=== PATIENT | male | born 1985 | race Caucasian/White ===

== ENCOUNTER 2021-03-11 23:36 | Emergency (ER) | payer OTHER, SELFPAY ==
[2021-03-12 00:16] VITALS: BP 154/102; PULSE 81; RESP 20; TEMP 37.3; O2SAT 98; BMI 33.4
[2021-03-12 01:46] VITALS: BP 161/98; PULSE 78; TEMP 36.4; O2SAT 99
--- NOTE | 2021-03-12 03:45 | ED_ITS ---
HPI - General Adult General Chief complaint: Headache Stated complaint: migraines Time Seen by Provider: 03/12/21 03:27 Source: patient Mode of arrival: ambulatory Limitations: no limitations History of Present Illness HPI narrative: 35-year-old male who presents emergency department for evaluation of left-sided headache. The patient states that he gets headaches frequently. He states that he has a history of migraine headaches as well as sinus headaches secondary to sinus infections. He states that over the past 2 weeks he has had rhinorrhea and pain on the left side of his face. He states that over the past 3 days the left-sided facial pain is gotten significantly worse and is 8/10. He describes the pain is a pressure-like pain and a pain behind his left eye as if someone is not taking his eye out with a knife. He does have photophobia and blurred vision. He denies phonophobia. He has had nausea with no vomiting. Patient states that he has been treated in the past with antibiotics with some improvement of his sinus infections. He denied fever, chills, chest pain, shortness of breath, abdominal pain, numbness or weakness. Related Data Home Medications Medication Instructions Recorded Confirmed pantoprazole 40 mg tablet,delayed 1 tab PO DAILY 03/12/21 03/12/21 release Previous Rx's Medication Instructions Recorded cefpodoxime 200 mg tablet 200 mg PO BID 10 Days #20 tab 03/12/21 metoclopramide HCl 10 mg tablet 10 mg PO Q6H PRN #14 tab 03/12/21 (Reglan) Allergies Allergy/AdvReac Type Severity Reaction Status Date / Time amoxicillin [AMOXICILLIN] Allergy Unknown HIVES Unverified 02/22/20 16:26 Amoxicillin Allergy Unknown hives Uncoded 06/22/12 00:00 Review of Systems Review of Systems: Yes all other systems are reviewed and are negative [facility] Past Medical History [facility] Narrative: Past medical history: Hypertension, asthma, GI bleed, hiatal hernia, arthritis in the back, migraine syndrome, sinusitis. Past surgical history: Hiatal hernia repair x2. Social history: The patient is a former smoker, he has quit smoking in 2013, he believes he smoked for 4 years. He denies alcohol use. He denies drug use. Social History Social History Alcohol intake: unknown Patient Tobacco Use Status: Tobacco use Unknown Use of substances other than those prescribed or required for medical reasons: Unknown Advance Directives: No Advance Directives Information Provided: Yes Physical Exam Vital Signs: Vital Signs: Last Vital Signs Temp 97.6 F 03/12/21 01:46 Pulse 78 03/12/21 01:46 Resp 20 03/12/21 00:16 BP 161/98 H 03/12/21 01:46 Pulse Ox 99 03/12/21 01:46 Body Mass Index 33.4 Const: General: cooperative and no acute distress Orientation/c onsciousness: oriented to person and oriented to place Limitations: no limitations HENMT: Head: Yes normal to inspection, Yes normocephalic and Yes atraumatic Ears: external ears normal General nose exam: Normal external nose present Face and sinus: Yes sinus tenderness (Left frontal and left maxillary) Mouth: Normal oral and palatal mucosa present Throat: Yes posterior oropharynx normal Eyes: General: appearance normal, both eyes and all related structures Pupils: Equal, round and reactive pupils present Neck: Neck: Yes normal visual inspection, Yes no lymphadenopathy, Yes trachea midline and Yes supple Chest: Chest palpation & inspection: normal inspection of the chest and normal palpation of entire chest wall Resp: Effort & Inspection: normal respiratory effort and able to speak in complete sentences Auscultation: clear to auscultation bilaterally Cardio: Rate: regular rate Rhythm: regular rhythm Heart sounds: S1 normal heart sound present, S2 normal heart sound present and no murmurs GI: Inspection: Yes normal to inspection Palpation (GI): Soft to palpation, nontender and no guarding Auscultation: normal bowel sounds : General: Yes no CVA tenderness Back/Spine/Pelvis: Back: no CVA tenderness Skin: General skin exam: no rashes or lesions noted Neuro: General: oriented to person and oriented to place Cranial nerves: Yes CN's II-XII intact bilaterally and Yes Equal, round and reactive pupils present Cognition (Neuro): normal cognition Motor exam (neuro): 5/5 motor strength present throughout Extrem: General: Yes normal to inspection Psych: Appearance: grossly normal Speech and movement: Normal speech and movement present Affect: normal affect Attitude: cooperative Thought process: Normal thought process present Thought content: Normal thought content present Course Course Course Narrative: 35-year-old male who presents emergency department for evaluation of left-sided headache times 2 weeks with worsening symptoms x3 days. Patient does have a history of frequent sinus infections and migraine syndrome. Vital signs revealed an elevated blood pressure of 154/1 of 2 otherwise unremarkable. Patient's examination did reveal tenderness palpation of the maxillary and frontal sinuses on the left otherwise was unremarkable. This time I believe the patient has both acute left frontal and maxillary sinus nfection as well as exacerbation of his migraine syndrome. Patient's headache pain will be treated with Reglan 10 mg IV, Benadryl 50 mg IV and Toradol 30 mg IV. He is also ordered to get normal saline IV x1 L. 0414: The patient changes mind and does not want IV treatment and rather take pills at home. The patient will be started on the following migraine regimen: Reglan 10 mg orally, Benadryl 50 mg orally and Excedrin migraine 2 pills orally every 6 hours as needed for headache. His sinus infection will also be treated with cefpodoxime 200 mg twice a day for 10 days . The patient was discharged home. Discharge Plan Discharge Clinical Impression: Migraine Qualifiers: Migraine type: without aura Status migrainosus presence: without status mi grainosus Intractability: not intractable Qualified Code(s): G43.009 - Migraine without aura, not intractable, without status migrainosus Sinusitis Qualifiers: Sinusitis location: maxillary Chronicity: acute Recurrence: non-recurrent Qu alified Code(s): J01.00 - Acute maxillary sinusitis, unspecified Patient Disposition: Home, Self-Care Additional Instructions: Your examination is consistent with a left frontal and maxillary sinus infection (sinusitis). I also believe that your having a migraine headache possibly triggered by your sinus infection. I want you to take the following 3 medications together every 6 hours as needed for headache, nausea or vomiting. Reglan (metoclopramide) in 10 mg, 1 pill Benadryl 25 mg, 2 pills Excedrin migraine, 2 pills. After you take these medications, lie down in a dark quiet room and try to fall asleep. These medications will make you sleepy, do not drive or work after taking these medications. Four year sinus infection I want you to take cefpodoxime 200 mg pills, 1 pill every 12 hours (take with food) for 10 days. Follow-up with your doctor in 2 days. Please return to the emergency department if your symptoms get worse or if you develop any symptoms that are concerning to you. Prescriptions: New metoclopramide HCl [Reglan] 10 mg tablet 10 mg PO Q6H PRN (Reason: nausea and vomiting) Qty: 14 RF: 0 cefpodoxime 200 mg tablet 200 mg PO BID 10 Days Qty: 20 RF: 0 No Action pantoprazole 40 mg tablet,delayed release (DR/EC) 1 tab PO DAILY RF: 0
[2021-03-12 04:00] VITALS: BP 157/64; PULSE 78; RESP 20; TEMP 36.4; O2SAT 99
== END 2021-03-12 04:35 | disposition home or self-care (01) ==
PROVIDERS: Emergency Provider Emergency Medicine Emergency Medical Services
DX: G43.009 Migraine without aura, not intractable, without status migrainosus (principal); J01.00 Acute maxillary sinusitis, unspecified; I10 Essential (primary) hypertension; J45.909 Unspecified asthma, uncomplicated
CPT/HCPCS: 99284

== ENCOUNTER 2021-06-11 22:42 | Inpatient (IN) | payer OTHER, SELFPAY ==
--- NOTE | 2021-06-11 | ECG_ITS ---
Test Reason : DIZZINESS Blood Pressure : / mmHG Vent. Rate : 107 BPM Atrial Rate : 107 BPM P-R Int : 124 ms QRS Dur : 086 ms QT Int : 326 ms P-R-T Axes : 057 068 063 degrees QTc Int : 435 ms Sinus tachycardia Otherwise normal ECG No previous ECGs available Referred By: Generic ED Physician Electronically Signed By:THI MUÑOZ MD
--- NOTE | ~2021-06-11 | CT_ITS ---
EXAMINATION: CT ABDOMEN AND PELVIS WITHOUT AND WITH CONTRAST [CT GI bleeding study] CLINICAL INFORMATION: Hematemesis. Melanoma. Epigastric abdominal discomfort. COMPARISON: None. TECHNIQUE: Multidetector volumetric imaging was performed from the superior aspect of the liver through the pubic symphysis before and after the administration of 85mL Omnipaque 350 intravenous contrast. Postcontrast images were acquired utilizing split bolus technique during the nephrographic and urographic phases. Sagittal and coronal reformatted images were obtained on the technologist workstation. This CT examination was performed using dose optimization techniques as appropriate, variously including the following: *Automated exposure control *Adjustment of mA and/or kV according to patient size (this includes techniques or standardized protocols for targeted exams where dose is matched to indication/reason for exam; i.e. extremities or head) *Use of iterative reconstruction technique DLP: 1527 mGy-cm FINDINGS: LUNG BASES: The visualized lung bases are unremarkable. LIVER, GALLBLADDER, AND BILIARY TREE: The liver is normal in size, shape, and attenuation. No focal hepatic lesion or biliary ductal dilatation is present. Cholelithiasis. PANCREAS: Unremarkable. SPLEEN: Unremarkable. ADRENAL GLANDS: Unremarkable. GENITOURINARY: The kidneys are normal in size, axis, morphology and parenchymal attenuation with symmetric uptake of contrast bilaterally. No suspicious renal cyst or mass. No hydronephrosis or hydroureter. Ureters are normal in course and caliber. Bladder is normal. No urinary calculi. No perinephric abnormalities. Prostate and seminal vesicles are unremarkable. GASTROINTESTINAL TRACT: Moderate hiatal hernia. Small and large bowel are unremarkable. Normal appendix. No sites of active gastrointestinal bleeding are identified. ABDOMINAL WALL: No significant hernia is appreciated. LYMPH NODES: Normal. VASCULAR: Unremarkable. OSSEOUS STRUCTURES: Unremarkable. CT/CT gi bleed abd pel wo/w con IMPRESSION: * No source of active gastrointestinal bleeding is identified. * Moderate hiatal hernia. This could be the source of the patient's symptoms as the gastric cardia appears to be enveloping the distal esophagus. * Cholelithiasis.
[2021-06-11 22:59] VITALS: BP 137/100; PULSE 121; RESP 22; TEMP 37.8; O2SAT 100; BMI 34.8
[2021-06-12] VITALS (11 sets, daily range): BP systolic 99–137; BP diastolic 62–88; PULSE 85–119; RESP 14–22; TEMP 36.8–37.9; O2SAT 97–100
[2021-06-12 01:02] LABS: MANUAL DIFF FLAG NO
[2021-06-12 01:03] LABS: Basophils Absolute Auto 0.1 X10*3/uL (0.0-0.2); Basophils Percent Auto 0.6 % (0-2); Eosinophils Absolute Auto 0.3 X10*3/uL (0.0-0.4); Hematocrit 33.1 % (42.0-52.0); Hemoglobin 10.4 g/dl (14.0-18.0); Imm Gran Abs Auto 0.05 X10*3/uL (0.00-0.03); Imm Gran Pct Auto 0.5 % (0.0-0.4); Lymphocytes Absolute Auto 1.8 X10*3/uL (1.2-4.9); Lymphocytes Percent Auto 17.4 % (20-40); Mean Corpuscular HGB Conc 31.4 g/dl (31.0-36.0); Mean Corpuscular Hemoglobin 25.2 pg (27.0-33.0); Mean Corpuscular Volume 80.1 fL (80.0-98.0); Mean Platelet Volume 9.5 fL (9.4-12.4); Monocytes Absolute Auto 0.5 X10*3/uL (0.1-1.2); Monocytes Percent Auto 4.9 % (2-11); Neutrophils Absolute Auto 7.6 x10*3/uL (2.0-8.3); Neutrophils Percent Auto 73.6 % (45-73); Platelet Count 460 X10*3/uL (160-400); Red Blood Count 4.13 X10*6/uL (4.60-5.80); Red Cell Distribution Width 14.5 % (11.0-16.0); White Blood Count 10.4 X10*3/uL (4.8-10.8)
[2021-06-12 01:19] LABS: Alanine Aminotransferase 18 U/L (0-40); Albumin Level 4.3 g/dL (3.5-5.0); Alkaline Phosphatase 83 U/L (39-117); Anion Gap 11 (12-20); Aspartate Amino Transferase 15 U/L (5-37); Bilirubin Total 0.7 mg/dL (0.0-1.0); Blood Urea Nitrogen 36 mg/dL (9-16); Calcium 9.6 mg/dL (8.4-10.2); Carbon Dioxide 27 mmol/L (22-29); Chloride 108 mmol/L (96-108); Creatinine Clr Calc Pharmacy 125.7; Estimated Glomerular Filt Rate > 60; Glucose Random 110 mg/dL (60-115); Potassium 4.6 mmol/L (3.3-5.1); Sodium 141 mmol/L (135-145); Total Protein 7.5 g/dL (6.5-8.0)
[2021-06-12 01:20] LABS: COVID-19 Test Negative (Negative); IDNOW Serial# 9DD0AD1C
--- NOTE | 2021-06-12 02:12 | ED.GIBLEED ---
HPI - GI Bleed General Chief complaint: GI Bleed Stated complaint: vomiting blood Time Seen by Provider: 06/11/21 23:44 Source: patient Mode of arrival: ambulatory History of Present Illness HPI Narrative: 35-year-old male presents with history GI bleed and alcohol use with complaints of 3 days ?black diarrhea and then today began having episodes hematemesis with the last episode occurring with clots at approximately 7:00 p.m.. Patient endorses epigastric pain as well as feeling weak and dizzy. Patient has had both [employer] COVID-19 vaccines. Related Data Home Medications Medication Instructions Recorded Confirmed albuterol sulfate 90 mcg/actuation 1 puff PO QID PRN 06/12/21 06/12/21 aerosol inhaler (ProAir HFA) ibuprofen 800 mg tablet 1 tab PO TID 06/12/21 06/12/21 lisinopril 40 mg tablet 1 tab PO DAILY 06/12/21 06/12/21 tiotropium bromide 18 mcg capsule 1 cap INHALATION DAILY 06/12/21 06/12/21 with inhalation device (Spiriva with HandiHaler) Allergies Allergy/AdvReac Type Severity Reaction Status Date / Time amoxicillin [AMOXICILLIN] Allergy Unknown HIVES Verified 06/11/21 22:59 Amoxicillin Allergy Unknown hives Uncoded 06/11/21 22:59 Review of Systems Review of Systems: Pertinent positives and negatives as stated in HPI 10 point review of systems is otherwise negative. PMFSH Past Medical History Source: nursing notes reviewed Social History Social History Alcohol intake: unknown Patient Tobacco Use Status: Tobacco use Unknown Advance Directives: No Advance Directives Information Provided: Yes Physical Exam Vital Signs: Vital Signs: Last Vital Signs Temp 99.4 F 06/12/21 02:15 Pulse 106 H 06/12/21 02:15 Resp 22 H 06/12/21 02:15 BP 124/85 06/12/21 02:15 Pulse Ox 98 06/12/21 02:15 BMI result Body Mass Index 34.8 VITAL SIGNS: Reviewed. GENERAL: Well developed, well nourished, in no acute distress. HEAD: Normocephalic/atraumatic EYES: PERRLA, EOMI OROPHARYNX: no oral lesions noted, posterior pharynx clear NECK: Supple, no adenopathy LUNGS: Normal breath sounds. No adventitious sounds or accessory muscle use. SpO2<100> CARDIOVASCULAR: Regular rate and rhythm without noted murmurs, no JVD or lower extremity edema. ABDOMEN: Soft, epigastric pain, non-distended with bowel sounds. ADE: External exam is without acute findings, minimal stool in rectal vault that is not melanotic nor is it hematochezia, good rectal tone MUSCULOSKELETAL: No tenderness, deformities, or effusions noted on gross inspection. EXTREMITIES: No cyanosis, clubbing or edema. SKIN: Inspection of the skin reveals no rashes, but pale NEUROLOGIC: Alert and oriented x 4. Strength and sensation to light touch were grossly intact x 4. Course Course Course Narrative: 35-year-old male with history and clinical presentation consistent with symptomatic most likely upper GI bleed. 0400: Patient declines blood transfusion if needed and is aware that he can change his mind at any time. Review of all investigations significant for symptomatic anemia, patient has pictures demonstrating large clots that were vomited, and stool was guaiac positive. Patient is noted to be hemodynamically stable, COVID negative and the case was discussed briefly with the inpatient hospitalist. Patient is currently declining blood transfusion but will be admitted for upper GI bleed and has received 80mg Protonix as well as IV fluids. MDM - GI Bleed Lab Data Result diagrams: 06/12/21 00:57 06/12/21 00:57 Labs: Lab Results 06/12/21 06/12/21 06/12/21 Range/Units 00:57 00:57 00:57 WBC 10.4 (4.8-10.8) X10*3/uL RBC 4.13 L (4.60-5.80) X10*6/uL Hgb 10.4 L (14.0-18.0) g/dl Hct 33.1 L (42.0-52.0) % MCV 80.1 (80.0-98.0) fL MCH 25.2 L (27.0-33.0) pg MCHC 31.4 (31.0-36.0) g/dl RDW 14.5 (11.0-16.0) % Plt Count 460 H (160-400) X10*3/uL MPV 9.5 (9.4-12.4) fL Immature Gran % (Auto) 0.5 H (0.0-0.4) % Neut % (Auto) 73.6 H (45-73) % Lymph % (Auto) 17.4 L (20-40) % [place] % (Auto) 4.9 (2-11) % Eos % (Auto) 3.0 (0-4) % Baso % (Auto) 0.6 (0-2) % Lymph # (Auto) 1.8 (1.2-4.9) X10*3/uL [place] # (Auto) 0.5 (0.1-1.2) X10*3/uL Eos # (Auto) 0.3 (0.0-0.4) X10*3/uL Baso # (Auto) 0.1 (0.0-0.2) X10*3/uL Abs Immat Gran (auto) 0.05 H (0.00-0.03) X10*3/uL Absolute Neuts (auto) 7.6 (2.0-8.3) x10*3/uL Absolute Nucleated RBC 0.000 (0.0-0.012) X10*3/uL Nucleated RBC % (auto) 0.0 (0.0-0.2) /100WBC PT (9.9-13.0) SEC INR (0.9-1.1) Sodium 141 (135-145) mmol/L Potassium 4.6 (3.3-5.1) mmol/L Chloride 108 (96-108) mmol/L Carbon Dioxide 27 (22-29) mmol/L Anion Gap 11 L (12-20) BUN 36 H (9-16) mg/dL Creatinine 1.06 (0.5-1.4) mg/dL Estim Creat Clear Calc 125.7 Estimated GFR > 60 Random Glucose 110 (60-115) mg/dL Calcium 9.6 (8.4-10.2) mg/dL Total Bilirubin 0.7 (0.0-1.0) mg/dL AST 15 (5-37) U/L ALT 18 (0-40) U/L Alkaline Phosphatase 83 (39-117) U/L Total Protein 7.5 (6.5-8.0) g/dL Albumin 4.3 (3.5-5.0) g/dL Lipase 21 (8-78) U/L Urine Color Urine Appearance Urine pH (5.0-8.0) Ur Specific [place] (1.005-1.025) Urine Protein (NEG-TRACE) MG/DL Urine Glucose (UA) (NEG) MG/DL Urine Ketones (NEG) MG/DL Urine Blood (NEG) Urine Nitrite (NEG) Ur Leukocyte Esterase (NEG) Stool Occult Blood (NEGATIVE) Ethyl Alcohol mg/dL COVID-19 (MYA) Negative (Negative) COVID-19 Clin Com See Note Blood Type Antibody Screen 06/12/21 06/12/21 06/12/21 Range/Units 00:57 02:18 02:18 WBC (4.8-10.8) X10*3/uL RBC (4.60-5.80) X10*6/uL Hgb (14.0-18.0) g/dl Hct (42.0-52.0) % MCV (80.0-98.0) fL MCH (27.0-33.0) pg MCHC (31.0-36.0) g/dl RDW (11.0-16.0) % Plt Count (160-400) X10*3/uL MPV (9.4-12.4) fL Immature Gran % (Auto) (0.0-0.4) % Neut % (Auto) (45-73) % Lymph % (Auto) (20-40) % [place] % (Auto) (2-11) % Eos % (Auto) (0-4) % Baso % (Auto) (0-2) % Lymph # (Auto) (1.2-4.9) X10*3/uL [place] # (Auto) (0.1-1.2) X10*3/uL Eos # (Auto) (0.0-0.4) X10*3/uL Baso # (Auto) (0.0-0.2) X10*3/uL Abs Immat Gran (auto) (0.00-0.03) X10*3/uL Absolute Neuts (auto) (2.0-8.3) x10*3/uL Absolute Nucleated RBC (0.0-0.012) X10*3/uL Nucleated RBC % (auto) (0.0-0.2) /100WBC PT (9.9-13.0) SEC INR (0.9-1.1) Sodium (135-145) mmol/L Potassium (3.3-5.1) mmol/L Chloride (96-108) mmol/L Carbon Dioxide (22-29) mmol/L Anion Gap (12-20) BUN (9-16) mg/dL Creatinine (0.5-1.4) mg/dL Estim Creat Clear Calc Estimated GFR Random Glucose (60-115) mg/dL Calcium (8.4-10.2) mg/dL Total Bilirubin (0.0-1.0) mg/dL AST (5-37) U/L ALT (0-40) U/L Alkaline Phosphatase (39-117) U/L Total Protein (6.5-8.0) g/dL Albumin (3.5-5.0) g/dL Lipase (8-78) U/L Urine Color YELLOW Urine Appearance CLEAR Urine pH 6.0 (5.0-8.0) Ur Specific [place] 1.025 (1.005-1.025) Urine Protein NEG (NEG-TRACE) MG/DL Urine Glucose (UA) NEG (NEG) MG/DL Urine Ketones 15 (NEG) MG/DL Urine Blood NEG (NEG) Urine Nitrite NEG (NEG) Ur Leukocyte Esterase NEG (NEG) Stool Occult Blood POSITIVE (NEGATIVE) Ethyl Alcohol < 10 mg/dL COVID-19 (MYA) (Negative) COVID-19 Clin Com Blood Type Antibody Screen 06/12/21 06/12/21 Range/Units 02:24 02:24 WBC (4.8-10.8) X10*3/uL RBC (4.60-5.80) X10*6/uL Hgb (14.0-18.0) g/dl Hct (42.0-52.0) % MCV (80.0-98.0) fL MCH (27.0-33.0) pg MCHC (31.0-36.0) g/dl RDW (11.0-16.0) % Plt Count (160-400) X10*3/uL MPV (9.4-12.4) fL Immature Gran % (Auto) (0.0-0.4) % Neut % (Auto) (45-73) % Lymph % (Auto) (20-40) % [place] % (Auto) (2-11) % Eos % (Auto) (0-4) % Baso % (Auto) (0-2) % Lymph # (Auto) (1.2-4.9) X10*3/uL [place] # (Auto) (0.1-1.2) X10*3/uL Eos # (Auto) (0.0-0.4) X10*3/uL Baso # (Auto) (0.0-0.2) X10*3/uL Abs Immat Gran (auto) (0.00-0.03) X10*3/uL Absolute Neuts (auto) (2.0-8.3) x10*3/uL Absolute Nucleated RBC (0.0-0.012) X10*3/uL Nucleated RBC % (auto) (0.0-0.2) /100WBC PT 13.7 H (9.9-13.0) SEC INR 1.2 H (0.9-1.1) Sodium (135-145) mmol/L Potassium (3.3-5.1) mmol/L Chloride (96-108) mmol/L Carbon Dioxide (22-29) mmol/L Anion Gap (12-20) BUN (9-16) mg/dL Creatinine (0.5-1.4) mg/dL Estim Creat Clear Calc Estimated GFR Random Glucose (60-115) mg/dL Calcium (8.4-10.2) mg/dL Total Bilirubin (0.0-1.0) mg/dL AST (5-37) U/L ALT (0-40) U/L Alkaline Phosphatase (39-117) U/L Total Protein (6.5-8.0) g/dL Albumin (3.5-5.0) g/dL Lipase (8-78) U/L Urine Color Urine Appearance Urine pH (5.0-8.0) Ur Specific [place] (1.005-1.025) Urine Protein (NEG-TRACE) MG/DL Urine Glucose (UA) (NEG) MG/DL Urine Ketones (NEG) MG/DL Urine Blood (NEG) Urine Nitrite (NEG) Ur Leukocyte Esterase (NEG) Stool Occult Blood (NEGATIVE) Ethyl Alcohol mg/dL COVID-19 (MYA) (Negative) COVID-19 Clin Com Blood Type O Negative Antibody Screen NEGATIVE ECG Data Attestation: I personally reviewed and interpreted this ECG as follows: Prior ECG tracings: not available for review Interpretation: Sinus tachycardia, HR-107, no STEMI, [place]/QRS/QTC are within normal limits. Critical Care Time Critical Care Time Critical Care Time: Yes Total Critical Care Time: 30 Attestation: I personally attest to this time spent taking care of the patient. Discharge Plan Discharge Clinical Impression: UGIB (upper gastrointestinal bleed) Patient Disposition: Admitted As Inpatient Prescriptions: No Action ibuprofen 800 mg tablet 1 tab PO TID RF: 0 albuterol sulfate [ProAir HFA] 90 mcg/actuation HFA aerosol inhaler 1 puff PO QID PRN (Reason: wheezing) RF: 0 lisinopril 40 mg tablet 1 tab PO DAILY RF: 0 Spiriva with HandiHaler 18 mcg capsule, w/inhalation device 1 cap inhalation DAILY RF: 0
[2021-06-12 02:31] LABS: Lipase 21 U/L (8-78)
[2021-06-12 02:32] LABS: Ethanol < 10 mg/dL
[2021-06-12 02:35] LABS: Appearance Urine CLEAR; Color Urine YELLOW; Glucose Urine UA NEG (NEG); Leukocyte Esterase Urine NEG (NEG); Nitrite Urine NEG (NEG); Specific Gravity - Urine 1.025 (1.005-1.025); Urine Blood NEG (NEG); Urine Ketones 15 MG/DL (NEG); Urine Protein NEG (NEG-TRACE)
[2021-06-12] MEDS: Pantoprazole Sodium 40 MG/10 ML VIAL 80 MG IVPUSH (02:37)
[2021-06-12] MEDS: 0.9 % Sodium Chloride 1,000 ML 999 ML IV (02:38)
[2021-06-12 02:49] LABS: OBS Int Ctl Valid YES; OBS1 POSITIVE (NEGATIVE)
[2021-06-12 03:02] LABS: INTERNATIONAL NORM RATIO 1.2 (0.9-1.1); Prothrombin Time 13.7 SEC (9.9-13.0)
[2021-06-12] MEDS: LORazepam 2 MG/ML VIAL 1 MG IVPUSH (04:04)
[2021-06-12] MEDS: iohexoL 350 MG/ML 100 ML INFUS..BTL 85 ML IV (04:38)
--- NOTE | 2021-06-12 08:51 | PHA.MEDREC ---
Pharmacy Consult ? Medication Reconciliation Pharmacy has reviewed the medication reconciliation completed by Kyra. There are no remarkable issue for provider's attention. Catherine Umana, DanielD
--- NOTE | 2021-06-12 09:16 | PM.GICN ---
History of Present Illness Data of Consult Service Date: 06/12/21 Requesting physician: Ean Quiroz Primary Care Provider: Unknown Physician HPI Reason for consult: bloody emesis 35-year-old male presents with history GI bleed and alcohol use who I am seeing for assessment for hematemesis. he noted 3 days of black colored stools, then yesterday eh developed severe epigastric burning pain, 10/10 with coffee colored vomiting. The last episode was last night and no further episodes since then. He does endorse taking naprosyn and ibuprofen maybe once a month for chronic back pain. he says his last drink of alcohol was close to the new year with small nips of vodka. Denies fevers, chills, no chest pain, SOB, does take tums and pantoprazole as needed for heartburn. He was feeling weak and dizzy adn does not want blood transfusions. He says he has had several EGD in past for similar sx at [facility] but nothing found. HGB went from 10 g/dl to 8 g/dl, BUn elevated, vitals stable [facility] Past Medical History Medical History (Updated 06/12/21 @ 10:33 by Remigio Fields MD) Asthma Surgical History Surgical History (Updated 06/12/21 @ 10:28 by Remigio Fields MD) History of repair of hiatal hernia Social History Social History (Updated 06/12/21 @ 10:29 by Remigio Fields MD) Alcohol intake: former Year quit: 2011 Patient Tobacco Use Status: Former Tobacco user Quit Date: 2013 Use of substances other than those prescribed or required for medical reasons: No Are you DNR?: No Advance Directives: No Advance Directives Information Provided: Yes Meds Allergies Allergy/AdvReac Type Severity Reaction Status Date / Time amoxicillin [AMOXICILLIN] Allergy Unknown HIVES Verified 06/11/21 22:59 Amoxicillin Allergy Unknown hives Uncoded 06/11/21 22:59 Active Medications: Current Medications Albuterol Sulfate (Albuterol Sulfate 90 Mcg 8 Gm Inhaler) 1 puff INHALE QID PRN PRN Reason: wheezing Pantoprazole Sodium (Pantoprazole Sodium 40 Mg/10 Ml Vial) 40 mg IVPUSH BID@0630,1630 [facility] Pharmacy Consult (Consult Rx Perform Med Rec) 1 each MISCELLANE ONCE PRN PRN Reason: Consult order Tiotropium Bishop (Tiotropium [place] 18 Mcg Cap.W.Dev) 1 puff INHALE DAILY [facility] Last Admin: 06/12/21 08:24 Dose: Not Given Documented by: Home Medications Medication Instructions Recorded Confirmed Last Taken Type albuterol sulfate 90 mcg/actuation 1 puff PO QID PRN 06/12/21 06/12/21 Unknown History aerosol inhaler (ProAir HFA) ibuprofen 800 mg tablet 1 tab PO TID 06/12/21 06/12/21 Unknown History lisinopril 40 mg tablet 1 tab PO DAILY 06/12/21 06/12/21 Unknown History tiotropium bromide 18 mcg capsule 1 cap INHALATION DAILY 06/12/21 06/12/21 Unknown History with inhalation device (Spiriva with HandiHaler) Physical Exam Vital Signs: Vital Signs: Last Vital Signs Temp 99.4 F 06/12/21 02:15 Pulse 87 06/12/21 08:16 Resp 15 06/12/21 08:16 BP 99/69 06/12/21 08:16 Pulse Ox 97 06/12/21 08:16 BMI result Body Mass Index 34.8 EXAM: GENERAL: The patient is well developed and nontoxic. VITAL SIGNS:see workflow HEENT: Nonicteric sclerae, PERRLA, EOMI. Oropharynx clear. Moist mucous membranes. Conjunctivae appear well perfused. No thyroid mass. CHEST: Chest wall is nontender. HEART: Regular rate and rhythm without murmurs. LUNGS: Clear to auscultation bilaterally. ABDOMEN: Soft, positive bowel sounds, mildly tender epigastrium, no organomegaly.no flank tenderness SKIN: No rash, no excessive bruising, petechiae, or purpura. NEUROLOGIC: Cranial nerves II-XII intact without motor/sensory deficit. Skin: General skin exam: no rashes or lesions noted Extrem: General: Yes normal to inspection Psych: Appearance: grossly normal Results Labs CBC & Chem 7: 06/12/21 10:40 06/12/21 00:57 Labs: Short CBC 06/12/21 Range/Units 00:57 WBC 10.4 (4.8-10.8) X10*3/uL Hgb 10.4 L (14.0-18.0) g/dl Hct 33.1 L (42.0-52.0) % Plt Count 460 H (160-400) X10*3/uL BMP 06/12/21 00:57 Sodium 141 Potassium 4.6 Chloride 108 Carbon Dioxide 27 BUN 36 H Creatinine 1.06 Calcium 9.6 Liver Function 06/12/21 Range/Units 00:57 Total Bilirubin 0.7 (0.0-1.0) mg/dL AST 15 (5-37) U/L ALT 18 (0-40) U/L Alkaline Phosphatase 83 (39-117) U/L Albumin 4.3 (3.5-5.0) g/dL Urine 06/12/21 Range/Units 02:18 Urine Color YELLOW Urine Appearance CLEAR Urine pH 6.0 (5.0-8.0) Ur Specific [place] 1.025 (1.005-1.025) Urine Protein NEG (NEG-TRACE) MG/DL Urine Glucose (UA) NEG (NEG) MG/DL Imaging CT scan - abdomen: Attestation: I personally reviewed and interpreted this imaging study as follows: My impression: gallstones, hiatal hernia noted, nml pancreas Assessment and Plan (1) UGIB (upper gastrointestinal bleed): Status: Acute 1/ Melena, epigastric pain, and hematemesis, ddx: esophagitis, peptic ulcer disease, gastritis, duodenitis, dieulafoy lesion PLAN: 1/ EGD today, cont with PPI as doing 2/ avoid nsaids, heparin 3/ trend HGB q12h, he is refusing PRBC, can consider iron infusion Procedures Date of Service Date of Service: 06/12/21
--- NOTE | 2021-06-12 10:22 | P.HPHOSP_ITS ---
History of Present Illness Date of Service: 06/12/21 Chief Complaint: vomiting blood and epigastric abdominal pain This is a 35 yo M with a PMH of prior GI bleed, hiatal hernia -- s/p repair, prior heavy alcohol use (reports he stopped drinking heavily in 2011 and now drinks a few times a year), HTN - not on any meds, who presents to the hospital with complaints of bloody vomitus which began on the day prior to arrival. Patient reports that for several days prior to this, he noticed tarry stools and epigastric burning / sharp pain. He did endorse daily (several times a day) use of NSAIDS for back pain and reports that he has been using it more than usual the last several days. He denies active alcohol use. He reports symptoms of anemia which include dizziness/lightheadedness. He denies any chest pain but does endorse dysnea on exertion. In the ED, his work up revealed an occult blood test which was positive. His CBC showed mild anemia of 10.4 / 33.1. He was initially normotensive but his latest BP is reading 99/69. He has been given IV PPI, IVF, IV ativan and will be admitted for further work up. Review of Systems Review of Systems: negative except HPI [facility] Medical History (Updated 06/12/21 @ 10:33 by Remigio Fields MD) Asthma Pertinent family history: Colon cancer in grand mother Father in 50s, cause unclear Brother at age 38 from opiate overdose Surgical History (Updated 06/12/21 @ 10:28 by Remigio Fields MD) History of repair of hiatal hernia Social History (Updated 06/12/21 @ 10:29 by Remigio Fields MD) Alcohol intake: former Year quit: 2011 Patient Tobacco Use Status: Former Tobacco user Quit Date: 2013 Use of substances other than those prescribed or required for medical reasons: No Advance Directives: No Advance Directives Information Provided: Yes Meds Allergies Allergy/AdvReac Type Severity Reaction Status Date / Time amoxicillin [AMOXICILLIN] Allergy Unknown HIVES Verified 06/11/21 22:59 Amoxicillin Allergy Unknown hives Uncoded 06/11/21 22:59 Active Medications: Current Medications Albuterol Sulfate (Albuterol Sulfate 90 Mcg 8 Gm Inhaler) 1 puff INHALE QID PRN PRN Reason: wheezing Pantoprazole Sodium (Pantoprazole Sodium 40 Mg/10 Ml Vial) 40 mg IVPUSH BID@0630,1630 [facility]acy Consult (Consult Rx Perform Med Rec) 1 each MISCELLANE ONCE PRN PRN Reason: Consult order Tiotropium [place] (Tiotropium [place] 18 Mcg Cap.W.Dev) 1 puff INHALE DAILY [facility] Last Admin: 06/12/21 08:24 Dose: Not Given Documented by: Home Medications Medication Instructions Recorded Confirmed Last Taken Type albuterol sulfate 90 mcg/actuation 1 puff PO QID PRN 06/12/21 06/12/21 Unknown History aerosol inhaler (ProAir HFA) ibuprofen 800 mg tablet 1 tab PO TID 06/12/21 06/12/21 Unknown History lisinopril 40 mg tablet 1 tab PO DAILY 06/12/21 06/12/21 Unknown History tiotropium bromide 18 mcg capsule 1 cap INHALATION DAILY 06/12/21 06/12/21 Unknown History with inhalation device (Spiriva with HandiHaler) Physical Exam Vital Signs and Narrative: Vital Signs: Last Vital Signs Temp 99.4 F 06/12/21 02:15 Pulse 87 06/12/21 08:16 Resp 15 06/12/21 08:16 BP 99/69 06/12/21 08:16 Pulse Ox 97 06/12/21 08:16 BMI result Body Mass Index 34.8 Const: Other: Constitutional - Awake and Alert, No apparent distress, appears pale Eyes - PERRLA, EOMI Cardiovascular - S1S2, RRR, No edema Respiratory - Normal lung expansion, Normal respiratory effort, No respiratory distress, CTA bilaterally Gastrointestinal - NT / ND; +BS; No rebound or guarding - No CVA tenderness Extremities - no calf tenderness bilaterally, no swelling Musculoskeletal - Normal inspection, normal ROM Skin - Warm/Dry Neurological - Alert & oriented x3, No focal deficit Psychological - Appropriate affect Results Labs CBC and Chem 7: 06/12/21 00:57 06/12/21 00:57 Labs: Laboratory Results - last 24 hr 06/12/21 06/12/21 06/12/21 00:57 00:57 00:57 MCV 80.1 MCH 25.2 L MCHC 31.4 RDW 14.5 Plt Count 460 H MPV 9.5 Immature Gran % (Auto) 0.5 H Neut % (Auto) 73.6 H Lymph % (Auto) 17.4 L [place] % (Auto) 4.9 Eos % (Auto) 3.0 Baso % (Auto) 0.6 Lymph # (Auto) 1.8 [place] # (Auto) 0.5 Eos # (Auto) 0.3 Baso # (Auto) 0.1 Abs Immat Gran (auto) 0.05 H Absolute Neuts (auto) 7.6 Absolute Nucleated RBC 0.000 Nucleated RBC % (auto) 0.0 PT INR Anion Gap 11 L Estim Creat Clear Calc 125.7 Estimated GFR > 60 Random Glucose 110 Calcium 9.6 Total Bilirubin 0.7 AST 15 ALT 18 Alkaline Phosphatase 83 Total Protein 7.5 Albumin 4.3 Lipase 21 Urine Color Urine Appearance Urine pH Ur Specific [place] Urine Protein Urine Glucose (UA) Urine Ketones Urine Blood Urine Nitrite Ur Leukocyte Esterase Stool Occult Blood Ethyl Alcohol COVID-19 (MYA) Negative COVID-19 Clin Com See Note Blood Type Antibody Screen 06/12/21 06/12/21 06/12/21 00:57 02:18 02:18 MCV MCH MCHC RDW Plt Count MPV Immature Gran % (Auto) Neut % (Auto) Lymph % (Auto) [place] % (Auto) Eos % (Auto) Baso % (Auto) Lymph # (Auto) [place] # (Auto) Eos # (Auto) Baso # (Auto) Abs Immat Gran (auto) Absolute Neuts (auto) Absolute Nucleated RBC Nucleated RBC % (auto) PT INR Anion Gap Estim Creat Clear Calc Estimated GFR Random Glucose Calcium Total Bilirubin AST ALT Alkaline Phosphatase Total Protein Albumin Lipase Urine Color YELLOW Urine Appearance CLEAR Urine pH 6.0 Ur Specific [place] 1.025 Urine Protein NEG Urine Glucose (UA) NEG Urine Ketones 15 Urine Blood NEG Urine Nitrite NEG Ur Leukocyte Esterase NEG Stool Occult Blood POSITIVE Ethyl Alcohol < 10 COVID-19 (MYA) COVID-19 Clin Com Blood Type Antibody Screen 06/12/21 06/12/21 02:24 02:24 MCV MCH MCHC RDW Plt Count MPV Immature Gran % (Auto) Neut % (Auto) Lymph % (Auto) [place] % (Auto) Eos % (Auto) Baso % (Auto) Lymph # (Auto) [place] # (Auto) Eos # (Auto) Baso # (Auto) Abs Immat Gran (auto) Absolute Neuts (auto) Absolute Nucleated RBC Nucleated RBC % (auto) PT 13.7 H INR 1.2 H Anion Gap Estim Creat Clear Calc Estimated GFR Random Glucose Calcium Total Bilirubin AST ALT Alkaline Phosphatase Total Protein Albumin Lipase Urine Color Urine Appearance Urine pH Ur Specific [place] Urine Protein Urine Glucose (UA) Urine Ketones Urine Blood Urine Nitrite Ur Leukocyte Esterase Stool Occult Blood Ethyl Alcohol COVID-19 (MYA) COVID-19 Clin Com Blood Type O Negative Antibody Screen NEGATIVE Imaging Radiologist's Impressions: Impressions Abdomen/Pelvis CT 06/12/21 04:38 IMPRESSION: * No source of active gastrointestinal bleeding is identified. * Moderate hiatal hernia. This could be the source of the patient's symptoms as the gastric cardia appears to be enveloping the distal esophagus. * Cholelithiasis. Assessment and Plan (1) UGIB (upper gastrointestinal bleed): Status: Acute This is a 35 yo M with a known history of hiatal hernia - s/p repair, prior heavy alcohol use -- quit drinking daily in 2011, heavy daily NSAID use, who presents to the hospital with complaints of melena and epigastric pain for several days which has now progressed to vomiting bright red blood. He has symptoms of anemia with dizziness / lightheadedness,. He will be admitted for further treatment. 1. Acute Blood loss anemia secondary to Upper GI bleed possibly due to heavy NSAID use NPO IVF IV PPI GI consult -- plan for endoscopy monitor h/h -- although the patient refuses blood product transution 2. Asthma not in exacerbation continue baseline inhalers 3. HTN reports non-compliance with his antihypertensives BP on the lower side, hold NAM 4. Prior Heavy EtOH use reports no active drinking Full Code DVT pptx, mechanical due to acute bleeding Quality Stroke Does the patient have a stroke diagnosis?: No VTE Prior VTE?: No VTE Risk Level:: Medical - low VTE Device Contraindication: N/A - Device Ordered VTE Drug Contraindication: Treatment Not Indicated
[2021-06-12 10:50] LABS: Hematocrit 27.9 % (42.0-52.0); Hemoglobin 8.7 g/dl (14.0-18.0); Mean Corpuscular HGB Conc 31.2 g/dl (31.0-36.0); Mean Corpuscular Hemoglobin 24.9 pg (27.0-33.0); Mean Corpuscular Volume 79.9 fL (80.0-98.0); Mean Platelet Volume 9.2 fL (9.4-12.4); Platelet Count 383 X10*3/uL (160-400); Red Blood Count 3.49 X10*6/uL (4.60-5.80); Red Cell Distribution Width 14.7 % (11.0-16.0); White Blood Count 10.8 X10*3/uL (4.8-10.8)
[2021-06-12] MEDS: Dextrose 5 % and 0.9 % NaCl 1,000 ML 100 ML IVCONT (11:01)
--- NOTE | 2021-06-12 11:58 | HO.ANESPROP2 ---
[facility] Active Problems Active Problems: All Active Problems (Updated 06/12/21 @ 10:33 by Remigio Fields MD) HTN (hypertension) with goal to be determined (Acute) GERD (gastroesophageal reflux disease) (Acute) UGIB (upper gastrointestinal bleed) (Acute) Past Medical History Medical History Asthma Surgical History Surgical History History of repair of hiatal hernia Social History Social History Alcohol intake: former Year quit: 2011 Patient Tobacco Use Status: Former Tobacco user Quit Date: 2013 Use of substances other than those prescribed or required for medical reasons: No Are you DNR?: No Advance Directives: No Advance Directives Information Provided: Yes Meds Allergies Allergy/AdvReac Type Severity Reaction Status Date / Time amoxicillin [AMOXICILLIN] Allergy Unknown HIVES Verified 06/11/21 22:59 Amoxicillin Allergy Unknown hives Uncoded 06/11/21 22:59 Active Medications: Current Medications Acetaminophen (Acetaminophen 325 Mg Tablet) 650 mg PO Q6H PRN PRN Reason: Pain, Mild (Pain Scale 1-3) Albuterol Sulfate (Albuterol Sulfate 90 Mcg 8 Gm Inhaler) 1 puff INHALE QID PRN PRN Reason: wheezing Dextrose/Sodium Chloride (D5ns) 1,000 mls @ 100 mls/hr IVCONT .Q10H [facility] Last Admin: 06/12/21 11:01 Dose: 100 mls/hr Documented by: Ondansetron HCl (Ondansetron Hcl 4 Mg/2 Ml Vial) 4 mg IVPUSH Q8H PRN PRN Reason: Nausea and Vomiting Pantoprazole Sodium (Pantoprazole Sodium 40 Mg/10 Ml Vial) 40 mg IVPUSH BID@0630,1630 [facility] Pharmacy Consult (Consult Rx Perform Med Rec) 1 each MISCELLANE ONCE PRN PRN Reason: Consult order Sodium Chloride (0.9 % Sodium Chloride Flush 3 Ml Syringe) 3 ml IVFLUSH QSHIFT [facility] Tiotropium [place] (Tiotropium [place] 18 Mcg Cap.W.Dev) 1 puff INHALE DAILY [facility] Last Admin: 06/12/21 08:24 Dose: Not Given Documented by: Home Medications Medication Instructions Recorded Confirmed Last Taken Type albuterol sulfate 90 mcg/actuation 1 puff PO QID PRN 06/12/21 06/12/21 Unknown History aerosol inhaler (ProAir HFA) ibuprofen 800 mg tablet 1 tab PO TID 06/12/21 06/12/21 Unknown History lisinopril 40 mg tablet 1 tab PO DAILY 06/12/21 06/12/21 Unknown History tiotropium bromide 18 mcg capsule 1 cap INHALATION DAILY 06/12/21 06/12/21 Unknown History with inhalation device (Spiriva with HandiHaler) Exam Exam Date and Time: June 12, 2021 1158 Height,Weight and Vital Signs: Height 5 ft 11 in Weight 113.398 kg Last Vital Signs Temp 99.4 F 06/12/21 11:47 Pulse 96 06/12/21 11:47 Resp 16 06/12/21 11:47 BP 125/83 06/12/21 11:47 Pulse Ox 99 06/12/21 11:47 Pertinent Lab Results Pertinent Lab Results: Laboratory Tests 06/12/21 06/12/21 06/12/21 00:57 00:57 00:57 WBC 10.4 RBC 4.13 L Hgb 10.4 L Hct 33.1 L MCV 80.1 MCH 25.2 L MCHC 31.4 RDW 14.5 Plt Count 460 H MPV 9.5 Immature Gran % (Auto) 0.5 H Neut % (Auto) 73.6 H Lymph % (Auto) 17.4 L [place] % (Auto) 4.9 Eos % (Auto) 3.0 Baso % (Auto) 0.6 Lymph # (Auto) 1.8 [place] # (Auto) 0.5 Eos # (Auto) 0.3 Baso # (Auto) 0.1 Abs Immat Gran (auto) 0.05 H Absolute Neuts (auto) 7.6 Absolute Nucleated RBC 0.000 Nucleated RBC % (auto) 0.0 PT INR Sodium 141 Potassium 4.6 Chloride 108 Carbon Dioxide 27 Anion Gap 11 L BUN 36 H Creatinine 1.06 Estim Creat Clear Calc 125.7 Estimated GFR > 60 Random Glucose 110 Calcium 9.6 Total Bilirubin 0.7 AST 15 ALT 18 Alkaline Phosphatase 83 Total Protein 7.5 Albumin 4.3 Lipase 21 Urine Color Urine Appearance Urine pH Ur Specific [place] Urine Protein Urine Glucose (UA) Urine Ketones Urine Blood Urine Nitrite Ur Leukocyte Esterase Stool Occult Blood Ethyl Alcohol COVID-19 (MYA) Negative COVID-19 [employer] Com See Note Blood Type Antibody Screen 06/12/21 06/12/21 06/12/21 00:57 02:18 02:18 WBC RBC Hgb Hct MCV MCH MCHC RDW Plt Count MPV Immature Gran % (Auto) Neut % (Auto) Lymph % (Auto) [place] % (Auto) Eos % (Auto) Baso % (Auto) Lymph # (Auto) [place] # (Auto) Eos # (Auto) Baso # (Auto) Abs Immat Gran (auto) Absolute Neuts (auto) Absolute Nucleated RBC Nucleated RBC % (auto) PT INR Sodium Potassium Chloride Carbon Dioxide Anion Gap BUN Creatinine Estim Creat Clear Calc Estimated GFR Random Glucose Calcium Total Bilirubin AST ALT Alkaline Phosphatase Total Protein Albumin Lipase Urine Color YELLOW Urine Appearance CLEAR Urine pH 6.0 Ur Specific [place] 1.025 Urine Protein NEG Urine Glucose (UA) NEG Urine Ketones 15 Urine Blood NEG Urine Nitrite NEG Ur Leukocyte Esterase NEG Stool Occult Blood POSITIVE Ethyl Alcohol < 10 COVID-19 (MYA) COVID-[place] Com Blood Type Antibody Screen 06/12/21 06/12/21 06/12/21 02:24 02:24 10:40 WBC 10.8 RBC 3.49 L Hgb 8.7 L Hct 27.9 L MCV 79.9 L MCH 24.9 L MCHC 31.2 RDW 14.7 Plt Count 383 MPV 9.2 L Immature Gran % (Auto) Neut % (Auto) Lymph % (Auto) [place] % (Auto) Eos % (Auto) Baso % (Auto) Lymph # (Auto) [place] # (Auto) Eos # (Auto) Baso # (Auto) Abs Immat Gran (auto) Absolute Neuts (auto) Absolute Nucleated RBC 0.000 Nucleated RBC % (auto) 0.0 PT 13.7 H INR 1.2 H Sodium Potassium Chloride Carbon Dioxide Anion Gap BUN Creatinine Estim Creat Clear Calc Estimated GFR Random Glucose Calcium Total Bilirubin AST ALT Alkaline Phosphatase Total Protein Albumin Lipase Urine Color Urine Appearance Urine pH Ur Specific [place] Urine Protein Urine Glucose (UA) Urine Ketones Urine Blood Urine Nitrite Ur Leukocyte Esterase Stool Occult Blood Ethyl Alcohol COVID-19 (MYA) COVID-19 [employer] Com Blood Type O Negative Antibody Screen NEGATIVE Airway Mallampati Class: III TM Dist: >3cm Neck ROM: Full Loose/Missing/Broken Teeth: No Heart: RRR Lungs: CTA Assessment and Plan Assessment Anesthesia Assessment: Anesthesia Plan Discussed and Chart Reviewed Final Anesthetic Review NPO: Yes ASA Class: II Final Preanesthetic Review: Meds/Allgs Chart Reviewed, Consent Obtained/Reviewed and Anes Risks/Benef Reviewed Patient Risk: Low Procedure Risk: Intermediate Anesthetic Plan Anesthetic Plan: MAC: Disposition: Standard PACU
--- NOTE | 2021-06-12 12:04 | MHC.SHP ---
Pre-Procedural Eval Section A Date of Service: 06/12/21 The patient is an INPATIENT: Yes The History & Physical has been completed within 30 days and I have reviewed it.: Yes Section B Chief Complaint: Upper GI bleed Allergies: Allergies Allergy/AdvReac Type Severity Reaction Status Date / Time amoxicillin [AMOXICILLIN] Allergy Unknown HIVES Verified 06/11/21 22:59 Amoxicillin Allergy Unknown hives Uncoded 06/11/21 22:59 Plan Diagnosis/Plan: Unchanged I have reviewed the history and physical and performed a pertinent physical examination on my patient. No changes have occurred unless specified.
--- NOTE | 2021-06-12 12:36 | P.BOP_ITS ---
Brief Operative Note Date of Service: 06/12/21 Pre-op diagnosis: GI bleed Post-op diagnosis: same Procedure: see op note Surgeon: Rolando Auguste MD Anesthesia: MAC Was an Surveillance Supervisor used for this Procedure?: No Estimated blood loss (mL): 0 Condition: stable Disposition: PACU
--- NOTE | 2021-06-12 12:37 | W.PM.OPN ---
Operative Note Operative Note Date of Service: 06/12/21 Narrative: Procedure Description: EGD FLEXIBLE TRANSORAL UPPER GASTROINTESTINAL ENDOSCOPY UPPER ENDOSCOPY Consent: Indications for the procedure and potential complications of bleeding, perforation, reaction to medications and missed diagnosis were discussed with the patient and informed consent was obtained. Instrument: Olympus GIF H 190 J mid size upper endoscope Monitoring: Vital signs and clinical assessment, continuous EKG monitoring, Pulse oximetry, Carbon Dioxide monitoring and blood pressure monitoring were done throughout the procedure. Procedure: The patient was placed in the left lateral decubitis position and pre-procedure medications were administered and a bite block was placed. The endoscope was inserted into the mouth and advanced under direct vision to the third part of duodenum. A careful inspection was made as the upper endoscope was withdrawn including a retroflexed examination of the proximal stomach; Findings and interventions are described below. Findings: Larynx:normal Esophagus: GE junction at 38 cm, diaphragm hiatus at 40 cm, esophagitis noted. non obstructive schatzki sign. Small esophageal diverticulum noted. 2-3 cm hiatal hernia noted. Stomach: Patchy gastric erythema. Biopsies were obtained. Grade 2 flap valve on retroflexed examination of the cardia, as well as hiatal hernia. Prior fundoplication noted, with a clean based ulcer at proximal stomach body measuring about 12 mm (Richie grade III) Duodenum: Mild duodenitis noted Intervention: Biopsies as noted above Impression/Findings: Gastric ulcer esophagitis prior fundoplication hiatal hernia duodenitis esophageal diverticulum PLAN: Pantoprazole 40 mg BID emphasize compliance REFLUX precautions repeat EGD in 3 months to ensure ulcer has healed If h pylori pos then treat can go home today, Richie grade III ulcer < 5% chance of rebleeding
--- NOTE | 2021-06-12 16:15 | PC.NURSE ---
Pt arrives from ED requesting to go home, this rn reached out to Dr Fields who states pt will leave AMA and PPI wll be sent to pharmacy
--- NOTE | 2021-06-12 16:17 | P.DS_ITS ---
DS: Providers Provider Date of Service: 06/12/21 Date of admission: 06/12/21 10:20 Primary care physician: Unknown Physician Consults: 06/12/21 06:55 Consult to Gastroenterology Routine Consulting Provider: Rolando Auguste Reason for consultation: hematemesis DS: Diagnosis Discharge Diagnosis (1) UGIB (upper gastrointestinal bleed): Status: Acute (2) Acute blood loss anemia: Status: Acute (3) Gastric ulcer: Status: Acute DS: Summary Hospital Course Hospital Course: HPI From admission H&P: This is a 35 yo M with a PMH of prior GI bleed, hiatal hernia -- s/p repair, prior heavy alcohol use (reports he stopped drinking heavily in 2011 and now drinks a few times a year), HTN - not on any meds, who presents to the hospital with complaints of bloody vomitus which began on the day prior to arrival. Patient reports that for several days prior to this, he noticed tarry stools and epigastric burning / sharp pain. He did endorse daily (several times a day) use of NSAIDS for back pain and reports that he has been using it more than usual the last several days. He denies active alcohol use. He reports symptoms of anemia which include dizziness/lightheadedness. He denies any chest pain but does endorse dysnea on exertion. In the ED, his work up revealed an occult blood test which was positive. His CBC showed mild anemia of 10.4 / 33.1. He was initially normotensive but his latest BP is reading 99/69. He has been given IV PPI, IVF, IV ativan and will be admitted for further work up. Hospital Course: Patient was started on IV PPI. He had a repeat h/h which dropped nearly 2 units from 10 to 8. He was symptomatic with dizziness and tachycardia. He refused blood products and so was treated with IV fluids. He underwent urgent upper endoscopy whic showed: Gastric ulcer esophagitis prior fundoplication hiatal hernia duodenitis esophageal diverticulum The plan for to observe oral intake and repeat h/h the next morning, however the patient opted to leave against medical advice. He had been previously informed of the risks of leaving AMA which included worsening bleeding and possibly even . He was able to state the risks of leaving AMA in his own words. He decided to leavea AMA nontheless. To minimize harm, oral PPI (Prilosec 40mg) BID has been sent. He has been informed to follow up on the biopsy results in case he has H. Pylori. He has been informed on discontinuation of Ibuprofen and all NSAIDS. Time Spent with Patient Time attestation: Total time spent providing and/or coordinating discharge services: Discharge coordination time: Greater than 30 minutes Quality: Stroke Does the patient have a stroke diagnosis?: No Physical Exam Vital Signs: Vital Signs: Last Vital Signs Temp 98.6 F 06/12/21 14:37 Pulse 91 06/12/21 14:37 Resp 18 06/12/21 14:37 BP 130/73 06/12/21 14:37 Pulse Ox 97 06/12/21 14:37 BMI result Body Mass Index 34.8 DS: Data Data Completed and Pending Pending studies at discharge: Pending at discharge 06/12/21 12:32 Surgical [PTH] Routine Labs on day of discharge: Laboratory Results - last 24 hr 06/12/21 06/12/21 06/12/21 00:57 00:57 00:57 WBC 10.4 RBC 4.13 L Hgb 10.4 L Hct 33.1 L MCV 80.1 MCH 25.2 L MCHC 31.4 RDW 14.5 Plt Count 460 H MPV 9.5 Immature Gran % (Auto) 0.5 H Neut % (Auto) 73.6 H Lymph % (Auto) 17.4 L [place] % (Auto) 4.9 Eos % (Auto) 3.0 Baso % (Auto) 0.6 Lymph # (Auto) 1.8 [place] # (Auto) 0.5 Eos # (Auto) 0.3 Baso # (Auto) 0.1 Abs Immat Gran (auto) 0.05 H Absolute Neuts (auto) 7.6 Absolute Nucleated RBC 0.000 Nucleated RBC % (auto) 0.0 PT INR Sodium 141 Potassium 4.6 Chloride 108 Carbon Dioxide 27 Anion Gap 11 L BUN 36 H Creatinine 1.06 Estim Creat Clear Calc 125.7 Estimated GFR > 60 Random Glucose 110 Calcium 9.6 Total Bilirubin 0.7 AST 15 ALT 18 Alkaline Phosphatase 83 Total Protein 7.5 Albumin 4.3 Lipase 21 Urine Color Urine Appearance Urine pH Ur Specific [place] Urine Protein Urine Glucose (UA) Urine Ketones Urine Blood Urine Nitrite Ur Leukocyte Esterase Stool Occult Blood Ethyl Alcohol COVID-19 (MYA) Negative COVID-19 Clin Com See Note Blood Type Antibody Screen 06/12/21 06/12/21 06/12/21 00:57 02:18 02:18 WBC RBC Hgb Hct MCV MCH MCHC RDW Plt Count MPV Immature Gran % (Auto) Neut % (Auto) Lymph % (Auto) [place] % (Auto) Eos % (Auto) Baso % (Auto) Lymph # (Auto) [place] # (Auto) Eos # (Auto) Baso # (Auto) Abs Immat Gran (auto) Absolute Neuts (auto) Absolute Nucleated RBC Nucleated RBC % (auto) PT INR Sodium Potassium Chloride Carbon Dioxide Anion Gap BUN Creatinine Estim Creat Clear Calc Estimated GFR Random Glucose Calcium Total Bilirubin AST ALT Alkaline Phosphatase Total Protein Albumin Lipase Urine Color YELLOW Urine Appearance CLEAR Urine pH 6.0 Ur Specific [place] 1.025 Urine Protein NEG Urine Glucose (UA) NEG Urine Ketones 15 Urine Blood NEG Urine Nitrite NEG Ur Leukocyte Esterase NEG Stool Occult Blood POSITIVE Ethyl Alcohol < 10 COVID-19 (MYA) COVID-19 [employer] Com Blood Type Antibody Screen 06/12/21 06/12/21 06/12/21 02:24 02:24 10:40 WBC 10.8 RBC 3.49 L Hgb 8.7 L Hct 27.9 L MCV 79.9 L MCH 24.9 L MCHC 31.2 RDW 14.7 Plt Count 383 MPV 9.2 L Immature Gran % (Auto) Neut % (Auto) Lymph % (Auto) [place] % (Auto) Eos % (Auto) Baso % (Auto) Lymph # (Auto) [place] # (Auto) Eos # (Auto) Baso # (Auto) Abs Immat Gran (auto) Absolute Neuts (auto) Absolute Nucleated RBC 0.000 Nucleated RBC % (auto) 0.0 PT 13.7 H INR 1.2 H Sodium Potassium Chloride Carbon Dioxide Anion Gap BUN Creatinine Estim Creat Clear Calc Estimated GFR Random Glucose Calcium Total Bilirubin AST ALT Alkaline Phosphatase Total Protein Albumin Lipase Urine Color Urine Appearance Urine pH Ur Specific [place] Urine Protein Urine Glucose (UA) Urine Ketones Urine Blood Urine Nitrite Ur Leukocyte Esterase Stool Occult Blood Ethyl Alcohol COVID-19 (MYA) COVID-19 Clin Com Blood Type O Negative Antibody Screen NEGATIVE Discharge Plan Discharge Patient Disposition: Left Against Medical Advice Discharge Diagnosis: Gastric Ulcer Esophagitis, Duodenitis GI bleed Referrals: Physician,Unknown J [Primary Care Provider] - 1 Week Discharge Medications: New omeprazole 40 mg capsule,delayed release(DR/EC) 40 mg PO BID Qty: 60 RF: 1 Continued albuterol sulfate [ProAir HFA] 90 mcg/actuation HFA aerosol inhaler 1 puff PO QID PRN (Reason: wheezing) RF: 0 Spiriva with HandiHaler 18 mcg capsule, w/inhalation device 1 cap inhalation DAILY RF: 0 Held lisinopril 40 mg tablet 1 tab PO DAILY RF: 0 Hold Instructions: Resume on 06/16/21. Discontinued ibuprofen 800 mg tablet 1 tab PO TID RF: 0 Discharge Orders: Discharge Order (Routine); Ordered 06/12/21 Ordered By: Remigio Fields Care Plan Goals: You are leaving AMA Health Concerns: Acute Blood loss anemia. Gi bleed. Gastric Ulcers Plan of Treatment: You are leaving against medical advice. If you change your decision, please return to the emergency room Stop taking Ibuprofen (or any medications like this -- NSAIDS). Take Prilosec 40mg twice daily until you are told to stop. Follow up with GI for repeat endscopy in 3 months. A biopsy has been taken, follow up with your PCP for further treatment pending the results of this biopsy. Assessment: See hospital course. Discharge Date/Time: 06/12/21 16:57
== END 2021-06-12 16:57 | disposition left against medical advice (07) | DRG 377 ==
LOC: HO.ED 06-12 07:36 → HO.EDOVER 06-12 10:24
PROVIDERS: Internal Medicine Gastroenterology; Admitting Provider Family Medicine; Emergency Provider Student in an Organized Health Care Education/Training Program; Visit Provider Family Medicine
PROC: 0DJ08ZZ Inspection of Upper Intestinal Tract, Via Natural or Artificial Opening Endoscopic (ICD-10-PCS; CPT 43235; principal; 2021-06-12 12:20)
DX: K25.4 Chronic or unspecified gastric ulcer with hemorrhage (principal); K20.91 Esophagitis, unspecified with bleeding; D62 Acute posthemorrhagic anemia; K29.81 Duodenitis with bleeding; J45.909 Unspecified asthma, uncomplicated; I10 Essential (primary) hypertension; K44.9 Diaphragmatic hernia without obstruction or gangrene; K22.2 Esophageal obstruction; K22.5 Diverticulum of esophagus, acquired; Z20.822 Contact with and (suspected) exposure to COVID-19; Z87.891 Personal history of nicotine dependence; Z88.0 Allergy status to penicillin; Z79.1 Long term (current) use of non-steroidal anti-inflammatories (NSAID); Z79.899 Other long term (current) drug therapy
CPT/HCPCS: 36415; 74178; 80053; 81003; 82077; 82272; 83690; 85025; 85027; 85610; 86850; 86900; 86901; 87635; 88305; 88342; 93005; 96361; 96374; 96375; 99285; J2060; J2250; Q9967

== ENCOUNTER 2022-06-10 17:04 | Emergency (ER) | payer OTHER, SELFPAY ==
--- NOTE | ~2022-06-10 | XR_ITS ---
EXAMINATION: XR CHEST CLINICAL INFORMATION: Covid positive. COMPARISON: None TECHNIQUE: Frontal view of the chest was obtained. FINDINGS: Normal appearance of the cardiomediastinal silhouette Minimal interstitial prominence with no focal airspace opacities, pleural effusions or pneumothorax. No acute osseous abnormalities. The visualized upper abdomen is within normal limits. XR/XR chest 1V IMPRESSION: Mild interstitial prominence which is nonspecific and could be associated with atypical viral infections. No dense consolidation. Clear pleural spaces.
--- NOTE | 2022-06-10 17:00 | PC.NURSE ---
IV established, labs drawn and sent. Sinus tach on monitor.
[2022-06-10 17:17] VITALS: BP 149/82; PULSE 127; RESP 24; TEMP 37.1; O2SAT 98; BMI 32.3
--- NOTE | 2022-06-10 17:25 | ED_ITS ---
HPI - Nausea/Vomiting/Diarrhea General Chief complaint: Nausea/Vomiting/Diarrhea Stated complaint: DIZZINESS, VOMITING Time Seen by Provider: 06/10/22 17:21 Source: patient Mode of arrival: ambulatory Limitations: no limitations History of Present Illness HPI Narrative: Patient is 36 years old with history of upper GI bleed in 06/28 endoscopy showed esophagitis and clean based ulcer at proximal your stomach body comes here for nasal congestion cough since yesterday and vomiting started today with small amount of bright red blood patient noncompliant to his PPI denies any alcohol use taking Pepto-Bismol for stomach upset and has dark stool patient take ibuprofen 800 mg for headaches Related Data Home Medications Medication Instructions Recorded Confirmed albuterol sulfate 90 mcg/actuation 1 puff PO QID PRN wheezing 06/12/21 06/12/21 aerosol inhaler (ProAir HFA) ibuprofen 800 mg tablet 1 tab PO TID 06/12/21 06/12/21 lisinopril 40 mg tablet 1 tab PO DAILY 06/12/21 06/12/21 tiotropium bromide 18 mcg capsule 1 cap inhalation DAILY 06/12/21 06/12/21 with inhalation device (Spiriva with HandiHaler) Previous Rx's Medication Instructions Recorded omeprazole 40 mg capsule,delayed 40 mg PO BID #60 caps 06/12/21 release benzonatate 200 mg capsule 200 mg PO TID PRN cough #30 caps 06/10/22 pantoprazole 40 mg tablet,delayed 40 mg PO DAILY #30 tabs 06/10/22 release (Protonix) sucralfate 1 gram tablet 1 g PO TID #90 tabs 06/10/22 Allergies Allergy/AdvReac Type Severity Reaction Status Date / Time amoxicillin [AMOXICILLIN] Allergy Unknown HIVES Verified 06/11/21 22:59 Amoxicillin Allergy Unknown hives Uncoded 06/11/21 22:59 Review of Systems Review of Systems: Yes all other systems are reviewed and are negative PMFSH Past Medical History Medical History Asthma UGIB (upper gastrointestinal bleed) Surgical History History of repair of hiatal hernia Social History Social History Alcohol intake: former Year quit: 2011 Patient Tobacco Use Status: Former Tobacco user Quit Date: 2013 Use of substances other than those prescribed or required for medical reasons: No Advance Directives: No Advance Directives Information Provided: Yes Physical Exam Vital Signs: Vital Signs: Last Vital Signs Temp 98.8 F 06/10/22 17:17 Pulse 111 H 06/10/22 19:29 Resp 20 06/10/22 18:06 BP 149/82 H 06/10/22 17:17 Pulse Ox 99 06/10/22 18:06 O2 Del Method 06/10/22 18:06 BMI result Body Mass Index 32.3 Appearance: Alert. Oriented X3. No acute distress. Eyes: PERRLA, No Nystagmus ENT: Pharynx normal. Oral Mucosa moist congested Neck: Normal inspection. Neck supple. CVS: tachycardia. Pulses normal. Respiratory: No respiratory distress. Equal air entry bilateral, no wheezing/rales/rhonchi Abdomen: Soft , tender at epigastric area. Bowel sounds are present, no mass palpable, no CVA tenderness Skin: Skin warm and dry. Normal skin color. Normal skin turgor. Extremities: No lower extremity edema. No calf tenderness Neuro: Oriented X 3. No motor deficit. No sensory deficit.No cerebellar signs , cranial nerves II-XII intact Medications Administered Discontinued Medications Generic Name Dose Route Start Last Admin Trade Name Freq PRN Reason Stop Dose Admin Acetaminophen 975 mg 06/10/22 18:24 06/10/22 18:28 Acetaminophen 325 Mg Tablet PO 06/10/22 18:25 975 mg ONCE ONE Administration Sodium Chloride 1,000 mls @ 999 mls/hr 06/10/22 17:24 06/10/22 19:24 Ns IV 06/10/22 18:24 Infused .Q1H1M ONE Infusion Sodium Chloride 1,000 mls @ 999 mls/hr 06/10/22 19:16 06/10/22 19:26 Ns IV 06/10/22 20:16 999 mls/hr .Q1H1M ONE Administration Metoprolol Tartrate 5 mg 06/10/22 19:16 06/10/22 19:27 Metoprolol Tartrate 5 Mg/5 Ml Vial IVPUSH 06/10/22 19:17 5 mg ONCE ONE Administration Ondansetron HCl 4 mg 06/10/22 17:26 06/10/22 17:35 Ondansetron Hcl 4 Mg/2 Ml Vial IVPUSH 06/10/22 17:27 4 mg ONCE ONE Administration Pantoprazole Sodium 80 mg 06/10/22 17:24 06/10/22 17:35 Pantoprazole Sodium 40 Mg/10 Ml Vial IVPUSH 06/10/22 17:25 80 mg ONCE ONE Administration Medical Decision Making Lab Data MDM Lab Attestation statement: I reviewed the patient's lab results. Result Diagrams: 06/10/22 17:50 06/10/22 17:50 Labs: Lab Results 06/10/22 06/10/22 06/10/22 Range/Units 17:50 17:50 17:50 WBC 7.0 (4.8-10.8) X10*3/uL RBC 5.18 D (4.60-5.80) X10*6/uL Hgb 12.7 L D (14.0-18.0) g/dl Hct 40.2 L D (42.0-52.0) % MCV 77.6 L (80.0-98.0) fL MCH 24.5 L (27.0-33.0) pg MCHC 31.6 (31.0-36.0) g/dl RDW 16.1 H (11.0-16.0) % Plt Count 322 (160-400) X10*3/uL MPV 9.4 (9.4-12.4) fL Immature Gran % (Auto) 0.4 (0.0-0.4) % Neut % (Auto) 88.8 H (45-73) % Lymph % (Auto) 1.9 L (20-40) % [place] % (Auto) 6.1 (2-11) % Eos % (Auto) 2.1 (0-4) % Baso % (Auto) 0.7 (0-2) % Lymph # (Auto) 0.1 L (1.2-4.9) X10*3/uL [place] # (Auto) 0.4 (0.1-1.2) X10*3/uL Eos # (Auto) 0.2 (0.0-0.4) X10*3/uL Baso # (Auto) 0.1 (0.0-0.2) X10*3/uL Abs Immat Gran (auto) 0.03 (0.00-0.03) X10*3/uL Absolute Neuts (auto) 6.2 (2.0-8.3) x10*3/uL Absolute Nucleated RBC 0.000 (0.0-0.012) X10*3/uL Nucleated RBC % (auto) 0.0 (0.0-0.2) /100WBC PT (10.0-13.1) SEC INR (0.9-1.1) Sodium 138 (135-145) mmol/L Potassium 3.8 (3.3-5.1) mmol/L Chloride 107 (96-108) mmol/L Carbon Dioxide 25 (22-29) mmol/L Anion Gap 10 L (12-20) BUN 14 (9-16) mg/dL Creatinine 1.33 (0.5-1.4) mg/dL Estim Creat Clear Calc 92.7 Estimated GFR > 60 Random Glucose 117 H (60-115) mg/dL Calcium 9.4 (8.4-10.2) mg/dL Total Bilirubin 0.5 (0.0-1.0) mg/dL AST 14 (5-37) U/L ALT 14 (0-40) U/L Alkaline Phosphatase 89 (39-117) U/L Total Protein 7.4 (6.5-8.0) g/dL Albumin 4.3 (3.5-5.0) g/dL Ethyl Alcohol < 10 mg/dL COVID-19 (MYA) (Negative) COVID-19 Clin Com Influenza Type A (KIM) (Negative) Influenza Type B (KIM) (Negative) Influenza A & B Note Blood Type O Negative Antibody Screen NEGATIVE 06/10/22 06/10/22 06/10/22 Range/Units 17:51 17:51 17:51 WBC (4.8-10.8) X10*3/uL RBC (4.60-5.80) X10*6/uL Hgb (14.0-18.0) g/dl Hct (42.0-52.0) % MCV (80.0-98.0) fL MCH (27.0-33.0) pg MCHC (31.0-36.0) g/dl RDW (11.0-16.0) % Plt Count (160-400) X10*3/uL MPV (9.4-12.4) fL Immature Gran % (Auto) (0.0-0.4) % Neut % (Auto) (45-73) % Lymph % (Auto) (20-40) % [place] % (Auto) (2-11) % Eos % (Auto) (0-4) % Baso % (Auto) (0-2) % Lymph # (Auto) (1.2-4.9) X10*3/uL [place] # (Auto) (0.1-1.2) X10*3/uL Eos # (Auto) (0.0-0.4) X10*3/uL Baso # (Auto) (0.0-0.2) X10*3/uL Abs Immat Gran (auto) (0.00-0.03) X10*3/uL Absolute Neuts (auto) (2.0-8.3) x10*3/uL Absolute Nucleated RBC (0.0-0.012) X10*3/uL Nucleated RBC % (auto) (0.0-0.2) /100WBC PT 12.8 (10.0-13.1) SEC INR 1.1 (0.9-1.1) Sodium (135-145) mmol/L Potassium (3.3-5.1) mmol/L Chloride (96-108) mmol/L Carbon Dioxide (22-29) mmol/L Anion Gap (12-20) BUN (9-16) mg/dL Creatinine (0.5-1.4) mg/dL Estim Creat Clear Calc Estimated GFR Random Glucose (60-115) mg/dL Calcium (8.4-10.2) mg/dL Total Bilirubin (0.0-1.0) mg/dL AST (5-37) U/L ALT (0-40) U/L Alkaline Phosphatase (39-117) U/L Total Protein (6.5-8.0) g/dL Albumin (3.5-5.0) g/dL Ethyl Alcohol mg/dL COVID-19 (MYA) Positive A (Negative) COVID-19 Clin Com See Note Influenza Type A (KIM) Negative (Negative) Influenza Type B (KIM) Negative (Negative) Influenza A & B Note See Note Blood Type Antibody Screen Discharge Plan Discharge Clinical Impression: Acute gastritis with bleeding, COVID-19 Patient Disposition: Home, Self-Care Instructions: Gastritis (ED), Gastrointestinal Bleeding (ED), COVID-19 (Coronavirus Disease 2019) (ED) Additional Instructions: Drink plenty of fluids Social distancing as advised Do not take ibuprofen Take Protonix on a regular basis Start taking sucralfate 1 tablet before meals 3 times a day Report to the ER if worsening of bleed Decrease caffeine intake Cough drops as prescribed Prescriptions: New pantoprazole [Protonix] 40 mg tablet,delayed release (DR/EC) 40 mg PO DAILY Qty: 30 0RF sucralfate 1 gram tablet 1 g PO TID Qty: 90 0RF benzonatate 200 mg capsule 200 mg PO TID PRN (Reason: cough) Qty: 30 0RF No Action ibuprofen 800 mg tablet 1 tab PO TID albuterol sulfate [ProAir HFA] 90 mcg/actuation HFA aerosol inhaler 1 puff PO QID PRN (Reason: wheezing) lisinopril 40 mg tablet 1 tab PO DAILY Spiriva with HandiHaler 18 mcg capsule, w/inhalation device 1 cap inhalation DAILY omeprazole 40 mg capsule,delayed release(DR/EC) 40 mg PO BID Qty: 60 1RF Interventions: ED Discharge Assessment Last Done: 06/10/22 20:49 Discharge Date/Time: 06/10/22 20:52
[2022-06-10] MEDS: 0.9 % Sodium Chloride 1,000 ML 999 ML IV ×2 (17:29→19:26)
--- OUTSIDE RECORDS SUMMARY | 2022-06-10 17:33 | XMS_ITS | Continuity of Care Document ---
:1985 Author Organization [facility] Address [address] [address]- Care Team Providers Name Role Phone Ewa Sue NP Primary Care Physician Encounter [place] Date(s): 10/14/20 - 11/13/20 [facility] [address] [id number] Attending Physician: Konstantin Brooks Admitting Physician: AdmKonstantin arceo Referring Physician: AdmtrKonstantin Allergies, Adverse Reactions, Alerts Substance Reaction Severity Status amoxicillin rash Active Immunizations Given and Recorded Vaccine Date Status Refusal Reason influenza virus vaccine, inactivated1 06/21/18 Given influenza virus vaccine, inactivated2 03/31/16 Given influenza virus vaccine, inactivated 03/28/15 Given tetanus-diphtheria toxoids (Td)3 02/08/99 Given hepatitis B pediatric vaccine4 02/08/99 Given hepatitis B pediatric vaccine5 07/29/98 Given hepatitis B pediatric vaccine6 06/20/98 Given Measles/Mumps/Rubella Virus Vaccine7 07/29/93 Given Measles/Mumps/Rubella Virus Vaccine8 12/02/87 Given 1Result Comment: [07/05/2018] [id number] Note: [facility]3Admin Note: [facility] [id number] Note: [facility] [id number] Note: [facility] mhrpb3Lkjjw Note: [facility] znyyg2Brbtr Note: [facility] fcfdl8Yriyp Note: [facility] Medications Aerochamber See Instructions, # 1 each, Maintenance, use with albuterol, 03/19/20 8:51:00 EDT, Supply, 181, cm, 02/27/20 12:37:00 EDT, Height Start Date: 03/19/20 Status: OrderedDulera 200 mcg-5 mcg/inh inhalation aerosol 2 puffs, Inhalation, 2 times a day, rinse mouth and throat after use, j45.40, # 1 each, 3 Refills, Maintenance, 04/19/20 15:30:00 EST, Aerosol, [facility] #[id number], This is in place of Symbicort which insurance will not cover., 2 puffs Inhalat... Start Date: 04/19/20 Status: Orderedibuprofen 800 mg oral tablet TAKE 1 TABLET BY MOUTH THREE TIMES DAILY WITH FOOD OR MILK AND DO NOT TAKE MORE THAN 4 TABLETS DAILY Start Date: 10/14/20 Status: Orderedlevocetirizine 5 mg oral tablet 1 tablet = 5 mg, By Mouth, Daily in PM, # 90 tablet, 1 Refills, Maintenance, 04/25/20 13:07:00 EST, Tablet, [facility] #[id number], 1 tablet By Mouth Daily in PM, 181, cm, 04/25/20 11:45:00 EST, Height Start Date: 04/25/20 Status: Orderedlisinopril 40 mg oral tablet 1 tablet = 40 mg, By Mouth, Daily, # 90 tablet, 2 Refills, Maintenance, 04/25/20 13:14:00 EST, Tablet, [facility] #[id number], Partial fill upon patient request, 181, cm, 04/25/20 11:45:00 EST, Height Start Date: 04/25/20 Status: Orderedmeloxicam 7.5 mg oral tablet 1 tablet = 7.5 mg, By Mouth, Daily, # 30 tablet, 0 Refills, Maintenance, 10/14/20 11:45:00 EDT, Tablet, Partial fill upon patient request if the prescription is for a schedule II opioid drug. Start Date: 10/14/20 Status: OrderedPARoxetine 10 mg oral tablet 10 mg, 1, tablet, By Mouth, Daily, TK 1 T PO D, # 30 tablet, Refills 6, Tot. Refills 6, Maintenance,04/25/20 13:20:00 EST, Route to Pharmacy Electronically, [facility] #[id number], Partial fill upon patient request, 181, cm, 04/25/20 11:45:00 ES... Start Date: 11/19/20 Stop Date: 11/21/20 Status: OrderedProAir HFA 90 mcg/inh inhalation aerosol 1 puffs, Inhalation, 4 times a day, PRN as needed for wheezing, j45.40, # 1 each, 2 Refills, Maintenance, 06/20/20 11:41:00 EST, Aerosol, [facility] #[id number], Brand Name PROAIR only, no substitutions, 1 puffs Inhalation 4 times a day,PRN:as ne... Start Date: 06/20/20 Status: OrderedProtonix 40 mg oral delayed release tablet 1 tablet = 40 mg, By Mouth, Daily, # 90 tablet, 3 Refills, Maintenance, 07/31/20 16:49:00 EST, EC Tablet, 180, cm, 07/01/20 13:42:00 EST, Height Start Date: 07/31/20 Stop Date: 07/26/21 Status: OrderedSpiriva HandiHaler 18 mcg inhalation capsule 1 capsule = 18 mcg, Inhalation, Daily, j 45.909, # 1 each, 6 Refills, Maintenance, 06/20/20 13:26:00EST, [facility] #[id number], 181, cm, 06/19/20 14:27:00 EST, Height Start Date: 06/20/20 Status: Ordered Problem List Condition Effective Dates Status Health Status Informant Asthma(Confirmed) Active ADD (attention deficit Active disorder)(Confirmed) Benign essential HTN(Confirmed) Active Obesity (BMI 30-39.9)(Confirmed) Active Bipolar disorder with Active depression(Confirmed) Depression(Confirmed) Active Learning disability(Confirmed) Active GERD (gastroesophageal reflux Active disease)(Confirmed) CYNDIE (generalized anxiety Active disorder)(Confirmed) Tourette syndrome(Confirmed) Active Low back pain(Confirmed) Active Migraine(Confirmed) Active Seasonal allergies(Confirmed) Active Sinusitis with nasal polyps(Confirmed) Active Social anxiety disorder(Confirmed) Active Social History Social History Type Response Smoking Status Former smoker; Other: quit i n 2013; entered on: 01/30/15 Sex
--- OUTSIDE RECORDS SUMMARY | 2022-06-10 17:33 | XMS_ITS | Continuity of Care Document ---
:1985 Author Organization [facility] Adult Address [address] [place] [address]- Care Team Providers Name Role Phone Vikram CHACON, Ewa Lee Primary Care Physician Encounter [facility] Date(s): 05/26/21 - 06/25/21 [facility] Adult [address] [place] [address]- Allergies, Adverse Reactions, Alerts Substance Reaction Severity Status amoxicillin rash Active Immunizations Given and Recorded Vaccine Date Status Refusal Reason SARS-CoV-2 (COVID-19) mRNA BNT-162b2 vac 01/29/21 Recorde d SARS-CoV-2 (COVID-19) mRNA BNT-162b2 vac 01/08/21 Recorde d influenza virus vaccine, inactivated1 06/21/18 Given influenza virus vaccine, inactivated2 03/31/16 Given influenza virus vaccine, inactivated 03/28/15 Given influenza virus vaccine, inactivated 06/18/05 Recorded tetanus-diphtheria toxoids (Td)3 02/08/99 Given hepatitis B pediatric vaccine4 02/08/99 Given hepatitis B pediatric vaccine5 07/29/98 Given hepatitis B pediatric vaccine6 06/20/98 Given Measles/Mumps/Rubella Virus Vaccine7 07/29/93 Given Measles/Mumps/Rubella Virus Vaccine8 12/02/87 Given Haemophilus B conjugate (HbOC) vaccine 08/10/88 Recorded 1Result Comment: [07/05/2018] [id number] Note: [facility]3Admin Note: [facility] vvvjs5Ofzwa Note: [facility] ltvsv3Yocxm Note: [facility] jhzdi4Ydvif Note: [facility] gmmcp9Ahqol Note: [facility] dqxhn6Rshfi Note: [facility] Medications Aerochamber See Instructions, # 1 each, Maintenance, use with albuterol, 03/19/20 8:51:00 EDT, Supply, 181, cm, 02/27/20 12:37:00 EDT, Height Start Date: 03/19/20 Status: OrderedDulera 200 mcg-5 mcg/inh inhalation aerosol 2 puffs, Inhalation, 2 times a day, rinse mouth and throat after use, j45.40, # 1 each, 3 Refills, Maintenance, 04/19/20 15:30:00 EST, Aerosol, [facility] #[id number], This is in place of Symbicort which insurance will not cover., 2 puffs Inhalat... Start Date: 04/19/20 Status: Orderedibuprofen 800 mg oral tablet See Instructions, TAKE 1 TABLET BY MOUTH THREE TIMES DAILY WITH FOOD OR MILK AND DO NOT TAKE MORE THAN 4 TABLETS DAILY, # 42 tablet, Refills 0, Tot. Refills 0, Physician Stop 06/09/22 12:23:00 EST, 06/09/21 12:22:00 EST, Instructions Replace Required... Start Date: 06/09/21 Stop Date: 06/09/22 Status: Orderedlevocetirizine 5 mg oral tablet 1 tablet = 5 mg, By Mouth, Daily in PM, # 90 tablet, 1 Refills, Maintenance, 04/25/20 13:07:00 EST, Tablet, [facility] #[id number], 1 tablet By Mouth Daily in PM, 181, cm, 04/25/20 11:45:00 EST, Height Start Date: 04/25/20 Status: Orderedlisinopril 40 mg oral tablet 1 tablet = 40 mg, By Mouth, Daily, # 90 tablet, 2 Refills, Maintenance, 03/20/21 17:24:00 EDT, Tablet, [facility] #[id number], Partial fill upon patient request, 180, cm, 03/20/21 13:02:00 EDT, Height Start Date: 03/20/21 Status: OrderedProAir HFA 90 mcg/inh inhalation aerosol 1 puffs, Inhalation, 4 times a day, PRN as needed for wheezing, j45.40, # 1 each, 5 Refills, Maintenance, 12/31/20 15:18:00 EDT, Aerosol, [facility] #[id number], Brand Name PRO only, no substitutions, 1 puffs Inhalation 4 times a day,PRN:as ne... Start Date: 12/31/20 Status: OrderedProtonix 40 mg oral delayed release tablet 1 tablet = 40 mg, By Mouth, Daily, for 90 days, # 90 tablet, 3 Refills, Hard Stop 07/26/21 16:49:00 EST, 07/31/20 16:49:00 EST, EC Tablet, 180, cm, 07/01/20 13:42:00 EST, Height Start Date: 07/31/20 Stop Date: 07/26/21 Status: OrderedProtonix 40 mg oral delayed release tablet 1 tablet = 40 mg, By Mouth, Daily, # 90 tablet, 0 Refills, Maintenance, 07/26/21 16:49:00 EST, EC Tablet, 180, cm, 05/29/21 9:22:00 EST, Height Start Date: 07/26/21 Stop Date: 10/24/21 Status: OrderedSpiriva HandiHaler 18 mcg inhalation capsule 1 capsule = 18 mcg, Inhalation, Daily, j 45.909, # 1 each, 6 Refills, Maintenance, 06/20/20 13:26:00EST, [facility] #[id number], 181, cm, 06/19/20 14:27:00 EST, Height Start Date: 06/20/20 Status: OrderedXhance 93 mcg/inh nasal spray 1 sprays, Nares, Both, 2 times a day, # 16 mL, 0 Refills, Maintenance, 12/30/20 10:43:00 EDT, [place],Partial fill upon patient request if the prescription is for a schedule II opioid drug. Start Date: 12/30/20 Status: Ordered Problem List Condition Effective Dates Status Health Status Informant Asthma(Confirmed) Active ADD (attention deficit Active disorder)(Confirmed) Benign essential HTN(Confirmed) Active Obesity (BMI 30-39.9)(Confirmed) Active Chronic back pain(Confirmed) Active Bipolar disorder with Active depression(Confirmed) Depression(Confirmed) Active Learning disability(Confirmed) Active GERD (gastroesophageal reflux Active disease)(Confirmed) CYNDIE (generalized anxiety Active disorder)(Confirmed) Tourette syndrome(Confirmed) Active Low back pain(Confirmed) Active Migraine(Confirmed) Active Obese class I(Confirmed) Active Seasonal allergies(Confirmed) Active Sinusitis with nasal polyps(Confirmed) Active Social anxiety disorder(Confirmed) Active Social History Social History Type Response Smoking Status Former smoker; Other: quit i n 2013; entered on: 01/30/15 Sex
--- OUTSIDE RECORDS SUMMARY | 2022-06-10 17:33 | XMS_ITS | Continuity of Care Document ---
:1985 Author Organization [facility] Adult Address [address] [place] [address]- Care Team Providers Name Role Phone Ewa Sue NP Primary Care Physician Encounter [facility] [place] Date(s): 07/01/20 - 07/31/20 [facility] Adult [address] [place] [address]- Allergies, Adverse Reactions, Alerts Substance Reaction Severity [...] Virus Vaccine8 12/02/87 Given 1Result Comment: [07/05/2018] [id number] Note: [facility]3Admin Note: [facility] tkrfe5Nycxp Note: [facility] dgyed9Cpikl Note: [facility] htigx4Kvfpj Note: [facility] bdadf4Zfjoi Note: [facility] tqewx1Bhatc Note: [facility] Medications Aerochamber See Instructions, # 1 each, Maintenance, use with albuterol, 03/19/20 8:51:00 EDT, Supply, 181, cm, 02/27/20 12:37:00 EDT, Height Start Date: 03/19/20 Status: OrderedDulera 200 mcg-5 mcg/inh inhalation aerosol 2 puffs, Inhalation, 2 times a day, rinse mouth and throat after use, j45.40, # 1 each, 3 Refills, Maintenance, 04/19/20 15:30:00 EST, Aerosol, [facility] #[id number], This is in place of Symbicort which insurance will not cover., 2 puffs Inhalat... Start Date: 04/19/20 Status: Orderedlevocetirizine 5 mg oral tablet 1 tablet = 5 mg, By Mouth, Daily in PM, # 90 tablet, 1 Refills, Maintenance, 04/25/20 13:07:00 EST, Tablet, [facility] #[id number], 1 tablet By Mouth Daily in PM, 181, cm, 04/25/20 11:45:00 EST, Height Start Date: 04/25/20 Status: Orderedlisinopril 40 mg oral tablet 1 tablet = 40 mg, By Mouth, Daily, # 90 tablet, 2 Refills, Maintenance, 04/25/20 13:14:00 EST, Tablet, [facility] #[id number], Partial fill upon patient request, 181, cm, 04/25/20 11:45:00 EST, Height Start Date: 04/25/20 Status: OrderedPARoxetine 10 mg oral tablet 10 mg, 1, tablet, By Mouth, Daily, TK 1 T PO D, # 30 tablet, Refills 6, Tot. Refills 6, Maintenance,04/25/20 13:20:00 EST, Route to Pharmacy Electronically, [facility] #[id number], Partial fill upon patient request, 181, cm, 04/25/20 11:45:00 ES... Start Date: 04/25/20 Stop Date: 11/21/20 Status: OrderedProAir HFA 90 mcg/inh inhalation aerosol 1 puffs, Inhalation, 4 times a day, PRN as needed for wheezing, j45.40, # 1 each, 2 Refills, Maintenance, 06/20/20 11:41:00 EST, Aerosol, [facility] #[id number], Brand Name PROAIR only, no substitutions, 1 [...] 1 each, 6 Refills, Maintenance, 06/20/20 13:26:00EST, [facility] #[id number], 181, cm, 06/19/20 14:27:00 EST, Height Start Date: 06/20/20 Status: Ordered Problem List Condition Effective Dates Status Health Status Informant Asthma(Confirmed) Active Benign essential HTN(Confirmed) Active Obesity (BMI 30-39.9)(Confirmed) Active Bipolar disorder with Active depression(Confirmed) Depression(Confirmed) Active GERD (gastroesophageal reflux Active disease)(Confirmed) CYNDIE (generalized anxiety Active disorder)(Confirmed) Low back pain(Confirmed) Active Migraine(Confirmed) Active Seasonal allergies(Confirmed) Active Sinusitis with nasal polyps(Confirmed) Active Social anxiety disorder(Confirmed) Active Social History Social History Type Response Smoking Status Former smoker; Other: quit i n 2013; entered on: 01/30/15 Sex
--- OUTSIDE RECORDS SUMMARY | 2022-06-10 17:33 | XMS_ITS | Continuity of Care Document ---
:1985 Author Organization [facility] Adult Address [address] [place] [address]- Care Team Providers Name Role Phone Ewa Sue NP Primary Care Physician Encounter [facility] [place] Date(s): 04/25/20 - 05/25/20 [facility] Adult [address] [place] [address]- Allergies, Adverse Reactions, Alerts Substance Reaction Severity [...] Virus Vaccine8 12/02/87 Given 1Result Comment: [07/05/2018] [id number] Note: [facility]3Admin Note: [facility] lbyfv3Qyuxm Note: [facility] gdvpi7Tmgqe Note: [facility] votkm3Jfmns Note: [facility] qasie4Achjz Note: [facility] kpwoo5Mqchk Note: [facility] Medications Aerochamber See Instructions, # 1 each, Maintenance, use with albuterol, 03/19/20 8:51:00 EDT, Supply, 181, cm, 02/27/20 12:37:00 EDT, Height Start Date: 03/19/20 Status: OrderedDulera 200 mcg-5 mcg/inh inhalation aerosol 2 puffs, Inhalation, 2 times a day, rinse mouth and throat after use, j45.40, # 1 each, 3 Refills, Maintenance, 04/19/20 15:30:00 EST, Aerosol, [facility] #[id number], This is in place of Symbicort which insurance will not cover., 2 puffs Inhalat... Start Date: 04/19/20 Status: Orderedfamotidine 20 mg oral tablet 20 mg, 1, tablet, By Mouth, Daily at bedtime, # 90 tablet, Refills 3, Tot. Refills 3, Maintenance, 04/25/20 13:07:00 EST, Route to Pharmacy Electronically, [facility] #[id number], 181, cm, 04/25/20 11:45:00 EST, Height Start Date: 04/25/20 Status: Orderedlevocetirizine 5 mg oral tablet 1 tablet = 5 mg, By Mouth, Daily in PM, # 90 tablet, 1 Refills, Maintenance, 04/25/20 13:07:00 EST, Tablet, [facility] #[id number], 1 tablet By Mouth Daily in PM, 181, cm, 04/25/20 11:45:00 EST, Height Start Date: 04/25/20 Status: Orderedlisinopril 40 mg oral tablet 1 tablet = 40 mg, By Mouth, Daily, # 90 tablet, 2 Refills, Maintenance, 04/25/20 13:14:00 EST, Tablet, [facility] #[id number], Partial fill upon patient request, 181, cm, 04/25/20 11:45:00 EST, Height Start Date: 04/25/20 Status: Orderedmeloxicam 7.5 mg oral tablet 1 tablet = 7.5 mg, By Mouth, Daily, # 14 tablet, 0 Refills, Maintenance, 05/13/20 10:10:00 EST, Tablet, [facility] #[id number], Partial fill upon patient request if the prescription is for a schedule II opioid drug., 181, cm, 05/13/20 9:42:00 EST... Start Date: 05/13/20 Stop Date: 05/27/20 Status: OrderedPARoxetine 10 mg oral tablet 10 mg, 1, tablet, By Mouth, Daily, TK 1 T PO D, # 30 tablet, Refills 6, Tot. Refills 6, Maintenance,04/25/20 13:20:00 EST, Route to Pharmacy Electronically, [facility] #[id number], Partial fill upon patient request, 181, cm, 04/25/20 11:45:00 ES... Start Date: 04/25/20 Stop Date: 11/21/20 Status: OrderedProAir HFA 90 mcg/inh inhalation aerosol 1 puffs, Inhalation, 4 times a day, PRN as needed for wheezing, # 1 each, 2 Refills, Maintenance, 03/22/20 11:06:00 EDT, Aerosol, [facility] #[id number], Brand Name PROAIR only, no substitutions, 1 puffs Inhalation 4 times a day,PRN:as needed for... Start Date: 03/22/20 Status: OrderedProtonix 40 mg oral delayed release tablet 1 tablet = 40 mg, By Mouth, Daily, # 90 tablet, 0 Refills, Maintenance, 05/02/20 16:49:00 EST, EC Tablet, 181, cm, 06/19/19 16:12:00 EST, Height Start Date: 05/02/20 Stop Date: 07/31/20 Status: OrderedSpiriva HandiHaler 18 mcg inhalation capsule 1 capsule = 18 mcg, Inhalation, Daily, j 45.909, # 30 capsule, 3 Refills, Maintenance, 12/18/19 16:31:00 EDT, [facility] #[id number], 181, cm, 06/19/19 16:12:00 EST, Height Start Date: 12/18/19 Status: Ordered Problem List Condition Effective Dates [...]
--- OUTSIDE RECORDS SUMMARY | 2022-06-10 17:33 | XMS_ITS | Continuity of Care Document ---
:1985 Author Organization [facility] Adult Address [address] [place] [address]- Care Team Providers Name Role Phone Ewa Sue NP Primary Care Physician Encounter [facility] Date(s): 03/10/21 - 04/09/21 [facility] Adult [address] [place] [address]- Allergies, Adverse Reactions, Alerts Substance Reaction Severity [...] (HbOC) vaccine 08/10/88 Recorded 1Result Comment: [07/05/2018] [id number] Note: [facility]3Admin Note: [facility] nfgge7Bjbqk Note: [facility] atcmz0Dvsjz Note: [facility] jbwtc3Bfoik Note: [facility] urejy9Bleab Note: [facility] unsey7Nkjtd Note: [facility] Medications Aerochamber See Instructions, # 1 each, Maintenance, use with albuterol, 10/13/20 8:51:00 EDT, Supply, 181, cm, 02/27/20 12:37:00 EDT, Height Start Date: 03/19/20 Status: OrderedDulera 200 mcg-5 mcg/inh inhalation aerosol 2 puffs, Inhalation, 2 times a day, rinse mouth and throat after use, j45.40, # 1 each, 3 Refills, Maintenance, 04/19/20 15:30:00 EST, Aerosol, [facility] #[id number], This is in place of Symbicort which insurance will not cover., 2 puffs Inhalat... Start Date: 04/19/20 Status: Orderedibuprofen 800 mg oral tablet See Instructions, TAKE 1 TABLET BY MOUTH THREE TIMES DAILY WITH FOOD OR MILK AND DO NOT TAKE MORE THAN 4 TABLETS DAILY, # 42 tablet, Refills 0, Instructions Replace Required Details, Route to Pharmacy Electronically, [facility] #[id number], 180,... Start Date: 03/12/21 Status: Orderedlevocetirizine 5 mg oral tablet 1 tablet = 5 mg, By Mouth, Daily in PM, # 90 tablet, 1 Refills, Maintenance, 04/25/20 13:07:00 EST, Tablet, [facility] #[id number], 1 tablet By Mouth Daily in PM, 181, cm, 04/25/20 11:45:00 EST, Height Start Date: 04/25/20 Status: Orderedlisinopril 40 mg oral tablet 1 tablet = 40 mg, By Mouth, Daily, # 90 tablet, 2 Refills, Maintenance, 03/20/21 17:24:00 EDT, Tablet, [facility] #[id number], Partial fill upon patient request, 180, cm, 03/20/21 13:02:00 EDT, Height Start Date: 03/20/21 Status: Orderedmeloxicam 7.5 mg oral tablet 1 tablet = 7.5 mg, By Mouth, Daily, # 30 tablet, 0 Refills, Maintenance, 10/14/20 11:45:00 EDT, Tablet, Partial fill upon patient request if the prescription is for a schedule II opioid drug. Start Date: 10/14/20 Status: OrderedProAir HFA 90 mcg/inh inhalation aerosol 1 puffs, Inhalation, 4 times a day, PRN as needed for wheezing, j45.40, # 1 each, 5 Refills, Maintenance, 12/31/20 15:18:00 EDT, Aerosol, [facility] #[id number], Brand Name PROAIR only, no substitutions, 1 [...] 1 each, 6 Refills, Maintenance, 06/20/20 13:26:00EST, [facility] #[id number], 181, cm, 06/19/20 14:27:00 EST, Height Start Date: 06/20/20 Status: OrderedXhance 93 mcg/inh nasal spray 1 sprays, Nares, Both, 2 times a day, # 16 mL, 0 Refills, Maintenance, 12/30/20 10:43:00 EDT, [place],Partial fill upon patient request if the prescription [...]
--- OUTSIDE RECORDS SUMMARY | 2022-06-10 17:33 | XMS_ITS | Continuity of Care Document ---
:1985 Author Organization [facility] Adult Address [address] [place] [address]- Care Team Providers Name Role Phone Ewa Sue NP Primary Care Physician [place] [facility] [place] 10/[place]/20 [facility] [address] [place] [address]- Attending Physician: AdmKonstantin arceo Admitting Physician: Admtr, Konstantin Referring Physician: Admtr, Ar8 Allergies, Adverse Reactions, Alerts Substance Reaction Severity [...] Virus Vaccine8 12/02/87 Given 1Result Comment: [07/05/2018] [id number] Note: [facility]3Admin Note: [facility] xdrpr4Behvw Note: [facility] mjttr4Iiubj Note: [facility] vdykg6Jrnvn Note: [facility] hwovf6Irblo Note: [facility] bvlrk7Yvdcq Note: [facility] Medications Aerochamber See Instructions, # 1 each, Maintenance, use with albuterol, 03/19/20 8:51:00 EDT, Supply, 181, cm, 02/27/20 12:37:00 EDT, Height Start Date: 03/19/20 Status: OrderedDulera 200 mcg-5 mcg/inh inhalation aerosol 2 puffs, Inhalation, 2 times a day, rinse mouth and throat after use, j45.40, # 1 each, 3 Refills, Maintenance, 04/19/20 15:30:00 EST, Aerosol, [facility] #[id number], This is in place of Symbicort which [...] 1 Refills, Maintenance, 04/25/20 13:07:00 EST, Tablet, [facility] #[id number], 1 tablet By Mouth Daily in PM, 181, cm, 04/25/20 11:45:00 EST, Height Start Date: 04/25/20 Status: Orderedlisinopril 40 mg oral tablet 1 tablet = 40 mg, By Mouth, Daily, # 90 tablet, 2 Refills, Maintenance, 04/25/20 13:14:00 EST, Tablet, [facility] #[id number], Partial fill upon patient request, 181, cm, [...] Maintenance,04/25/20 13:20:00 EST, Route to Pharmacy Electronically, [facility] #[id number], Partial fill upon patient request, 181, cm, 04/25/20 11:45:00 ES... Start Date: 04/25/20 Stop Date: 11/21/20 Status: OrderedProAir HFA 90 mcg/inh inhalation aerosol 1 puffs, Inhalation, 4 times a day, PRN as needed for wheezing, j45.40, # 1 each, 2 Refills, Maintenance, 06/20/20 11:41:00 EST, Aerosol, [facility] #[id number], Brand Name PROAIR only, no substitutions, 1 [...] 1 each, 6 Refills, Maintenance, 06/20/20 13:26:00EST, [facility] #[id number], 181, cm, 06/19/20 14:27:00 EST, Height Start [...]
--- OUTSIDE RECORDS SUMMARY | 2022-06-10 17:33 | XMS_ITS | Continuity of Care Document ---
:1985 Author Organization [facility] Adult Address [address] [place] [address]- Care Team Providers Name Role Phone Ewa Sue NP Primary Care Physician [place] [facility] [place] - 08[place]20 [facility] [address], [place] [address] Attending Physician: AdmKonstantin arceo Admitting Physician: Admtr, [...] Virus Vaccine8 12/02/87 Given 1Result Comment: [07/05/2018] [id number] Note: [facility]3Admin Note: [facility] rqfct4Zrjsp Note: [facility] ailbq6Pwwks Note: [facility] ulzhb1Gjztr Note: [facility] nnwaa1Odtzi Note: [facility] tcubh3Fmhgt Note: [facility] Medications Aerochamber See Instructions, # 1 each, Maintenance, use with albuterol, 03/19/20 8:51:00 EDT, Supply, 181, cm, 02/27/20 12:37:00 EDT, Height Start Date: 03/19/20 Status: OrderedDulera 200 mcg-5 mcg/inh inhalation aerosol 2 puffs, Inhalation, 2 times a day, rinse mouth and throat after use, j45.40, # 1 each, 3 Refills, Maintenance, 04/19/20 15:30:00 EST, Aerosol, [facility] #[id number], This is in place of Symbicort which insurance will not cover., 2 puffs Inhalat... Start Date: 04/19/20 Status: Orderedlevocetirizine 5 mg oral tablet 1 tablet = 5 mg, By Mouth, Daily in PM, # 90 tablet, 1 Refills, Maintenance, 04/25/20 13:07:00 EST, Tablet, [facility] #[id number], 1 tablet By Mouth Daily in PM, 181, cm, 04/25/20 11:45:00 EST, Height Start Date: 04/25/20 Status: Orderedlisinopril 40 mg oral tablet 1 tablet = 40 mg, By Mouth, Daily, # 90 tablet, 2 Refills, Maintenance, 04/25/20 13:14:00 EST, Tablet, [facility] #[id number], Partial fill upon patient request, 181, cm, 04/25/20 11:45:00 EST, Height Start Date: 04/25/20 Status: OrderedPARoxetine 10 mg oral tablet 10 mg, 1, tablet, By Mouth, Daily, TK 1 T PO D, # 30 tablet, Refills 6, Tot. Refills 6, Maintenance,04/25/20 13:20:00 EST, Route to Pharmacy Electronically, [facility] #[id number], Partial fill upon patient request, 181, cm, 04/25/20 11:45:00 ES... Start Date: 04/25/20 Stop Date: 11/21/20 Status: OrderedProAir HFA 90 mcg/inh inhalation aerosol 1 puffs, Inhalation, 4 times a day, PRN as needed for wheezing, j45.40, # 1 each, 2 Refills, Maintenance, 06/20/20 11:41:00 EST, Aerosol, [facility] #[id number], Brand Name PROAIR only, no substitutions, 1 [...] 1 each, 6 Refills, Maintenance, 06/20/20 13:26:00EST, [facility] #[id number], 181, cm, 06/19/20 14:27:00 EST, Height Start [...]
--- OUTSIDE RECORDS SUMMARY | 2022-06-10 17:33 | XMS_ITS | Continuity of Care Document ---
:1985 Author Organization [facility] Adult Address [address] [place] [address]- Care Team Providers Name Role Phone Ewa Sue NP Primary Care Physician Encounter [facility] [place] Date(s): 05/13/20 - 06/12/20 [facility] [address] [place] [address]- Attending Physician: AdmKonstantin arceo Admitting Physician: Admtr, [...] Virus Vaccine8 12/02/87 Given 1Result Comment: [07/05/2018] [id number] Note: [facility]3Admin Note: [facility] czvab5Ixzmn Note: [facility] hdnyi5Fcuzb Note: [facility] qthwf7Qkvlv Note: [facility] onvzs5Jscrh Note: [facility] mkrkn1Efuiy Note: [facility] Medications Aerochamber See Instructions, # 1 each, Maintenance, use with albuterol, 03/19/20 8:51:00 EDT, Supply, 181, cm, 02/27/20 12:37:00 EDT, Height Start Date: 03/19/20 Status: OrderedDulera 200 mcg-5 mcg/inh inhalation aerosol 2 puffs, Inhalation, 2 times a day, rinse mouth and throat after use, j45.40, # 1 each, 3 Refills, Maintenance, 04/19/20 15:30:00 EST, Aerosol, [facility] #[id number], This is in place of Symbicort which insurance will not cover., 2 puffs Inhalat... Start Date: 04/19/20 Status: Orderedfamotidine 20 mg oral tablet 20 mg, 1, tablet, By Mouth, Daily at bedtime, # 90 tablet, Refills 3, Tot. Refills 3, Maintenance, 04/25/20 13:07:00 EST, Route to Pharmacy Electronically, [facility] #[id number], 181, cm, 04/25/20 11:45:00 EST, Height Start Date: 04/25/20 Status: Orderedlevocetirizine 5 mg oral tablet 1 tablet = 5 mg, By Mouth, Daily in PM, # 90 tablet, 1 Refills, Maintenance, 04/25/20 13:07:00 EST, Tablet, [facility] #[id number], 1 tablet By Mouth Daily in PM, 181, cm, 04/25/20 11:45:00 EST, Height Start Date: 04/25/20 Status: Orderedlisinopril 40 mg oral tablet 1 tablet = 40 mg, By Mouth, Daily, # 90 tablet, 2 Refills, Maintenance, 04/25/20 13:14:00 EST, Tablet, [facility] #[id number], Partial fill upon patient request, 181, cm, 04/25/20 11:45:00 EST, Height Start Date: 04/25/20 Status: Orderedmeloxicam 7.5 mg oral tablet 1 tablet = 7.5 mg, By Mouth, Daily, # 14 tablet, 0 Refills, Maintenance, 05/13/20 10:10:00 EST, Tablet, [facility] #[id number], Partial fill upon patient request if the prescription is for a schedule II opioid drug., 181, cm, 05/13/20 9:42:00 EST... Start Date: 05/13/20 Stop Date: 05/27/20 Status: OrderedPARoxetine 10 mg oral tablet 10 mg, 1, tablet, By Mouth, Daily, TK 1 T PO D, # 30 tablet, Refills 6, Tot. Refills 6, Maintenance,04/25/20 13:20:00 EST, Route to Pharmacy Electronically, [facility] #[id number], Partial fill upon patient request, 181, cm, 04/25/20 11:45:00 ES... Start Date: 04/25/20 Stop Date: 11/21/20 Status: OrderedProAir HFA 90 mcg/inh inhalation aerosol 1 puffs, Inhalation, 4 times a day, PRN as needed for wheezing, # 1 each, 2 Refills, Maintenance, 03/22/20 11:06:00 EDT, Aerosol, [facility] #[id number], Brand Name PROAIR only, no substitutions, 1 [...] capsule, 3 Refills, Maintenance, 12/18/19 16:31:00 EDT, [facility] #[id number], 181, cm, 06/19/19 16:12:00 EST, Height Start [...]
--- OUTSIDE RECORDS SUMMARY | 2022-06-10 17:33 | XMS_ITS | Continuity of Care Document ---
:1985 Author Organization [facility] Adult Address [address] [place] [address]- Care Team Providers Name Role Phone Ewa Sue NP Primary Care Physician Encounter [place] Date(s): 07/01/20 - 07/31/20 [facility] [address] [place] [address]- Allergies, Adverse Reactions, Alerts Substance Reaction Severity [...] Virus Vaccine8 12/02/87 Given 1Result Comment: [07/05/2018] [id number] Note: [facility]3Admin Note: [facility] jnjdb0Dxedu Note: [facility] qdxfo0Qvgjz Note: [facility] binqp4Otoqv Note: [facility] tmuzx7Jgtwa Note: [facility] qbnxq4Axotj Note: [facility] Medications Aerochamber See Instructions, # 1 each, Maintenance, use with albuterol, 03/19/20 8:51:00 EDT, Supply, 181, cm, 02/27/20 12:37:00 EDT, Height Start Date: 03/19/20 Status: OrderedDulera 200 mcg-5 mcg/inh inhalation aerosol 2 puffs, Inhalation, 2 times a day, rinse mouth and throat after use, j45.40, # 1 each, 3 Refills, Maintenance, 04/19/20 15:30:00 EST, Aerosol, [facility] #[id number], This is in place of Symbicort which insurance will not cover., 2 puffs Inhalat... Start Date: 04/19/20 Status: Orderedlevocetirizine 5 mg oral tablet 1 tablet = 5 mg, By Mouth, Daily in PM, # 90 tablet, 1 Refills, Maintenance, 04/25/20 13:07:00 EST, Tablet, [facility] #[id number], 1 tablet By Mouth Daily in PM, 181, cm, 04/25/20 11:45:00 EST, Height Start Date: 04/25/20 Status: Orderedlisinopril 40 mg oral tablet 1 tablet = 40 mg, By Mouth, Daily, # 90 tablet, 2 Refills, Maintenance, 04/25/20 13:14:00 EST, Tablet, [facility] #[id number], Partial fill upon patient request, 181, cm, 04/25/20 11:45:00 EST, Height Start Date: 04/25/20 Status: OrderedPARoxetine 10 mg oral tablet 10 mg, 1, tablet, By Mouth, Daily, TK 1 T PO D, # 30 tablet, Refills 6, Tot. Refills 6, Maintenance,04/25/20 13:20:00 EST, Route to Pharmacy Electronically, [facility] #[id number], Partial fill upon patient request, 181, cm, 04/25/20 11:45:00 ES... Start Date: 04/25/20 Stop Date: 11/21/20 Status: OrderedProAir HFA 90 mcg/inh inhalation aerosol 1 puffs, Inhalation, 4 times a day, PRN as needed for wheezing, j45.40, # 1 each, 2 Refills, Maintenance, 06/20/20 11:41:00 EST, Aerosol, [facility] #[id number], Brand Name PROAIR only, no substitutions, 1 [...] 1 each, 6 Refills, Maintenance, 06/20/20 13:26:00EST, [facility] #[id number], 181, cm, 06/19/20 14:27:00 EST, Height Start [...]
--- OUTSIDE RECORDS SUMMARY | 2022-06-10 17:33 | XMS_ITS | Continuity of Care Document ---
:1985 Author Organization [facility] Address [address] [place] [address]- Care Team Providers Name Role Phone Vikram CHACON, Ewa Lee Primary Care Physician Encounter [facility] Date(s): 03/01/19 - 06/16/19 [facility] [address] [place] [address]- [facility] Attending Physician: Reza Carter MD Admitting Physician: Reza Carter MD Referring Physician: Ewa Sue NP Allergies, Adverse Reactions, Alerts Substance Reaction Severity [...] Virus Vaccine8 12/02/87 Given 1Result Comment: [07/05/2018] [id number] Note: [facility]3Admin Note: [facility] qjity1Tjqfk Note: [facility] snbbv6Kjfov Note: [facility] mbyyv3Tzpmx Note: [facility] yakhs8Rrafy Note: [facility] ldkwu3Nnguq Note: [facility] Medications Aerochamber See Instructions, # 1 each, Maintenance, use as directed, 04/23/16 13:42:29, Compound Start Date: 04/23/16 Status: OrderedamLODIPine 2.5 mg oral tablet 2.5 mg, 1, tablet, By Mouth, Daily, # 30 tablet, Refills 6, Tot. Refills 6, Maintenance, 04/26/19 12:19:50 EST, Route to Pharmacy Electronically, [id number], [facility] #[id number] Start Date: 04/26/19 Status: OrderedDulera 200 mcg-5 mcg/inh inhalation aerosol 2 puffs, Inhalation, 2 times a day, rinse mouth and throat after use, # 1 each, 5 Refills, Maintenance, 01/04/19 16:31:34 EDT, Aerosol, This is in place of Symbicort which insurance will not cover., 2 puffs Inhalation 2 times a day,Instr:rinse mouth a... Start Date: 01/04/19 Status: OrderedIncruse Ellipta 62.5 mcg/inh inhalation powder = 62.5 mcg, Inhalation, Every 24 hours, # 1 each, 6 Refills, Maintenance, 10/26/18 11:06:49 EDT Start Date: 10/26/18 Status: OrderedProAir HFA 90 mcg/inh inhalation aerosol with adapter 2, puffs, Inhalation, 4 times a day, PRN, J 44.9 NO SUBSTITUTIONS for 30 days, # 1 each, Refills 11,Tot. Refills 11, Hard Stop 12/30/19 11:25:00 EDT, 01/04/19 11:25:00 EDT, Aerosol, Route to Pharmacy Electronically, [id number]... Start Date: 01/04/19 Stop Date: 12/30/19 Status: OrderedProtonix 40 mg oral delayed release tablet 1 tablet = 40 mg, By Mouth, Daily, # 30 tablet, 2 Refills, Maintenance, 06/02/19 12:13:00 EST, EC Tablet, 181, cm, 04/13/19 10:28:00 EST, Height Start Date: 06/02/19 Stop Date: 08/31/19 Status: OrderedSpiriva HandiHaler 18 mcg inhalation capsule 1 capsule = 18 mcg, Inhalation, Daily, j 45.909, # 30 capsule, 6 Refills, Maintenance, 01/27/19 11:15:00 EDT Start Date: 01/27/19 Status: OrderedSpiriva Respimat 1.25 mcg/inh inhalation aerosol 2 puffs, Inhalation, Daily, # 1 each, 11 Refills, Maintenance, 01/26/19 15:58:00 EDT, Aerosol, Please review inhaler teaching; ICD Code J45.40; Start Date: 01/26/19 Status: Ordered Problem List Condition Effective Dates [...]
--- OUTSIDE RECORDS SUMMARY | 2022-06-10 17:33 | XMS_ITS | Continuity of Care Document ---
:1985 Author Organization [facility] Adult Address [address] [place] [address]- Care Team Providers Name Role Phone Vikram CHACON, Ewa Lee Primary Care Physician [facility] [facility] Date[place]s): 06/17/20 - 07/19/20 [facility] [address] [place] [address]- Attending Physician: Not on Staff, Attending MD Referring Physician: Elton WITT, Laila Allergies, Adverse Reactions, Alerts Substance Reaction Severity [...] Virus Vaccine8 12/02/87 Given 1Result Comment: [07/05/2018] [id number] Note: [facility]3Admin Note: [facility] eztoo0Xcczv Note: [facility] eupkj6Rjlaw Note: [facility] muvpq3Fudyv Note: [facility] xrqsf1Idwjl Note: [facility] zrgyn4Xbguo Note: [facility] Medications Aerochamber See Instructions, # 1 each, Maintenance, use with albuterol, 03/19/20 8:51:00 EDT, Supply, 181, cm, 02/27/20 12:37:00 EDT, Height Start Date: 03/19/20 Status: OrderedDulera 200 mcg-5 mcg/inh inhalation aerosol 2 puffs, Inhalation, 2 times a day, rinse mouth and throat after use, j45.40, # 1 each, 3 Refills, Maintenance, 04/19/20 15:30:00 EST, Aerosol, [facility] #[id number], This is in place of Symbicort which insurance will not cover., 2 puffs Inhalat... Start Date: 04/19/20 Status: Orderedlevocetirizine 5 mg oral tablet 1 tablet = 5 mg, By Mouth, Daily in PM, # 90 tablet, 1 Refills, Maintenance, 04/25/20 13:07:00 EST, Tablet, [facility] #[id number], 1 tablet By Mouth Daily in PM, 181, cm, 04/25/20 11:45:00 EST, Height Start Date: 04/25/20 Status: Orderedlisinopril 40 mg oral tablet 1 tablet = 40 mg, By Mouth, Daily, # 90 tablet, 2 Refills, Maintenance, 04/25/20 13:14:00 EST, Tablet, [facility] #[id number], Partial fill upon patient request, 181, cm, 04/25/20 11:45:00 EST, Height Start Date: 04/25/20 Status: OrderedPARoxetine 10 mg oral tablet 10 mg, 1, tablet, By Mouth, Daily, TK 1 T PO D, # 30 tablet, Refills 6, Tot. Refills 6, Maintenance,04/25/20 13:20:00 EST, Route to Pharmacy Electronically, [facility] #[id number], Partial fill upon patient request, 181, cm, 04/25/20 11:45:00 ES... Start Date: 04/25/20 Stop Date: 11/21/20 Status: OrderedProAir HFA 90 mcg/inh inhalation aerosol 1 puffs, Inhalation, 4 times a day, PRN as needed for wheezing, j45.40, # 1 each, 2 Refills, Maintenance, 06/20/20 11:41:00 EST, Aerosol, [facility] #[id number], Brand Name PROAIR only, no substitutions, 1 [...] 1 each, 6 Refills, Maintenance, 06/20/20 13:26:00EST, [facility] #[id number], 181, cm, 06/19/20 14:27:00 EST, Height Start [...]
--- OUTSIDE RECORDS SUMMARY | 2022-06-10 17:33 | XMS_ITS | Continuity of Care Document ---
:1985 Author Organization [facility] Adult Address [address] [place] [address]- Care Team Providers Name Role Phone Vikram CHACON, Ewa Lee Primary Care Physician Encounter [facility] [place] Date(s): 05/29/21 - 06/05/21 [facility] [address] [place] [address]- Encounter Diagnosis Chronic back pain (Discharge Diagnosis) - 05/29/21 Attending Physician: Not on Staff, Attending MD Allergies, Adverse Reactions, Alerts Substance Reaction Severity [...] (HbOC) vaccine 08/10/88 Recorded 1Result Comment: [07/05/2018] [id number] Note: [facility]3Admin Note: [facility] qgetm8Hmrzw Note: [facility] xsqwd8Lendz Note: [facility] xqqnb9Psgca Note: [facility] kowop7Pkqex Note: [facility]8Admin Note: [facility] Medications Aerochamber See Instructions, # 1 each, Maintenance, use with albuterol, 03/19/20 8:51:00 EDT, Supply, 181, cm, 02/27/20 12:37:00 EDT, Height Start Date: 03/19/20 Status: OrderedDulera 200 mcg-5 mcg/inh inhalation aerosol 2 puffs, Inhalation, 2 times a day, rinse mouth and throat after use, j45.40, # 1 each, 3 Refills, Maintenance, 04/19/20 15:30:00 EST, Aerosol, [facility] #56048, This is in place of Symbicort which insurance will not cover., 2 puffs Inhalat... Start Date: 04/19/20 Status: Orderedibuprofen 800 mg oral tablet See Instructions, TAKE 1 TABLET BY MOUTH THREE TIMES DAILY WITH FOOD OR MILK AND DO NOT TAKE MORE THAN 4 TABLETS DAILY, # 42 tablet, Refills 0, Instructions Replace Required Details, Route to Pharmacy Electronically, [facility] #[id number], 180,... Start Date: 03/12/21 Status: Orderedlevocetirizine 5 mg oral tablet 1 tablet = 5 mg, By Mouth, Daily in PM, # 90 tablet, 1 Refills, Maintenance, 04/25/20 13:07:00 EST, Tablet, [facility] #57364, 1 tablet By Mouth Daily in PM, 181, cm, 04/25/20 11:45:00 EST, Height Start Date: 04/25/20 Status: Orderedlisinopril 40 mg oral tablet 1 tablet = 40 mg, By Mouth, Daily, # 90 tablet, 2 Refills, Maintenance, 03/20/21 17:24:00 EDT, Tablet, [facility] #32898, Partial fill upon patient request, 180, cm, 03/20/21 13:02:00 EDT, Height Start Date: 03/20/21 Status: OrderedProAir HFA 90 mcg/inh inhalation aerosol 1 puffs, Inhalation, 4 times a day, PRN as needed for wheezing, j45.40, # 1 each, 5 Refills, Maintenance, 12/31/20 15:18:00 EDT, Aerosol, [facility] #82199, Brand Name PROAIR only, no substitutions, 1 [...] 1 each, 6 Refills, Maintenance, 06/20/20 13:26:00EST, [facility] #15166, 181, cm, 06/19/20 14:27:00 EST, Height Start Date: 06/20/20 Status: OrderedXhance 93 mcg/inh nasal spray 1 sprays, Nares, Both, 2 times a day, # 16 mL, 0 Refills, Maintenance, 12/30/20 10:43:00 EDT, [place],Partial fill upon patient request if the prescription [...] nasal polyps(Confirmed) Active Social anxiety disorder(Confirmed) Active Diagnosis Diagnosis Type Effective Dates Health Status Clinical In formant Service Chronic back Discharge 05/29/21 pain Diagnosis Vital Signs Most recent to oldest [Reference Range]: 1 Height 180 cm (05/29/21 9:22 AM) Weight 113.18 kg (05/29/21 9:22 AM) Body Mass Index [18.5-24.99] 34.93 *>HHI* (05/29/21 9:22 AM) Weight Obtained Via Patient/family stated (05/29/21 9:22 AM) Social History Social History Type Response Smoking Status Former smoker; Other: quit i n 2013; entered on: 01/30/15 Sex
--- OUTSIDE RECORDS SUMMARY | 2022-06-10 17:33 | XMS_ITS | Continuity of Care Document ---
:1985 Author Organization [facility] Address [address] [place] [address]- Care Team Providers Name Role Phone Vikram CHACON, Ewa Lee Primary Care Physician Encounter [facility] [place] Date(s): 12/18/19 - 01/17/20 [facility] [address] [place] [address]- [facility] Allergies, Adverse Reactions, Alerts Substance Reaction Severity [...] Virus Vaccine8 12/02/87 Given 1Result Comment: [07/05/2018] [id number] Note: [facility]3Admin Note: [facility] jzqbc5Udose Note: [facility] nssil3Rsvie Note: [facility] kyjpz7Fixwc Note: [facility] zlgvl9Rlncc Note: [facility] kkeli0Rbmni Note: [facility] Medications Aerochamber See Instructions, # 1 each, Maintenance, use as directed, 04/23/16 13:42:29, Compound Start Date: 04/23/16 Status: OrderedDulera 200 mcg-5 mcg/inh inhalation aerosol 2 puffs, Inhalation, 2 times a day, rinse mouth and throat after use, # 1 each, 5 Refills, Maintenance, 01/04/19 16:31:34 EDT, Aerosol, This is in place of Symbicort which insurance will not cover., 2 puffs Inhalation 2 times a day,Instr:rinse mouth a... Start Date: 01/04/19 Status: Orderedlisinopril 20 mg oral tablet 20 mg, 1, tablet, By Mouth, Daily at bedtime, # 90 tablet, Refills 0, Tot. Refills 0, Maintenance, 12/14/19 13:25:00 EDT, Route to Pharmacy Electronically, [facility] #[id number], 181, cm, 06/19/19 16:12:00 EST, Height Start Date: 12/14/19 Status: Orderednaproxen 500 mg oral tablet 1 tablet, By Mouth, 2 times a day, PRN NEEDED FOR PAIN, TAKE WITH FOOD, # 28 tablet, 0 Refills, Acute, 11/14/19 15:10:00 EDT, [facility] #[id number], 181, cm, 06/19/19 16:12:00 EST, Height Start Date: 11/14/19 Status: OrderedProtonix 40 mg oral delayed release tablet 1 tablet = 40 mg, By Mouth, Daily, # 90 tablet, 0 Refills, Maintenance, 11/10/19 9:25:00 EDT, EC Tablet, 181, cm, 06/19/19 16:12:00 EST, Height Start Date: 11/10/19 Stop Date: 02/08/20 Status: OrderedSpiriva HandiHaler 18 mcg inhalation capsule 1 capsule = 18 mcg, Inhalation, Daily, j 45.909, # 30 capsule, 3 Refills, Maintenance, 12/18/19 16:31:00 EDT, [facility] #[id number], 181, cm, 06/19/19 16:12:00 EST, Height Start Date: 12/18/19 Status: OrderedSpiriva Respimat 1.25 mcg/inh inhalation aerosol [...]
--- OUTSIDE RECORDS SUMMARY | 2022-06-10 17:33 | XMS_ITS | Continuity of Care Document ---
:1985 Author Organization [facility] Address [address] [place] [address]- Care Team Providers Name Role Phone Ewa Sue NP Primary Care Physician Encounter [facility] [place] Date(s): 03/20/21 - 03/27/21 [facility] [address] [place] [address]- Encounter Diagnosis Chronic sinus infection (Discharge Diagnosis) - 03/20/21 Benign essential HTN (Discharge Diagnosis) - 03/20/21 Attending Physician: Not on Staff, Attending MD [...] (HbOC) vaccine 08/10/88 Recorded 1Result Comment: [07/05/2018] [id number] Note: [facility]3Admin Note: [facility] zjxhy2Pupbx Note: [facility] wdiel8Fhfec Note: [facility] tqdvu7Rumru Note: [facility] xeuig5Yyxrh Note: [facility] uvfjm9Gmxff Note: [facility] Medications Aerochamber See Instructions, # 1 each, Maintenance, use with albuterol, 03/19/20 8:51:00 EDT, Supply, 181, cm, 02/27/20 12:37:00 EDT, Height Start Date: 03/19/20 Status: OrderedDulera 200 mcg-5 mcg/inh inhalation aerosol 2 puffs, Inhalation, 2 times a day, rinse mouth and throat after use, j45.40, # 1 each, 3 Refills, Maintenance, 04/19/20 15:30:00 EST, Aerosol, [facility] #[id number], This is in place of Symbicort which insurance will not cover., 2 puffs Inhalat... Start Date: 04/19/20 Status: Orderedibuprofen 800 mg oral tablet See Instructions, TAKE 1 TABLET BY MOUTH THREE TIMES DAILY WITH FOOD OR MILK AND DO NOT TAKE MORE THAN 4 TABLETS DAILY, # 42 tablet, Refills 0, Instructions Replace Required Details, Route to Pharmacy Electronically, [facility] #[id number], 180,... Start Date: 03/12/21 Status: Orderedlevocetirizine 5 mg oral tablet 1 tablet = 5 mg, By Mouth, Daily in PM, # 90 tablet, 1 Refills, Maintenance, 04/25/20 13:07:00 EST, Tablet, [facility] #55852, 1 tablet By Mouth Daily in PM, 181, cm, 04/25/20 11:45:00 EST, Height Start Date: 04/25/20 Status: Orderedlisinopril 40 mg oral tablet 1 tablet = 40 mg, By Mouth, Daily, # 90 tablet, 2 Refills, Maintenance, 03/20/21 17:24:00 EDT, Tablet, [facility] #[id number], Partial fill upon patient request, 180, cm, [...] 5 Refills, Maintenance, 12/31/20 15:18:00 EDT, Aerosol, [facility] #[id number], Brand Name PROAIR only, no substitutions, 1 [...] 1 each, 6 Refills, Maintenance, 06/20/20 13:26:00EST, [facility] #[id number], 181, cm, 06/19/20 14:27:00 EST, Height Start Date: 06/20/20 Status: OrderedXhance 93 mcg/inh nasal spray 1 sprays, Nares, Both, 2 times a day, # 16 mL, 0 Refills, Maintenance, 12/30/20 10:43:00 EDT, [place],Partial fill upon patient request if the prescription [...] Health Status Clinical In formant Service Chronic sinus Discharge 03/20/21 infection Diagnosis Benign essential Discharge 03/20/21 HTN Diagnosis Vital Signs Most recent to oldest [Reference Range]: 1 Height 180 cm (03/20/21 1:02 PM) Social History Social History Type Response Smoking Status Former smoker; Other: quit i n 2013; entered on: 01/30/15 Sex
--- OUTSIDE RECORDS SUMMARY | 2022-06-10 17:33 | XMS_ITS | Continuity of Care Document ---
:1985 Author Organization [facility] Address [address] [place] [address]- Care Team Providers Name Role Phone Ewa Sue NP Primary Care Physician Encounter [facility] [place] Date(s): 04/13/19 - 07/14/19 [facility] [address] [place] [address]- [facility] Attending Physician: Not on Staff, Attending MD [...] Virus Vaccine8 12/02/87 Given 1Result Comment: [07/05/2018] [id number] Note: [facility]3Admin Note: [facility] zzxzk3Ikbfn Note: [facility] wjsss8Quiov Note: [facility] mppni7Xalww Note: [facility] seyus6Clibs Note: [facility] ekbzv9Rdhgq Note: [facility] Medications Aerochamber See Instructions, # [...] Daily at bedtime, # 90 tablet, Refills 1, Tot. Refills 1, Maintenance, 06/30/19 16:53:00 EST, Route to Pharmacy Electronically, [facility] #[id number], 181, cm, 06/19/19 16:12:00 EST, Height Start Date: 06/30/19 Status: OrderedProAir HFA 90 mcg/inh inhalation aerosol with adapter 2, puffs, Inhalation, 4 times a day, PRN, J 44.9 NO SUBSTITUTIONS for 30 days, # 1 each, Refills 11,Tot. Refills 11, Hard Stop 12/30/19 11:25:00 EDT, 01/04/19 11:25:00 EDT, Aerosol, Route to Pharmacy Electronically, [id number]... Start Date: 01/04/19 Stop Date: 12/30/19 Status: [...]
--- OUTSIDE RECORDS SUMMARY | 2022-06-10 17:33 | XMS_ITS | Continuity of Care Document ---
:1985 Author Organization [facility] Address [address] [place] [address]- Care Team Providers Name Role Phone Vikram CHACON, Ewa Lee Primary Care Physician [place] [facility] [place] - 01/26/21 [facility] [address] [place] [address]- [place] Allergies, Adverse Reactions, Alerts Substance Reaction Severity [...] Virus Vaccine8 12/02/87 Given 1Result Comment: [07/05/2018] [id number] Note: [facility]3Admin Note: [facility] nwwtl5Yehwa Note: [facility] hjoem7Oyzpx Note: [facility] zdpat3Rmvns Note: [facility] ejrzv1Izwpv Note: [facility] pfpwk0Aayfq Note: [facility] Medications Aerochamber See Instructions, # 1 each, Maintenance, use with albuterol, 03/19/20 8:51:00 EDT, Supply, 181, cm, 02/27/20 12:37:00 EDT, Height Start Date: 03/19/20 Status: OrderedDulera 200 mcg-5 mcg/inh inhalation aerosol 2 puffs, Inhalation, 2 times a day, rinse mouth and throat after use, j45.40, # 1 each, 3 Refills, Maintenance, 04/19/20 15:30:00 EST, Aerosol, [facility] #[id number], This is in place of Symbicort which [...] 1 Refills, Maintenance, 04/25/20 13:07:00 EST, Tablet, [facility] #[id number], 1 tablet By Mouth Daily in PM, 181, cm, 04/25/20 11:45:00 EST, Height Start Date: 04/25/20 Status: Orderedlisinopril 40 mg oral tablet 1 tablet = 40 mg, By Mouth, Daily, # 90 tablet, 2 Refills, Maintenance, 04/25/20 13:14:00 EST, Tablet, [facility] #[id number], Partial fill upon patient request, 181, cm, [...] Maintenance,04/25/20 13:20:00 EST, Route to Pharmacy Electronically, [facility] #[id number], Partial fill upon patient request, 181, cm, 04/25/20 11:45:00 ES... Start Date: 04/25/20 Stop Date: 11/21/20 Status: OrderedProAir HFA 90 mcg/inh inhalation aerosol 1 puffs, Inhalation, 4 times a day, PRN as needed for wheezing, j45.40, # 1 each, 5 Refills, Maintenance, 12/31/20 15:18:00 EDT, Aerosol, [facility] #[id number], Brand Name PROAIR only, no substitutions, 1 [...] 1 each, 6 Refills, Maintenance, 06/20/20 13:26:00EST, [facility] #[id number], 181, cm, 06/19/20 14:27:00 EST, Height Start Date: 06/20/20 Status: OrderedXhance 93 mcg/inh nasal spray 1 sprays, Nares, Both, 2 times a day, # 16 mL, 0 Refills, Maintenance, 12/30/20 10:43:00 EDT, [place],Partial fill upon patient request if the prescription [...]
--- OUTSIDE RECORDS SUMMARY | 2022-06-10 17:33 | XMS_ITS | Continuity of Care Document ---
:1985 Author Organization [facility] Address [address] [place] [address]- Care Team Providers Name Role Phone Ewa Sue NP Primary Care Physician En[place] [facility] [place](s): 03/20/21 - 04/19/21 [facility] [address] [place] [address]- Attending Physician: AdmKonstantin arceo Admitting Physician: Admtr, [...] (HbOC) vaccine 08/10/88 Recorded 1Result Comment: [07/05/2018] [id number] Note: [facility]3Admin Note: [facility] jeirx2Vobaa Note: [facility] dqujv5Eaehe Note: [facility] xcfnt9Aafds Note: [facility] imgje0Uadjt Note: [facility]8Admin Note: [facility] Medications Aerochamber See Instructions, # 1 each, Maintenance, use with albuterol, 03/19/20 8:51:00 EDT, Supply, 181, cm, 02/27/20 12:37:00 EDT, Height Start Date: 03/19/20 Status: OrderedDulera 200 mcg-5 mcg/inh inhalation aerosol 2 puffs, Inhalation, 2 times a day, rinse mouth and throat after use, j45.40, # 1 each, 3 Refills, Maintenance, 04/19/20 15:30:00 EST, Aerosol, [facility] #[id number], This is in place of Symbicort which insurance will not cover., 2 puffs Inhalat... Start Date: 04/19/20 Status: Orderedibuprofen 800 mg oral tablet See Instructions, TAKE 1 TABLET BY MOUTH THREE TIMES DAILY WITH FOOD OR MILK AND DO NOT TAKE MORE THAN 4 TABLETS DAILY, # 42 tablet, Refills 0, Instructions Replace Required Details, Route to Pharmacy Electronically, [facility] #[id number], 180,... Start Date: 03/12/21 Status: Orderedlevocetirizine 5 mg oral tablet 1 tablet = 5 mg, By Mouth, Daily in PM, # 90 tablet, 1 Refills, Maintenance, 04/25/20 13:07:00 EST, Tablet, [facility] #[id number], 1 tablet By Mouth Daily in PM, 181, cm, 04/25/20 11:45:00 EST, Height Start Date: 04/25/20 Status: Orderedlisinopril 40 mg oral tablet 1 tablet = 40 mg, By Mouth, Daily, # 90 tablet, 2 Refills, Maintenance, 03/20/21 17:24:00 EDT, Tablet, [facility] #[id number], Partial fill upon patient request, 180, cm, [...] 5 Refills, Maintenance, 12/31/20 15:18:00 EDT, Aerosol, [facility] #[id number], Brand Name PROAIR only, no substitutions, 1 [...] 1 each, 6 Refills, Maintenance, 06/20/20 13:26:00EST, [facility] #[id number], 181, cm, 06/19/20 14:27:00 EST, Height Start Date: 06/20/20 Status: OrderedXhance 93 mcg/inh nasal spray 1 sprays, Nares, Both, 2 times a day, # 16 mL, 0 Refills, Maintenance, 12/30/20 10:43:00 EDT, [place],Partial fill upon patient request if the prescription [...]
--- OUTSIDE RECORDS SUMMARY | 2022-06-10 17:33 | XMS_ITS | Continuity of Care Document ---
:1985 Author Organization [facility] Address [address] [place] [address]- Care Team Providers Name Role Phone Vikram CHACON, Ewa Lee Primary Care Physician [place] [facility] [place] 07/15/[address] [address] Discharge Disposition: A-D/C Home Attending Physician: Ewa Sue NP Admitting Physician: Ewa Sue NP Referring Physician: Ewa Sue NP Allergies, Adverse [...] Virus Vaccine8 12/02/87 Given 1Result Comment: [07/05/2018] [id number] Note: [facility]3Admin Note: [facility] ojhfs0Ifgkx Note: [facility] hueet6Jslwv Note: [facility] jwefl4Guvyd Note: [facility] ecybf9Mqgjs Note: [facility] vysth1Rrqxc Note: [facility] Medications Aerochamber See Instructions, # 1 each, Maintenance, use with albuterol, 03/19/20 8:51:00 EDT, Supply, 181, cm, 02/27/20 12:37:00 EDT, Height Start Date: 03/19/20 Status: OrderedDulera 200 mcg-5 mcg/inh inhalation aerosol 2 puffs, Inhalation, 2 times a day, rinse mouth and throat after use, j45.40, # 1 each, 3 Refills, Maintenance, 04/19/20 15:30:00 EST, Aerosol, [facility] #[id number], This is in place of Symbicort which insurance will not cover., 2 puffs Inhalat... Start Date: 04/19/20 Status: Orderedlevocetirizine 5 mg oral tablet 1 tablet = 5 mg, By Mouth, Daily in PM, # 90 tablet, 1 Refills, Maintenance, 04/25/20 13:07:00 EST, Tablet, [facility] #[id number], 1 tablet By Mouth Daily in PM, 181, cm, 04/25/20 11:45:00 EST, Height Start Date: 04/25/20 Status: Orderedlisinopril 40 mg oral tablet 1 tablet = 40 mg, By Mouth, Daily, # 90 tablet, 2 Refills, Maintenance, 04/25/20 13:14:00 EST, Tablet, [facility] #[id number], Partial fill upon patient request, 181, cm, 04/25/20 11:45:00 EST, Height Start Date: 04/25/20 Status: OrderedPARoxetine 10 mg oral tablet 10 mg, 1, tablet, By Mouth, Daily, TK 1 T PO D, # 30 tablet, Refills 6, Tot. Refills 6, Maintenance,04/25/20 13:20:00 EST, Route to Pharmacy Electronically, [facility] #[id number], Partial fill upon patient request, 181, cm, 04/25/20 11:45:00 ES... Start Date: 04/25/20 Stop Date: 11/21/20 Status: OrderedProAir HFA 90 mcg/inh inhalation aerosol 1 puffs, Inhalation, 4 times a day, PRN as needed for wheezing, j45.40, # 1 each, 2 Refills, Maintenance, 06/20/20 11:41:00 EST, Aerosol, [facility] #[id number], Brand Name PROAIR only, no substitutions, 1 [...] 1 each, 6 Refills, Maintenance, 06/20/20 13:26:00EST, [facility] #[id number], 181, cm, 06/19/20 14:27:00 EST, Height Start [...]
--- OUTSIDE RECORDS SUMMARY | 2022-06-10 17:34 | XMS_ITS | Continuity of Care Document ---
:1985 Author Organization [facility] Address [address] [place] [address]- Care Team Providers Name Role Phone Ewa Sue NP Primary Care Physician Encounter [facility] [place] Date(s): 06/19/19 - 08/19/19 [facility] [address] [place] [address]- [facility] Attending Physician: Not on Staff, Attending MD [...] Virus Vaccine8 12/02/87 Given 1Result Comment: [07/05/2018] [id number] Note: [facility]3Admin Note: [place] [facility] kltlp4Afufv Note: [facility] hmngg7Ihcao Note: [facility] cysjy0Gzdzw Note: [facility] miluz9Wgeik Note: [facility] igobk8Oejyg Note: [facility] Medications Aerochamber See Instructions, # [...] 06/30/19 16:53:00 EST, Route to Pharmacy Electronically, [facility] #[id number], 181, cm, 06/19/19 16:12:00 EST, Height Start Date: 06/30/19 Status: OrderedProAir HFA 90 mcg/inh inhalation aerosol with adapter 2, puffs, Inhalation, 4 times a day, PRN, J 44.9 NO SUBSTITUTIONS for 30 days, # 1 each, Refills 11,Tot. Refills 11, Hard Stop 12/30/19 11:25:00 EDT, 01/04/19 11:25:00 EDT, Aerosol, Route to Pharmacy Electronically, [id number]... Start Date: 01/04/19 Stop Date: 12/30/19 Status: [...]
--- OUTSIDE RECORDS SUMMARY | 2022-06-10 17:34 | XMS_ITS | Continuity of Care Document ---
:1985 Author Organization [facility] Address [address] [place] [address]- Care Team Providers Name Role Phone Ewa Sue NP Primary Care Physician Encounter [facility] Date(s): 03/12/21 - 04/11/21 [facility] [address] [place] [address]- Allergies, Adverse Reactions, Alerts Substance Reaction Severity [...] (HbOC) vaccine 08/10/88 Recorded 1Result Comment: [07/05/2018] [id number] Note: [facility]3Admin Note: [place] [place] [facility] dzjwz5Honpa Note: [facility] qcnqs5Hmtkv Note: [facility] agofi9Rxhfb Note: [facility] dcsla3Debtu Note: [facility] niyge0Tswfx Note: [facility] Medications Aerochamber See Instructions, # 1 each, Maintenance, use with albuterol, 10/13/20 8:51:00 EDT, Supply, 181, cm, 02/27/20 12:37:00 EDT, Height Start Date: 03/19/20 Status: OrderedDulera 200 mcg-5 mcg/inh inhalation aerosol 2 puffs, Inhalation, 2 times a day, rinse mouth and throat after use, j45.40, # 1 each, 3 Refills, Maintenance, 04/19/20 15:30:00 EST, Aerosol, [facility] #[id number], This is in place of Symbicort which insurance will not cover., 2 puffs Inhalat... Start Date: 04/19/20 Status: Orderedibuprofen 800 mg oral tablet See Instructions, TAKE 1 TABLET BY MOUTH THREE TIMES DAILY WITH FOOD OR MILK AND DO NOT TAKE MORE THAN 4 TABLETS DAILY, # 42 tablet, Refills 0, Instructions Replace Required Details, Route to Pharmacy Electronically, [facility] #[id number], 180,... Start Date: 03/12/21 Status: Orderedlevocetirizine 5 mg oral tablet 1 tablet = 5 mg, By Mouth, Daily in PM, # 90 tablet, 1 Refills, Maintenance, 04/25/20 13:07:00 EST, Tablet, [facility] #[id number], 1 tablet By Mouth Daily in PM, 181, cm, 04/25/20 11:45:00 EST, Height Start Date: 04/25/20 Status: Orderedlisinopril 40 mg oral tablet 1 tablet = 40 mg, By Mouth, Daily, # 90 tablet, 2 Refills, Maintenance, 03/20/21 17:24:00 EDT, Tablet, [facility] #[id number], Partial fill upon patient request, 180, cm, [...] 5 Refills, Maintenance, 12/31/20 15:18:00 EDT, Aerosol, [facility] #[id number], Brand Name PROAIR only, no substitutions, 1 [...] 1 each, 6 Refills, Maintenance, 06/20/20 13:26:00EST, [facility] #[id number], 181, cm, 06/19/20 14:27:00 EST, Height Start Date: 06/20/20 Status: OrderedXhance 93 mcg/inh nasal spray 1 sprays, Nares, Both, 2 times a day, # 16 mL, 0 Refills, Maintenance, 12/30/20 10:43:00 EDT, [place],Partial fill upon patient request if the prescription [...]
--- OUTSIDE RECORDS SUMMARY | 2022-06-10 17:34 | XMS_ITS | Continuity of Care Document ---
:1985 Author Organization [facility] Address [address] [address]- Care Team Providers Name Role Phone Ewa Sue NP Primary Care Physician Encounter [facility] Date(s): 10/07/20 - 11/06/[address] [facility] [address] [address] Allergies, Adverse Reactions, Alerts Substance Reaction Severity [...] Virus Vaccine8 12/02/87 Given 1Result Comment: [07/05/2018] [id number] Note: [facility]3Admin Note: [facility] pfogz6Ckcde Note: [facility] buunl1Luixu Note: [facility] pskfs6Ygjzj Note: [facility] duieu2Iwofm Note: [facility] xstlv8Nbvaq Note: [facility] Medications Aerochamber See Instructions, # 1 each, Maintenance, use with albuterol, 03/19/20 8:51:00 EDT, Supply, 181, cm, 02/27/20 12:37:00 EDT, Height Start Date: 03/19/20 Status: OrderedDulera 200 mcg-5 mcg/inh inhalation aerosol 2 puffs, Inhalation, 2 times a day, rinse mouth and throat after use, j45.40, # 1 each, 3 Refills, Maintenance, 04/19/20 15:30:00 EST, Aerosol, [facility] #[id number], This is in place of Symbicort which [...] 1 Refills, Maintenance, 04/25/20 13:07:00 EST, Tablet, [facility] #[id number], 1 tablet By Mouth Daily in PM, 181, cm, 04/25/20 11:45:00 EST, Height Start Date: 04/25/20 Status: Orderedlisinopril 40 mg oral tablet 1 tablet = 40 mg, By Mouth, Daily, # 90 tablet, 2 Refills, Maintenance, 04/25/20 13:14:00 EST, Tablet, [facility] #[id number], Partial fill upon patient request, 181, cm, [...] Maintenance,04/25/20 13:20:00 EST, Route to Pharmacy Electronically, [facility] #[id number], Partial fill upon patient request, 181, cm, 04/25/20 11:45:00 ES... Start Date: 04/25/20 Stop Date: 11/21/20 Status: OrderedProAir HFA 90 mcg/inh inhalation aerosol 1 puffs, Inhalation, 4 times a day, PRN as needed for wheezing, j45.40, # 1 each, 2 Refills, Maintenance, 06/20/20 11:41:00 EST, Aerosol, [facility] #[id number], Brand Name PROAIR only, no substitutions, 1 [...] 1 each, 6 Refills, Maintenance, 06/20/20 13:26:00EST, [facility] #[id number], 181, cm, 06/19/20 14:27:00 EST, Height Start [...]
--- OUTSIDE RECORDS SUMMARY | 2022-06-10 17:34 | XMS_ITS | Continuity of Care Document ---
:1985 Author Organization [facility] Address [address] [place] [address]- Care Team Providers Name Role Phone Ewa Sue NP Primary Care Physician Encounter [facility] Date(s): 06/17/20 - 07/17/20 [facility] [address] [place] [address]- Allergies, Adverse Reactions, Alerts Substance Reaction Severity [...] Virus Vaccine8 12/02/87 Given 1Result Comment: [07/05/2018] [id number] Note: [facility]3Admin Note: [facility] xxhrs6Rghan Note: [facility] yberp3Lekvl Note: [facility] cxmwu1Sgrpr Note: [facility] vhenk5Ihiyp Note: [facility] vjezt8Bsslf Note: [facility] Medications Aerochamber See Instructions, # 1 each, Maintenance, use with albuterol, 03/19/20 8:51:00 EDT, Supply, 181, cm, 02/27/20 12:37:00 EDT, Height Start Date: 03/19/20 Status: OrderedDulera 200 mcg-5 mcg/inh inhalation aerosol 2 puffs, Inhalation, 2 times a day, rinse mouth and throat after use, j45.40, # 1 each, 3 Refills, Maintenance, 04/19/20 15:30:00 EST, Aerosol, [facility] #[id number], This is in place of Symbicort which insurance will not cover., 2 puffs Inhalat... Start Date: 04/19/20 Status: Orderedlevocetirizine 5 mg oral tablet 1 tablet = 5 mg, By Mouth, Daily in PM, # 90 tablet, 1 Refills, Maintenance, 04/25/20 13:07:00 EST, Tablet, [facility] #[id number], 1 tablet By Mouth Daily in PM, 181, cm, 04/25/20 11:45:00 EST, Height Start Date: 04/25/20 Status: Orderedlisinopril 40 mg oral tablet 1 tablet = 40 mg, By Mouth, Daily, # 90 tablet, 2 Refills, Maintenance, 04/25/20 13:14:00 EST, Tablet, [facility] #[id number], Partial fill upon patient request, 181, cm, 04/25/20 11:45:00 EST, Height Start Date: 04/25/20 Status: OrderedPARoxetine 10 mg oral tablet 10 mg, 1, tablet, By Mouth, Daily, TK 1 T PO D, # 30 tablet, Refills 6, Tot. Refills 6, Maintenance,04/25/20 13:20:00 EST, Route to Pharmacy Electronically, [facility] #[id number], Partial fill upon patient request, 181, cm, 04/25/20 11:45:00 ES... Start Date: 04/25/20 Stop Date: 11/21/20 Status: OrderedProAir HFA 90 mcg/inh inhalation aerosol 1 puffs, Inhalation, 4 times a day, PRN as needed for wheezing, j45.40, # 1 each, 2 Refills, Maintenance, 06/20/20 11:41:00 EST, Aerosol, [facility] #[id number], Brand Name PROAIR only, no substitutions, 1 [...] 1 each, 6 Refills, Maintenance, 06/20/20 13:26:00EST, [facility] #[id number], 181, cm, 06/19/20 14:27:00 EST, Height Start [...]
--- OUTSIDE RECORDS SUMMARY | 2022-06-10 17:34 | XMS_ITS | Continuity of Care Document ---
:1985 Author Organization [facility] Address [address] [place] [address]- Care Team Providers Name Role Phone Ewa Sue NP Primary Care Physician Encounter [facility] Date(s): 03/12/21 - 04/11/21 [facility] [address] [place] [address]- Allergies, Adverse Reactions, Alerts Substance Reaction Severity [...] (HbOC) vaccine 08/10/88 Recorded 1Result Comment: [07/05/2018] [id number] Note: [facility]3Admin Note: [facility] efhrc5Zigcv Note: [facility] vwixe3Mtkkx Note: [facility] voqpl9Tyfaq Note: [facility] tlcmx0Ubxez Note: [facility] zgfns4Vtimh Note: [facility] Medications Aerochamber See Instructions, # 1 each, Maintenance, use with albuterol, 10/13/20 8:51:00 EDT, Supply, 181, cm, 02/27/20 12:37:00 EDT, Height Start Date: 03/19/20 Status: OrderedDulera 200 mcg-5 mcg/inh inhalation aerosol 2 puffs, Inhalation, 2 times a day, rinse mouth and throat after use, j45.40, # 1 each, 3 Refills, Maintenance, 04/19/20 15:30:00 EST, Aerosol, [facility] #[id number], This is in place of Symbicort which insurance will not cover., 2 puffs Inhalat... Start Date: 04/19/20 Status: Orderedibuprofen 800 mg oral tablet See Instructions, TAKE 1 TABLET BY MOUTH THREE TIMES DAILY WITH FOOD OR MILK AND DO NOT TAKE MORE THAN 4 TABLETS DAILY, # 42 tablet, Refills 0, Instructions Replace Required Details, Route to Pharmacy Electronically, [facility] #[id number], 180,... Start Date: 03/12/21 Status: Orderedlevocetirizine 5 mg oral tablet 1 tablet = 5 mg, By Mouth, Daily in PM, # 90 tablet, 1 Refills, Maintenance, 04/25/20 13:07:00 EST, Tablet, [facility] #[id number], 1 tablet By Mouth Daily in PM, 181, cm, 04/25/20 11:45:00 EST, Height Start Date: 04/25/20 Status: Orderedlisinopril 40 mg oral tablet 1 tablet = 40 mg, By Mouth, Daily, # 90 tablet, 2 Refills, Maintenance, 03/20/21 17:24:00 EDT, Tablet, [facility] #[id number], Partial fill upon patient request, 180, cm, [...] 5 Refills, Maintenance, 12/31/20 15:18:00 EDT, Aerosol, [facility] #[id number], Brand Name PROAIR only, no substitutions, 1 [...] 1 each, 6 Refills, Maintenance, 06/20/20 13:26:00EST, [facility] #[id number], 181, cm, 06/19/20 14:27:00 EST, Height Start Date: 06/20/20 Status: OrderedXhance 93 mcg/inh nasal spray 1 sprays, Nares, Both, 2 times a day, # 16 mL, 0 Refills, Maintenance, 12/30/20 10:43:00 EDT, [place],Partial fill upon patient request if the prescription [...]
--- OUTSIDE RECORDS SUMMARY | 2022-06-10 17:34 | XMS_ITS | Continuity of Care Document ---
:1985 Author Organization [facility] Address [address] [place] [address]- Care Team Providers Name Role Phone Vikram CHACON, Ewa Lee Primary Care Physician [place] [facility] [place] - 09/11/[address] [address] Discharge Disposition: A-D/C Home Attending Physician: Ewa [...] Virus Vaccine8 12/02/87 Given 1Result Comment: [07/05/2018] [id number] Note: [facility]3Admin Note: [place] [facility] jdngn0Sebtg Note: [place] fwrjx1Ujfab Note: [place] [place] mdeyb8Coupq Note: [facility] yjwhh3Vulat Note: [place] jvvhv5Upkhz Note: [facility] Medications Aerochamber See Instructions, # 1 each, Maintenance, use with albuterol, 03/19/20 8:51:00 EDT, Supply, 181, cm, 02/27/20 12:37:00 EDT, Height Start Date: 03/19/20 Status: OrderedDulera 200 mcg-5 mcg/inh inhalation aerosol 2 puffs, Inhalation, 2 times a day, rinse mouth and throat after use, j45.40, # 1 each, 3 Refills, Maintenance, 04/19/20 15:30:00 EST, Aerosol, [facility] #[id number], This is in place of Symbicort which insurance will not cover., 2 puffs Inhalat... Start Date: 04/19/20 Status: Orderedlevocetirizine 5 mg oral tablet 1 tablet = 5 mg, By Mouth, Daily in PM, # 90 tablet, 1 Refills, Maintenance, 04/25/20 13:07:00 EST, Tablet, [facility] #[id number], 1 tablet By Mouth Daily in PM, 181, cm, 04/25/20 11:45:00 EST, Height Start Date: 04/25/20 Status: Orderedlisinopril 40 mg oral tablet 1 tablet = 40 mg, By Mouth, Daily, # 90 tablet, 2 Refills, Maintenance, 04/25/20 13:14:00 EST, Tablet, [facility] #[id number], Partial fill upon patient request, 181, cm, 04/25/20 11:45:00 EST, Height Start Date: 04/25/20 Status: OrderedPARoxetine 10 mg oral tablet 10 mg, 1, tablet, By Mouth, Daily, TK 1 T PO D, # 30 tablet, Refills 6, Tot. Refills 6, Maintenance,04/25/20 13:20:00 EST, Route to Pharmacy Electronically, [facility] #[id number], Partial fill upon patient request, 181, cm, 04/25/20 11:45:00 ES... Start Date: 04/25/20 Stop Date: 11/21/20 Status: OrderedProAir HFA 90 mcg/inh inhalation aerosol 1 puffs, Inhalation, 4 times a day, PRN as needed for wheezing, j45.40, # 1 each, 2 Refills, Maintenance, 06/20/20 11:41:00 EST, Aerosol, [facility] #[id number], Brand Name PROAIR only, no substitutions, 1 [...] 1 each, 6 Refills, Maintenance, 06/20/20 13:26:00EST, [facility] #[id number], 181, cm, 06/19/20 14:27:00 EST, Height Start [...]
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
--- OUTSIDE RECORDS SUMMARY | 2022-06-10 17:34 | XMS_ITS | Continuity of Care Document ---
:1985 Author Organization [facility] Address [address] [place] [address]- Care Team Providers Name Role Phone Ewa Sue NP Primary Care Physician En[place] [facility] [place] Date(s): 06/13/19 - 06/13/[address] [address]- [facility] Attending Physician: Ewa Sue NP Allergies, Adverse Reactions, [...] Virus Vaccine8 12/02/87 Given 1Result Comment: [07/05/2018] [id number] Note: [facility]3Admin Note: [facility] [facility] gkbts8Niayf Note: [facility] yjrjj1Timvj Note: [facility] gwyyr6Jcvrx Note: [facility] dmeqh6Jevmt Note: [facility] itqpo3Npqyp Note: [facility] Medications Aerochamber See Instructions, # 1 each, Maintenance, use as directed, 04/23/16 13:42:29, Compound Start Date: 04/23/16 Status: OrderedamLODIPine 2.5 mg oral tablet 2.5 mg, 1, tablet, By Mouth, Daily, # 30 tablet, Refills 6, Tot. Refills 6, Maintenance, 04/26/19 12:19:50 EST, Route to Pharmacy Electronically, [id number], [facility] #[id number] Start Date: 04/26/19 Status: OrderedDulera 200 mcg-5 [...] 11:25:00 EDT, Aerosol, Route to Pharmacy Electronically, [id number]... Start Date: 01/04/19 Stop Date: 12/30/19 Status: [...]
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
--- OUTSIDE RECORDS SUMMARY | 2022-06-10 17:34 | XMS_ITS | Continuity of Care Document ---
:1985 Author Organization [facility] Address [address] [address]- Care Team Providers Name Role Phone Vikram CHACON, Ewa Lee Primary Care Physician Encounter [facility] [place] Date(s): 05/27/20 - 06/26/20 [facility] [address] [place] [id number] Attending Physician: Konstantin Brooks Admitting Physician: AdmKonstantin [...] Virus Vaccine8 12/02/87 Given 1Result Comment: [07/05/2018] [id number] Note: [facility]3Admin Note: [facility] mupjz8Eszpj Note: [facility] wfpns6Kaouv Note: [facility] idnwx3Rpetz Note: [facility] hbgnv4Svpgl Note: [facility] bflqn1Hirvp Note: [facility] Medications Aerochamber See Instructions, # 1 each, Maintenance, use with albuterol, 03/19/20 8:51:00 EDT, Supply, 181, cm, 02/27/20 12:37:00 EDT, Height Start Date: 03/19/20 Status: Orderedbetamethasone-clotrimazole 0.05%-1% topical cream 1 application, Topically, 2 times a day, for 14 days, Not to be used longer than 2 weeks, # 90 Gm, 0Refills, Acute 07/01/20 14:19:00 EST, 06/17/20 14:19:00 EST, Cream, [facility] #[id number], Partial fill upon patient request if the prescription... Start Date: 06/17/20 Stop Date: 07/01/20 Status: OrderedDulera 200 mcg-5 mcg/inh inhalation aerosol 2 puffs, Inhalation, 2 times a day, rinse mouth and throat after use, j45.40, # 1 each, 3 Refills, Maintenance, 04/19/20 15:30:00 EST, Aerosol, [facility] #[id number], This is in place of Symbicort which insurance will not cover., 2 puffs Inhalat... Start Date: 04/19/20 Status: Orderedfamotidine 20 mg oral tablet 20 mg, 1, tablet, By Mouth, Daily at bedtime, # 90 tablet, Refills 3, Tot. Refills 3, Maintenance, 04/25/20 13:07:00 EST, Route to Pharmacy Electronically, [facility] #[id number], 181, cm, 04/25/20 11:45:00 EST, Height Start Date: 04/25/20 Status: Orderedlevocetirizine 5 mg oral tablet 1 tablet = 5 mg, By Mouth, Daily in PM, # 90 tablet, 1 Refills, Maintenance, 04/25/20 13:07:00 EST, Tablet, [facility] #[id number], 1 tablet By Mouth Daily in PM, 181, cm, 04/25/20 11:45:00 EST, Height Start Date: 04/25/20 Status: Orderedlisinopril 40 mg oral tablet 1 tablet = 40 mg, By Mouth, Daily, # 90 tablet, 2 Refills, Maintenance, 04/25/20 13:14:00 EST, Tablet, [facility] #[id number], Partial fill upon patient request, 181, cm, 04/25/20 11:45:00 EST, Height Start Date: 04/25/20 Status: OrderedPARoxetine 10 mg oral tablet 10 mg, 1, tablet, By Mouth, Daily, TK 1 T PO D, # 30 tablet, Refills 6, Tot. Refills 6, Maintenance,04/25/20 13:20:00 EST, Route to Pharmacy Electronically, [facility] #[id number], Partial fill upon patient request, 181, cm, 04/25/20 11:45:00 ES... Start Date: 04/25/20 Stop Date: 11/21/20 Status: OrderedProAir HFA 90 mcg/inh inhalation aerosol 1 puffs, Inhalation, 4 times a day, PRN as needed for wheezing, j45.40, # 1 each, 2 Refills, Maintenance, 06/20/20 11:41:00 EST, Aerosol, [facility] #[id number], Brand Name PROAIR only, no substitutions, 1 [...] 1 each, 6 Refills, Maintenance, 06/20/20 13:26:00EST, [facility] #[id number], 181, cm, 06/19/20 14:27:00 EST, Height Start [...]
--- OUTSIDE RECORDS SUMMARY | 2022-06-10 17:34 | XMS_ITS | Continuity of Care Document ---
:1985 Author Organization [facility] Adult Address [address] [place] [address]- Care Team Providers Name Role Phone Ewa Sue NP Primary Care Physician [place] [facility] [place]20 [facility] [address] [place] [address]- Attending Physician: Not on Staff, Attending MD [...] Virus Vaccine8 12/02/87 Given 1Result Comment: [07/05/2018] [id number] Note: [facility]3Admin Note: [facility] wgxvr1Fapxv Note: [facility] xwqrw1Limkz Note: [facility] wgfdr0Xoknd Note: [facility] skhrc2Zerbo Note: [facility] wjyaw9Kzglz Note: [facility] Medications Aerochamber See Instructions, # 1 each, Maintenance, use with albuterol, 03/19/20 8:51:00 EDT, Supply, 181, cm, 02/27/20 12:37:00 EDT, Height Start Date: 03/19/20 Status: Orderedcyclobenzaprine 10 mg oral tablet 10 mg, 1, tablet, By Mouth, 3 times a day, PRN, for 7 days, may cause drowsiness, # 21 tablet, Refills 0, Tot. Refills 0, Acute 05/20/20 10:08:00 EST, Spasm for spasm, 05/13/20 10:08:00 EST, Route toPharmacy Electronically, [facility] #[id number]... Start Date: 05/13/20 Stop Date: 05/20/20 Status: OrderedDulera 200 mcg-5 mcg/inh inhalation aerosol 2 puffs, Inhalation, 2 times a day, rinse mouth and throat after use, j45.40, # 1 each, 3 Refills, Maintenance, 04/19/20 15:30:00 EST, Aerosol, [facility] #[id number], This is in place of Symbicort which insurance will not cover., 2 puffs Inhalat... Start Date: 04/19/20 Status: Orderedfamotidine 20 mg oral tablet 20 mg, 1, tablet, By Mouth, Daily at bedtime, # 90 tablet, Refills 3, Tot. Refills 3, Maintenance, 04/25/20 13:07:00 EST, Route to Pharmacy Electronically, [facility] #[id number], 181, cm, 04/25/20 11:45:00 EST, Height Start Date: 04/25/20 Status: Orderedlevocetirizine 5 mg oral tablet 1 tablet = 5 mg, By Mouth, Daily in PM, # 90 tablet, 1 Refills, Maintenance, 04/25/20 13:07:00 EST, Tablet, [facility] #[id number], 1 tablet By Mouth Daily in PM, 181, cm, 04/25/20 11:45:00 EST, Height Start Date: 04/25/20 Status: Orderedlisinopril 40 mg oral tablet 1 tablet = 40 mg, By Mouth, Daily, # 90 tablet, 2 Refills, Maintenance, 04/25/20 13:14:00 EST, Tablet, [facility] #[id number], Partial fill upon patient request, 181, cm, 04/25/20 11:45:00 EST, Height Start Date: 04/25/20 Status: Orderedmeloxicam 7.5 mg oral tablet 1 tablet = 7.5 mg, By Mouth, Daily, # 14 tablet, 0 Refills, Maintenance, 05/13/20 10:10:00 EST, Tablet, [facility] #[id number], Partial fill upon patient request if the prescription is for a schedule II opioid drug., 181, cm, 05/13/20 9:42:00 EST... Start Date: 05/13/20 Stop Date: 05/27/20 Status: OrderedPARoxetine 10 mg oral tablet 10 mg, 1, tablet, By Mouth, Daily, TK 1 T PO D, # 30 tablet, Refills 6, Tot. Refills 6, Maintenance,04/25/20 13:20:00 EST, Route to Pharmacy Electronically, [facility] #[id number], Partial fill upon patient request, 181, cm, 04/25/20 11:45:00 ES... Start Date: 04/25/20 Stop Date: 11/21/20 Status: OrderedProAir HFA 90 mcg/inh inhalation aerosol 1 puffs, Inhalation, 4 times a day, PRN as needed for wheezing, # 1 each, 2 Refills, Maintenance, 03/22/20 11:06:00 EDT, Aerosol, [facility] #[id number], Brand Name PROAIR only, no substitutions, 1 [...] capsule, 3 Refills, Maintenance, 12/18/19 16:31:00 EDT, [facility] #[id number], 181, cm, 06/19/19 16:12:00 EST, Height Start [...]
--- OUTSIDE RECORDS SUMMARY | 2022-06-10 17:34 | XMS_ITS | Continuity of Care Document ---
:1985 Author Organization [facility] Adult Address [address] [place] [address]- Care Team Providers Name Role Phone Vikram CHACON, Ewa Lee Primary Care Physician Encounter [facility] Date(s): 05/29/21 - 06/28/21 [facility] [address] [place] [address]- Attending Physician: Konstantin Brooks Admitting Physician: AdmKonstantin [...] (HbOC) vaccine 08/10/88 Recorded 1Result Comment: [07/05/2018] [id number] Note: [facility]3Admin Note: [facility] xkcdj7Hncpc Note: [facility] njlnx0Uxwkt Note: [facility] iofbh7Jvyvi Note: [facility] vdgnr0Jkzwq Note: [facility]8Admin Note: [facility] Medications Aerochamber See Instructions, # 1 each, Maintenance, use with albuterol, 03/19/20 8:51:00 EDT, Supply, 181, cm, 02/27/20 12:37:00 EDT, Height Start Date: 03/19/20 Status: OrderedDulera 200 mcg-5 mcg/inh inhalation aerosol 2 puffs, Inhalation, 2 times a day, rinse mouth and throat after use, j45.40, # 1 each, 3 Refills, Maintenance, 04/19/20 15:30:00 EST, Aerosol, [facility] #[id number], This is in place of Symbicort which [...] 1 Refills, Maintenance, 04/25/20 13:07:00 EST, Tablet, [facility] #[id number], 1 tablet By Mouth Daily in PM, 181, cm, 04/25/20 11:45:00 EST, Height Start Date: 04/25/20 Status: Orderedlisinopril 40 mg oral tablet 1 tablet = 40 mg, By Mouth, Daily, # 90 tablet, 2 Refills, Maintenance, 03/20/21 17:24:00 EDT, Tablet, [facility] #[id number], Partial fill upon patient request, 180, cm, 03/20/21 13:02:00 EDT, Height Start Date: 03/20/21 Status: OrderedProAir HFA 90 mcg/inh inhalation aerosol 1 puffs, Inhalation, 4 times a day, PRN as needed for wheezing, j45.40, # 1 each, 5 Refills, Maintenance, 12/31/20 15:18:00 EDT, Aerosol, [facility] #[id number], Brand Name PRO only, no substitutions, 1 [...] 1 each, 6 Refills, Maintenance, 06/20/20 13:26:00EST, [facility] #[id number], 181, cm, 06/19/20 14:27:00 EST, Height Start Date: 06/20/20 Status: OrderedXhance 93 mcg/inh nasal spray 1 sprays, Nares, Both, 2 times a day, # 16 mL, 0 Refills, Maintenance, 12/30/20 10:43:00 EDT, [place],Partial fill upon patient request if the [...]
--- OUTSIDE RECORDS SUMMARY | 2022-06-10 17:34 | XMS_ITS | Continuity of Care Document ---
:1985 Author Organization [facility] Address [address] [place] [address]- Care Team Providers Name Role Phone Vikram CHACON, Ewa Lee Primary Care Physician Encounter [facility] [place] Date(s): 02/23/20 - 03/24/20 [facility] [address] [place] [address] Allergies, Adverse Reactions, Alerts Substance Reaction Severity [...] Virus Vaccine8 12/02/87 Given 1Result Comment: [07/05/2018] [id number] Note: [facility]3Admin Note: [facility] pirss0Ofbsn Note: [facility] bnysu9Lngvc Note: [facility] jombr7Ftimy Note: [facility] ebcfv7Gzioy Note: [facility] cgukq2Irswe Note: [facility] Medications Aerochamber See Instructions, # 1 each, Maintenance, use as directed, 04/23/16 13:42:29, Compound Start Date: 04/23/16 Status: OrderedAerochamber See Instructions, # 1 each, Maintenance, use with albuterol, 03/19/20 8:51:00 EDT, Supply, 181, cm, 02/27/20 12:37:00 EDT, Height Start Date: 03/19/20 Status: OrderedAlbuterol (Eqv-ProAir HFA) 90 mcg/inh inhalation aerosol 2 puffs, Inhalation, Every 6 hours, # 1 each, 11 Refills, Maintenance, 03/19/20 8:51:00 EDT, [facility] #[id number], 2 puffs Inhalation Every 6 hours, 181, cm, 02/27/20 12:37:00 EDT, Height Start Date: 03/19/20 Status: Orderedalbuterol CFC free 90 mcg/inh inhalation aerosol 2, puffs, Inhalation, 4 times a day, PRN, # 1 each, Refills 2, Tot. Refills 2, Maintenance, 208:46:00 EDT, Aerosol, Route to Pharmacy Electronically, [id number], [facility] #[id number], please make appt to be seen... Start Date: 03/19/20 Status: OrderedDulera 200 mcg-5 mcg/inh inhalation aerosol 2 puffs, Inhalation, 2 times a day, rinse mouth and throat after use, # 1 each, 5 Refills, Maintenance, 01/04/19 16:31:34 EDT, [facility], This is in place of Symbicort which insurance will not cover., 2 puffs Inhalation 2 times a day,Instr:rinse mouth a... Start Date: 01/04/19 Status: Orderedfamotidine 20 mg oral tablet 20 mg, 1, tablet, By Mouth, Daily at bedtime, # 90 tablet, Refills 0, Tot. Refills 0, Maintenance, 02/09/20 15:51:00 EDT, Route to Pharmacy Electronically, [facility] #[id number], 181, cm, 06/19/19 16:12:00 EST, Height Start Date: 02/09/20 Status: Orderedlevocetirizine 5 mg oral tablet 1 tablet = 5 mg, By Mouth, Daily in PM, # 90 tablet, 1 Refills, Maintenance, 02/27/20 13:30:00 EDT, Tablet, [facility] #[id number], 1 tablet By Mouth Daily in PM, 181, cm, 02/27/20 12:37:00 EDT, Height Start Date: 02/27/20 Status: Orderedlisinopril 20 mg oral tablet 20 mg, 1, tablet, By Mouth, Daily at bedtime, # 90 tablet, Refills 0, Tot. Refills 0, Maintenance, 03/21/20 11:20:00 EDT, Route to Pharmacy Electronically, [facility] #[id number], 181, cm, 02/27/20 12:37:00 EDT, Height Start Date: 03/21/20 Status: Orderednaproxen 500 mg oral tablet 1 tablet, By Mouth, 2 times a day, PRN NEEDED FOR PAIN, TAKE WITH FOOD, # 28 tablet, 0 Refills, Acute, 11/14/19 15:10:00 EDT, [facility] #[id number], 181, cm, 06/19/19 16:12:00 EST, Height Start Date: 11/14/19 Status: OrderedProAir HFA 90 mcg/inh inhalation aerosol 1 puffs, Inhalation, 4 times a day, PRN as needed for wheezing, # 1 each, 2 Refills, Maintenance, 03/22/20 11:06:00 EDT, Aerosol, [facility] #[id number], Brand Name PROAIR only, no substitutions, 1 [...] capsule, 3 Refills, Maintenance, 12/18/19 16:31:00 EDT, [facility] #[id number], 181, cm, 06/19/19 16:12:00 EST, Height Start [...]
--- OUTSIDE RECORDS SUMMARY | 2022-06-10 17:34 | XMS_ITS | Continuity of Care Document ---
:1985 Author Organization [facility] Address [address] [place] [address]- Care Team Providers Name Role Phone Vikram CHACON, Ewa Lee Primary Care Physician [place] [facility] [place] 06/27/[address] [address] Attending Physician: Ewa Sue NP Admitting Physician: [...] Virus Vaccine8 12/02/87 Given 1Result Comment: [07/05/2018] [id number] Note: [facility]3Admin Note: [facility] mswin1Hvrft Note: [facility] ndrap8Blyhi Note: [facility] fkzax7Yurjc Note: [facility] hmwjr7Hglki Note: [facility] uvmha0Ddpzu Note: [facility] Medications acetaminophen 325 mg oral capsule 2 capsule = 650 mg, By Mouth, Every 4 hours, PRN as needed for pain, # 90 capsule, 0 Refills, Acute 06/28/20 6:02:00 EST, 06/27/20 6:02:00 EST, Capsule, [facility] #[id number], Partial fill upon patient request if the prescription is for a schedu... Start Date: 06/27/20 Stop Date: 06/28/20 Status: OrderedAerochamber See Instructions, # 1 each, Maintenance, use with albuterol, 03/19/20 8:51:00 EDT, Supply, 181, cm, 02/27/20 12:37:00 EDT, Height Start Date: 03/19/20 Status: Orderedbetamethasone-clotrimazole 0.05%-1% topical cream 1 application, Topically, 2 times a day, for 14 days, Not to be used longer than 2 weeks, # 90 Gm, 0Refills, Acute 07/01/20 14:19:00 EST, 06/17/20 14:19:00 EST, Cream, [facility] #[id number], Partial fill upon patient request if the prescription... Start Date: 06/17/20 Stop Date: 07/01/20 Status: OrderedDulera 200 mcg-5 mcg/inh inhalation aerosol 2 puffs, Inhalation, 2 times a day, rinse mouth and throat after use, j45.40, # 1 each, 3 Refills, Maintenance, 04/19/20 15:30:00 EST, Aerosol, [facility] #[id number], This is in place of Symbicort which insurance will not cover., 2 puffs Inhalat... Start Date: 04/19/20 Status: Orderedfamotidine 20 mg oral tablet 20 mg, 1, tablet, By Mouth, Daily at bedtime, # 90 tablet, Refills 3, Tot. Refills 3, Maintenance, 04/25/20 13:07:00 EST, Route to Pharmacy Electronically, [facility] #[id number], 181, cm, 04/25/20 11:45:00 EST, Height Start Date: 04/25/20 Status: Orderedibuprofen 600 mg oral tablet 600 mg, 1, tablet, By Mouth, 4 times a day, PRN, # 40 tablet, Refills 0, Tot. Refills 0, Acute 06/28/20 6:02:00 EST, for pain, 06/27/20 6:02:00 EST, Route to Pharmacy Electronically, [facility] #[id number], Partial fill upon patient request if th... Start Date: 06/27/20 Stop Date: 06/28/20 Status: Orderedlevocetirizine 5 mg oral tablet 1 tablet = 5 mg, By Mouth, Daily in PM, # 90 tablet, 1 Refills, Maintenance, 04/25/20 13:07:00 EST, Tablet, [facility] #[id number], 1 tablet By Mouth Daily in PM, 181, cm, 04/25/20 11:45:00 EST, Height Start Date: 04/25/20 Status: Orderedlisinopril 40 mg oral tablet 1 tablet = 40 mg, By Mouth, Daily, # 90 tablet, 2 Refills, Maintenance, 04/25/20 13:14:00 EST, Tablet, [facility] #[id number], Partial fill upon patient request, 181, cm, 04/25/20 11:45:00 EST, Height Start Date: 04/25/20 Status: OrderedPARoxetine 10 mg oral tablet 10 mg, 1, tablet, By Mouth, Daily, TK 1 T PO D, # 30 tablet, Refills 6, Tot. Refills 6, Maintenance,04/25/20 13:20:00 EST, Route to Pharmacy Electronically, [facility] #[id number], Partial fill upon patient request, 181, cm, 04/25/20 11:45:00 ES... Start Date: 04/25/20 Stop Date: 11/21/20 Status: OrderedProAir HFA 90 mcg/inh inhalation aerosol 1 puffs, Inhalation, 4 times a day, PRN as needed for wheezing, j45.40, # 1 each, 2 Refills, Maintenance, 06/20/20 11:41:00 EST, Aerosol, [facility] #[id number], Brand Name PROAIR only, no substitutions, 1 [...] 1 each, 6 Refills, Maintenance, 06/20/20 13:26:00EST, [facility] #[id number], 181, cm, 06/19/20 14:27:00 EST, Height Start [...]
--- OUTSIDE RECORDS SUMMARY | 2022-06-10 17:34 | XMS_ITS | Continuity of Care Document ---
:1985 Author Organization [facility] Address [address] [place] [address]- Care Team Providers Name Role Phone Ewa Sue NP Primary Care Physician Encounter [facility] Date(s): 07/02/20 - 08/01/20 [facility] [address] [place] [address]- Allergies, Adverse Reactions, Alerts Substance Reaction Severity [...] Virus Vaccine8 12/02/87 Given 1Result Comment: [07/05/2018] [id number] Note: [facility]3Admin Note: [facility] pmdrv0Hwxtj Note: [facility] smclr7Jdlvu Note: [facility] zchfh2Bxlkc Note: [facility] gqndc5Ltmkt Note: [facility] ahdix3Tciks Note: [facility] Medications Aerochamber See Instructions, # 1 each, Maintenance, use with albuterol, 03/19/20 8:51:00 EDT, Supply, 181, cm, 02/27/20 12:37:00 EDT, Height Start Date: 03/19/20 Status: OrderedDulera 200 mcg-5 mcg/inh inhalation aerosol 2 puffs, Inhalation, 2 times a day, rinse mouth and throat after use, j45.40, # 1 each, 3 Refills, Maintenance, 04/19/20 15:30:00 EST, Aerosol, [facility] #[id number], This is in place of S[facility]ort which insurance will not cover., 2 puffs Inhalat... Start Date: 04/19/20 Status: Orderedlevocetirizine 5 mg oral tablet 1 tablet = 5 mg, By Mouth, Daily in PM, # 90 tablet, 1 Refills, Maintenance, 04/25/20 13:07:00 EST, Tablet, [facility] #[id number], 1 tablet By Mouth Daily in PM, 181, cm, 04/25/20 11:45:00 EST, Height Start Date: 04/25/20 Status: Orderedlisinopril 40 mg oral tablet 1 tablet = 40 mg, By Mouth, Daily, # 90 tablet, 2 Refills, Maintenance, 04/25/20 13:14:00 EST, Tablet, [facility] #[id number], Partial fill upon patient request, 181, cm, 04/25/20 11:45:00 EST, Height Start Date: 04/25/20 Status: OrderedPARoxetine 10 mg oral tablet 10 mg, 1, tablet, By Mouth, Daily, TK 1 T PO D, # 30 tablet, Refills 6, Tot. Refills 6, Maintenance,04/25/20 13:20:00 EST, Route to Pharmacy Electronically, [facility] #[id number], Partial fill upon patient request, 181, cm, 04/25/20 11:45:00 ES... Start Date: 04/25/20 Stop Date: 11/21/20 Status: OrderedProAir HFA 90 mcg/inh inhalation aerosol 1 puffs, Inhalation, 4 times a day, PRN as needed for wheezing, j45.40, # 1 each, 2 Refills, Maintenance, 06/20/20 11:41:00 EST, Aerosol, [facility] #[id number], Brand Name PROAIR only, no substitutions, 1 [...] 1 each, 6 Refills, Maintenance, 06/20/20 13:26:00EST, [facility] #[id number], 181, cm, 06/19/20 14:27:00 EST, Height Start [...]
--- OUTSIDE RECORDS SUMMARY | 2022-06-10 17:34 | XMS_ITS | Continuity of Care Document ---
:1985 Author Organization [facility] Address [address] [place] [address]- Care Team Providers Name Role Phone Ewa Sue NP Primary Care Physician Encounter [facility] [place] Date(s): 05/13/20 - 06/12/20 [facility] [address] [place] [id number]- Allergies, Adverse Reactions, Alerts Substance Reaction Severity [...] Virus Vaccine8 12/02/87 Given 1Result Comment: [07/05/2018] [id number] Note: [facility]3Admin Note: [facility] zsrhl9Dgwum Note: [facility] jdats2Xavlq Note: [facility] uetli6Tbwow Note: [facility] zeurc1Tfpxh Note: [facility] eornw0Jkzut Note: [facility] Medications Aerochamber See Instructions, # 1 each, Maintenance, use with albuterol, 03/19/20 8:51:00 EDT, Supply, 181, cm, 02/27/20 12:37:00 EDT, Height Start Date: 03/19/20 Status: OrderedDulera 200 mcg-5 mcg/inh inhalation aerosol 2 puffs, Inhalation, 2 times a day, rinse mouth and throat after use, j45.40, # 1 each, 3 Refills, Maintenance, 04/19/20 15:30:00 EST, Aerosol, [facility] #[id number], This is in place of Symbicort which insurance will not cover., 2 puffs Inhalat... Start Date: 04/19/20 Status: Orderedfamotidine 20 mg oral tablet 20 mg, 1, tablet, By Mouth, Daily at bedtime, # 90 tablet, Refills 3, Tot. Refills 3, Maintenance, 04/25/20 13:07:00 EST, Route to Pharmacy Electronically, [facility] #[id number], 181, cm, 04/25/20 11:45:00 EST, Height Start Date: 04/25/20 Status: Orderedlevocetirizine 5 mg oral tablet 1 tablet = 5 mg, By Mouth, Daily in PM, # 90 tablet, 1 Refills, Maintenance, 04/25/20 13:07:00 EST, Tablet, [facility] #[id number], 1 tablet By Mouth Daily in PM, 181, cm, 04/25/20 11:45:00 EST, Height Start Date: 04/25/20 Status: Orderedlisinopril 40 mg oral tablet 1 tablet = 40 mg, By Mouth, Daily, # 90 tablet, 2 Refills, Maintenance, 04/25/20 13:14:00 EST, Tablet, [facility] #[id number], Partial fill upon patient request, 181, cm, 04/25/20 11:45:00 EST, Height Start Date: 04/25/20 Status: Orderedmeloxicam 7.5 mg oral tablet 1 tablet = 7.5 mg, By Mouth, Daily, # 14 tablet, 0 Refills, Maintenance, 05/13/20 10:10:00 EST, Tablet, [facility] #[id number], Partial fill upon patient request if the prescription is for a schedule II opioid drug., 181, cm, 05/13/20 9:42:00 EST... Start Date: 05/13/20 Stop Date: 05/27/20 Status: OrderedPARoxetine 10 mg oral tablet 10 mg, 1, tablet, By Mouth, Daily, TK 1 T PO D, # 30 tablet, Refills 6, Tot. Refills 6, Maintenance,04/25/20 13:20:00 EST, Route to Pharmacy Electronically, [facility] #[id number], Partial fill upon patient request, 181, cm, 04/25/20 11:45:00 ES... Start Date: 04/25/20 Stop Date: 11/21/20 Status: OrderedProAir HFA 90 mcg/inh inhalation aerosol 1 puffs, Inhalation, 4 times a day, PRN as needed for wheezing, # 1 each, 2 Refills, Maintenance, 03/22/20 11:06:00 EDT, Aerosol, [facility] #[id number], Brand Name PROAIR only, no substitutions, 1 [...] capsule, 3 Refills, Maintenance, 12/18/19 16:31:00 EDT, [facility] #[id number], 181, cm, 06/19/19 16:12:00 EST, Height Start [...]
--- OUTSIDE RECORDS SUMMARY | 2022-06-10 17:34 | XMS_ITS | Continuity of Care Document ---
:1985 Author Organization [facility] Address [address] [place] [address]- Care Team Providers Name Role Phone Ewa Sue NP Primary Care Physician Encounter [facility] [place] [place] Date(s): 02/27/20 - 03/28/20 [facility] [address] [place] [address]- [facility] Attending Physician: Konstantin Brooks Admitting Physician: AdmKonstantin [...] Virus Vaccine8 12/02/87 Given 1Result Comment: [07/05/2018] [id number] Note: [facility]3Admin Note: [facility] yjjun1Gdhof Note: [facility] xtdrm1Akssc Note: [facility] unibp0Wunvq Note: [facility] nzdvc8Zipwx Note: [facility] bvbbd9Gdenk Note: [facility] Medications Aerochamber See Instructions, # [...] 02/09/20 15:51:00 EDT, Route to Pharmacy Electronically, [facility] #[id number], 181, cm, 06/19/19 16:12:00 EST, Height Start Date: 02/09/20 Status: Orderedlevocetirizine 5 mg oral tablet 1 tablet = 5 mg, By Mouth, Daily in PM, # 90 tablet, 1 Refills, Maintenance, 02/27/20 13:30:00 EDT, Tablet, [facility] #[id number], 1 tablet By Mouth Daily in PM, 181, cm, 02/27/20 12:37:00 EDT, Height Start Date: 02/27/20 Status: Orderedlisinopril 20 mg oral tablet 20 mg, 1, tablet, By Mouth, Daily at bedtime, # 90 tablet, Refills 0, Tot. Refills 0, Maintenance, 03/21/20 11:20:00 EDT, Route to Pharmacy Electronically, [facility] #[id number], 181, cm, 02/27/20 12:37:00 EDT, Height Start Date: 03/21/20 Status: Orderednaproxen 500 mg oral tablet 1 tablet, By Mouth, 2 times a day, PRN NEEDED FOR PAIN, TAKE WITH FOOD, # 28 tablet, 0 Refills, Acute, 11/14/19 15:10:00 EDT, [facility] #[id number], 181, cm, 06/19/19 16:12:00 EST, Height Start Date: 11/14/19 Status: OrderedProAir HFA 90 mcg/inh inhalation aerosol 1 puffs, Inhalation, 4 times a day, PRN as needed for wheezing, # 1 each, 2 Refills, Maintenance, 03/22/20 11:06:00 EDT, Aerosol, [facility] #[id number], Brand Name PROAIR only, no substitutions, 1 [...] capsule, 3 Refills, Maintenance, 12/18/19 16:31:00 EDT, [facility] #[id number], 181, cm, 06/19/19 16:12:00 EST, Height Start [...]
--- OUTSIDE RECORDS SUMMARY | 2022-06-10 17:34 | XMS_ITS | Continuity of Care Document ---
:1985 Author Organization [facility] Address [address] [place] [address]- Care Team Providers Name Role Phone Ewa Sue NP Primary Care Physician [place] [facility] [place] 06[place] 07/09/19 [facility] [address] [place] [address]- [facility] Attending Physician: Konstantin Brooks Admitting Physician: AdmKonstantin [...] Virus Vaccine8 12/02/87 Given 1Result Comment: [07/05/2018] [id number] Note: [facility]3Admin Note: [facility] lqdvg9Lponf Note: [facility] tauat6Hlzsj Note: [facility] rhtgj5Mdqkf Note: [facility] udfwz3Trshn Note: [facility] batne7Vklbw Note: [facility] Medications Aerochamber See Instructions, # [...] 06/30/19 16:53:00 EST, Route to Pharmacy Electronically, [facility] #[id number], 181, cm, 06/19/19 16:12:00 EST, Height Start Date: 06/30/19 Status: OrderedProAir HFA 90 mcg/inh inhalation aerosol with adapter 2, puffs, Inhalation, 4 times a day, PRN, J 44.9 NO SUBSTITUTIONS for 30 days, # 1 each, Refills 11,Tot. Refills 11, Hard Stop 12/30/19 11:25:00 EDT, 01/04/19 11:25:00 EDT, Aerosol, Route to Pharmacy Electronically, [id number]... Start Date: 01/04/19 Stop Date: 12/30/19 Status: [...]
--- OUTSIDE RECORDS SUMMARY | 2022-06-10 17:34 | XMS_ITS | Continuity of Care Document ---
:1985 Author Organization [facility] Address [address] [place] [address]- Care Team Providers Name Role Phone Ewa Sue NP Primary Care Physician Encounter [facility] Date(s): 07/03/20 - 08/02/20 [facility] [address] [place] [address]- Allergies, Adverse Reactions, Alerts Substance Reaction Severity [...] Virus Vaccine8 12/02/87 Given 1Result Comment: [07/05/2018] [id number] Note: [facility]3Admin Note: [facility] nfyhz1Rwgph Note: [facility] pesxb9Trpzt Note: [facility] xrpyn6Ilzzh Note: [facility] zthmh6Gzhdz Note: [facility] ifipv9Jfehw Note: [facility] Medications Aerochamber See Instructions, # 1 each, Maintenance, use with albuterol, 03/19/20 8:51:00 EDT, Supply, 181, cm, 02/27/20 12:37:00 EDT, Height Start Date: 03/19/20 Status: OrderedDulera 200 mcg-5 mcg/inh inhalation aerosol 2 puffs, Inhalation, 2 times a day, rinse mouth and throat after use, j45.40, # 1 each, 3 Refills, Maintenance, 04/19/20 15:30:00 EST, Aerosol, [facility] #[id number], This is in place of Symbicort which insurance will not cover., 2 puffs Inhalat... Start Date: 04/19/20 Status: Orderedlevocetirizine 5 mg oral tablet 1 tablet = 5 mg, By Mouth, Daily in PM, # 90 tablet, 1 Refills, Maintenance, 04/25/20 13:07:00 EST, Tablet, [facility] #[id number], 1 tablet By Mouth Daily in PM, 181, cm, 04/25/20 11:45:00 EST, Height Start Date: 04/25/20 Status: Orderedlisinopril 40 mg oral tablet 1 tablet = 40 mg, By Mouth, Daily, # 90 tablet, 2 Refills, Maintenance, 04/25/20 13:14:00 EST, Tablet, [facility] #[id number], Partial fill upon patient request, 181, cm, 04/25/20 11:45:00 EST, Height Start Date: 04/25/20 Status: OrderedPARoxetine 10 mg oral tablet 10 mg, 1, tablet, By Mouth, Daily, TK 1 T PO D, # 30 tablet, Refills 6, Tot. Refills 6, Maintenance,04/25/20 13:20:00 EST, Route to Pharmacy Electronically, [facility] #[id number], Partial fill upon patient request, 181, cm, 04/25/20 11:45:00 ES... Start Date: 04/25/20 Stop Date: 11/21/20 Status: OrderedProAir HFA 90 mcg/inh inhalation aerosol 1 puffs, Inhalation, 4 times a day, PRN as needed for wheezing, j45.40, # 1 each, 2 Refills, Maintenance, 06/20/20 11:41:00 EST, Aerosol, [facility] #[id number], Brand Name PROAIR only, no substitutions, 1 [...] 1 each, 6 Refills, Maintenance, 06/20/20 13:26:00EST, [facility] #[id number], 181, cm, 06/19/20 14:27:00 EST, Height Start [...]
--- OUTSIDE RECORDS SUMMARY | 2022-06-10 17:34 | XMS_ITS | Continuity of Care Document ---
:1985 Author Organization [facility] Address [address] [place] [address]- Care Team Providers Name Role Phone Ewa Sue NP Primary Care Physician Encounter [facility] Date(s): 07/18/20 - 08/17/[address] [address] Attending Physician: Konstantin Brooks Admitting Physician: Konstantin Brooks Referring Physician: AdmtrKonstantin Allergies, Adverse Reactions, Alerts [...] Virus Vaccine8 12/02/87 Given 1Result Comment: [07/05/2018] [id number] Note: [facility]3Admin Note: [facility] pagqy6Guwrk Note: [facility] uinps5Crnps Note: [facility] ytivp9Ditqv Note: [facility] ehxbd2Vilss Note: [facility] qefaz0Tkoyw Note: [facility] Medications Aerochamber See Instructions, # 1 each, Maintenance, use with albuterol, 03/19/20 8:51:00 EDT, Supply, 181, cm, 02/27/20 12:37:00 EDT, Height Start Date: 03/19/20 Status: OrderedDulera 200 mcg-5 mcg/inh inhalation aerosol 2 puffs, Inhalation, 2 times a day, rinse mouth and throat after use, j45.40, # 1 each, 3 Refills, Maintenance, 04/19/20 15:30:00 EST, Aerosol, [facility] #[id number], This is in place of Symbicort which insurance will not cover., 2 puffs Inhalat... Start Date: 04/19/20 Status: Orderedlevocetirizine 5 mg oral tablet 1 tablet = 5 mg, By Mouth, Daily in PM, # 90 tablet, 1 Refills, Maintenance, 04/25/20 13:07:00 EST, Tablet, [facility] #[id number], 1 tablet By Mouth Daily in PM, 181, cm, 04/25/20 11:45:00 EST, Height Start Date: 04/25/20 Status: Orderedlisinopril 40 mg oral tablet 1 tablet = 40 mg, By Mouth, Daily, # 90 tablet, 2 Refills, Maintenance, 04/25/20 13:14:00 EST, Tablet, [facility] #[id number], Partial fill upon patient request, 181, cm, 04/25/20 11:45:00 EST, Height Start Date: 04/25/20 Status: OrderedPARoxetine 10 mg oral tablet 10 mg, 1, tablet, By Mouth, Daily, TK 1 T PO D, # 30 tablet, Refills 6, Tot. Refills 6, Maintenance,04/25/20 13:20:00 EST, Route to Pharmacy Electronically, [facility] #[id number], Partial fill upon patient request, 181, cm, 04/25/20 11:45:00 ES... Start Date: 04/25/20 Stop Date: 11/21/20 Status: OrderedProAir HFA 90 mcg/inh inhalation aerosol 1 puffs, Inhalation, 4 times a day, PRN as needed for wheezing, j45.40, # 1 each, 2 Refills, Maintenance, 06/20/20 11:41:00 EST, Aerosol, [email or web address] #[id number], Brand Name PROAIR only, no substitutions, 1 [...] 1 each, 6 Refills, Maintenance, 06/20/20 13:26:00EST, [facility] #[id number], 181, cm, 06/19/20 14:27:00 EST, Height Start [...]
--- OUTSIDE RECORDS SUMMARY | 2022-06-10 17:34 | XMS_ITS | Continuity of Care Document ---
:1985 Author Organization [facility] Address [address] [place] [address]- Care Team Providers Name Role Phone Ewa Sue NP Primary Care Physician Encounter [facility] [place] [place] Date(s): 05/10/20 - 06/09/20 [facility] [address] [place] [address]- Allergies, Adverse Reactions, Alerts Substance Reaction Severity [...] Virus Vaccine8 12/02/87 Given 1Result Comment: [07/05/2018] [id number] Note: [facility]3Admin Note: [facility] giivy9Buofh Note: [facility] rgghx8Krien Note: [facility] vnvtx1Hacpj Note: [facility] akdvu7Rmvqg Note: [facility] ekstq9Siwvv Note: [facility] Medications Aerochamber See Instructions, # 1 each, Maintenance, use with albuterol, 03/19/20 8:51:00 EDT, Supply, 181, cm, 02/27/20 12:37:00 EDT, Height Start Date: 03/19/20 Status: OrderedDulera 200 mcg-5 mcg/inh inhalation aerosol 2 puffs, Inhalation, 2 times a day, rinse mouth and throat after use, j45.40, # 1 each, 3 Refills, Maintenance, 04/19/20 15:30:00 EST, Aerosol, [facility] #[id number], This is in place of Symbicort which insurance will not cover., 2 puffs Inhalat... Start Date: 04/19/20 Status: Orderedfamotidine 20 mg oral tablet 20 mg, 1, tablet, By Mouth, Daily at bedtime, # 90 tablet, Refills 3, Tot. Refills 3, Maintenance, 04/25/20 13:07:00 EST, Route to Pharmacy Electronically, [facility] #[id number], 181, cm, 04/25/20 11:45:00 EST, Height Start Date: 04/25/20 Status: Orderedlevocetirizine 5 mg oral tablet 1 tablet = 5 mg, By Mouth, Daily in PM, # 90 tablet, 1 Refills, Maintenance, 04/25/20 13:07:00 EST, Tablet, [facility] #84115, 1 tablet By Mouth Daily in PM, 181, cm, 04/25/20 11:45:00 EST, Height Start Date: 04/25/20 Status: Orderedlisinopril 40 mg oral tablet 1 tablet = 40 mg, By Mouth, Daily, # 90 tablet, 2 Refills, Maintenance, 04/25/20 13:14:00 EST, Tablet, [facility] #[id number], Partial fill upon patient request, 181, cm, 04/25/20 11:45:00 EST, Height Start Date: 04/25/20 Status: Orderedmeloxicam 7.5 mg oral tablet 1 tablet = 7.5 mg, By Mouth, Daily, # 14 tablet, 0 Refills, Maintenance, 05/13/20 10:10:00 EST, Tablet, [facility] #[id number], Partial fill upon patient request if the prescription is for a schedule II opioid drug., 181, cm, 05/13/20 9:42:00 EST... Start Date: 05/13/20 Stop Date: 05/27/20 Status: OrderedPARoxetine 10 mg oral tablet 10 mg, 1, tablet, By Mouth, Daily, TK 1 T PO D, # 30 tablet, Refills 6, Tot. Refills 6, Maintenance,04/25/20 13:20:00 EST, Route to Pharmacy Electronically, [facility] #[id number], Partial fill upon patient request, 181, cm, 04/25/20 11:45:00 ES... Start Date: 04/25/20 Stop Date: 11/21/20 Status: OrderedProAir HFA 90 mcg/inh inhalation aerosol 1 puffs, Inhalation, 4 times a day, PRN as needed for wheezing, # 1 each, 2 Refills, Maintenance, 03/22/20 11:06:00 EDT, Aerosol, [facility] #[id number], Brand Name PROAIR only, no substitutions, 1 [...] capsule, 3 Refills, Maintenance, 12/18/19 16:31:00 EDT, [facility] #[id number], 181, cm, 06/19/19 16:12:00 EST, Height Start [...]
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
--- OUTSIDE RECORDS SUMMARY | 2022-06-10 17:34 | XMS_ITS | Continuity of Care Document ---
:1985 Author Organization [facility] Address [address] [place] [address]- Care Team Providers Name Role Phone Ewa Sue NP Primary Care Physician [place] [facility] [place] - 03[place]20 [facility] [address] [place] [address] [facility] Attending Physician: Laila Coned MD Referring Physician: Ewa Sue NP Allergies, [...] Virus Vaccine8 12/02/87 Given 1Result Comment: [07/05/2018] [id number] Note: [facility]3Admin Note: [facility] gpavw1Execa Note: [facility] cznqq7Lbchx Note: [facility] jfore8Jauey Note: [facility] fejvj0Telzt Note: [facility] mqxsm0Jgfnf Note: [facility] Medications Aerochamber See Instructions, # [...] each, 11 Refills, Maintenance, 03/19/20 8:51:00 EDT, [facility] #[id number], 2 puffs Inhalation Every 6 hours, 181, cm, 02/27/20 12:37:00 EDT, Height Start Date: 03/19/20 Status: Orderedalbuterol CFC free 90 mcg/inh inhalation aerosol 2, puffs, Inhalation, 4 times a day, PRN, # 1 each, Refills 2, Tot. Refills 2, Maintenance, 208:46:00 EDT, Aerosol, Route to Pharmacy Electronically, [id number], [facility] #[id number], please make appt to be seen... Start [...] 02/09/20 15:51:00 EDT, Route to Pharmacy Electronically, [facility] #[id number], 181, cm, 06/19/19 16:12:00 EST, Height Start Date: 02/09/20 Status: Orderedlevocetirizine 5 mg oral tablet 1 tablet = 5 mg, By Mouth, Daily in PM, # 90 tablet, 1 Refills, Maintenance, 02/27/20 13:30:00 EDT, Tablet, [facility] #[id number], 1 tablet By Mouth Daily in PM, 181, cm, 02/27/20 12:37:00 EDT, Height Start Date: 02/27/20 Status: Orderedlisinopril 20 mg oral tablet 20 mg, 1, tablet, By Mouth, Daily at bedtime, # 90 tablet, Refills 0, Tot. Refills 0, Maintenance, 03/21/20 11:20:00 EDT, Route to Pharmacy Electronically, [facility] #[id number], 181, cm, 02/27/20 12:37:00 EDT, Height Start Date: 03/21/20 Status: Orderednaproxen 500 mg oral tablet 1 tablet, By Mouth, 2 times a day, PRN NEEDED FOR PAIN, TAKE WITH FOOD, # 28 tablet, 0 Refills, Acute, 11/14/19 15:10:00 EDT, [facility] #[id number], 181, cm, 06/19/19 16:12:00 EST, Height Start Date: 11/14/19 Status: OrderedProAir HFA 90 mcg/inh inhalation aerosol 1 puffs, Inhalation, 4 times a day, PRN as needed for wheezing, # 1 each, 2 Refills, Maintenance, 03/22/20 11:06:00 EDT, Aerosol, [facility] #[id number], Brand Name PROAIR only, no substitutions, 1 [...] capsule, 3 Refills, Maintenance, 12/18/19 16:31:00 EDT, [facility] #[id number], 181, cm, 06/19/19 16:12:00 EST, Height Start [...]
--- OUTSIDE RECORDS SUMMARY | 2022-06-10 17:34 | XMS_ITS | Continuity of Care Document ---
:1985 Author Organization [facility] Address [address] [place] [address]- Care Team Providers Name Role Phone Vikram CHACON, Ewa Lee Primary Care Physician Encounter [facility] [place] Date(s): 12/31/20 - 01/30/21 [facility] [address] [place] [address]- [place] Allergies, Adverse Reactions, Alerts Substance Reaction [...] Virus Vaccine8 12/02/87 Given 1Result Comment: [07/05/2018] [id number] Note: [facility]3Admin Note: [facility] jyxim0Utrxy Note: [facility] pvtng7Toips Note: [facility] hfarp5Cfkfp Note: [facility] zpouq6Vpasj Note: [facility] ovkem6Smiwi Note: [facility] Medications Aerochamber See Instructions, # 1 each, Maintenance, use with albuterol, 03/19/20 8:51:00 EDT, Supply, 181, cm, 02/27/20 12:37:00 EDT, Height Start Date: 03/19/20 Status: OrderedDulera 200 mcg-5 mcg/inh inhalation aerosol 2 puffs, Inhalation, 2 times a day, rinse mouth and throat after use, j45.40, # 1 each, 3 Refills, Maintenance, 04/19/20 15:30:00 EST, Aerosol, [facility] #[id number], This is in place of Symbicort which [...] 1 Refills, Maintenance, 04/25/20 13:07:00 EST, Tablet, [facility] #[id number], 1 tablet By Mouth Daily in PM, 181, cm, 04/25/20 11:45:00 EST, Height Start Date: 04/25/20 Status: Orderedlisinopril 40 mg oral tablet 1 tablet = 40 mg, By Mouth, Daily, # 90 tablet, 2 Refills, Maintenance, 04/25/20 13:14:00 EST, Tablet, [facility] #[id number], Partial fill upon patient request, 181, cm, [...] Maintenance,04/25/20 13:20:00 EST, Route to Pharmacy Electronically, [facility] #[id number], Partial fill upon patient request, 181, cm, 04/25/20 11:45:00 ES... Start Date: 04/25/20 Stop Date: 11/21/20 Status: OrderedProAir HFA 90 mcg/inh inhalation aerosol 1 puffs, Inhalation, 4 times a day, PRN as needed for wheezing, j45.40, # 1 each, 5 Refills, Maintenance, 12/31/20 15:18:00 EDT, Aerosol, [facility] #[id number], Brand Name PROAIR only, no substitutions, 1 [...] 1 each, 6 Refills, Maintenance, 06/20/20 13:26:00EST, [facility] #[id number], 181, cm, 06/19/20 14:27:00 EST, Height Start Date: 06/20/20 Status: OrderedXhance 93 mcg/inh nasal spray 1 sprays, Nares, Both, 2 times a day, # 16 mL, 0 Refills, Maintenance, 12/30/20 10:43:00 EDT, [place],Partial fill upon patient request if the prescription [...]
--- OUTSIDE RECORDS SUMMARY | 2022-06-10 17:34 | XMS_ITS | Continuity of Care Document ---
:[address] [facility] Address [address] [place] [address]- Care Team Providers Name Role Phone Ewa Sue NP Primary Care Physician Encounter [facility] Date(s): 03/25/21 - 04/24/[address] [facility] [address] [place] [address]- Allergies, Adverse Reactions, Alerts Substance Reaction Severity [...] (HbOC) vaccine 08/10/88 Recorded 1Result Comment: [07/05/2018] [id number] Note: 3Admin Note: [facility] hzjnf1Ulajb Note: [facility] ffauc1Qtdrd Note: [facility] bksrd6Wsfaa Note: [facility] ojzuu3Kzwkj Note: [facility] urluj5Ffybx Note: [facility] Medications Aerochamber See Instructions, # 1 each, Maintenance, use with albuterol, 10/13/20 8:51:00 EDT, Supply, 181, cm, 02/27/20 12:37:00 EDT, Height Start Date: 03/19/20 Status: OrderedDulera 200 mcg-5 mcg/inh inhalation aerosol 2 puffs, Inhalation, 2 times a day, rinse mouth and throat after use, j45.40, # 1 each, 3 Refills, Maintenance, 04/19/20 15:30:00 EST, Aerosol, [facility] #[id number], This is in place of Symbicort which insurance will not cover., 2 puffs Inhalat... Start Date: 04/19/20 Status: Orderedibuprofen 800 mg oral tablet See Instructions, TAKE 1 TABLET BY MOUTH THREE TIMES DAILY WITH FOOD OR MILK AND DO NOT TAKE MORE THAN 4 TABLETS DAILY, # 42 tablet, Refills 0, Instructions Replace Required Details, Route to Pharmacy Electronically, [facility] #[id number], 180,... Start Date: 03/12/21 Status: Orderedlevocetirizine 5 mg oral tablet 1 tablet = 5 mg, By Mouth, Daily in PM, # 90 tablet, 1 Refills, Maintenance, 04/25/20 13:07:00 EST, Tablet, [facility] #[id number], 1 tablet By Mouth Daily in PM, 181, cm, 04/25/20 11:45:00 EST, Height Start Date: 04/25/20 Status: Orderedlisinopril 40 mg oral tablet 1 tablet = 40 mg, By Mouth, Daily, # 90 tablet, 2 Refills, Maintenance, 03/20/21 17:24:00 EDT, Tablet, [facility] #[id number], Partial fill upon patient request, 180, cm, [...] 5 Refills, Maintenance, 12/31/20 15:18:00 EDT, Aerosol, [facility] #[id number], Brand Name PROAIR only, no substitutions, 1 [...] 1 each, 6 Refills, Maintenance, 06/20/20 13:26:00EST, [facility] #[id number], 181, cm, 06/19/20 14:27:00 EST, Height Start Date: 06/20/20 Status: OrderedXhance 93 mcg/inh nasal spray 1 sprays, Nares, Both, 2 times a day, # 16 mL, 0 Refills, Maintenance, 12/30/20 10:43:00 EDT, [place],Partial fill upon patient request if the prescription [...]
--- OUTSIDE RECORDS SUMMARY | 2022-06-10 17:34 | XMS_ITS | Continuity of Care Document ---
:1985 Author Organization [facility] Address [address] [place] [address]- Care Team Providers Name Role Phone Vikram CHACON, Ewa Lee Primary Care Physician Encounter [facility] [place] Date(s): 12/14/19 - 01/13/20 [facility] [address] [place] [address] [facility] Allergies, Adverse Reactions, Alerts Substance Reaction Severity [...] Virus Vaccine8 12/02/87 Given 1Result Comment: [07/05/2018] [id number] Note: [facility]3Admin Note: [facility] dubmp5Rgyeq Note: [facility] fnfxw5Bcvzi Note: [facility] yczpo3Jdmku Note: [facility] pmndl3Eoceh Note: [facility] uharo2Mlhdv Note: [facility] Medications Aerochamber See Instructions, # [...] 12/14/19 13:25:00 EDT, Route to Pharmacy Electronically, [facility] #[id number], 181, cm, 06/19/19 16:12:00 EST, Height Start Date: 12/14/19 Status: Orderednaproxen 500 mg oral tablet 1 tablet, By Mouth, 2 times a day, PRN NEEDED FOR PAIN, TAKE WITH FOOD, # 28 tablet, 0 Refills, Acute, 11/14/19 15:10:00 EDT, [facility] #[id number], 181, cm, 06/19/19 16:12:00 EST, Height Start [...] capsule, 3 Refills, Maintenance, 12/18/19 16:31:00 EDT, [facility] #[id number], 181, cm, 06/19/19 16:12:00 EST, Height Start [...]
[2022-06-10] MEDS: ondansetron HCL 4 MG/2 ML VIAL IVPUSH (17:35)
[2022-06-10] MEDS: Pantoprazole Sodium 40 MG/10 ML VIAL 80 MG IVPUSH (17:35)
--- OUTSIDE RECORDS SUMMARY | 2022-06-10 17:35 | XMS_ITS | Continuity of Care Document ---
:1985 Author Organization [facility] Address [address] [place] [address]- Care Team Providers Name Role Phone Vikram CHACON, Ewa Lee Primary Care Physician Encounter [facility] [place] Date(s): 12/18/19 - 01/17/20 [facility] [address] [place] [address]- [facility] Allergies, Adverse Reactions, Alerts Substance Reaction [...] Virus Vaccine8 12/02/87 Given 1Result Comment: [07/05/2018] [id number] Note: [facility]3Admin Note: [facility] mcnhd3Bfkuf Note: [facility] nfrnp9Ebcod Note: [facility] xizit0Tjogj Note: [facility] uuqdm2Yjirj Note: [facility] qtgfp5Hitlj Note: [facility] Medications Aerochamber See Instructions, # [...] 12/14/19 13:25:00 EDT, Route to Pharmacy Electronically, [facility] #[id number], 181, cm, 06/19/19 16:12:00 EST, Height Start Date: 12/14/19 Status: Orderednaproxen 500 mg oral tablet 1 tablet, By Mouth, 2 times a day, PRN NEEDED FOR PAIN, TAKE WITH FOOD, # 28 tablet, 0 Refills, Acute, 11/14/19 15:10:00 EDT, [facility] #[id number], 181, cm, 06/19/19 16:12:00 EST, Height Start [...] capsule, 3 Refills, Maintenance, 12/18/19 16:31:00 EDT, [facility] #[id number], 181, cm, 06/19/19 16:12:00 EST, Height Start [...]
--- OUTSIDE RECORDS SUMMARY | 2022-06-10 17:35 | XMS_ITS | Continuity of Care Document ---
:1985 Author Organization [facility] Address [address] [address]- Care Team Providers Name Role Phone Vikram CHACON, Ewa Lee Primary Care Physician Encounter [facility] Date(s): 07/28/21 - 08/27/21 [facility] [address] [address] Allergies, Adverse Reactions, Alerts Substance Reaction [...] (HbOC) vaccine 08/10/88 Recorded 1Result Comment: [07/05/2018] [id number] Note: [facility]3Admin Note: [facility] mqurg7Mvcxz Note: [facility] ufwth8Bduqo Note: [facility] imsyp0Nxppm Note: [facility] hkkbm4Zfxmy Note: [facility] qccmm8Pceik Note: [facility] Medications Aerochamber See Instructions, # 1 each, Maintenance, use with albuterol, 03/19/20 8:51:00 EDT, Supply, 181, cm, 02/27/20 12:37:00 EDT, Height Start Date: 03/19/20 Status: OrderedDulera 200 mcg-5 mcg/inh inhalation aerosol 2 puffs, Inhalation, 2 times a day, rinse mouth and throat after use, j45.40, # 1 each, 3 Refills, Maintenance, 04/19/20 15:30:00 EST, Aerosol, [facility] #[id number], This is in place of Symbicort which [...] 1 Refills, Maintenance, 04/25/20 13:07:00 EST, Tablet, [facility] #59435, 1 tablet By Mouth Daily in PM, 181, cm, 04/25/20 11:45:00 EST, Height Start Date: 04/25/20 Status: Orderedlisinopril 40 mg oral tablet 1 tablet = 40 mg, By Mouth, Daily, # 90 tablet, 2 Refills, Maintenance, 03/20/21 17:24:00 EDT, Tablet, [facility] #[id number], Partial fill upon patient request, 180, cm, 03/20/21 13:02:00 EDT, Height Start Date: 03/20/21 Status: OrderedProAir HFA 90 mcg/inh inhalation aerosol 1 puffs, Inhalation, 4 times a day, PRN as needed for wheezing, j45.40, # 1 each, 5 Refills, Maintenance, 12/31/20 15:18:00 EDT, Aerosol, [facility] #[id number], Brand Name PROAIR only, no substitutions, 1 [...] 45.909, # 1 each, 6 Refills, Maintenance, 07/29/21 14:14:00EST, [facility] #[id number], 180, cm, 05/29/21 9:22:00 EST, Height Start Date: 07/29/21 Status: OrderedXhance 93 mcg/inh nasal spray 1 sprays, Nares, Both, 2 times a day, # 16 mL, 0 Refills, Maintenance, 12/30/20 10:43:00 EDT, [place],Partial fill upon patient request if the prescription [...]
--- OUTSIDE RECORDS SUMMARY | 2022-06-10 17:35 | XMS_ITS | Continuity of Care Document ---
:1985 Author Organization [facility] Address [address] [place] [address]- Care Team Providers Name Role Phone Ewa Sue NP Primary Care Physician Encounter [facility] [place] Date(s): 06/20/20 - 07/20/20 [facility] [address], [place] [address] Allergies, Adverse Reactions, Alerts Substance Reaction Severity [...] Virus Vaccine8 12/02/87 Given 1Result Comment: [07/05/2018] [id number] Note: [facility]3Admin Note: [facility] fkdlq1Abber Note: [facility] yanjr0Bnjcc Note: [facility] cydfr7Hwkkd Note: [facility] aemyt7Yueju Note: [facility] oywmy1Tvfag Note: [facility] Medications Aerochamber See Instructions, # 1 each, Maintenance, use with albuterol, 03/19/20 8:51:00 EDT, Supply, 181, cm, 02/27/20 12:37:00 EDT, Height Start Date: 03/19/20 Status: OrderedDulera 200 mcg-5 mcg/inh inhalation aerosol 2 puffs, Inhalation, 2 times a day, rinse mouth and throat after use, j45.40, # 1 each, 3 Refills, Maintenance, 04/19/20 15:30:00 EST, Aerosol, [facility] #[id number], This is in place of Symbicort which insurance will not cover., 2 puffs Inhalat... Start Date: 04/19/20 Status: Orderedlevocetirizine 5 mg oral tablet 1 tablet = 5 mg, By Mouth, Daily in PM, # 90 tablet, 1 Refills, Maintenance, 04/25/20 13:07:00 EST, Tablet, [facility] #[id number], 1 tablet By Mouth Daily in PM, 181, cm, 04/25/20 11:45:00 EST, Height Start Date: 04/25/20 Status: Orderedlisinopril 40 mg oral tablet 1 tablet = 40 mg, By Mouth, Daily, # 90 tablet, 2 Refills, Maintenance, 04/25/20 13:14:00 EST, Tablet, [facility] #[id number], Partial fill upon patient request, 181, cm, 04/25/20 11:45:00 EST, Height Start Date: 04/25/20 Status: OrderedPARoxetine 10 mg oral tablet 10 mg, 1, tablet, By Mouth, Daily, TK 1 T PO D, # 30 tablet, Refills 6, Tot. Refills 6, Maintenance,04/25/20 13:20:00 EST, Route to Pharmacy Electronically, [facility] #[id number], Partial fill upon patient request, 181, cm, 04/25/20 11:45:00 ES... Start Date: 04/25/20 Stop Date: 11/21/20 Status: OrderedProAir HFA 90 mcg/inh inhalation aerosol 1 puffs, Inhalation, 4 times a day, PRN as needed for wheezing, j45.40, # 1 each, 2 Refills, Maintenance, 06/20/20 11:41:00 EST, Aerosol, [facility] #[id number], Brand Name PROAIR only, no substitutions, 1 [...] 1 each, 6 Refills, Maintenance, 06/20/20 13:26:00EST, [facility] #[id number], 181, cm, 06/19/20 14:27:00 EST, Height Start [...]
--- OUTSIDE RECORDS SUMMARY | 2022-06-10 17:35 | XMS_ITS | Continuity of Care Document ---
:1985 Author Organization [facility] Address [address] [place] [address]- Care Team Providers Name Role Phone Vikram CHACON, Ewa Lee Primary Care Physician Encounter [facility] [place] Date(s): 07/09/20 - 09/15/[address] [address] Discharge Disposition: A-D/C Home Attending Physician: Ewa [...] Virus Vaccine8 12/02/87 Given 1Result Comment: [07/05/2018] [id number] Note: [facility]3Admin Note: [employer] [facility] roggq1Txcny Note: [facility] [facility] odpee9Dulky Note: [facility] [facility] xuleu6Hftlz Note: [employer] [facility] kfuin1Dfdqd Note: [facility] [facility] ohcps3Gbnyc Note: [facility] Medications Aerochamber See Instructions, # 1 each, Maintenance, use with albuterol, 03/19/20 8:51:00 EDT, Supply, 181, cm, 02/27/20 12:37:00 EDT, Height Start Date: 03/19/20 Status: OrderedDulera 200 mcg-5 mcg/inh inhalation aerosol 2 puffs, Inhalation, 2 times a day, rinse mouth and throat after use, j45.40, # 1 each, 3 Refills, Maintenance, 04/19/20 15:30:00 EST, Aerosol, [facility] #[id number], This is in place of Symbicort which insurance will not cover., 2 puffs Inhalat... Start Date: 04/19/20 Status: Orderedlevocetirizine 5 mg oral tablet 1 tablet = 5 mg, By Mouth, Daily in PM, # 90 tablet, 1 Refills, Maintenance, 04/25/20 13:07:00 EST, Tablet, [facility] #[id number], 1 tablet By Mouth Daily in PM, 181, cm, 04/25/20 11:45:00 EST, Height Start Date: 04/25/20 Status: Orderedlisinopril 40 mg oral tablet 1 tablet = 40 mg, By Mouth, Daily, # 90 tablet, 2 Refills, Maintenance, 04/25/20 13:14:00 EST, Tablet, [facility] #[id number], Partial fill upon patient request, 181, cm, 04/25/20 11:45:00 EST, Height Start Date: 04/25/20 Status: OrderedPARoxetine 10 mg oral tablet 10 mg, 1, tablet, By Mouth, Daily, TK 1 T PO D, # 30 tablet, Refills 6, Tot. Refills 6, Maintenance,04/25/20 13:20:00 EST, Route to Pharmacy Electronically, [facility] #[id number], Partial fill upon patient request, 181, cm, 04/25/20 11:45:00 ES... Start Date: 04/25/20 Stop Date: 11/21/20 Status: OrderedProAir HFA 90 mcg/inh inhalation aerosol 1 puffs, Inhalation, 4 times a day, PRN as needed for wheezing, j45.40, # 1 each, 2 Refills, Maintenance, 06/20/20 11:41:00 EST, Aerosol, [facility] #[id number], Brand Name PROAIR only, no substitutions, 1 [...] 1 each, 6 Refills, Maintenance, 06/20/20 13:26:00EST, [facility] #[id number], 181, cm, 06/19/20 14:27:00 EST, Height Start [...]
--- OUTSIDE RECORDS SUMMARY | 2022-06-10 17:35 | XMS_ITS | Continuity of Care Document ---
:1985 Author Organization [facility] Address [address] [place] [address]- Care Team Providers Name Role Phone Vikram CHACON, Ewa Lee Primary Care Physician Encounter [facility] Date(s): 06/11/21 - 07/11/21 [facility] [address] [place] [address]- Allergies, Adverse Reactions, Alerts Substance Reaction Severity [...] (HbOC) vaccine 08/10/88 Recorded 1Result Comment: [07/05/2018] [id number] Note: [facility]3Admin Note: [place] [facility] zkizl6Tesln Note: [facility] gmlvd2Awqbo Note: [facility] bosyw8Xjiby Note: [place] cnidr7Ghtfn Note: [place] gvyyp5Gbuqm Note: [place] [facility] Medications Aerochamber See Instructions, # 1 each, Maintenance, use with albuterol, 03/19/20 8:51:00 EDT, Supply, 181, cm, 02/27/20 12:37:00 EDT, Height Start Date: 03/19/20 Status: OrderedDulera 200 mcg-5 mcg/inh inhalation aerosol 2 puffs, Inhalation, 2 times a day, rinse mouth and throat after use, j45.40, # 1 each, 3 Refills, Maintenance, 04/19/20 15:30:00 EST, Aerosol, [facility] #[id number], This is in place of Symbicort which [...] 1 Refills, Maintenance, 04/25/20 13:07:00 EST, Tablet, [facility] #[id number], 1 tablet By Mouth Daily in PM, 181, cm, 04/25/20 11:45:00 EST, Height Start Date: 04/25/20 Status: Orderedlisinopril 40 mg oral tablet 1 tablet = 40 mg, By Mouth, Daily, # 90 tablet, 2 Refills, Maintenance, 03/20/21 17:24:00 EDT, Tablet, [facility] #[id number], Partial fill upon patient request, 180, cm, 03/20/21 13:02:00 EDT, Height Start Date: 03/20/21 Status: OrderedProAir HFA 90 mcg/inh inhalation aerosol 1 puffs, Inhalation, 4 times a day, PRN as needed for wheezing, j45.40, # 1 each, 5 Refills, Maintenance, 12/31/20 15:18:00 EDT, Aerosol, [facility] #[id number], Brand Name PROAIR only, no substitutions, 1 [...] 1 each, 6 Refills, Maintenance, 06/20/20 13:26:00EST, [facility] #[id number], 181, cm, 06/19/20 14:27:00 EST, Height Start Date: 06/20/20 Status: OrderedXhance 93 mcg/inh nasal spray 1 sprays, Nares, Both, 2 times a day, # 16 mL, 0 Refills, Maintenance, 12/30/20 10:43:00 EDT, [place],Partial fill upon patient request if the prescription [...]
--- OUTSIDE RECORDS SUMMARY | 2022-06-10 17:35 | XMS_ITS | Continuity of Care Document ---
:1985 Author Organization [facility] Address [address] [place] [address]- Care Team Providers Name Role Phone Ewa Sue NP Primary Care Physician Encounter [facility] [place] Date(s): 04/24/20 - 05/24/20 [facility] [address] [place] [address]- Allergies, Adverse Reactions, Alerts Substance Reaction Severity [...] Virus Vaccine8 12/02/87 Given 1Result Comment: [07/05/2018] [id number] Note: [facility]3Admin Note: [facility] qovqe3Xlhzo Note: [facility] ttazq8Fwmhp Note: [facility] cjate3Qkgqn Note: [facility] dxkfd3Fzwmj Note: [facility] ebycv5Zikot Note: [facility] Medications Aerochamber See Instructions, # 1 each, Maintenance, use with albuterol, 03/19/20 8:51:00 EDT, Supply, 181, cm, 02/27/20 12:37:00 EDT, Height Start Date: 03/19/20 Status: OrderedDulera 200 mcg-5 mcg/inh inhalation aerosol 2 puffs, Inhalation, 2 times a day, rinse mouth and throat after use, j45.40, # 1 each, 3 Refills, Maintenance, 04/19/20 15:30:00 EST, Aerosol, [facility] #[id number], This is in place of Symbicort which insurance will not cover., 2 puffs Inhalat... Start Date: 04/19/20 Status: Orderedfamotidine 20 mg oral tablet 20 mg, 1, tablet, By Mouth, Daily at bedtime, # 90 tablet, Refills 3, Tot. Refills 3, Maintenance, 04/25/20 13:07:00 EST, Route to Pharmacy Electronically, [facility] #[id number], 181, cm, 04/25/20 11:45:00 EST, Height Start Date: 04/25/20 Status: Orderedlevocetirizine 5 mg oral tablet 1 tablet = 5 mg, By Mouth, Daily in PM, # 90 tablet, 1 Refills, Maintenance, 04/25/20 13:07:00 EST, Tablet, [facility] #33663, 1 tablet By Mouth Daily in PM, 181, cm, 04/25/20 11:45:00 EST, Height Start Date: 04/25/20 Status: Orderedlisinopril 40 mg oral tablet 1 tablet = 40 mg, By Mouth, Daily, # 90 tablet, 2 Refills, Maintenance, 04/25/20 13:14:00 EST, Tablet, [facility] #79054, Partial fill upon patient request, 181, cm, 04/25/20 11:45:00 EST, Height Start Date: 04/25/20 Status: Orderedmeloxicam 7.5 mg oral tablet 1 tablet = 7.5 mg, By Mouth, Daily, # 14 tablet, 0 Refills, Maintenance, 05/13/20 10:10:00 EST, Tablet, [facility] #[id number], Partial fill upon patient request if the prescription is for a schedule II opioid drug., 181, cm, 05/13/20 9:42:00 EST... Start Date: 05/13/20 Stop Date: 05/27/20 Status: OrderedPARoxetine 10 mg oral tablet 10 mg, 1, tablet, By Mouth, Daily, TK 1 T PO D, # 30 tablet, Refills 6, Tot. Refills 6, Maintenance,04/25/20 13:20:00 EST, Route to Pharmacy Electronically, [facility] #[id number], Partial fill upon patient request, 181, cm, 04/25/20 11:45:00 ES... Start Date: 04/25/20 Stop Date: 11/21/20 Status: OrderedProAir HFA 90 mcg/inh inhalation aerosol 1 puffs, Inhalation, 4 times a day, PRN as needed for wheezing, # 1 each, 2 Refills, Maintenance, 03/22/20 11:06:00 EDT, Aerosol, [facility] #[id number], Brand Name PROAIR only, no substitutions, 1 [...] capsule, 3 Refills, Maintenance, 12/18/19 16:31:00 EDT, [facility] #[id number], 181, cm, 06/19/19 16:12:00 EST, Height Start [...]
--- OUTSIDE RECORDS SUMMARY | 2022-06-10 17:35 | XMS_ITS | Continuity of Care Document ---
:1985 Author Organization [facility] Adult Address [address] [place] [address]- Care Team Providers Name Role Phone Ewa Sue NP Primary Care Physician [place] [facility] [place]): 02/27/20 - 03/05/20 [facility] Adult [address] [place] [id number] [facility] Encounter Diagnosis Chronic sinus infection (Discharge Diagnosis) - 02/27/20 Attending Physician: Ewa Sue NP Referring Physician: Laila Conde MD Allergies, Adverse Reactions, Alerts Substance Reaction [...] Virus Vaccine8 12/02/87 Given 1Result Comment: [07/05/2018] [id number] Note: [facility]3Admin Note: [facility] odybv6Bsbzj Note: [facility] lodvy1Zjxiw Note: [facility] lrajj2Qsjeg Note: [facility] takon9Pufqk Note: [facility] upgdz9Sslzs Note: [facility] Medications Aerochamber See Instructions, # 1 each, Maintenance, use as directed, 04/23/16 13:42:29, Compound Start Date: 04/23/16 Status: Orderedclindamycin 300 mg oral capsule 1 capsule = 300 mg, By Mouth, Every 8 hours, for 10 days, # 30 capsule, 0 Refills, Acute 03/08/20 13:30:00 EDT, 02/27/20 13:30:00 EDT, Capsule, [facility] #[id number], 181, cm, 02/27/20 12:37:00 EDT, Height Start Date: 02/27/20 Stop Date: 03/08/20 Status: OrderedDulera 200 mcg-5 mcg/inh inhalation aerosol [...] 02/09/20 15:51:00 EDT, Route to Pharmacy Electronically, [facility] #[id number], 181, cm, 06/19/19 16:12:00 EST, Height Start Date: 02/09/20 Status: Orderedlevocetirizine 5 mg oral tablet 1 tablet = 5 mg, By Mouth, Daily in PM, # 90 tablet, 1 Refills, Maintenance, 02/27/20 13:30:00 EDT, Tablet, [facility] #[id number], 1 tablet By Mouth Daily in PM, 181, cm, 02/27/20 12:37:00 EDT, Height Start Date: 02/27/20 Status: Orderedlisinopril 20 mg oral tablet 20 mg, 1, tablet, By Mouth, Daily at bedtime, # 90 tablet, Refills 0, Tot. Refills 0, Maintenance, 12/14/19 13:25:00 EDT, Route to Pharmacy Electronically, [facility] #[id number], 181, cm, 06/19/19 16:12:00 EST, Height Start Date: 12/14/19 Status: Orderednaproxen 500 mg oral tablet 1 tablet, By Mouth, 2 times a day, PRN NEEDED FOR PAIN, TAKE WITH FOOD, # 28 tablet, 0 Refills, Acute, 11/14/19 15:10:00 EDT, [facility] #[id number], 181, cm, 06/19/19 16:12:00 EST, Height Start [...] capsule, 3 Refills, Maintenance, 12/18/19 16:31:00 EDT, [facility] #[id number], 181, cm, 06/19/19 16:12:00 EST, Height Start [...] Clinical In formant Service Chronic sinus Discharge 02/27/20 infection Diagnosis Vital Signs Most recent to oldest [Reference Range]: 1 Height 181.0 cm (02/27/20 12:37 PM) Weight 113.6 kg (02/27/20 12:37 PM) Body Mass Index [18.5-24.99] 34.68 *>HHI* (02/27/20 12:37 PM) Social History Social History Type Response Smoking Status Former smoker; Other: quit i n 2013; entered on: 01/30/15 Sex
--- OUTSIDE RECORDS SUMMARY | 2022-06-10 17:35 | XMS_ITS | Continuity of Care Document ---
:1985 Author Organization [facility] Address [address] [place] [address]- Care Team Providers Name Role Phone Ewa Sue NP Primary Care Physician Encounter [facility] [place] Date(s): 05/24/20 - 06/23/[address] [address] Attending Physician: Konstantin Brooks Admitting Physician: Konstantin [...] Virus Vaccine8 12/02/87 Given 1Result Comment: [07/05/2018] [id number] Note: [facility]3Admin Note: [facility] mywhm8Jjfwc Note: [facility] eyuih0Nqskk Note: [facility] hwhtr3Xscfj Note: [facility] bphuv0Zzqnl Note: [facility] phxkm4Qdcqf Note: [facility] Medications Aerochamber See Instructions, # 1 each, Maintenance, use with albuterol, 03/19/20 8:51:00 EDT, Supply, 181, cm, 02/27/20 12:37:00 EDT, Height Start Date: 03/19/20 Status: Orderedbetamethasone-clotrimazole 0.05%-1% topical cream 1 application, Topically, 2 times a day, for 14 days, Not to be used longer than 2 weeks, # 90 Gm, 0Refills, Acute 07/01/20 14:19:00 EST, 06/17/20 14:19:00 EST, Cream, [facility] #[id number], Partial fill upon patient request if the prescription... Start Date: 06/17/20 Stop Date: 07/01/20 Status: OrderedDulera 200 mcg-5 mcg/inh inhalation aerosol 2 puffs, Inhalation, 2 times a day, rinse mouth and throat after use, j45.40, # 1 each, 3 Refills, Maintenance, 04/19/20 15:30:00 EST, Aerosol, [facility] #[id number], This is in place of Symbicort which insurance will not cover., 2 puffs Inhalat... Start Date: 04/19/20 Status: Orderedfamotidine 20 mg oral tablet 20 mg, 1, tablet, By Mouth, Daily at bedtime, # 90 tablet, Refills 3, Tot. Refills 3, Maintenance, 04/25/20 13:07:00 EST, Route to Pharmacy Electronically, [facility] #[id number], 181, cm, 04/25/20 11:45:00 EST, Height Start Date: 04/25/20 Status: Orderedlevocetirizine 5 mg oral tablet 1 tablet = 5 mg, By Mouth, Daily in PM, # 90 tablet, 1 Refills, Maintenance, 04/25/20 13:07:00 EST, Tablet, [facility] #[id number], 1 tablet By Mouth Daily in PM, 181, cm, 04/25/20 11:45:00 EST, Height Start Date: 04/25/20 Status: Orderedlisinopril 40 mg oral tablet 1 tablet = 40 mg, By Mouth, Daily, # 90 tablet, 2 Refills, Maintenance, 04/25/20 13:14:00 EST, Tablet, [facility] #[id number], Partial fill upon patient request, 181, cm, 04/25/20 11:45:00 EST, Height Start Date: 04/25/20 Status: OrderedPARoxetine 10 mg oral tablet 10 mg, 1, tablet, By Mouth, Daily, TK 1 T PO D, # 30 tablet, Refills 6, Tot. Refills 6, Maintenance,04/25/20 13:20:00 EST, Route to Pharmacy Electronically, [facility] #[id number], Partial fill upon patient request, 181, cm, 04/25/20 11:45:00 ES... Start Date: 04/25/20 Stop Date: 11/21/20 Status: OrderedProAir HFA 90 mcg/inh inhalation aerosol 1 puffs, Inhalation, 4 times a day, PRN as needed for wheezing, j45.40, # 1 each, 2 Refills, Maintenance, 06/20/20 11:41:00 EST, Aerosol, [facility] #[id number], Brand Name PROAIR only, no substitutions, 1 [...] 1 each, 6 Refills, Maintenance, 06/20/20 13:26:00EST, [facility] #[id number], 181, cm, 06/19/20 14:27:00 EST, Height Start [...]
--- OUTSIDE RECORDS SUMMARY | 2022-06-10 17:35 | XMS_ITS | Continuity of Care Document ---
:1985 Author Organization [facility] Adult Address [address] [place] [address]- Care Team Providers Name Role Phone Ewa Sue NP Primary Care Physician Encounter [facility] Date(s): 03/12/21 - 04/16/21 [facility] [address] [place] [address]- Attending Physician: Not on Staff, Attending MD [...] (HbOC) vaccine 08/10/88 Recorded 1Result Comment: [07/05/2018] [id number] Note: [facility]3Admin Note: [facility] zvnqf3Dyjwh Note: [facility] czchl2Cgmqc Note: [facility] yrvjo3Fxrai Note: [facility] gxhyq3Wrugn Note: [facility] bihnq1Wjzne Note: [facility] Medications Aerochamber See Instructions, # 1 each, Maintenance, use with albuterol, 03/19/20 8:51:00 EDT, Supply, 181, cm, 02/27/20 12:37:00 EDT, Height Start Date: 03/19/20 Status: OrderedDulera 200 mcg-5 mcg/inh inhalation aerosol 2 puffs, Inhalation, 2 times a day, rinse mouth and throat after use, j45.40, # 1 each, 3 Refills, Maintenance, 04/19/20 15:30:00 EST, Aerosol, [facility] #[id number], This is in place of Symbicort which insurance will not cover., 2 puffs Inhalat... Start Date: 04/19/20 Status: Orderedibuprofen 800 mg oral tablet See Instructions, TAKE 1 TABLET BY MOUTH THREE TIMES DAILY WITH FOOD OR MILK AND DO NOT TAKE MORE THAN 4 TABLETS DAILY, # 42 tablet, Refills 0, Instructions Replace Required Details, Route to Pharmacy Electronically, [facility] #[id number], 180,... Start Date: 03/12/21 Status: Orderedlevocetirizine 5 mg oral tablet 1 tablet = 5 mg, By Mouth, Daily in PM, # 90 tablet, 1 Refills, Maintenance, 04/25/20 13:07:00 EST, Tablet, [facility] #[id number], 1 tablet By Mouth Daily in PM, 181, cm, 04/25/20 11:45:00 EST, Height Start Date: 04/25/20 Status: Orderedlisinopril 40 mg oral tablet 1 tablet = 40 mg, By Mouth, Daily, # 90 tablet, 2 Refills, Maintenance, 03/20/21 17:24:00 EDT, Tablet, [facility] #[id number], Partial fill upon patient request, 180, cm, [...] 5 Refills, Maintenance, 12/31/20 15:18:00 EDT, Aerosol, [facility] #[id number], Brand Name ANG only, no substitutions, 1 puffs Inhalation 4 [...] 1 each, 6 Refills, Maintenance, 06/20/20 13:26:00EST, [facility] #[id number], 181, cm, 06/19/20 14:27:00 EST, Height Start Date: 06/20/20 Status: OrderedXhance 93 mcg/inh nasal spray 1 sprays, Nares, Both, 2 times a day, # 16 mL, 0 Refills, Maintenance, 12/30/20 10:43:00 EDT, [facility],Partial fill upon patient request if the prescription [...]
--- OUTSIDE RECORDS SUMMARY | 2022-06-10 17:35 | XMS_ITS | Continuity of Care Document ---
:1985 Author Organization [facility] Adult Address [address] [place] [address]- Care Team Providers Name Role Phone Ewa Sue NP Primary Care Physician [place] [facility] [place](s): 06/21/20 - 07/21/20 [facility] [address] [place] [address]- Allergies, Adverse Reactions, Alerts Substance Reaction Severity [...] Virus Vaccine8 12/02/87 Given 1Result Comment: [07/05/2018] [id number] Note: [facility]3Admin Note: [facility] nfexl6Jawle Note: [facility] wumyf1Pxokm Note: [facility] gptjz7Erhnv Note: [facility] rcnxi6Gntix Note: [facility] ymqos3Stkow Note: [facility] Medications Aerochamber See Instructions, # 1 each, Maintenance, use with albuterol, 03/19/20 8:51:00 EDT, Supply, 181, cm, 02/27/20 12:37:00 EDT, Height Start Date: 03/19/20 Status: OrderedDulera 200 mcg-5 mcg/inh inhalation aerosol 2 puffs, Inhalation, 2 times a day, rinse mouth and throat after use, j45.40, # 1 each, 3 Refills, Maintenance, 04/19/20 15:30:00 EST, Aerosol, [facility] #[id number], This is in place of Symbicort which insurance will not cover., 2 puffs Inhalat... Start Date: 04/19/20 Status: Orderedlevocetirizine 5 mg oral tablet 1 tablet = 5 mg, By Mouth, Daily in PM, # 90 tablet, 1 Refills, Maintenance, 04/25/20 13:07:00 EST, Tablet, [facility] #[id number], 1 tablet By Mouth Daily in PM, 181, cm, 04/25/20 11:45:00 EST, Height Start Date: 04/25/20 Status: Orderedlisinopril 40 mg oral tablet 1 tablet = 40 mg, By Mouth, Daily, # 90 tablet, 2 Refills, Maintenance, 04/25/20 13:14:00 EST, Tablet, [facility] #[id number], Partial fill upon patient request, 181, cm, 04/25/20 11:45:00 EST, Height Start Date: 04/25/20 Status: OrderedPARoxetine 10 mg oral tablet 10 mg, 1, tablet, By Mouth, Daily, TK 1 T PO D, # 30 tablet, Refills 6, Tot. Refills 6, Maintenance,04/25/20 13:20:00 EST, Route to Pharmacy Electronically, [facility] #[id number], Partial fill upon patient request, 181, cm, 04/25/20 11:45:00 ES... Start Date: 04/25/20 Stop Date: 11/21/20 Status: OrderedProAir HFA 90 mcg/inh inhalation aerosol 1 puffs, Inhalation, 4 times a day, PRN as needed for wheezing, j45.40, # 1 each, 2 Refills, Maintenance, 06/20/20 11:41:00 EST, Aerosol, [facility] #[id number], Brand Name PROAIR only, no substitutions, 1 [...] 1 each, 6 Refills, Maintenance, 06/20/20 13:26:00EST, [facility] #[id number], 181, cm, 06/19/20 14:27:00 EST, Height Start [...]
--- OUTSIDE RECORDS SUMMARY | 2022-06-10 17:35 | XMS_ITS | Continuity of Care Document ---
:1985 Author Organization [facility] Adult Address [address] [place] [address]- Care Team Providers Name Role Phone Vikram CHACON, Ewa Lee Primary Care Physician [place] [facility] [place]17[place]20 [place] 06/24/20 [facility] [address] [place] [address]- Encounter Diagnosis Rash of groin (Discharge Diagnosis) - 06/17/20 Rash (Discharge Diagnosis) - 06/17/20 Attending Physician: Ewa Sue NP Referring Physician: [...] Virus Vaccine8 12/02/87 Given 1Result Comment: [07/05/2018] [id number] Note: [facility]3Admin Note: [facility] tylsv7Iogbl Note: [facility] nandh0Zjubv Note: [facility] qeypq4Kuaxj Note: [facility] aibll9Ckoog Note: [facility] ortrz1Tcbjg Note: [facility] Medications Aerochamber See Instructions, # 1 each, Maintenance, use with albuterol, 03/19/20 8:51:00 EDT, Supply, 181, cm, 02/27/20 12:37:00 EDT, Height Start Date: 03/19/20 Status: Orderedbetamethasone-clotrimazole 0.05%-1% topical cream 1 application, Topically, 2 times a day, for 14 days, Not to be used longer than 2 weeks, # 90 Gm, 0Refills, Acute 07/01/20 14:19:00 EST, 06/17/20 14:19:00 EST, Cream, [facility] #[id number], Partial fill upon patient request if the prescription... Start Date: 06/17/20 Stop Date: 07/01/20 Status: OrderedDulera 200 mcg-5 mcg/inh inhalation aerosol 2 puffs, Inhalation, 2 times a day, rinse mouth and throat after use, j45.40, # 1 each, 3 Refills, Maintenance, 04/19/20 15:30:00 EST, Aerosol, [facility] #[id number], This is in place of Symbicort which insurance will not cover., 2 puffs Inhalat... Start Date: 04/19/20 Status: Orderedfamotidine 20 mg oral tablet 20 mg, 1, tablet, By Mouth, Daily at bedtime, # 90 tablet, Refills 3, Tot. Refills 3, Maintenance, 04/25/20 13:07:00 EST, Route to Pharmacy Electronically, [facility] #[id number], 181, cm, 04/25/20 11:45:00 EST, Height Start Date: 04/25/20 Status: Orderedlevocetirizine 5 mg oral tablet 1 tablet = 5 mg, By Mouth, Daily in PM, # 90 tablet, 1 Refills, Maintenance, 04/25/20 13:07:00 EST, Tablet, [facility] #[id number], 1 tablet By Mouth Daily in PM, 181, cm, 04/25/20 11:45:00 EST, Height Start Date: 04/25/20 Status: Orderedlisinopril 40 mg oral tablet 1 tablet = 40 mg, By Mouth, Daily, # 90 tablet, 2 Refills, Maintenance, 04/25/20 13:14:00 EST, Tablet, [facility] #[id number], Partial fill upon patient request, 181, cm, 04/25/20 11:45:00 EST, Height Start Date: 04/25/20 Status: OrderedPARoxetine 10 mg oral tablet 10 mg, 1, tablet, By Mouth, Daily, TK 1 T PO D, # 30 tablet, Refills 6, Tot. Refills 6, Maintenance,04/25/20 13:20:00 EST, Route to Pharmacy Electronically, [facility] #[id number], Partial fill upon patient request, 181, cm, 04/25/20 11:45:00 ES... Start Date: 04/25/20 Stop Date: 11/21/20 Status: OrderedProAir HFA 90 mcg/inh inhalation aerosol 1 puffs, Inhalation, 4 times a day, PRN as needed for wheezing, j45.40, # 1 each, 2 Refills, Maintenance, 06/20/20 11:41:00 EST, Aerosol, [facility] #[id number], Brand Name PROAIR only, no substitutions, 1 [...] 1 each, 6 Refills, Maintenance, 06/20/20 13:26:00EST, [facility] #[id number], 181, cm, 06/19/20 14:27:00 EST, Height Start [...] Dates Health Status Clinical In formant Service Rash of groin Discharge 06/17/20 Diagnosis Rash Discharge 06/17/20 Diagnosis Vital Signs Most recent to oldest [Reference Range]: 1 Height 181.0 cm (06/17/20 1:50 PM) Weight 111.6 kg (06/17/20 1:50 PM) Oxygen Saturation [94-100 %] 98 % (06/17/20 1:50 PM) Pulse Rate [55-90 bpm] 87 bpm (06/17/20 1:50 PM) Body Mass Index [18.5-24.99] 34.06 *>HHI* (06/17/20 1:50 PM) Blood Pressure [90-138/55-84 mm Hg] 130/80 mm Hg (06/17/20 1:50 PM) Respiratory Rate [16-30 br/min] 16 br/min (06/17/20 1:50 PM) Mode of Delivery (Oxygen) Room air (06/17/20 1:50 PM) Blood pressure sites Arm, left (06/17/20 1:50 PM) Weight Obtained Via Standing scale (06/17/20 1:50 PM) Social History Social History Type Response Smoking Status Former smoker; Other: quit i n 2013; entered on: 01/30/15 Sex
--- OUTSIDE RECORDS SUMMARY | 2022-06-10 17:35 | XMS_ITS | Continuity of Care Document ---
:1985 Author Organization [facility] Adult Address [address] [place] [address]- Care Team Providers Name Role Phone Ewa Sue NP Primary Care Physician Encounter [facility] [place] Date(s): 06/19/20 - 10/13/20 [facility] [address] [place] [address]- Attending Physician: Not on Staff, Attending MD [...] Virus Vaccine8 12/02/87 Given 1Result Comment: [07/05/2018] [id number] Note: [facility]3Admin Note: [facility] aloem1Bcndj Note: [facility] xgecg6Ckyfz Note: [facility] jafhx6Nslrw Note: [facility] lpxxl2Rksqy Note: [facility] jlxng8Ajznj Note: [facility] Medications Aerochamber See Instructions, # 1 each, Maintenance, use with albuterol, 03/19/20 8:51:00 EDT, Supply, 181, cm, 02/27/20 12:37:00 EDT, Height Start Date: 03/19/20 Status: OrderedDulera 200 mcg-5 mcg/inh inhalation aerosol 2 puffs, Inhalation, 2 times a day, rinse mouth and throat after use, j45.40, # 1 each, 3 Refills, Maintenance, 04/19/20 15:30:00 EST, Aerosol, [facility] #[id number], This is in place of Symbicort which insurance will not cover., 2 puffs Inhalat... Start Date: 04/19/20 Status: Orderedlevocetirizine 5 mg oral tablet 1 tablet = 5 mg, By Mouth, Daily in PM, # 90 tablet, 1 Refills, Maintenance, 04/25/20 13:07:00 EST, Tablet, [facility] #[id number], 1 tablet By Mouth Daily in PM, 181, cm, 04/25/20 11:45:00 EST, Height Start Date: 04/25/20 Status: Orderedlisinopril 40 mg oral tablet 1 tablet = 40 mg, By Mouth, Daily, # 90 tablet, 2 Refills, Maintenance, 04/25/20 13:14:00 EST, Tablet, [facility] #[id number], Partial fill upon patient request, 181, cm, 04/25/20 11:45:00 EST, Height Start Date: 04/25/20 Status: OrderedPARoxetine 10 mg oral tablet 10 mg, 1, tablet, By Mouth, Daily, TK 1 T PO D, # 30 tablet, Refills 6, Tot. Refills 6, Maintenance,04/25/20 13:20:00 EST, Route to Pharmacy Electronically, [facility] #[id number], Partial fill upon patient request, 181, cm, 04/25/20 11:45:00 ES... Start Date: 04/25/20 Stop Date: 11/21/20 Status: OrderedProAir HFA 90 mcg/inh inhalation aerosol 1 puffs, Inhalation, 4 times a day, PRN as needed for wheezing, j45.40, # 1 each, 2 Refills, Maintenance, 06/20/20 11:41:00 EST, Aerosol, [facility] #[id number], Brand Name PROAIR only, no substitutions, 1 [...] 1 each, 6 Refills, Maintenance, 06/20/20 13:26:00EST, [facility] #[id number], 181, cm, 06/19/20 14:27:00 EST, Height Start [...]
--- OUTSIDE RECORDS SUMMARY | 2022-06-10 17:35 | XMS_ITS | Continuity of Care Document ---
:1985 Author Organization [facility] Adult Address [address] [place] [address]- Care Team Providers Name Role Phone Ewa Sue NP Primary Care Physician Encounter [facility] [place] Date(s): 05/01/20 - 07/31/20 [facility] [address] [place] [address]- Attending Physician: Ewa Sue NP Allergies, Adverse [...] Virus Vaccine8 12/02/87 Given 1Result Comment: [07/05/2018] [id number] Note: [facility]3Admin Note: [facility] gglct3Pgfyi Note: [facility] ofzsw8Qowox Note: [facility] csksz7Ebeah Note: [facility] dfmkb4Xqwuf Note: [facility] ddpzv0Iuste Note: [facility] Medications Aerochamber See Instructions, # 1 each, Maintenance, use with albuterol, 03/19/20 8:51:00 EDT, Supply, 181, cm, 02/27/20 12:37:00 EDT, Height Start Date: 03/19/20 Status: OrderedDulera 200 mcg-5 mcg/inh inhalation aerosol 2 puffs, Inhalation, 2 times a day, rinse mouth and throat after use, j45.40, # 1 each, 3 Refills, Maintenance, 04/19/20 15:30:00 EST, Aerosol, [facility] #[id number], This is in place of Symbicort which insurance will not cover., 2 puffs Inhalat... Start Date: 04/19/20 Status: Orderedlevocetirizine 5 mg oral tablet 1 tablet = 5 mg, By Mouth, Daily in PM, # 90 tablet, 1 Refills, Maintenance, 04/25/20 13:07:00 EST, Tablet, [facility] #[id number], 1 tablet By Mouth Daily in PM, 181, cm, 04/25/20 11:45:00 EST, Height Start Date: 04/25/20 Status: Orderedlisinopril 40 mg oral tablet 1 tablet = 40 mg, By Mouth, Daily, # 90 tablet, 2 Refills, Maintenance, 04/25/20 13:14:00 EST, Tablet, [facility] #[id number], Partial fill upon patient request, 181, cm, 04/25/20 11:45:00 EST, Height Start Date: 04/25/20 Status: OrderedPARoxetine 10 mg oral tablet 10 mg, 1, tablet, By Mouth, Daily, TK 1 T PO D, # 30 tablet, Refills 6, Tot. Refills 6, Maintenance,04/25/20 13:20:00 EST, Route to Pharmacy Electronically, [facility] #[id number], Partial fill upon patient request, 181, cm, 04/25/20 11:45:00 ES... Start Date: 04/25/20 Stop Date: 11/21/20 Status: OrderedProAir HFA 90 mcg/inh inhalation aerosol 1 puffs, Inhalation, 4 times a day, PRN as needed for wheezing, j45.40, # 1 each, 2 Refills, Maintenance, 06/20/20 11:41:00 EST, Aerosol, [facility] #[id number], Brand Name PROAIR only, no substitutions, 1 [...] 1 each, 6 Refills, Maintenance, 06/20/20 13:26:00EST, [facility] #[id number], 181, cm, 06/19/20 14:27:00 EST, Height Start [...]
--- OUTSIDE RECORDS SUMMARY | 2022-06-10 17:35 | XMS_ITS | Continuity of Care Document ---
:1985 Author Organization [facility] Adult Address [address] [place] [address]- Care Team Providers Name Role Phone Ewa Sue NP Primary Care Physician Encounter [facility] Date(s): 06/19/20 - 07/19/20 [facility] [address] [place] [address]- Allergies, Adverse Reactions, Alerts Substance Reaction Severity [...] Virus Vaccine8 12/02/87 Given 1Result Comment: [07/05/2018] [id number] Note: [facility]3Admin Note: [facility] zjmfq2Catsp Note: [facility] hjodz7Atcvz Note: [facility] hmqtu4Smzun Note: [facility] ioolo6Cogwq Note: [facility] ognfz3Araez Note: [facility] Medications Aerochamber See Instructions, # 1 each, Maintenance, use with albuterol, 03/19/20 8:51:00 EDT, Supply, 181, cm, 02/27/20 12:37:00 EDT, Height Start Date: 03/19/20 Status: OrderedDulera 200 mcg-5 mcg/inh inhalation aerosol 2 puffs, Inhalation, 2 times a day, rinse mouth and throat after use, j45.40, # 1 each, 3 Refills, Maintenance, 04/19/20 15:30:00 EST, Aerosol, [facility] #[id number], This is in place of Symbicort which insurance will not cover., 2 puffs Inhalat... Start Date: 04/19/20 Status: Orderedlevocetirizine 5 mg oral tablet 1 tablet = 5 mg, By Mouth, Daily in PM, # 90 tablet, 1 Refills, Maintenance, 04/25/20 13:07:00 EST, Tablet, [facility] #[id number], 1 tablet By Mouth Daily in PM, 181, cm, 04/25/20 11:45:00 EST, Height Start Date: 04/25/20 Status: Orderedlisinopril 40 mg oral tablet 1 tablet = 40 mg, By Mouth, Daily, # 90 tablet, 2 Refills, Maintenance, 04/25/20 13:14:00 EST, Tablet, [facility] #[id number], Partial fill upon patient request, 181, cm, 04/25/20 11:45:00 EST, Height Start Date: 04/25/20 Status: OrderedPARoxetine 10 mg oral tablet 10 mg, 1, tablet, By Mouth, Daily, TK 1 T PO D, # 30 tablet, Refills 6, Tot. Refills 6, Maintenance,04/25/20 13:20:00 EST, Route to Pharmacy Electronically, [facility] #[id number], Partial fill upon patient request, 181, cm, 04/25/20 11:45:00 ES... Start Date: 04/25/20 Stop Date: 11/21/20 Status: OrderedProAir HFA 90 mcg/inh inhalation aerosol 1 puffs, Inhalation, 4 times a day, PRN as needed for wheezing, j45.40, # 1 each, 2 Refills, Maintenance, 06/20/20 11:41:00 EST, Aerosol, [facility] #[id number], Brand Name PROAIR only, no substitutions, 1 [...] 1 each, 6 Refills, Maintenance, 06/20/20 13:26:00EST, [facility] #[id number], 181, cm, 06/19/20 14:27:00 EST, Height Start [...]
--- OUTSIDE RECORDS SUMMARY | 2022-06-10 17:35 | XMS_ITS | Continuity of Care Document ---
:1985 Author Organization [facility] Adult Address [address] [place] [address]- Care Team Providers Name Role Phone Eaw Sue NP Primary Care Physician Encounter [facility] [place] Date(s): 07/02/20 - 08/01/20 [facility] Adult [address] [place] [address]- Allergies, Adverse Reactions, Alerts Substance Reaction Severity [...] Virus Vaccine8 12/02/87 Given 1Result Comment: [07/05/2018] [id number] Note: [facility]3Admin Note: [facility] tnkcj9Uusfw Note: [facility] trfeb5Wqccv Note: [facility] mscsx8Jlrvs Note: [facility] wcbat4Favrs Note: [facility] ctmhq3Cwxkt Note: [facility] Medications Aerochamber See Instructions, # 1 each, Maintenance, use with albuterol, 03/19/20 8:51:00 EDT, Supply, 181, cm, 02/27/20 12:37:00 EDT, Height Start Date: 03/19/20 Status: OrderedDulera 200 mcg-5 mcg/inh inhalation aerosol 2 puffs, Inhalation, 2 times a day, rinse mouth and throat after use, j45.40, # 1 each, 3 Refills, Maintenance, 04/19/20 15:30:00 EST, Aerosol, [facility] #[id number], This is in place of Symbicort which insurance will not cover., 2 puffs Inhalat... Start Date: 04/19/20 Status: Orderedlevocetirizine 5 mg oral tablet 1 tablet = 5 mg, By Mouth, Daily in PM, # 90 tablet, 1 Refills, Maintenance, 04/25/20 13:07:00 EST, Tablet, [facility] #[id number], 1 tablet By Mouth Daily in PM, 181, cm, 04/25/20 11:45:00 EST, Height Start Date: 04/25/20 Status: Orderedlisinopril 40 mg oral tablet 1 tablet = 40 mg, By Mouth, Daily, # 90 tablet, 2 Refills, Maintenance, 04/25/20 13:14:00 EST, Tablet, [facility] #[id number], Partial fill upon patient request, 181, cm, 04/25/20 11:45:00 EST, Height Start Date: 04/25/20 Status: OrderedPARoxetine 10 mg oral tablet 10 mg, 1, tablet, By Mouth, Daily, TK 1 T PO D, # 30 tablet, Refills 6, Tot. Refills 6, Maintenance,04/25/20 13:20:00 EST, Route to Pharmacy Electronically, [facility] #[id number], Partial fill upon patient request, 181, cm, 04/25/20 11:45:00 ES... Start Date: 04/25/20 Stop Date: 11/21/20 Status: OrderedProAir HFA 90 mcg/inh inhalation aerosol 1 puffs, Inhalation, 4 times a day, PRN as needed for wheezing, j45.40, # 1 each, 2 Refills, Maintenance, 06/20/20 11:41:00 EST, Aerosol, [facility] #[id number], Brand Name PROAIR only, no substitutions, 1 [...] 1 each, 6 Refills, Maintenance, 06/20/20 13:26:00EST, [facility] #[id number], 181, cm, 06/19/20 14:27:00 EST, Height Start [...]
--- OUTSIDE RECORDS SUMMARY | 2022-06-10 17:35 | XMS_ITS | Continuity of Care Document ---
:1985 Author Organization [facility] Adult Address [address] [place] [address]- Care Team Providers Name Role Phone Ewa Sue NP Primary Care Physician Encounter [facility] Date(s): 07/30/20 - 08/29/20 [facility] Adult [address] [place] [address]- Allergies, Adverse Reactions, Alerts Substance Reaction Severity [...] Virus Vaccine8 12/02/87 Given 1Result Comment: [07/05/2018] [id number] Note: [facility]3Admin Note: [facility] kdbth5Yagdn Note: [facility] cyult4Tkfhw Note: [facility] zqqux3Hkses Note: [facility] zdiyv2Vwjfc Note: [facility] yhgwy0Gbgei Note: [facility] Medications Aerochamber See Instructions, # 1 each, Maintenance, use with albuterol, 03/19/20 8:51:00 EDT, Supply, 181, cm, 02/27/20 12:37:00 EDT, Height Start Date: 03/19/20 Status: OrderedDulera 200 mcg-5 mcg/inh inhalation aerosol 2 puffs, Inhalation, 2 times a day, rinse mouth and throat after use, j45.40, # 1 each, 3 Refills, Maintenance, 04/19/20 15:30:00 EST, Aerosol, [facility] #[id number], This is in place of Symbicort which insurance will not cover., 2 puffs Inhalat... Start Date: 04/19/20 Status: Orderedlevocetirizine 5 mg oral tablet 1 tablet = 5 mg, By Mouth, Daily in PM, # 90 tablet, 1 Refills, Maintenance, 04/25/20 13:07:00 EST, Tablet, [facility] #[id number], 1 tablet By Mouth Daily in PM, 181, cm, 04/25/20 11:45:00 EST, Height Start Date: 04/25/20 Status: Orderedlisinopril 40 mg oral tablet 1 tablet = 40 mg, By Mouth, Daily, # 90 tablet, 2 Refills, Maintenance, 04/25/20 13:14:00 EST, Tablet, [facility] #[id number], Partial fill upon patient request, 181, cm, 04/25/20 11:45:00 EST, Height Start Date: 04/25/20 Status: OrderedPARoxetine 10 mg oral tablet 10 mg, 1, tablet, By Mouth, Daily, TK 1 T PO D, # 30 tablet, Refills 6, Tot. Refills 6, Maintenance,04/25/20 13:20:00 EST, Route to Pharmacy Electronically, [facility] #[id number], Partial fill upon patient request, 181, cm, 04/25/20 11:45:00 ES... Start Date: 04/25/20 Stop Date: 11/21/20 Status: OrderedProAir HFA 90 mcg/inh inhalation aerosol 1 puffs, Inhalation, 4 times a day, PRN as needed for wheezing, j45.40, # 1 each, 2 Refills, Maintenance, 06/20/20 11:41:00 EST, Aerosol, [facility] #[id number], Brand Name PROAIR only, no substitutions, 1 [...] 1 each, 6 Refills, Maintenance, 06/20/20 13:26:00EST, [facility] #[id number], 181, cm, 06/19/20 14:27:00 EST, Height Start [...]
--- OUTSIDE RECORDS SUMMARY | 2022-06-10 17:35 | XMS_ITS | Continuity of Care Document ---
:1985 Author Organization [facility] Address [address] [place] [address]- Care Team Providers Name Role Phone Vikram CHACON, Ewa Lee Primary Care Physician Encounter [facility] [place] Date(s): 12/19/19 - 04/03/20 [facility] [address] [place] [address]- [facility] Attending Physician: Sam Barclay MD Admitting Physician: Sam Barclay MD Referring Physician: Ewa Sue NP Allergies, [...] Virus Vaccine8 12/02/87 Given 1Result Comment: [07/05/2018] [id number] Note: [facility]3Admin Note: [facility] nbfmi5Gfube Note: [facility] wojze3Awtrx Note: [facility] mhwzx1Sfusx Note: [facility] xvinp9Ducjp Note: [facility] hammg9Wbvsm Note: [facility] Medications Aerochamber See Instructions, # [...] 02/09/20 15:51:00 EDT, Route to Pharmacy Electronically, [facility] #[id number], 181, cm, 06/19/19 16:12:00 EST, Height Start Date: 02/09/20 Status: Orderedlevocetirizine 5 mg oral tablet 1 tablet = 5 mg, By Mouth, Daily in PM, # 90 tablet, 1 Refills, Maintenance, 02/27/20 13:30:00 EDT, Tablet, [facility] #[id number], 1 tablet By Mouth Daily in PM, 181, cm, 02/27/20 12:37:00 EDT, Height Start Date: 02/27/20 Status: Orderedlisinopril 20 mg oral tablet 20 mg, 1, tablet, By Mouth, Daily at bedtime, # 90 tablet, Refills 0, Tot. Refills 0, Maintenance, 03/21/20 11:20:00 EDT, Route to Pharmacy Electronically, [facility] #[id number], 181, cm, 02/27/20 12:37:00 EDT, Height Start Date: 03/21/20 Status: Orderednaproxen 500 mg oral tablet 1 tablet, By Mouth, 2 times a day, PRN NEEDED FOR PAIN, TAKE WITH FOOD, # 28 tablet, 0 Refills, Acute, 11/14/19 15:10:00 EDT, [facility] #[id number], 181, cm, 06/19/19 16:12:00 EST, Height Start Date: 11/14/19 Status: OrderedProAir HFA 90 mcg/inh inhalation aerosol 1 puffs, Inhalation, 4 times a day, PRN as needed for wheezing, # 1 each, 2 Refills, Maintenance, 03/22/20 11:06:00 EDT, Aerosol, [facility] #[id number], Brand Name PROAIR only, no substitutions, 1 [...] capsule, 3 Refills, Maintenance, 12/18/19 16:31:00 EDT, [facility] #[id number], 181, cm, 06/19/19 16:12:00 EST, Height Start [...]
--- OUTSIDE RECORDS SUMMARY | 2022-06-10 17:35 | XMS_ITS | Continuity of Care Document ---
:1985 Author Organization [facility] Adult Address [address] [place] [address]- Care Team Providers Name Role Phone Ewa Sue NP Primary Care Physician Encounter [facility] [place] Date(s): 06/19/20 - 07/19/20 [facility] Adult [address] [place] [address]- Allergies, Adverse Reactions, Alerts Substance Reaction Severity [...] Virus Vaccine8 12/02/87 Given 1Result Comment: [07/05/2018] [id number] Note: [facility]3Admin Note: [facility] rfxzu1Zcnzy Note: [facility] xfwtr9[place] Note: [facility] rkbnf1Bcdnu Note: [facility] uqcsv0Gyvbd Note: [facility] nuipu8Fgnlq Note: [facility] Medications Aerochamber See Instructions, # 1 each, Maintenance, use with albuterol, 03/19/20 8:51:00 EDT, Supply, 181, cm, 02/27/20 12:37:00 EDT, Height Start Date: 03/19/20 Status: OrderedDulera 200 mcg-5 mcg/inh inhalation aerosol 2 puffs, Inhalation, 2 times a day, rinse mouth and throat after use, j45.40, # 1 each, 3 Refills, Maintenance, 04/19/20 15:30:00 EST, Aerosol, [facility] #[id number], This is in place of Symbicort which insurance will not cover., 2 puffs Inhalat... Start Date: 04/19/20 Status: Orderedlevocetirizine 5 mg oral tablet 1 tablet = 5 mg, By Mouth, Daily in PM, # 90 tablet, 1 Refills, Maintenance, 04/25/20 13:07:00 EST, Tablet, [facility] #[id number], 1 tablet By Mouth Daily in PM, 181, cm, 04/25/20 11:45:00 EST, Height Start Date: 04/25/20 Status: Orderedlisinopril 40 mg oral tablet 1 tablet = 40 mg, By Mouth, Daily, # 90 tablet, 2 Refills, Maintenance, 04/25/20 13:14:00 EST, Tablet, [facility] #[id number], Partial fill upon patient request, 181, cm, 04/25/20 11:45:00 EST, Height Start Date: 04/25/20 Status: OrderedPARoxetine 10 mg oral tablet 10 mg, 1, tablet, By Mouth, Daily, TK 1 T PO D, # 30 tablet, Refills 6, Tot. Refills 6, Maintenance,04/25/20 13:20:00 EST, Route to Pharmacy Electronically, [facility] #[id number], Partial fill upon patient request, 181, cm, 04/25/20 11:45:00 ES... Start Date: 04/25/20 Stop Date: 11/21/20 Status: OrderedProAir HFA 90 mcg/inh inhalation aerosol 1 puffs, Inhalation, 4 times a day, PRN as needed for wheezing, j45.40, # 1 each, 2 Refills, Maintenance, 06/20/20 11:41:00 EST, Aerosol, [facility] #[id number], Brand Name PROAIR only, no substitutions, 1 [...] 1 each, 6 Refills, Maintenance, 06/20/20 13:26:00EST, [facility] #[id number], 181, cm, 06/19/20 14:27:00 EST, Height Start [...]
--- OUTSIDE RECORDS SUMMARY | 2022-06-10 17:35 | XMS_ITS | Continuity of Care Document ---
:1985 Author Organization [facility] Address [address] [address]- Care Team Providers Name Role Phone Doris Collins MD Primary Care Physician Encounter [facility] Date(s): 04/08/22 - 05/08/22 [facility] [address] [address] Allergies, Adverse Reactions, Alerts Substance Reaction [...] (HbOC) vaccine 08/10/88 Recorded 1Result Comment: [07/05/2018] [id number] Note: [facility]3Admin Note: [facility] jyfnq5Eoclf Note: [facility] wejxl6Hayzl Note: [facility] evalu0Wplgt Note: [facility] acmme4Vudkd Note: [facility] neknq2Mzumx Note: [facility] Medications Aerochamber See Instructions, # 1 each, Maintenance, use with albuterol, 10/13/20 8:51:00 EDT, Supply, 181, cm, 02/27/20 12:37:00 EDT, Height Start Date: 03/19/20 Status: OrderedDulera 200 mcg-5 mcg/inh inhalation aerosol 2 puffs, Inhalation, 2 times a day, rinse mouth and throat after use, j45.40, # 1 each, 3 Refills, Maintenance, 04/09/22 12:29:00 EDT, Aerosol, [facility] #[id number], This is in place of Symbicort which insurance will not cover., 2 puffs Inhalat... Start Date: 04/09/22 Status: Orderedibuprofen 800 mg oral tablet See [...] 1 Refills, Maintenance, 04/25/20 13:07:00 EST, Tablet, [facility] #[id number], 1 tablet By Mouth Daily in PM, 181, cm, 04/25/20 11:45:00 EST, Height Start Date: 04/25/20 Status: Orderedlisinopril 40 mg oral tablet 1 tablet = 40 mg, By Mouth, Daily, # 90 tablet, 2 Refills, Maintenance, 03/20/21 17:24:00 EDT, Tablet, [facility] #[id number], Partial fill upon patient request, 180, cm, 03/20/21 13:02:00 EDT, Height Start Date: 03/20/21 Status: OrderedProAir HFA 90 mcg/inh inhalation aerosol 1 puffs, Inhalation, 4 times a day, PRN as needed for wheezing, j45.40, # 1 each, 3 Refills, Maintenance, 04/09/22 12:29:00 EDT, Aerosol, [facility] #[id number], Brand Name PROAIR only, no substitutions, 1 puffs Inhalation 4 times a day,PRN:as ne... Start Date: 04/09/22 Status: OrderedProtonix 40 mg oral delayed release tablet 1 tablet = 40 mg, By Mouth, Daily, # 90 tablet, 0 Refills, Maintenance, 07/26/21 16:49:00 EST, [facility] Tablet, 180, cm, 05/29/21 9:22:00 EST, Height Start Date: 07/26/21 Stop Date: 10/24/21 Status: OrderedSpiriva HandiHaler 18 mcg inhalation capsule 1 capsule = 18 mcg, Inhalation, Daily, j 45.909, # 1 each, 6 Refills, Maintenance, 07/29/21 14:14:00EST, [facility] #[id number], 180, cm, 05/29/21 9:22:00 EST, Height Start Date: 07/29/21 Status: OrderedXhance 93 mcg/inh nasal spray 1 sprays, Nares, Both, 2 times a day, # 16 mL, 0 Refills, Maintenance, 12/30/20 10:43:00 EDT, [facility],Partial fill upon patient request if the prescription is for a schedule II opioid drug. Start Date: 12/30/20 Status: Ordered Problem List Condition Confirmation Course Effective Dates Status Health Stat us Informant Asthma Confirmed Active ADD (attention Confirmed Active deficit disorder) Benign essential Confirmed Active HTN Obesity (BMI Confirmed Active 30-39.9) Chronic back pain Confirmed Active Bipolar disorder Confirmed Active with depression Depression Confirmed Active Learning Confirmed Active disability GERD Confirmed Active (gastroesophageal reflux disease) CYNDIE (generalized Confirmed Active anxiety disorder) Tourette syndrome Confirmed Active Low back pain Confirmed Active Migraine Confirmed Active Obese class I Confirmed Active Seasonal allergies Confirmed Active Sinusitis with Confirmed Active nasal polyps Social anxiety Confirmed Active disorder Social History Social History Type Response Smoking Status Former smoker; Other: quit i n 2013; entered on: 01/30/15 Sex Patient Care team information Care Team PersonnelName: Doris Collins MD Position: Reference Physician Member Role: PCP Address: Address: [address] [place] [id number]- [place] Care Team Related PersonsName: DECLINED, DECLINED Name: TRACY BUCK Address: home [address] [place] [address] Name: ANDREA ROSARIO Address: home [address] [place] [id number]
--- OUTSIDE RECORDS SUMMARY | 2022-06-10 17:35 | XMS_ITS | Continuity of Care Document ---
:1985 Author Organization [facility] Adult Address [address] [place] [address]- Care Team Providers Name Role Phone Ewa Sue NP Primary Care Physician Encounter [facility] Date(s): 11/05/20 - 12/05/20 [facility] Adult [address] [place] [address]- Allergies, Adverse Reactions, Alerts Substance Reaction Severity [...] Virus Vaccine8 12/02/87 Given 1Result Comment: [07/05/2018] [id number] Note: [facility]3Admin Note: [facility] fddyb7Isatv Note: [facility] zwusx2Slraj Note: [facility] jxrze4Vdycc Note: [facility] kbqqx9Ccxsx Note: [facility] rkwhj2Msmqd Note: [facility] Medications Aerochamber See Instructions, # 1 each, Maintenance, use with albuterol, 03/19/20 8:51:00 EDT, Supply, 181, cm, 02/27/20 12:37:00 EDT, Height Start Date: 03/19/20 Status: OrderedDulera 200 mcg-5 mcg/inh inhalation aerosol 2 puffs, Inhalation, 2 times a day, rinse mouth and throat after use, j45.40, # 1 each, 3 Refills, Maintenance, 04/19/20 15:30:00 EST, Aerosol, [facility] #[id number], This is in place of Symbicort which [...] 1 Refills, Maintenance, 04/25/20 13:07:00 EST, Tablet, [facility] #[id number], 1 tablet By Mouth Daily in PM, 181, cm, 04/25/20 11:45:00 EST, Height Start Date: 04/25/20 Status: Orderedlisinopril 40 mg oral tablet 1 tablet = 40 mg, By Mouth, Daily, # 90 tablet, 2 Refills, Maintenance, 04/25/20 13:14:00 EST, Tablet, [facility] #[id number], Partial fill upon patient request, 181, cm, [...] Maintenance,04/25/20 13:20:00 EST, Route to Pharmacy Electronically, [facility] #[id number], Partial fill upon patient request, 181, cm, 04/25/20 11:45:00 ES... Start Date: 04/25/20 Stop Date: 11/21/20 Status: OrderedProAir HFA 90 mcg/inh inhalation aerosol 1 puffs, Inhalation, 4 times a day, PRN as needed for wheezing, j45.40, # 1 each, 2 Refills, Maintenance, 06/20/20 11:41:00 EST, Aerosol, [facility] #[id number], Brand Name PROAIR only, no substitutions, 1 [...] 1 each, 6 Refills, Maintenance, 06/20/20 13:26:00EST, [facility] #[id number], 181, cm, 06/19/20 14:27:00 EST, Height Start [...]
--- OUTSIDE RECORDS SUMMARY | 2022-06-10 17:35 | XMS_ITS | Continuity of Care Document ---
:1985 Author Organization [facility] Adult Address [address] [place] [address]- Care Team Providers Name Role Phone Ewa Sue NP Primary Care Physician Encounter [facility] Date(s): 05/13/20 - 06/12/20 [facility] [address] [place] [address]- Allergies, Adverse Reactions, Alerts Substance Reaction Severity [...] Virus Vaccine8 12/02/87 Given 1Result Comment: [07/05/2018] [id number] Note: [facility]3Admin Note: [facility] kyzeu8Dsfzp Note: [facility] yonrj3Lwfcu Note: [facility] masyp3Kcyer Note: [facility] srrdw6Imfne Note: [facility] cbvat0Wlxwd Note: [facility] Medications Aerochamber See Instructions, # 1 each, Maintenance, use with albuterol, 03/19/20 8:51:00 EDT, Supply, 181, cm, 02/27/20 12:37:00 EDT, Height Start Date: 03/19/20 Status: OrderedDulera 200 mcg-5 mcg/inh inhalation aerosol 2 puffs, Inhalation, 2 times a day, rinse mouth and throat after use, j45.40, # 1 each, 3 Refills, Maintenance, 04/19/20 15:30:00 EST, Aerosol, [facility] #[id number], This is in place of Symbicort which insurance will not cover., 2 puffs Inhalat... Start Date: 04/19/20 Status: Orderedfamotidine 20 mg oral tablet 20 mg, 1, tablet, By Mouth, Daily at bedtime, # 90 tablet, Refills 3, Tot. Refills 3, Maintenance, 04/25/20 13:07:00 EST, Route to Pharmacy Electronically, [facility] #[id number], 181, cm, 04/25/20 11:45:00 EST, Height Start Date: 04/25/20 Status: Orderedlevocetirizine 5 mg oral tablet 1 tablet = 5 mg, By Mouth, Daily in PM, # 90 tablet, 1 Refills, Maintenance, 04/25/20 13:07:00 EST, Tablet, [facility] #[id number], 1 tablet By Mouth Daily in PM, 181, cm, 04/25/20 11:45:00 EST, Height Start Date: 04/25/20 Status: Orderedlisinopril 40 mg oral tablet 1 tablet = 40 mg, By Mouth, Daily, # 90 tablet, 2 Refills, Maintenance, 04/25/20 13:14:00 EST, Tablet, [facility] #[id number], Partial fill upon patient request, 181, cm, 04/25/20 11:45:00 EST, Height Start Date: 04/25/20 Status: Orderedmeloxicam 7.5 mg oral tablet 1 tablet = 7.5 mg, By Mouth, Daily, # 14 tablet, 0 Refills, Maintenance, 05/13/20 10:10:00 EST, Tablet, [facility] #[id number], Partial fill upon patient request if the prescription is for a schedule II opioid drug., 181, cm, 05/13/20 9:42:00 EST... Start Date: 05/13/20 Stop Date: 05/27/20 Status: OrderedPARoxetine 10 mg oral tablet 10 mg, 1, tablet, By Mouth, Daily, TK 1 T PO D, # 30 tablet, Refills 6, Tot. Refills 6, Maintenance,04/25/20 13:20:00 EST, Route to Pharmacy Electronically, [facility] #[id number], Partial fill upon patient request, 181, cm, 04/25/20 11:45:00 ES... Start Date: 04/25/20 Stop Date: 11/21/20 Status: OrderedProAir HFA 90 mcg/inh inhalation aerosol 1 puffs, Inhalation, 4 times a day, PRN as needed for wheezing, # 1 each, 2 Refills, Maintenance, 03/22/20 11:06:00 EDT, Aerosol, [facility] #[id number], Brand Name PROAIR only, no substitutions, 1 [...] capsule, 3 Refills, Maintenance, 12/18/19 16:31:00 EDT, [facility] #[id number], 181, cm, 06/19/19 16:12:00 EST, Height Start [...]
--- OUTSIDE RECORDS SUMMARY | 2022-06-10 17:35 | XMS_ITS | Continuity of Care Document ---
:1985 Author Organization [facility] Adult Address [address] [place] [address]- Care Team Providers Name Role Phone Ewa Sue NP Primary Care Physician Encounter [facility] [place] Date(s): 06/19/19 - 06/26/19 [facility] [address] [place] [address] [facility] Encounter Diagnosis GERD (gastroesophageal reflux disease) (Discharge Diagnosis) - 06/19/19 CYNDIE (generalized anxiety disorder) (Discharge Diagnosis) - 06/19/19 Asthma (Discharge Diagnosis) - 06/19/19 Migraine (Discharge Diagnosis) - 06/19/19 Bipolar disorder with depression (Discharge Diagnosis) - 06/19/19 Attending Physician: Ewa Sue NP Referring Physician: [...] Virus Vaccine8 12/02/87 Given 1Result Comment: [07/05/2018] [id number] Note: [facility]3Admin Note: [facility] vsfgz6Fimwf Note: [facility] ypdwy4Ecwib Note: [facility] aovzv9Ifzqs Note: [facility] mmsrx3Gdaqa Note: [facility] radth0Cjncy Note: [facility] Medications Aerochamber See Instructions, # 1 each, Maintenance, use as directed, 04/23/16 13:42:29, Compound Start Date: 04/23/16 Status: OrderedamLODIPine 5 mg oral tablet 1 tablet = 5 mg, By Mouth, Daily, # 30 tablet, 3 Refills, Maintenance, 06/19/19 16:13:00 EST, Tablet, [facility] #[id number], 181, cm, 06/19/19 16:12:00 EST, Height Start Date: 06/19/19 Status: OrderedDulera 200 mcg-5 mcg/inh inhalation aerosol 2 puffs, Inhalation, 2 times a day, rinse mouth and throat after use, # 1 each, 5 Refills, Maintenance, 01/04/19 16:31:34 EDT, [facility], This is in place of S[facility] which insurance will not cover., 2 puffs Inhalation 2 times a day,Instr:rinse mouth a... Start Date: 01/04/19 Status: OrderedProAir HFA 90 mcg/inh inhalation aerosol with adapter 2, puffs, Inhalation, 4 times a day, PRN, J 44.9 NO SUBSTITUTIONS for 30 days, # 1 each, Refills 11,Tot. Refills 11, Hard Stop 12/30/19 11:25:00 EDT, 01/04/19 11:25:00 EDT, Aerosol, Route to Pharmacy Electronically, [id number]... Start Date: 01/04/19 Stop Date: 12/30/19 Status: [...] Dates Health Clinical Infor mant Status Service Bipolar disorder Discharge 06/19/19 with depression Diagnosis Asthma Discharge 06/19/19 Diagnosis CYNDIE (generalized Discharge 06/19/19 anxiety disorder) Diagnosis GERD Discharge 06/19/19 (gastroesophageal Diagnosis reflux disease) Migraine Discharge 06/19/19 Diagnosis Vital Signs Most recent to oldest [Reference Range]: 1 2 Height 181.0 cm 181.0 cm (06/19/19 4:12 PM) (06/19/19 3:55 PM) Weight 114.5 kg (06/19/19 3:55 PM) Oxygen Saturation [94-100 %] 98 % (06/19/19 3:55 PM) Pulse Rate [55-90 bpm] 102 bpm *H* (06/19/19 3:55 PM) Body Mass Index [18.5-24.99] 34.95 *>HHI* (06/19/19 3:55 PM) Blood Pressure [90-138/55-84 mm Hg] 150/98 mm Hg 164/ 102 mm Hg *H* *H* (06/19/19 4:12 PM) (06/19/19 3:55 PM) Temperature [96.8-100.4 DegF] 98.7 DegF (06/19/19 3:55 PM) Blood pressure sites Arm, left Arm, left (06/19/19 4:12 PM) (06/19/19 3:55 PM) Temperature Route Oral (1/13/20 3:55 PM) Social History Social History Type Response Smoking Status Former smoker; Other: quit i n 2013; entered on: 01/30/15 Sex
--- OUTSIDE RECORDS SUMMARY | 2022-06-10 17:35 | XMS_ITS | Continuity of Care Document ---
:1985 Author Organization [facility] Adult Address [address] [place] [address]- Care Team Providers Name Role Phone Vikram CHACON, Ewa Lee Primary Care Physician [place] [facility] [place]20 [facility] Adult [address] [place] [address]- [facility] Allergies, Adverse Reactions, Alerts Substance Reaction Severity [...] Virus Vaccine8 12/02/87 Given 1Result Comment: [07/05/2018] [id number] Note: [facility]3Admin Note: [facility] hbcfq3Raecr Note: [facility] grekw4Gsijd Note: [facility] smchi7Yeguo Note: [facility] wpwgd1Nvtor Note: [facility] yksdg6Sbzbs Note: [facility] Medications Aerochamber See Instructions, # [...] 02/09/20 15:51:00 EDT, Route to Pharmacy Electronically, [facility] #[id number], 181, cm, 06/19/19 16:12:00 EST, Height Start Date: 02/09/20 Status: Orderedlevocetirizine 5 mg oral tablet 1 tablet = 5 mg, By Mouth, Daily in PM, # 90 tablet, 1 Refills, Maintenance, 02/27/20 13:30:00 EDT, Tablet, [facility] #[id number], 1 tablet By Mouth Daily in PM, 181, cm, 02/27/20 12:37:00 EDT, Height Start Date: 02/27/20 Status: Orderedlisinopril 20 mg oral tablet 20 mg, 1, tablet, By Mouth, Daily at bedtime, # 90 tablet, Refills 0, Tot. Refills 0, Maintenance, 12/14/19 13:25:00 EDT, Route to Pharmacy Electronically, [facility] #[id number], 181, cm, 06/19/19 16:12:00 EST, Height Start Date: 12/14/19 Status: Orderednaproxen 500 mg oral tablet 1 tablet, By Mouth, 2 times a day, PRN NEEDED FOR PAIN, TAKE WITH FOOD, # 28 tablet, 0 Refills, Acute, 11/14/19 15:10:00 EDT, [facility] #[id number], 181, cm, 06/19/19 16:12:00 EST, Height Start [...] capsule, 3 Refills, Maintenance, 12/18/19 16:31:00 EDT, [facility] #[id number], 181, cm, 06/19/19 16:12:00 EST, Height Start [...]
--- OUTSIDE RECORDS SUMMARY | 2022-06-10 17:35 | XMS_ITS | Continuity of Care Document ---
:1985 Author Organization [facility] Adult Address [address] [place] [address]- Care Team Providers Name Role Phone Ewa Sue NP Primary Care Physician [place] [facility] [place]20 [facility] [address] [place] [address]- Encounter Diagnosis Sinus infection (Discharge Diagnosis) - 10/14/20 Bipolar disorder with depression (Discharge Diagnosis) - 10/14/20 Learning disability (Discharge Diagnosis) - 10/14/20 Sinus congestion (Discharge Diagnosis) - 10/14/20 Attending Physician: Laila Conde MD Allergies, Adverse Reactions, [...] Virus Vaccine8 12/02/87 Given 1Result Comment: [07/05/2018] [id number] Note: [facility]3Admin Note: [facility] emqso6Wtyad Note: [facility] npako0Tqrbx Note: [facility] vtyyw4Tqwad Note: [facility] niwsj7Pwmns Note: [facility] gejis8Vywuz Note: [facility] Medications Aerochamber See Instructions, # 1 each, Maintenance, use with albuterol, 03/19/20 8:51:00 EDT, Supply, 181, cm, 02/27/20 12:37:00 EDT, Height Start Date: 03/19/20 Status: OrderedDulera 200 mcg-5 mcg/inh inhalation aerosol 2 puffs, Inhalation, 2 times a day, rinse mouth and throat after use, j45.40, # 1 each, 3 Refills, Maintenance, 04/19/20 15:30:00 EST, Aerosol, [facility] #[id number], This is in place of S[facility] which [...] 1 Refills, Maintenance, 04/25/20 13:07:00 EST, Tablet, [facility] #[id number], 1 tablet By Mouth Daily in PM, 181, cm, 04/25/20 11:45:00 EST, Height Start Date: 04/25/20 Status: Orderedlisinopril 40 mg oral tablet 1 tablet = 40 mg, By Mouth, Daily, # 90 tablet, 2 Refills, Maintenance, 04/25/20 13:14:00 EST, Tablet, [facility] #[id number], Partial fill upon patient request, 181, cm, [...] Maintenance,04/25/20 13:20:00 EST, Route to Pharmacy Electronically, [facility] #[id number], Partial fill upon patient request, 181, cm, 04/25/20 11:45:00 ES... Start Date: 04/25/20 Stop Date: 11/21/20 Status: OrderedProAir HFA 90 mcg/inh inhalation aerosol 1 puffs, Inhalation, 4 times a day, PRN as needed for wheezing, j45.40, # 1 each, 2 Refills, Maintenance, 06/20/20 11:41:00 EST, Aerosol, [facility] #[id number], Brand Name PROAIR only, no substitutions, 1 [...] 1 each, 6 Refills, Maintenance, 06/20/20 13:26:00EST, [facility] #[id number], 181, cm, 06/19/20 14:27:00 EST, Height Start [...] Dates Health Clinical Infor mant Status Service Sinus infection Discharge 10/14/20 Diagnosis Bipolar disorder Discharge 10/14/20 with depression Diagnosis Learning Discharge 10/14/20 disability Diagnosis Sinus congestion Discharge 10/14/20 Diagnosis Vital Signs Most recent to oldest [Reference Range]: 1 Height 180 cm (5/10/21 2:32 PM) Weight 113.63 kg (10/14/20 2:32 PM) Body Mass Index [18.5-24.99] 35.07 *>HHI* (10/14/20 2:32 PM) Weight Obtained Via Patient/family stated (10/14/20 2:32 PM) Social History Social History Type Response Smoking Status Former smoker; Other: quit i n 2013; entered on: 01/30/15 Sex
--- OUTSIDE RECORDS SUMMARY | 2022-06-10 17:35 | XMS_ITS | Continuity of Care Document ---
:1985 Author Organization [facility] Adult Address [address] [place] [address]- Care Team Providers Name Role Phone Ewa Sue NP Primary Care Physician En[place] [facility] [place] Date(s): 01/07/21 - 02/06/21 [facility] Adult [address] [place] [address]- Allergies, Adverse Reactions, Alerts Substance Reaction Severity [...] Virus Vaccine8 12/02/87 Given 1Result Comment: [07/05/2018] [id number] Note: [facility]3Admin Note: [facility] axcse6Xdgqa Note: [facility] nnyzi8Svkhl Note: [facility] syasd7Ytwet Note: [facility] udhsf4Qabsl Note: [facility] mdwvi4Cigka Note: [facility] Medications Aerochamber See Instructions, # 1 each, Maintenance, use with albuterol, 03/19/20 8:51:00 EDT, Supply, 181, cm, 02/27/20 12:37:00 EDT, Height Start Date: 03/19/20 Status: OrderedDulera 200 mcg-5 mcg/inh inhalation aerosol 2 puffs, Inhalation, 2 times a day, rinse mouth and throat after use, j45.40, # 1 each, 3 Refills, Maintenance, 04/19/20 15:30:00 EST, Aerosol, [facility] #[id number], This is in place of Symbicort which [...] 1 Refills, Maintenance, 04/25/20 13:07:00 EST, Tablet, [facility] #[id number], 1 tablet By Mouth Daily in PM, 181, cm, 04/25/20 11:45:00 EST, Height Start Date: 04/25/20 Status: Orderedlisinopril 40 mg oral tablet 1 tablet = 40 mg, By Mouth, Daily, # 90 tablet, 2 Refills, Maintenance, 04/25/20 13:14:00 EST, Tablet, [facility] #[id number], Partial fill upon patient request, 181, cm, [...] Maintenance,04/25/20 13:20:00 EST, Route to Pharmacy Electronically, [facility] #[id number], Partial fill upon patient request, 181, cm, 04/25/20 11:45:00 ES... Start Date: 04/25/20 Stop Date: 11/21/20 Status: OrderedProAir HFA 90 mcg/inh inhalation aerosol 1 puffs, Inhalation, 4 times a day, PRN as needed for wheezing, j45.40, # 1 each, 5 Refills, Maintenance, 12/31/20 15:18:00 EDT, Aerosol, [facility] #[id number], Brand Name PROAIR only, no substitutions, 1 [...] 1 each, 6 Refills, Maintenance, 06/20/20 13:26:00EST, [facility] #[id number], 181, cm, 06/19/20 14:27:00 EST, Height Start Date: 06/20/20 Status: OrderedXhance 93 mcg/inh nasal spray 1 sprays, Nares, Both, 2 times a day, # 16 mL, 0 Refills, Maintenance, 12/30/20 10:43:00 EDT, [facility],Partial fill upon patient request if the prescription [...]
--- OUTSIDE RECORDS SUMMARY | 2022-06-10 17:35 | XMS_ITS | Continuity of Care Document ---
:1985 Author Organization [facility] Adult Address [address] [place] [address]- Care Team Providers Name Role Phone Ewa Sue NP Primary Care Physician En[place] [facility] [place] Date(s): 07/04/20 - 07/11/20 [facility] Adult [address] [place] [address]- Encounter Diagnosis Low back pain (Discharge Diagnosis) - 07/04/20 Neck pain (Discharge Diagnosis) - 07/04/20 Shoulder pain (Discharge Diagnosis) - 07/04/20 Attending Physician: Not on Staff, Attending MD [...] Virus Vaccine8 12/02/87 Given 1Result Comment: [07/05/2018] [id number] Note: [facility]3Admin Note: [facility] bilfp5Ibbnc Note: [facility] svzfa9Yweog Note: [facility] qhyzo6Plsbr Note: [facility] pyoco2Xpvgg Note: [facility] coxrd3Shams Note: [facility] Medications Aerochamber See Instructions, # 1 each, Maintenance, use with albuterol, 03/19/20 8:51:00 EDT, Supply, 181, cm, 02/27/20 12:37:00 EDT, Height Start Date: 03/19/20 Status: OrderedDulera 200 mcg-5 mcg/inh inhalation aerosol 2 puffs, Inhalation, 2 times a day, rinse mouth and throat after use, j45.40, # 1 each, 3 Refills, Maintenance, 04/19/20 15:30:00 EST, Aerosol, [facility] #[id number], This is in place of Symbicort which [...] 07/01/20 17:09:00 EST, Route to Pharmacy Electronically, [facility] #... Start Date: 07/01/20 Stop Date: 07/15/20 Status: Orderedlevocetirizine 5 mg oral tablet 1 tablet = 5 mg, By Mouth, Daily in PM, # 90 tablet, 1 Refills, Maintenance, 04/25/20 13:07:00 EST, Tablet, [facility] #[id number], 1 tablet By Mouth Daily in PM, 181, cm, 04/25/20 11:45:00 EST, Height Start Date: 04/25/20 Status: Orderedlisinopril 40 mg oral tablet 1 tablet = 40 mg, By Mouth, Daily, # 90 tablet, 2 Refills, Maintenance, 04/25/20 13:14:00 EST, Tablet, [facility] #[id number], Partial fill upon patient request, 181, cm, 04/25/20 11:45:00 EST, Height Start Date: 04/25/20 Status: OrderedPARoxetine 10 mg oral tablet 10 mg, 1, tablet, By Mouth, Daily, TK 1 T PO D, # 30 tablet, Refills 6, Tot. Refills 6, Maintenance,04/25/20 13:20:00 EST, Route to Pharmacy Electronically, [facility] #[id number], Partial fill upon patient request, 181, cm, 04/25/20 11:45:00 ES... Start Date: 04/25/20 Stop Date: 11/21/20 Status: OrderedProAir HFA 90 mcg/inh inhalation aerosol 1 puffs, Inhalation, 4 times a day, PRN as needed for wheezing, j45.40, # 1 each, 2 Refills, Maintenance, 06/20/20 11:41:00 EST, Aerosol, [facility] #[id number], Brand Name PROAIR only, no substitutions, 1 [...] 1 each, 6 Refills, Maintenance, 06/20/20 13:26:00EST, [facility] #[id number], 181, cm, 06/19/20 14:27:00 EST, Height Start [...] Dates Health Status Clinical In formant Service Low back pain Discharge 07/04/20 Diagnosis Neck pain Discharge 07/04/20 Diagnosis Shoulder pain Discharge 07/04/20 Diagnosis Vital Signs Most recent to oldest [Reference Range]: 1 Height 180 cm (07/04/20 11:08 AM) Weight 112 kg (07/04/20 11:08 AM) Body Mass Index [18.5-24.99] 34.57 *>HHI* (07/04/20 11:08 AM) Weight Obtained Via Patient/family stated (07/04/20 11:08 AM) Social History Social History Type Response Smoking Status Former smoker; Other: quit i n 2013; entered on: 01/30/15 Sex
--- OUTSIDE RECORDS SUMMARY | 2022-06-10 17:36 | XMS_ITS | Continuity of Care Document ---
:1985 Author Organization [facility] Address [address] [place] [address]- Care Team Providers Name Role Phone Vikram CHCAON, Ewa Lee Primary Care Physician [place] [facility] [place] 03[place] - 04/03/20 [facility] [address] [place] [address]- [facility] Attending Physician: Konstantin Brooks Admitting Physician: AdmKonstantin [...] Virus Vaccine8 12/02/87 Given 1Result Comment: [07/05/2018] [id number] Note: [facility]3Admin Note: [place] [facility] edect2Jircm Note: [facility] ualiv1Iwnyc Note: [facility] behhv5Iujcg Note: [facility] nkxqg0Retjl Note: [facility] dftlv4Lhcse Note: [facility] Medications Aerochamber See Instructions, # [...] 02/09/20 15:51:00 EDT, Route to Pharmacy Electronically, [facility] #[id number], 181, cm, 06/19/19 16:12:00 EST, Height Start Date: 02/09/20 Status: Orderedlevocetirizine 5 mg oral tablet 1 tablet = 5 mg, By Mouth, Daily in PM, # 90 tablet, 1 Refills, Maintenance, 02/27/20 13:30:00 EDT, Tablet, [facility] #[id number], 1 tablet By Mouth Daily in PM, 181, cm, 02/27/20 12:37:00 EDT, Height Start Date: 02/27/20 Status: Orderedlisinopril 20 mg oral tablet 20 mg, 1, tablet, By Mouth, Daily at bedtime, # 90 tablet, Refills 0, Tot. Refills 0, Maintenance, 03/21/20 11:20:00 EDT, Route to Pharmacy Electronically, [facility] #[id number], 181, cm, 02/27/20 12:37:00 EDT, Height Start Date: 03/21/20 Status: Orderednaproxen 500 mg oral tablet 1 tablet, By Mouth, 2 times a day, PRN NEEDED FOR PAIN, TAKE WITH FOOD, # 28 tablet, 0 Refills, Acute, 11/14/19 15:10:00 EDT, [facility] #[id number], 181, cm, 06/19/19 16:12:00 EST, Height Start Date: 11/14/19 Status: OrderedProAir HFA 90 mcg/inh inhalation aerosol 1 puffs, Inhalation, 4 times a day, PRN as needed for wheezing, # 1 each, 2 Refills, Maintenance, 03/22/20 11:06:00 EDT, Aerosol, [facility] #[id number], Brand Name PROAIR only, no substitutions, 1 [...] capsule, 3 Refills, Maintenance, 12/18/19 16:31:00 EDT, [facility] #[id number], 181, cm, 06/19/19 16:12:00 EST, Height Start [...]
--- OUTSIDE RECORDS SUMMARY | 2022-06-10 17:36 | XMS_ITS | Continuity of Care Document ---
:1985 Author Organization [facility] Address [address] [place] [address]- Care Team Providers Name Role Phone Vikram CHACON, Ewa Lee Primary Care Physician [place] [facility] [place] - 05/27/19 [facility] [address] [place] [address] [facility] Attending Physician: Konstantin Brooks Admitting Physician: Konstantin [...] Virus Vaccine8 12/02/87 Given 1Result Comment: [07/05/2018] [id number] Note: [facility]3Admin Note: [facility] uncrl5Axrrf Note: [facility] iupcv0Ymtyw Note: [facility] iiksh0Ldbyi Note: [facility] mhzvp2Qbqil Note: [facility] ceydt8Utcgj Note: [facility] Medications Aerochamber See Instructions, # 1 each, Maintenance, use as directed, 04/23/16 13:42:29, Compound Start Date: 04/23/16 Status: OrderedamLODIPine 2.5 mg oral tablet 2.5 mg, 1, tablet, By Mouth, Daily, # 30 tablet, Refills 6, Tot. Refills 6, Maintenance, 04/26/19 12:19:50 EST, Route to Pharmacy Electronically, [id number], [facility] #[id number] Start Date: 04/26/19 Status: OrderedDulera 200 mcg-5 [...] 11:25:00 EDT, Aerosol, Route to Pharmacy Electronically, [id number]... Start Date: 01/04/19 Stop Date: 12/30/19 Status: OrderedProtonix 40 mg oral delayed release tablet 1 tablet = 40 mg, By Mouth, Daily, # 30 tablet, 2 Refills, Maintenance, 02/23/19 9:33:21 EDT, [facility] Tablet Start Date: 02/23/19 Stop Date: 05/24/19 Status: OrderedSpiriva HandiHaler 18 mcg inhalation capsule [...]
--- OUTSIDE RECORDS SUMMARY | 2022-06-10 17:36 | XMS_ITS | Continuity of Care Document ---
:1985 Author Organization [facility] Adult Address [address] [place] [address]- Care Team Providers Name Role Phone Ewa Sue NP Primary Care Physician Encounter [facility] Date(s): 10/07/20 - 11/06/20 [facility] [address] [place] [address]- Allergies, Adverse Reactions, Alerts Substance Reaction Severity [...] Virus Vaccine8 12/02/87 Given 1Result Comment: [07/05/2018] [id number] Note: [facility]3Admin Note: [facility] nngce8Vmsgx Note: [facility] dpalv8Akpjh Note: [facility] wmbou9Hbewm Note: [facility] aqfqs9Smrua Note: [facility] cdnuf1Vddcq Note: [facility] Medications Aerochamber See Instructions, # 1 each, Maintenance, use with albuterol, 03/19/20 8:51:00 EDT, Supply, 181, cm, 02/27/20 12:37:00 EDT, Height Start Date: 03/19/20 Status: OrderedDulera 200 mcg-5 mcg/inh inhalation aerosol 2 puffs, Inhalation, 2 times a day, rinse mouth and throat after use, j45.40, # 1 each, 3 Refills, Maintenance, 04/19/20 15:30:00 EST, Aerosol, [facility] #[id number], This is in place of Symbicort which [...] 1 Refills, Maintenance, 04/25/20 13:07:00 EST, Tablet, [facility] #[id number], 1 tablet By Mouth Daily in PM, 181, cm, 04/25/20 11:45:00 EST, Height Start Date: 04/25/20 Status: Orderedlisinopril 40 mg oral tablet 1 tablet = 40 mg, By Mouth, Daily, # 90 tablet, 2 Refills, Maintenance, 04/25/20 13:14:00 EST, Tablet, [facility] #[id number], Partial fill upon patient request, 181, cm, [...] Maintenance,04/25/20 13:20:00 EST, Route to Pharmacy Electronically, [facility] #[id number], Partial fill upon patient request, 181, cm, 04/25/20 11:45:00 ES... Start Date: 04/25/20 Stop Date: 11/21/20 Status: OrderedProAir HFA 90 mcg/inh inhalation aerosol 1 puffs, Inhalation, 4 times a day, PRN as needed for wheezing, j45.40, # 1 each, 2 Refills, Maintenance, 06/20/20 11:41:00 EST, Aerosol, [facility] #[id number], Brand Name PROAIR only, no substitutions, 1 [...] 1 each, 6 Refills, Maintenance, 06/20/20 13:26:00EST, [facility] #[id number], 181, cm, 06/19/20 14:27:00 EST, Height Start [...]
--- OUTSIDE RECORDS SUMMARY | 2022-06-10 17:36 | XMS_ITS | Continuity of Care Document ---
:1985 Author Organization [facility] Adult Address [address] [place] [address]- Care Team Providers Name Role Phone Ewa Sue NP Primary Care Physician [place] [facility] [place] Date(s): 06/19/20 - 06/26/20 [facility] [address] [place] [address]- Encounter Diagnosis Lower back pain (Discharge Diagnosis) - 06/19/20 Left shoulder pain (Discharge Diagnosis) - 06/19/20 Attending Physician: Ewa Sue NP Allergies, Adverse [...] Virus Vaccine8 12/02/87 Given 1Result Comment: [07/05/2018] [id number] Note: [facility]3Admin Note: [facility] ebetj7Tccqo Note: [facility] nefag6Hynbj Note: [facility] qxzxc3Gukln Note: [facility] khkhb5Gqchk Note: [facility] eygyc8Pcuum Note: [facility] Medications Aerochamber See Instructions, # 1 each, Maintenance, use with albuterol, 03/19/20 8:51:00 EDT, Supply, 181, cm, 02/27/20 12:37:00 EDT, Height Start Date: 03/19/20 Status: Orderedbetamethasone-clotrimazole 0.05%-1% topical cream 1 application, Topically, 2 times a day, for 14 days, Not to be used longer than 2 weeks, # 90 Gm, 0Refills, Acute 07/01/20 14:19:00 EST, 06/17/20 14:19:00 EST, Cream, [facility] #[id number], Partial fill upon patient request if the prescription... Start Date: 06/17/20 Stop Date: 07/01/20 Status: OrderedDulera 200 mcg-5 mcg/inh inhalation aerosol 2 puffs, Inhalation, 2 times a day, rinse mouth and throat after use, j45.40, # 1 each, 3 Refills, Maintenance, 04/19/20 15:30:00 EST, Aerosol, [facility] #[id number], This is in place of Symbicort which insurance will not cover., 2 puffs Inhalat... Start Date: 04/19/20 Status: Orderedfamotidine 20 mg oral tablet 20 mg, 1, tablet, By Mouth, Daily at bedtime, # 90 tablet, Refills 3, Tot. Refills 3, Maintenance, 04/25/20 13:07:00 EST, Route to Pharmacy Electronically, [facility] #[id number], 181, cm, 04/25/20 11:45:00 EST, Height Start Date: 04/25/20 Status: Orderedlevocetirizine 5 mg oral tablet 1 tablet = 5 mg, By Mouth, Daily in PM, # 90 tablet, 1 Refills, Maintenance, 04/25/20 13:07:00 EST, Tablet, [facility] #[id number], 1 tablet By Mouth Daily in PM, 181, cm, 04/25/20 11:45:00 EST, Height Start Date: 04/25/20 Status: Orderedlisinopril 40 mg oral tablet 1 tablet = 40 mg, By Mouth, Daily, # 90 tablet, 2 Refills, Maintenance, 04/25/20 13:14:00 EST, Tablet, [facility] #[id number], Partial fill upon patient request, 181, cm, 04/25/20 11:45:00 EST, Height Start Date: 04/25/20 Status: OrderedPARoxetine 10 mg oral tablet 10 mg, 1, tablet, By Mouth, Daily, TK 1 T PO D, # 30 tablet, Refills 6, Tot. Refills 6, Maintenance,04/25/20 13:20:00 EST, Route to Pharmacy Electronically, [facility] #[id number], Partial fill upon patient request, 181, cm, 04/25/20 11:45:00 ES... Start Date: 04/25/20 Stop Date: 11/21/20 Status: OrderedProAir HFA 90 mcg/inh inhalation aerosol 1 puffs, Inhalation, 4 times a day, PRN as needed for wheezing, j45.40, # 1 each, 2 Refills, Maintenance, 06/20/20 11:41:00 EST, Aerosol, [facility] #[id number], Brand Name PROAIR only, no substitutions, 1 [...] 1 each, 6 Refills, Maintenance, 06/20/20 13:26:00EST, [facility] #[id number], 181, cm, 06/19/20 14:27:00 EST, Height Start [...] Dates Health Status Clinical In formant Service Lower back pain Discharge 06/19/20 Diagnosis Left shoulder Discharge 06/19/20 pain Diagnosis Vital Signs Most recent to oldest [Reference Range]: 1 Height 181.0 cm (06/19/20 2:27 PM) Weight 111.6 kg (06/19/20 2:27 PM) Oxygen Saturation [94-100 %] 99 % (06/19/20 2:27 PM) Pulse Rate [55-90 bpm] 82 bpm (06/19/20 2:27 PM) Body Mass Index [18.5-24.99] 34.06 *>HHI* (06/19/20 2:27 PM) Blood Pressure [90-138/55-84 mm Hg] 120/82 mm Hg (06/19/20 2:27 PM) Respiratory Rate [16-30 br/min] 16 br/min (06/19/20 2:27 PM) Mode of Delivery (Oxygen) Room air (06/19/20 2:27 PM) Blood pressure sites Arm, left (06/19/20 2:27 PM) Weight Obtained Via Standing scale (06/19/20 2:27 PM) Social History Social History Type Response Smoking Status Former smoker; Other: quit i n 2013; entered on: 01/30/15 Sex
[2022-06-10 17:45] VITALS: BP 220/110; PULSE 140; O2SAT 98
[2022-06-10 17:57] LABS: MANUAL DIFF FLAG NO
[2022-06-10 18:02] LABS: Basophils Absolute Auto 0.1 X10*3/uL (0.0-0.2); Basophils Percent Auto 0.7 % (0-2); Eosinophils Absolute Auto 0.2 X10*3/uL (0.0-0.4); Eosinophils Percent Auto 2.1 % (0-4); Hematocrit 40.2 % (42.0-52.0); Hemoglobin 12.7 g/dl (14.0-18.0); Imm Gran Abs Auto 0.03 X10*3/uL (0.00-0.03); Imm Gran Pct Auto 0.4 % (0.0-0.4); Lymphocytes Absolute Auto 0.1 X10*3/uL (1.2-4.9); Lymphocytes Percent Auto 1.9 % (20-40); Mean Corpuscular HGB Conc 31.6 g/dl (31.0-36.0); Mean Corpuscular Hemoglobin 24.5 pg (27.0-33.0); Mean Corpuscular Volume 77.6 fL (80.0-98.0); Mean Platelet Volume 9.4 fL (9.4-12.4); Monocytes Absolute Auto 0.4 X10*3/uL (0.1-1.2); Monocytes Percent Auto 6.1 % (2-11); Neutrophils Absolute Auto 6.2 x10*3/uL (2.0-8.3); Neutrophils Percent Auto 88.8 % (45-73); Platelet Count 322 X10*3/uL (160-400); Red Blood Count 5.18 X10*6/uL (4.60-5.80); Red Cell Distribution Width 16.1 % (11.0-16.0)
[2022-06-10 18:06] VITALS: RESP 20; O2SAT 99
[2022-06-10 18:09] LABS: INTERNATIONAL NORM RATIO 1.1 (0.9-1.1); Prothrombin Time 12.8 SEC (10.0-13.1)
[2022-06-10 18:17] LABS: COVID-19 Test Positive (Negative); IDNOW Serial# 55D5AD1C; IDNOW Serial# 6674DD1D; Influenza A Negative (Negative); Influenza B2 Negative (Negative)
[2022-06-10] MEDS: Acetaminophen 325 MG TABLET 975 MG PO (18:28)
[2022-06-10 18:38] LABS: Alanine Aminotransferase 14 U/L (0-40); Albumin Level 4.3 g/dL (3.5-5.0); Alkaline Phosphatase 89 U/L (39-117); Anion Gap 10 (12-20); Aspartate Amino Transferase 14 U/L (5-37); Bilirubin Total 0.5 mg/dL (0.0-1.0); Blood Urea Nitrogen 14 mg/dL (9-16); Calcium 9.4 mg/dL (8.4-10.2); Carbon Dioxide 25 mmol/L (22-29); Chloride 107 mmol/L (96-108); Creatinine Clr Calc Pharmacy 92.7; Estimated Glomerular Filt Rate > 60; Glucose Random 117 mg/dL (60-115); Potassium 3.8 mmol/L (3.3-5.1); Sodium 138 mmol/L (135-145); Total Protein 7.4 g/dL (6.5-8.0)
--- NOTE | 2022-06-10 19:21 | ECG_ITS ---
Test Reason : TACHYCARDIA Blood Pressure : / mmHG Vent. Rate : 116 BPM Atrial Rate : 116 BPM P-R Int : 128 ms QRS Dur : 088 ms QT Int : 316 ms P-R-T Axes : 050 058 045 degrees QTc Int : 439 ms Sinus tachycardia Otherwise normal ECG When compared with ECG of 12-JUN-2021 02:07, No significant change was found Referred By: Harris Rodgers Electronically Signed By:YOANA BASHIR
[2022-06-10] MEDS: Metoprolol Tartrate 5 MG/5 ML VIAL IVPUSH (19:27)
[2022-06-10 19:29] VITALS: PULSE 111
--- NOTE | 2022-06-10 19:31 | PC.NURSE ---
IV fluids running, pt medicated per the AUG. Ambulated to bathroom with steady gait.
[2022-06-10 20:15] LABS: Ethanol < 10 mg/dL
== END 2022-06-10 20:52 | disposition home or self-care (01) ==
PROVIDERS: Emergency Provider Internal Medicine
DX: U07.1 COVID-19 (principal); K29.01 Acute gastritis with bleeding; Z87.891 Personal history of nicotine dependence
CPT/HCPCS: 71045; 80053; 82077; 85025; 85610; 86850; 86900; 86901; 87502; 87635; 93005; 96361; 96374; 96375; 99284; 99285; J2405

== ENCOUNTER 2023-06-29 23:20 | Inpatient (IN) | payer OTHER, SELFPAY ==
--- NOTE | 2023-06-29 | ECG_ITS ---
Test Reason : SOB Blood Pressure : / mmHG Vent. Rate : 100 BPM Atrial Rate : 100 BPM P-R Int : 130 ms QRS Dur : 084 ms QT Int : 366 ms P-R-T Axes : 056 060 058 degrees QTc Int : 472 ms Normal sinus rhythm Increased R/S ratio in V1, consider early transition or posterior infarct Abnormal ECG When compared with ECG of 10-JUN-2022 19:32, No significant change was found Referred By: Harris Rodgers Electronically Signed By:Xiang Sorto
--- NOTE | ~2023-06-29 | XR_ITS ---
EXAMINATION: XR CHEST CLINICAL INFORMATION: Shortness of breath COMPARISON: 06/10/2022 TECHNIQUE: Frontal view of the chest was obtained. FINDINGS: The lungs are clear with no focal consolidation. No evidence of pneumothorax, pulmonary edema, or pleural effusions. The cardiomediastinal silhouette is unremarkable. No acute osseous findings. XR/XR chest 1V IMPRESSION: No acute cardiopulmonary findings.
[2023-06-29 23:28] VITALS: BP 139/85; PULSE 124; O2SAT 100; BMI 34.9
[2023-06-29 23:34] VITALS: BP 104/64; PULSE 123; RESP 22; TEMP 36.6; O2SAT 98
--- NOTE | 2023-06-29 23:43 | ED_ITS ---
HPI - GI Bleed General Chief complaint: Dyspnea Stated complaint: DIFF BREATHING, ASTHMA Time Seen by Provider: 06/29/23 23:25 Source: patient Mode of arrival: ambulatory Limitations: no limitations History of Present Illness HPI Narrative: Patient history of asthma with upper GI bleed in 06/28 endoscopy done which showed ulcer in the proximal stomach with esophagitis and hiatal hernia not bleeding at that time is on Protonix 40 mg twice daily today just prior to arrival patient vomited small amount of blood and then another big vomiting which was dark in color also noticed dark-colored stool patient denied use of NSAIDs at this time Related Data Home Medications Medication Instructions Recorded Confirmed albuterol sulfate 90 mcg/actuation 1 puff PO QID PRN wheezing 06/12/21 06/12/21 aerosol inhaler (ProAir HFA) ibuprofen 800 mg tablet 1 tab PO TID 06/12/21 06/12/21 lisinopril 40 mg tablet 1 tab PO DAILY 06/12/21 06/12/21 tiotropium bromide 18 mcg capsule 1 cap inhalation DAILY 06/12/21 06/12/21 with inhalation device (Spiriva with HandiHaler) Previous Rx's Medication Instructions Recorded omeprazole 40 mg capsule,delayed 40 mg PO BID #60 caps 06/12/21 release benzonatate 200 mg capsule 200 mg PO TID PRN cough #30 caps 06/10/22 pantoprazole 40 mg tablet,delayed 40 mg PO DAILY #30 tabs 06/10/22 release (Protonix) sucralfate 1 gram tablet 1 g PO TID #90 tabs 06/10/22 Allergies Allergy/AdvReac Type Severity Reaction Status Date / Time amoxicillin [AMOXICILLIN] Allergy Unknown HIVES Verified 06/29/23 23:33 Amoxicillin Allergy Unknown hives Uncoded 06/11/21 22:59 Review of Systems 2 Review of Systems: Yes all other systems are reviewed and are negative PMFSH Past Medical History Medical History Asthma UGIB (upper gastrointestinal bleed) Surgical History History of repair of hiatal hernia Social History Social History Alcohol intake: former Year quit: 2011 Patient Tobacco Use Status: Former Tobacco user Quit Date: 2013 Advance Directives: No Advance Directives Information Provided: No Physical Exam 2 Vital Signs: Vital Signs: Last Vital Signs Temp 97.9 F 06/29/23 23:34 Pulse 92 06/30/23 01:46 Resp 22 H 06/29/23 23:34 BP 98/67 06/30/23 01:46 Pulse Ox 96 06/30/23 01:46 O2 Del Method Room Air 06/30/23 01:46 BMI result Body Mass Index 34.9 Appearance: Alert. Oriented X3. No acute distress. Eyes: PERRLA, No Nystagmus ENT: Pharynx normal. Oral Mucosa moist Neck: Normal inspection. Neck supple. CVS: Normal heart rate and rhythm. Pulses normal. Respiratory: No respiratory distress. Equal air entry bilateral, no wheezing/rales/rhonchi Abdomen: Soft , epigastric tenderness ++. Bowel sounds are present, no mass palpable, no CVA tenderness rectal: Patient refused Skin: Skin warm and dry. Normal skin color. Normal skin turgor. Extremities: No lower extremity edema. No calf tenderness Neuro: Oriented X 3. No motor deficit. Medications Administered Generic Name Dose Route Start Last Admin Trade Name Freq PRN Reason Stop Dose Admin Pantoprazole Sodium 80 mg/ 100 mls @ 10 mls/hr 06/29/23 23:45 06/30/23 00:26 Sodium Chloride IV 8 mg/hr .Q10H KALI 10 mls/hr Administration 8 MG/HR Discontinued Medications Generic Name Dose Route Start Last Admin Trade Name Freq PRN Reason Stop Dose Admin Sodium Chloride 1,000 mls @ 999 mls/hr 06/29/23 23:45 06/30/23 01:21 Ns IV 06/30/23 00:45 Infused .Q1H1M ONE Infusion Ondansetron HCl 4 mg 06/29/23 23:45 06/29/23 23:53 Ondansetron Hcl 4 Mg/2 Ml Vial IVPUSH 06/29/23 23:46 4 mg ONCE ONE Administration Pantoprazole Sodium 80 mg 06/29/23 23:44 06/29/23 23:52 Pantoprazole Sodium 40 Mg/10 Ml Vial IVPUSH 06/29/23 23:45 80 mg ONCE ONE Administration Medical Decision Making Medical Decision Making MDM Narrative: Patient with upper GI bleed from previous gastric ulcers H&H stable patient vomited 1 more time in the ER with dark color vomitus. Patient refused rectal exam refusing any blood transfusion even if left threatening, understood the risks case discussed with Dr. Alf FLORES agreed to continue IV Protonix will see him in a.m. will repeat H and H q.4 hours patient had elevated magnesium secondary to IV magnesium given by the EMS Differential Diagnosis Differential Diagnoses: The differential diagnosis associated with the presentation includes Gastric ulcer/esophagitis/duodenal ulcer Admission/Observation Consideration of admission/observation: Escalation of care including admission/observation considered Consult Healthcare Provider Management of the patient was discussed with: Hospitalist and Ships Equipment Engineer Lab Data MDM Lab Attestation statement: I reviewed the patient's lab results. 06/29/23 23:41 06/29/23 23:41 Labs: Lab Results 06/29/23 06/29/23 06/29/23 Range/Units 23:41 23:45 23:53 WBC 12.2 H (4.8-10.8) X10*3/uL RBC 4.43 L (4.60-5.80) X10*6/uL Hgb 12.1 L (14.0-18.0) g/dl Hct 37.5 L (42.0-52.0) % MCV 84.7 (80.0-98.0) fL MCH 27.3 (27.0-33.0) pg MCHC 32.3 (31.0-36.0) g/dl RDW 13.7 (11.0-16.0) % Plt Count 404 H D (160-400) X10*3/uL MPV 9.9 (9.4-12.4) fL Immature Gran % (Auto) 0.5 H (0.0-0.4) % Neut % (Auto) 83.2 H (45-73) % Lymph % (Auto) 10.6 L (20-40) % [place] % (Auto) 3.8 (2-11) % Eos % (Auto) 1.4 (0-4) % Baso % (Auto) 0.5 (0-2) % Lymph # (Auto) 1.3 (1.2-4.9) X10*3/uL [place] # (Auto) 0.5 (0.1-1.2) X10*3/uL Eos # (Auto) 0.2 (0.0-0.4) X10*3/uL Baso # (Auto) 0.1 (0.0-0.2) X10*3/uL Abs Immat Gran (auto) 0.06 H (0.00-0.03) X10*3/uL Absolute Neuts (auto) 10.1 H (2.0-8.3) x10*3/uL Absolute Nucleated RBC 0.000 (0.0-0.012) X10*3/uL Nucleated RBC % (auto) 0.0 (0.0-0.2) /100WBC Sodium 138 (135-145) mmol/L Potassium 5.2 H (3.3-5.1) mmol/L Chloride 108 (96-108) mmol/L Carbon Dioxide 18 L (22-29) mmol/L Anion Gap 17 (12-20) BUN 43 H (9-16) mg/dL Creatinine 1.07 (0.5-1.4) mg/dL Estim Creat Clear Calc 122.2 Estimated GFR > 60 Random Glucose 140 H (60-115) mg/dL Calcium 8.5 D (8.4-10.2) mg/dL Magnesium 7.9 H* (1.6-2.6) mg/dL Total Bilirubin 0.9 (0.0-1.0) mg/dL AST 21 (5-37) U/L ALT 20 (0-40) U/L Alkaline Phosphatase 62 (39-117) U/L Total Protein 6.8 (6.5-8.0) g/dL Albumin 3.6 (3.5-5.0) g/dL COVID-19 (MYA) Negative (Negative) COVID-19 Clin Com See Note Influenza Type A (KIM) Negative (Negative) Influenza Type B (KIM) Negative (Negative) Influenza A & B Note See Note Blood Type O Negative Antibody Screen NEGATIVE Critical Care Time Critical Care Time Critical Care Time: Yes Total Critical Care Time: 50 Attestation: The patient was critically ill with a high probability of imminent or life threatening deterioration. I spent greater than 60???minutes of discontinuous time evaluating the patient,delivering critical care at the bedside, discussing and evaluating pertinent data with consultants. Critical care time does not include time spent performing separately billable procedures or teaching. Total time spent performing critical care was 50???minutes. Discharge Plan Discharge Clinical Impression: Acute upper gastrointestinal bleeding Patient Disposition: Admitted As Inpatient
[2023-06-29] MEDS: 0.9 % Sodium Chloride 1,000 ML 999 ML IV (23:46)
[2023-06-29 23:51] LABS: Basophils Absolute Auto 0.1 X10*3/uL (0.0-0.2); Basophils Percent Auto 0.5 % (0-2); Eosinophils Absolute Auto 0.2 X10*3/uL (0.0-0.4); Eosinophils Percent Auto 1.4 % (0-4); Hematocrit 37.5 % (42.0-52.0); Hemoglobin 12.1 g/dl (14.0-18.0); Imm Gran Abs Auto 0.06 X10*3/uL (0.00-0.03); Imm Gran Pct Auto 0.5 % (0.0-0.4); Lymphocytes Absolute Auto 1.3 X10*3/uL (1.2-4.9); Lymphocytes Percent Auto 10.6 % (20-40); MANUAL DIFF FLAG NO; Mean Corpuscular HGB Conc 32.3 g/dl (31.0-36.0); Mean Corpuscular Hemoglobin 27.3 pg (27.0-33.0); Mean Corpuscular Volume 84.7 fL (80.0-98.0); Mean Platelet Volume 9.9 fL (9.4-12.4); Monocytes Absolute Auto 0.5 X10*3/uL (0.1-1.2); Monocytes Percent Auto 3.8 % (2-11); Neutrophils Absolute Auto 10.1 x10*3/uL (2.0-8.3); Neutrophils Percent Auto 83.2 % (45-73); Platelet Count 404 X10*3/uL (160-400); Red Blood Count 4.43 X10*6/uL (4.60-5.80); Red Cell Distribution Width 13.7 % (11.0-16.0); White Blood Count 12.2 X10*3/uL (4.8-10.8)
[2023-06-29] MEDS: Pantoprazole Sodium 40 MG/10 ML VIAL 80 MG IVPUSH (23:52)
[2023-06-29] MEDS: ondansetron HCL 4 MG/2 ML VIAL IVPUSH (23:53)
[2023-06-30] VITALS (21 sets, daily range): BP systolic 86–124; BP diastolic 46–87; PULSE 86–117; RESP 15–25; TEMP 36.4–36.9; O2SAT 96–100; BMI 33.9
[2023-06-30 00:09] LABS: COVID-19 Test Negative (Negative); IDNOW Serial# 08D9AD1C; IDNOW Serial# 152EDE1D; Influenza A Negative (Negative); Influenza B2 Negative (Negative)
[2023-06-30 00:14] LABS: Alanine Aminotransferase 20 U/L (0-40); Albumin Level 3.6 g/dL (3.5-5.0); Alkaline Phosphatase 62 U/L (39-117); Anion Gap 17 (12-20); Aspartate Amino Transferase 21 U/L (5-37); Bilirubin Total 0.9 mg/dL (0.0-1.0); Blood Urea Nitrogen 43 mg/dL (9-16); Calcium 8.5 mg/dL (8.4-10.2); Carbon Dioxide 18 mmol/L (22-29); Chloride 108 mmol/L (96-108); Creatinine Clr Calc Pharmacy 122.2; Estimated Glomerular Filt Rate > 60; Glucose Random 140 mg/dL (60-115); Magnesium 7.9 mg/dL (1.6-2.6); Potassium 5.2 mmol/L (3.3-5.1); Sodium 138 mmol/L (135-145); Total Protein 6.8 g/dL (6.5-8.0)
[2023-06-30] MEDS: Pantoprazole Sodium 80 MG in 0.9 % Sodium Chloride 80 ML 10 MG IV ×3 (00:26→20:48)
--- NOTE | 2023-06-30 00:30 | PC.NURSE ---
pt vomited a copous amount of dark red blood . Cleaned up and placed another line. Provider made aware. Pt refuses blood transfusion at this time when discussing with provider at bedside
[2023-06-30 02:47] LABS: Hematocrit 34.3 % (42.0-52.0); Hemoglobin 11.1 g/dl (14.0-18.0)
[2023-06-30 03:08] LABS: Magnesium 2.5 mg/dL (1.6-2.6)
[2023-06-30] MEDS: Lactated Ringers 1,000 ML 999 ML IV (03:19)
--- NOTE | 2023-06-30 04:18 | P.HPHOSP_ITS ---
History of Present Illness Date of Service: 06/30/23 Attending physician on admission: Corrine Mao Chief Complaint: Vomiting Dylon Morley is a 37 years old man with past medical history significant for prior GI bleeding secondary to esophagitis and gastric ulcer; and hx of fundoplication presents to the emergency department complaining multiple events of coffee-ground vomiting with associated upper gastrointestinal discomfort. He denied any cardiopulmonary or genitourinary symptoms. He denied use of NSAIDs or alcohol. He is a former tobacco smoker. In the ED, patient was found to have sinus tachycardia and soft blood pressure (98/67). Blood workup is remarkable for leukocytosis of 12.2. Hemoglobin dropped from 12.1 to 11.1. There is minimal hyperkalemia, 5.2. Bicarb is 18. Magnesium is 2.5. Stool for occult blood is positive. Viral testing is negative for COVID-19 and influenza. CXR is negative. ED tx: Pantoprazole 80 mg IV (loading) then IV infusion, Zofran 4 mg IV, NS 1 L bolus Review of Systems 2 Review of Systems: All 12 systems were reviewed and normal except as noted in HPI. [facility] Medical History Asthma UGIB (upper gastrointestinal bleed) Surgical History History of repair of hiatal hernia Social History Alcohol intake: former Year quit: 2011 Patient Tobacco Use Status: Former Tobacco user Quit Date: 2013 Meds Allergies Allergy/AdvReac Type Severity Reaction Status Date / Time amoxicillin [AMOXICILLIN] Allergy Unknown HIVES Verified 06/29/23 23:33 Amoxicillin Allergy Unknown hives Uncoded 06/11/21 22:59 Active Medications: Current Medications Pantoprazole Sodium 80 mg/ (Sodium Chloride) 100 mls @ 10 mls/hr IV .Q10H KALI Last Admin: 06/30/23 00:26 Dose: 8 mg/hr, 10 mls/hr Lactated Ringer's (Lr) 1,000 mls @ 125 mls/hr IVCONT .Q8H [facility] Last Admin: 06/30/23 02:37 Dose: Not Given Sodium Chloride (0.9 % Sodium Chloride Flush 3 Ml Syringe) 3 ml IVFLUSH QSHIFT [facility] Home Medications Medication Instructions Recorded Confirmed Last Taken Type albuterol sulfate 90 mcg/actuation 1 puff PO QID PRN wheezing 06/12/21 06/12/21 Unknown History aerosol inhaler (ProAir HFA) ibuprofen 800 mg tablet 1 tab PO TID 06/12/21 06/12/21 Unknown History lisinopril 40 mg tablet 1 tab PO DAILY 06/12/21 06/12/21 Unknown History tiotropium bromide 18 mcg capsule 1 cap inhalation DAILY 06/12/21 06/12/21 Unknown History with inhalation device (Spiriva with HandiHaler) Physical Exam 2 Vital Signs and Narrative: Vital Signs: Last Vital Signs Temp 98.2 F 06/30/23 03:17 Pulse 87 06/30/23 04:07 Resp 17 06/30/23 03:17 BP 107/67 06/30/23 04:07 Pulse Ox 96 06/30/23 03:17 O2 Del Method Room Air 06/30/23 03:17 BMI result Body Mass Index 34.9 Constitutional - Awake and Alert, looks uncomfortable an acutely ill HEENT - Dry oral mucosa. Dried blood noted on lips Cardiovascular - tachycardia. Regular rhythm Respiratory - Normal lung expansion, Normal respiratory effort, No respiratory distress, CTA bilaterally Gastrointestinal - soft, increased bowel sounds, generalized discomfort to palpation. No guarding or rebound Extremities - no calf tenderness bilaterally, no swelling Musculoskeletal - Normal inspection, normal ROM Skin - Warm/Dry Neurological - Alert & oriented x3. Psychological - Appropriate affect Results Labs 06/30/23 02:42 06/29/23 23:41 Labs: Laboratory Results - last 24 hr 06/29/23 06/29/23 06/29/23 23:41 23:45 23:53 MCV 84.7 MCH 27.3 MCHC 32.3 RDW 13.7 Plt Count 404 H D MPV 9.9 Immature Gran % (Auto) 0.5 H Neut % (Auto) 83.2 H Lymph % (Auto) 10.6 L [place] % (Auto) 3.8 Eos % (Auto) 1.4 Baso % (Auto) 0.5 Lymph # (Auto) 1.3 [place] # (Auto) 0.5 Eos # (Auto) 0.2 Baso # (Auto) 0.1 Abs Immat Gran (auto) 0.06 H Absolute Neuts (auto) 10.1 H Absolute Nucleated RBC 0.000 Nucleated RBC % (auto) 0.0 Anion Gap 17 Estim Creat Clear Calc 122.2 Estimated GFR > 60 Random Glucose 140 H Calcium 8.5 D Magnesium 7.9 H* Total Bilirubin 0.9 AST 21 ALT 20 Alkaline Phosphatase 62 Total Protein 6.8 Albumin 3.6 COVID-19 (MYA) Negative COVID-19 Clin Com See Note Influenza Type A (KIM) Negative Influenza Type B (KIM) Negative Influenza A & B Note See Note Blood Type O Negative Antibody Screen NEGATIVE 06/30/23 02:42 MCV MCH MCHC RDW Plt Count MPV Immature Gran % (Auto) Neut % (Auto) Lymph % (Auto) [place] % (Auto) Eos % (Auto) Baso % (Auto) Lymph # (Auto) [place] # (Auto) Eos # (Auto) Baso # (Auto) Abs Immat Gran (auto) Absolute Neuts (auto) Absolute Nucleated RBC Nucleated RBC % (auto) Anion Gap Estim Creat Clear Calc Estimated GFR Random Glucose Calcium Magnesium 2.5 Total Bilirubin AST ALT Alkaline Phosphatase Total Protein Albumin COVID-19 (MYA) COVID-19 Clin Com Influenza Type A (KIM) Influenza Type B (KIM) Influenza A & B Note Blood Type Antibody Screen Imaging Radiologist's Impressions: Impressions Chest X-Ray 06/30/23 00:40 IMPRESSION: No acute cardiopulmonary findings. Assessment and Plan (1) Acute upper gastrointestinal bleeding: Status: Acute (2) Acute blood loss anemia: Status: Acute Plan Dylon Morley is a 37 years old man with past medical history significant for prior GI bleeding secondary to esophagitis and gastric ulcer; and hx of fundoplication * Coffee-ground emesis/upper gastrointestinal bleeding likely secondary to esophagitis/gastritis/PUD. Admit to hospitalist service. Keep NPO. Telemetry. Continue IV fluids. Continue to monitor HH. Continue Protonix IV infusion. Gastroenterology consult for further recommendations and interventions. Patient is refusing blood transfusions in case he continues to bleed. * Anemia secondary to GI bleeding. HH is trending down. Continue to monitor H&H for now. * Metabolic acidosis likely secondary to above. Continue IV fluids. Check lactic acid. Continue to monitor bicarb level. * Hyperkalemia, mild. Continue IV fluids. Continue to monitor potassium level. * History of asthma. Albuterol nebs as needed. * History of essential hypertension. Blood pressure is low-normal. Antihypertensive meds on hold. DVT prophylaxis: SCDs only. Pharmacological DVT prophylaxis contraindicated due to GI bleeding. Code status: Full. Patient will need hospitalization for at least 2 midnights for upper GI bleeding treatment with IV fluids, IV PPIs and specialty evaluation. Quality Stroke Does the patient have a stroke diagnosis?: No VTE Prior VTE?: No VTE Risk Level:: Medical - moderate - high VTE Device Contraindication: N/A - Device Ordered VTE Drug Contraindication: Treatment Not Indicated
--- NOTE | 2023-06-30 04:36 | PC.NURSE ---
Patient becoming frustrated when asked about receiving a blood transfusion again by this RN and hospitalist. Stating he does not want a blood transfusion and will not change his mind. Verbal reassurance given that he has the right to his health care decisions.
[2023-06-30 05:09] LABS: Lactic Acid 1.5 mmol/L (0.5-2.0)
[2023-06-30 05:41] LABS: Hematocrit 33.7 % (42.0-52.0); Hemoglobin 10.6 g/dl (14.0-18.0); Mean Corpuscular HGB Conc 31.5 g/dl (31.0-36.0); Mean Corpuscular Hemoglobin 27.5 pg (27.0-33.0); Mean Corpuscular Volume 87.5 fL (80.0-98.0); Mean Platelet Volume 10.2 fL (9.4-12.4); Platelet Count 352 X10*3/uL (160-400); Red Blood Count 3.85 X10*6/uL (4.60-5.80); Red Cell Distribution Width 13.9 % (11.0-16.0); White Blood Count 9.3 X10*3/uL (4.8-10.8)
[2023-06-30 05:58] LABS: Alanine Aminotransferase 17 U/L (0-40); Albumin Level 3.7 g/dL (3.5-5.0); Alkaline Phosphatase 57 U/L (39-117); Anion Gap 11 (12-20); Aspartate Amino Transferase 11 U/L (5-37); Bilirubin Total 0.6 mg/dL (0.0-1.0); Blood Urea Nitrogen 44 mg/dL (9-16); Calcium 8.5 mg/dL (8.4-10.2); Carbon Dioxide 22 mmol/L (22-29); Chloride 111 mmol/L (96-108); Creatinine Clr Calc Pharmacy 110.8; Estimated Glomerular Filt Rate > 60; Glucose Random 131 mg/dL (60-115); Potassium 4.6 mmol/L (3.3-5.1); Sodium 139 mmol/L (135-145); Total Protein 6.2 g/dL (6.5-8.0)
--- NOTE | 2023-06-30 06:16 | P.CNGI_ITS ---
History of Present Illness Data of Consult Service Date: 06/30/23 Requesting physician: Corrine Mao Primary Care Provider: Unknown Physician HPI Reason for consult: Upper GI bleeding 37 YM with hypertension, GERD, hx of GI bleeding secondary to esophagitis and gastric ulcer and status post fundoplication seen at [facility] [place] on 06/29/23 with multiple episodes of coffee-ground vomiting with upper gastrointestinal discomfort. Pt reports he had an episode of hematemesis last evening after 20:00 containing dark/coffee-ground material with some clots. He had 3 more episodes overnight - last episode was before midnight. Also noted 2 bowel movements yesterday which were dark/black in color. Patient admits to taking ibuprofen 800 mg every 2-3 days for generalized body aches, sinusitis, low back pain arthritis Patient reports multiple episodes of GI bleeding since 1996 and has had 10-12 EGD's in the past (some at [facility]) and was told he had ulcers or esophagitis. He had fundoplication at [facility] for GERD in and continued to have good symptoms and takes pantoprazole 40 mg intermittently (sometimes he forgets to take the medication). Pt has asthma (takes an inhaler) and denies any cardiac problems. Pt admits to loud snoring and may have undiagnosed sleep apnea. Pt is a former tobacco smoker and denies EtOH abuse. Family hx is positive for colon cancer in his paternal GM in her 70's and colon polyps in a sister. In the ED, patient was found to have sinus tachycardia and soft blood pressure (98/67). Labs showed leukocytosis of 12.2. Hemoglobin dropped from 12.1 to 11.1. Stool for occult blood was positive. Viral testing is negative for COVID-19 and influenza. CXR is negative. ED tx: Pantoprazole 80 mg IV (loading) then IV infusion, Zofran 4 mg IV, NS 1 L bolus Pt was admitted for further management. PAST GI HISTORY BY REVIEW OF MEDICAL RECORDS: 06/12/22 PT HAD AN EGD BY DR ARIAS FOR UGIB: Esophagus: GE junction at 38 cm, diaphragm hiatus at 40 cm, esophagitis noted. non obstructive schatzki sign. Small esophageal diverticulum noted. 2-3 cm hiatal hernia noted. Stomach: Patchy gastric erythema. Biopsies were obtained. Grade 2 flap valve on retroflexed examination of the cardia, as well as hiatal hernia. Prior fundoplication noted, with a clean based ulcer at proximal stomach body measuring about 12 mm (Richie grade III) Duodenum: Mild duodenitis noted Impression/Findings: Gastric ulcer esophagitis prior fundoplication hiatal hernia duodenitis esophageal diverticulum PLAN: Pantoprazole 40 mg BID emphasize compliance REFLUX precautions repeat EGD in 3 months to ensure ulcer has healed If h pylori pos then treat can go home today, Richie grade III ulcer < 5% chance of rebleeding BIOPSIES SHOWED: Stomach, biopsy: Oxyntic mucosa with mild chronic inactive inflammation; no Helicobacter organisms seen Review of Systems 2 Review of Systems: Yes all other systems are reviewed and are negative PMFSH Past Medical History Medical History Asthma UGIB (upper gastrointestinal bleed) Surgical History Surgical History History of repair of hiatal hernia Social History Social History Alcohol intake: former Year quit: 2011 Patient Tobacco Use Status: Former Tobacco user Quit Date: 2013 Use of substances other than those prescribed or required for medical reasons: No Are you DNR?: No Advance Directives: No Advance Directives Information Provided: No Nutrition Risks: No Nutritional Risk Meds Allergies Allergy/AdvReac Type Severity Reaction Status Date / Time amoxicillin [AMOXICILLIN] Allergy Unknown HIVES Verified 06/29/23 23:33 Amoxicillin Allergy Unknown hives Uncoded 06/11/21 22:59 Active Medications: Current Medications Albuterol Sulfate (Albuterol Sulfate (0.083%) 2.5 Mg/3 Ml Vial.Neb) 2.5 mg INHALE Q4H PRN PRN Reason: shorntess of breath Pantoprazole Sodium 80 mg/ (Sodium Chloride) 100 mls @ 10 mls/hr IV .Q10H [facility] Last Admin: 06/30/23 00:26 Dose: 8 mg/hr, 10 mls/hr Lactated Ringer's (Lr) 1,000 mls @ 125 mls/hr IVCONT .Q8H [facility] Last Admin: 06/30/23 02:37 Dose: Not Given Metoclopramide HCl (Metoclopramide Hcl 10 Mg/2 Ml Vial) 5 mg IVPUSH Q6H [facility] Last Admin: 06/30/23 05:40 Dose: Not Given Ondansetron HCl (Ondansetron Hcl 4 Mg/2 Ml Vial) 4 mg IVPUSH Q4H PRN PRN Reason: Nausea and Vomiting Sodium Chloride (0.9 % Sodium Chloride Flush 3 Ml Syringe) 3 ml IVFLUSH QSHIFT [facility] Home Medications Medication Instructions Recorded Confirmed Last Taken Type albuterol sulfate 90 mcg/actuation 2 puff inhalation Q6H PRN wheezing 06/30/23 06/30/23 Unknown History aerosol inhaler budesonide 160 mcg-glycopyr 9 2 inh inhalation BID 06/30/23 06/30/23 Unknown History mcg-formot 4.8 mcg/actuation HFA inhaler (Breztri Aerosphere) clotrimazole-betamethasone 1 1 appl topical BID 06/30/23 06/30/23 Unknown History %-0.05 % topical cream hydrochlorothiazide 50 mg tablet 50 mg PO DAILY 06/30/23 06/30/23 Unknown History multivitamin 1 tab PO DAILY 06/30/23 06/30/23 Unknown History Physical Exam 2 Vital Signs: Vital Signs: Last Vital Signs Temp 98.2 F 06/30/23 03:17 Pulse 87 06/30/23 04:07 Resp 17 06/30/23 03:17 BP 107/67 06/30/23 04:07 Pulse Ox 96 06/30/23 03:17 O2 Del Method Room Air 06/30/23 03:17 BMI result Body Mass Index 34.9 Appearance: Alert. Oriented X3. No acute distress. Eyes: PERRLA, No Nystagmus ENT: Pharynx normal. Oral Mucosa moist Neck: Normal inspection. Neck supple. CVS: Normal heart rate and rhythm. Pulses normal. Respiratory: No respiratory distress. Equal air entry bilateral, no wheezing/rales/rhonchi Abdomen: Soft , epigastric tenderness ++. Bowel sounds are present, no mass palpable, no CVA tenderness rectal: Patient refused Skin: Skin warm and dry. Normal skin color. Normal skin turgor. Extremities: No lower extremity edema. No calf tenderness Neuro: Oriented X 3. No motor deficit. Results Labs 06/30/23 04:44 06/30/23 04:44 Labs: Short CBC 06/29/23 06/30/2306/30/24 Range/Units 23:41 02:42 02:42 WBC 12.2 H (4.8-10.8) X10*3/uL Hgb 12.1 L Cancelled 11.1 L (14.0-18.0) g/dl Hct 37.5 L Cancelled (42.0-52.0) % Plt Count 404 H D (160-400) X10*3/uL 06/30/23 06/30/23 Range/Units 02:42 04:44 WBC 9.3 (4.8-10.8) X10*3/uL Hgb 10.6 L (14.0-18.0) g/dl Hct 34.3 L 33.7 L (42.0-52.0) % Plt Count 352 (160-400) X10*3/uL BMP 06/29/23 06/30/23 23:41 04:44 Sodium 138 139 Potassium 5.2 H 4.6 Chloride 108 111 H Carbon Dioxide 18 L 22 BUN 43 H 44 H Creatinine 1.07 1.18 Calcium 8.5 D 8.5 Liver Function 06/29/23 06/30/23 Range/Units 23:41 04:44 Total Bilirubin 0.9 0.6 (0.0-1.0) mg/dL AST 21 11 (5-37) U/L ALT 20 17 (0-40) U/L Alkaline Phosphatase 62 57 (39-117) U/L Albumin 3.6 3.7 (3.5-5.0) g/dL Assessment and Plan (1) Acute upper gastrointestinal bleeding: Status: Acute (2) GERD (gastroesophageal reflux disease): Status: Acute Plan 37 YM with hypertension, GERD, hx of GI bleeding secondary to esophagitis and gastric ulcer and status post fundoplication admitted to [facility] with multiple episodes of coffee-ground vomiting since yesterday evening. In the ED, patient was found to have sinus tachycardia and soft blood pressure (98/67). Labs showed leukocytosis of 12.2. Hemoglobin dropped from 12.1 to 11.1. Stool for occult blood was positive. Pt has a known hx of PUD on a previous EGD and takes Ibuprofen on a regular basis UGI bleeding is likely due to recurrent PUD, erosive esophagitis, MW tear or UGI AVMs. Of note, pt refused blood transfusion on arrival to the ER and is willing to have IV iron if needed. RECOMMENDATIONS: 1. Agree with IV PPI infusionand antiemetics. 2. Monitor CBC twice daily x 24 hrs. 2. Pt was advised to stop Ibuprofen and he stated he is unable to do so since other medications are not helpful 3. Pt is scheduled for an EGD today at 10 am. EGD procedure and potential complication including bleeding, perforation, reaction to anesthetic and aspiration were reviewed with the patient. Procedures Date of Service Date of Service: 06/30/23
[2023-06-30] MEDS: 0.9 % Sodium Chloride Flush 3 ML SYRINGE IVFLUSH (07:53)
--- NOTE | 2023-06-30 07:54 | PC.NURSE ---
this RN resumed care of pt at this time. vss and up to date. nsr on the surveillance monitor. pt denies pain at this time. resting comfortably in no apparent distress. last two documented BP's by this RN were noted to be slightly soft - admitting provider notified/aware at this time. protonix still infusing via pump at this time. no sob/wob noted. respirations even and unlabored. lights dimmed. call arndt placed within reach.
--- NOTE | 2023-06-30 08:52 | PC.NURSE ---
report given to RN in pre-op at this time. pt notified/aware of black pickler time.
--- NOTE | 2023-06-30 09:07 | PHA.MEDREC ---
Pharmacy Consult ? Medication Reconciliation Pharmacy has completed the medication reconciliation. Spoke to patient at bedside, able to name medications. States no one can bring in his Breztri inhaler and he does not want an alternative.
--- NOTE | 2023-06-30 09:08 | PC.NURSE ---
medication administered per provider order. pt being transported to pre-op at this time.
--- NOTE | 2023-06-30 09:19 | HO.ANESPROP2 ---
[facility] Active Problems Active Problems: All Active Problems (Updated 06/30/23 @ 01:49 by Harris Rodgers MD) Acute upper gastrointestinal bleeding (Acute) COVID-19 (Acute) Gastric ulcer (Acute) Acute blood loss anemia (Acute) HTN (hypertension) with goal to be determined (Acute) GERD (gastroesophageal reflux disease) (Acute) GIAN Past Medical History Medical History Asthma UGIB (upper gastrointestinal bleed) Surgical History Surgical History History of repair of hiatal hernia History of Problems with Anesthesia: No Social History Social History Alcohol intake: former Year quit: 2011 Patient Tobacco Use Status: Former Tobacco user Quit Date: 2013 Use of substances other than those prescribed or required for medical reasons: No Are you DNR?: No Advance Directives: No Advance Directives Information Provided: No Nutrition Risks: No Nutritional Risk Meds Allergies Allergy/AdvReac Type Severity Reaction Status Date / Time amoxicillin [AMOXICILLIN] Allergy Unknown HIVES Verified 06/29/23 23:33 Amoxicillin Allergy Unknown hives Uncoded 06/11/21 22:59 Active Medications: Current Medications Albuterol Sulfate (Albuterol Sulfate (0.083%) 2.5 Mg/3 Ml Vial.Neb) 2.5 mg INHALE Q4H PRN PRN Reason: shorntess of breath Pantoprazole Sodium 80 mg/ (Sodium Chloride) 100 mls @ 10 mls/hr IV .Q10H [facility] Last Admin: 06/30/23 09:03 Dose: 8 mg/hr, 10 mls/hr Lactated Ringer's (Lr) 1,000 mls @ 125 mls/hr IVCONT .Q8H [facility] Last Admin: 06/30/23 02:37 Dose: Not Given Metoclopramide HCl (Metoclopramide Hcl 10 Mg/2 Ml Vial) 5 mg IVPUSH Q6H [facility] Last Admin: 06/30/23 05:40 Dose: Not Given Ondansetron HCl (Ondansetron Hcl 4 Mg/2 Ml Vial) 4 mg IVPUSH Q4H PRN PRN Reason: Nausea and Vomiting Sodium Chloride (0.9 % Sodium Chloride Flush 3 Ml Syringe) 3 ml IVFLUSH QSHIFT [facility] Last Admin: 06/30/23 07:53 Dose: 3 ml Home Medications Medication Instructions Recorded Confirmed Last Taken Type albuterol sulfate 90 mcg/actuation 2 puff inhalation Q6H PRN wheezing 06/30/23 06/30/23 Unknown History aerosol inhaler budesonide 160 mcg-glycopyr 9 2 inh inhalation BID 06/30/23 06/30/23 Unknown History mcg-formot 4.8 mcg/actuation HFA inhaler (Breztri Aerosphere) clotrimazole-betamethasone 1 1 appl topical BID 06/30/23 06/30/23 Unknown History %-0.05 % topical cream hydrochlorothiazide 50 mg tablet 50 mg PO DAILY 06/30/23 06/30/23 Unknown History multivitamin 1 tab PO DAILY 06/30/23 06/30/23 Unknown History Exam Height,Weight and Vital Signs: Height 5 ft 11 in Weight 113.4 kg Last Vital Signs Temp 98.2 F 06/30/23 03:17 Pulse 92 06/30/23 07:53 Resp 16 06/30/23 07:53 BP 95/51 L 06/30/23 07:53 Pulse Ox 96 06/30/23 07:53 O2 Del Method Room Air 06/30/23 07:53 Pertinent Lab Results Pertinent Lab Results: Laboratory Tests 06/29/23 06/29/23 06/29/23 23:41 23:45 23:53 WBC 12.2 H RBC 4.43 L Hgb 12.1 L Hct 37.5 L MCV 84.7 MCH 27.3 MCHC 32.3 RDW 13.7 Plt Count 404 H D MPV 9.9 Immature Gran % (Auto) 0.5 H Neut % (Auto) 83.2 H Lymph % (Auto) 10.6 L [place] % (Auto) 3.8 Eos % (Auto) 1.4 Baso % (Auto) 0.5 Lymph # (Auto) 1.3 [place] # (Auto) 0.5 Eos # (Auto) 0.2 Baso # (Auto) 0.1 Abs Immat Gran (auto) 0.06 H Absolute Neuts (auto) 10.1 H Absolute Nucleated RBC 0.000 Nucleated RBC % (auto) 0.0 Sodium 138 Potassium 5.2 H Chloride 108 Carbon Dioxide 18 L Anion Gap 17 BUN 43 H Creatinine 1.07 Estim Creat Clear Calc 122.2 Estimated GFR > 60 Random Glucose 140 H Lactic Acid Calcium 8.5 D Magnesium 7.9 H* Total Bilirubin 0.9 AST 21 ALT 20 Alkaline Phosphatase 62 Total Protein 6.8 Albumin 3.6 COVID-19 (MYA) Negative COVID-19 Clin Com See Note Influenza Type A (KIM) Negative Influenza Type B (KIM) Negative Influenza A & B Note See Note Blood Type O Negative Antibody Screen NEGATIVE 06/30/23 06/30/23 06/30/23 02:42 02:42 02:42 WBC RBC Hgb Cancelled 11.1 L Hct Cancelled 34.3 L MCV MCH MCHC RDW Plt Count MPV Immature Gran % (Auto) Neut % (Auto) Lymph % (Auto) [place] % (Auto) Eos % (Auto) Baso % (Auto) Lymph # (Auto) [place] # (Auto) Eos # (Auto) Baso # (Auto) Abs Immat Gran (auto) Absolute Neuts (auto) Absolute Nucleated RBC Nucleated RBC % (auto) Sodium Potassium Chloride Carbon Dioxide Anion Gap BUN Creatinine Estim Creat Clear Calc Estimated GFR Random Glucose Lactic Acid Calcium Magnesium 2.5 Total Bilirubin AST ALT Alkaline Phosphatase Total Protein Albumin COVID-19 (MYA) COVID-19 Clin Com Influenza Type A (KIM) Influenza Type B (KIM) Influenza A & B Note Blood Type Antibody Screen 06/30/23 04:44 WBC 9.3 RBC 3.85 L Hgb 10.6 L Hct 33.7 L MCV 87.5 MCH 27.5 MCHC 31.5 RDW 13.9 Plt Count 352 MPV 10.2 Immature Gran % (Auto) Neut % (Auto) Lymph % (Auto) [place] % (Auto) Eos % (Auto) Baso % (Auto) Lymph # (Auto) [place] # (Auto) Eos # (Auto) Baso # (Auto) Abs Immat Gran (auto) Absolute Neuts (auto) Absolute Nucleated RBC 0.000 Nucleated RBC % (auto) 0.0 Sodium 139 Potassium 4.6 Chloride 111 H Carbon Dioxide 22 Anion Gap 11 L BUN 44 H Creatinine 1.18 Estim Creat Clear Calc 110.8 Estimated GFR > 60 Random Glucose 131 H Lactic Acid 1.5 Calcium 8.5 Magnesium Total Bilirubin 0.6 AST 11 ALT 17 Alkaline Phosphatase 57 Total Protein 6.2 L Albumin 3.7 COVID-19 (MYA) COVID-19 Clin Com Influenza Type A (KIM) Influenza Type B (KIM) Influenza A & B Note Blood Type Antibody Screen Airway Mallampati Class: III TM Dist: >3cm Neck ROM: Full Loose/Missing/Broken Teeth: No Heart: RRR Lungs: CTA Assessment and Plan Assessment Anesthesia Assessment: Anesthesia Plan Discussed and Chart Reviewed Final Anesthetic Review History of Problems with Anesthesia: No NPO: Yes ASA Class: III and Emergency Final Preanesthetic Review: Meds/Allgs Chart Reviewed, Consent Obtained/Reviewed and Anes Risks/Benef Reviewed Patient Risk: Intermediate Procedure Risk: Intermediate Anesthetic Plan Anesthetic Plan: MAC: Disposition: Standard PACU
[2023-06-30] MEDS: Albuterol Sulfate (0.083%) 2.5 MG/3 ML VIAL.NEB INHALE (09:36)
[2023-06-30] MEDS: Lactated Ringers 1,000 ML 100 ML IVCONT (10:11)
--- NOTE | 2023-06-30 11:03 | PM.EVENT ---
Event Note Date of Service: 06/30/23 Event Note: Patient admitted due to coffee-ground emesis had 2 episodes at home and had 2 more episodes in the emergency room, no further episodes since this morning, at present patient denies abdominal pain no nausea no vomiting, is NPO for upper endoscopy scheduled by Dr. Milner for this afternoon. On examination Patient awake alert in no acute distress Abdomen benign Extremities no edema 37 years old man with past medical history significant for prior GI bleeding secondary to esophagitis and gastric ulcer; and hx of fundoplication Coffee-ground emesis/upper gastrointestinal bleeding likely secondary to esophagitis/gastritis/PUD. Continue NPO/IV fluids/IV Protonix Follow H&H, patient declined blood transfusion agreeable to Procrit and iron supplement Case discussed with GI she recommends upper endoscopy this afternoon Acute on chronic microcytic anemia H&H stable above transfusion threshold will follow H&H since Metabolic acidosis resolved question etiology Acute Hyperkalemia, resolved History of asthma. Albuterol nebs as needed. No acute exacerbation History of essential hypertension. Blood pressure is low-normal. Hold hydrochlorothiazide . DVT prophylaxis: SCDs only. Code status full code Time Spent With Patient Time: Total time managing care of this patient today ____ minutes.
--- NOTE | 2023-06-30 11:07 | P.OP_ITS ---
Operative Note Operative Note Date of Service: 06/30/23 Narrative: FLEXIBLE TRANSORAL UPPER GASTROINTESTINAL ENDOSCOPY WITH BIOPSIES AND CAUTERY WITH GOLD PROBE Pre-op diagnosis: UGI bleeding, pt is status post fundoplication for GERD Post-op diagnosis: Esophagitis, healing MW tear with a visible vessel, gastritis, gastric antral nodule Endoscopist:? Ronald Milner MD Anesthesia:?GA with endotracheal intubation Consent: Indications for the procedure and potential complications of bleeding, perforation, reaction to medications and missed diagnosis were discussed with the patient and informed consent was obtained. Instrument: Olympus GIF H 190 mid size upper endoscope Monitoring: Vital signs and clinical assessment, continuous EKG monitoring, Pulse oximetry, Carbon Dioxide monitoring and blood pressure monitoring were done throughout the procedure. Procedure: The patient was placed in the left lateral decubitis position and pre-procedure medications were administered and a bite block was placed. The endoscope was inserted into the mouth and advanced under direct vision to the third part of duodenum. A careful inspection was made as the upper endoscope was withdrawn including a retroflexed examination of the proximal stomach; Findings and interventions are described below. Findings: Larynx: ET tube in place Esophagus: GE junction at 38 cms, hiatal hernia 38 to 40 cms. Focal esophagitis with a small 5 mm ulcer at GE junction. A healing MW tear at the GE junction with a small non-bleeding visible vessel - cauterized with a Gold Probe. A non-obstructing Schatzki's ring at the GE junction. A small diverticulum just above the GE junction. Stomach: Mild gastric erythema. Biopsies were obtained. A 10- 12 mm benign appearing antral nodule with central depression - biopsied, Intact fundal wrap noted on retroflexed examination of the cardia. Duodenum: Normal bulb and descending duodenum Intervention: Biopsies and cautery as noted above Impression and Post Procedure Diagnosis: Endoscopy Findings: ESOPHAGUS: Small hiatal hernia with focal esophagitis with a small 5 mm ulcer at GE junction. A healing MW tear at the GE junction with a small non-bleeding visible vessel - cauterized with a Gold Probe. A small diverticulum just above the GE junction. STOMACH: Gastritis and benign appearing gastric antral nodule Plan: Pt can resume a regular diet. Continue IV PPI infusion x 24 hrs and then switch to PO pantoprazole 40 mg twice daily or 80 mg once a day (Pt stated he forgets to take the 2nd dose). OK to DC home in the am if CBC is stable without bleeding Repeat EGD in 4 months to FU on esophagitis BIOPSIES SHOWED: A. Gastric antrum, biopsy: Gastric antral mucosa with focal ectatic vessels and minimal chronic inactive gastritis; negative for H pylori, intestinal metaplasia and dysplasia. B. Gastric nodule, biopsy: Gastric antral mucosa with minimal chronic inactive gastritis; negative for H pylori, intestinal metaplasia and dysplasia (see comment)
--- NOTE | 2023-06-30 11:22 | MHC.CM.PN ---
ATTEMPTED TO MEET WITH PT, PT IN SAME DAY SURGERY AT THIS TIME TIME.
[2023-06-30 14:08] LABS: Hematocrit 32.6 % (42.0-52.0); Hemoglobin 10.4 g/dl (14.0-18.0)
[2023-06-30] MEDS: Metoclopramide HCl 10 MG/2 ML VIAL 5 MG IVPUSH (18:00)
[2023-07-01] VITALS: BP 101/57; PULSE 88; RESP 20; TEMP 36.4; O2SAT 97
[2023-07-01] MEDS: Metoclopramide HCl 10 MG/2 ML VIAL 5 MG IVPUSH ×3 (00:14→12:46)
[2023-07-01] MEDS: 0.9 % Sodium Chloride Flush 3 ML SYRINGE IVFLUSH (00:14)
[2023-07-01 03:42] VITALS: BP 124/62; PULSE 84; RESP 20; TEMP 36.1; O2SAT 98
[2023-07-01] MEDS: Albuterol Sulfate 90 MCG 8 GM INHALER 2 PUFF INHALE (04:17)
[2023-07-01] MEDS: Pantoprazole Sodium 80 MG in 0.9 % Sodium Chloride 80 ML 10 MG IV (05:55)
[2023-07-01 07:49] VITALS: BP 105/55; PULSE 73; RESP 20; TEMP 37.1; O2SAT 98
[2023-07-01 09:11] LABS: Hemoglobin 9.2 g/dl (14.0-18.0); Mean Corpuscular HGB Conc 31.7 g/dl (31.0-36.0); Mean Corpuscular Hemoglobin 27.4 pg (27.0-33.0); Mean Corpuscular Volume 86.3 fL (80.0-98.0); Mean Platelet Volume 9.5 fL (9.4-12.4); Platelet Count 317 X10*3/uL (160-400); Red Blood Count 3.36 X10*6/uL (4.60-5.80); Red Cell Distribution Width 14.4 % (11.0-16.0); White Blood Count 11.4 X10*3/uL (4.8-10.8)
[2023-07-01 09:33] LABS: Anion Gap 10 (12-20); Blood Urea Nitrogen 28 mg/dL (9-16); Calcium 8.9 mg/dL (8.4-10.2); Carbon Dioxide 25 mmol/L (22-29); Chloride 111 mmol/L (96-108); Creatinine Clr Calc Pharmacy 101.5; Estimated Glomerular Filt Rate > 60; Glucose Random 109 mg/dL (60-115); Potassium 3.8 mmol/L (3.3-5.1); Sodium 142 mmol/L (135-145)
--- NOTE | 2023-07-01 09:33 | P.CDIM_ITS ---
PROVIDER RESPONSE TEXT: To clarify, the appropriate diagnosis supported by the clinical indicators: Other (explain): see note today QUERY TEXT: PHYSICIAN'S DOCUMENTATION REQUEST Date of Query: 07/01/2023 08:27 AM EST Patient Name: Dylon Morley Admit Date: 06/30/2023 Dear Adilene Rock, A review of the medical record indicates additional documentation may be needed. Please review below and update the documentation accordingly. The diagnosis of Asthma was documented in the record on 06/30/23. Additional clinical indicators from the record include: History of Asthma. Albuterol nebs as needed. No acute exacerbation Based on the above, please clarify in the Progress Notes further specificity regarding the type and a cuity of the asthma: Mild intermittent Mild persistent Moderate persistent Severe persistent Exercise induced Chronic obstructive asthma and indicate if with acute lower respiratory infection Asthma with underlying COPD and indicate if with acute lower respiratory infection Other (explain) Clinically unable to determine (explain) Thank you, Chelsey Ahumada RN Use of terms such as suspected, likely, concern for, or probable (associated with a specific diagnosi s that is being evaluated, monitored, or treated as if it exists) are acceptable and can be coded in the inpatient se tting, when documented at the time of discharge. Please use your independent medical judgment in providing your response. THIS QUERY IS PART OF THE PERMANENT MEDICAL RECORD
--- NOTE | 2023-07-01 09:33 | P.CDIM_ITS ---
PROVIDER RESPONSE TEXT: To clarify, the appropriate diagnosis supported by the clinical indicators: Other (explain): see note today QUERY TEXT: PHYSICIAN'S DOCUMENTATION REQUEST Date of Query: 07/01/2023 08:26 AM EST Patient Name: Dylon Morley Admit Date: 06/30/2023 Dear Adilene Rock, A review of the medical record indicates additional documentation may be needed. Please review below and update the documentation accordingly. Clinical Indicators: Per Hospitalist Progress Note 06/30/23: Metabolic acidosis resolved question etiology Clarify which of the following accurately represents the acuity of the Metabolic Acidosis. Possible options might include: Acute Acute on chronic Compensated Chronic stable condition Remission Other (explain) Clinically unable to determine (explain) Thank you, Chelsey Ahumada RN Use of terms such as suspected, likely, concern for, or probable (associated with a specific diagnosi s that is being evaluated, monitored, or treated as if it exists) are acceptable and can be coded in the inpatient se tting, when documented at the time of discharge. Please use your independent medical judgment in providing your response. THIS QUERY IS PART OF THE PERMANENT MEDICAL RECORD
--- NOTE | 2023-07-01 09:33 | P.CDIM_ITS ---
PROVIDER RESPONSE TEXT: To clarify, the appropriate diagnosis supported by the clinical indicators: Other (explain): have not done note today it was event note yesterday QUERY TEXT: PHYSICIAN'S DOCUMENTATION REQUEST Date of Query: 07/01/2023 08:22 AM EST Patient Name: Dylon Morley Admit Date: 06/30/2023 Dear Adilene Rock, A review of the medical record indicates additional documentation may be needed. Please review below and update the documentation accordingly. Clinical Indicators: Per Hospitalist Progress Note 06/30/23: Coffee-ground emesis/upper gastrointestinal bleeding likely secondary to esophagitis/gastritis/PUD. Continue NPO/IV fluids/IV Protonix Follow H&H, patient declined blood transfusion agreeable to Procrit and iron supplement Case discussed with GI she recommends upper endoscopy Clarify which of the following accurately represents the acuity of the Esophagitis, Gastritis, PUD. Possible options might include: Acute Esophagitis, Acute Gastritis, Acute PUD Acute on chronic Esophagitis, Acute on Chronic Gastritis, Acute on Chronic PUD Chronic stable condition Other (explain) Clinically unable to determine (explain) Thank you, Chelsey Ahumada RN Use of terms such as suspected, likely, concern for, or probable (associated with a specific diagnosi s that is being evaluated, monitored, or treated as if it exists) are acceptable and can be coded in the inpatient se tting, when documented at the time of discharge. Please use your independent medical judgment in providing your response. THIS QUERY IS PART OF THE PERMANENT MEDICAL RECORD
--- NOTE | 2023-07-01 09:56 | MHC.CM.PN ---
Addendum entered by Jane Melton RN 07/01/23 13:13: PT MEDICALLY CLEARED FOR DC HOME SELF CARE, CM HAD SET UP [facility] THROUGH [facility] HOWEVER PT FOUND [facility] AND CM CANCELLED [facility] Addendum entered by Jane Melton RN 07/01/23 12:49: PT DID NOT COMPLETE HCP PRIOR TO DC. Original Note: IMM 07/01/23, EMR REVIEWED, PT ADMITTED W/GI BLEED, CM MET W/PT WHO REPORTS HE LIVES W/A ROOMMATE, IS INDEP W/ALL CARE, DENIES USE OF DME OTHER THAN A ALBUTEROL INHALER AND HAS [facility], PT CURRENTLY DENIES NEED FOR ADDITIONAL SERVICES AND HOME IS GOAL FOR DC. PT VERIFIES HIS PCP IS W/[facility] IN [place] AND DR ANTHONY FOR PULMONOLOGY, PT TO COMPLETE A HCP NAMING HIS ROOMMATE PEDRO SNELL [phone] W/NO ALTERNATE AND REPORTS HE DOES NOT WANT HIS SISTER TO MAKE DECISIONS FOR HIM.
[2023-07-01 12:00] VITALS: BP 125/74; PULSE 87; RESP 20; TEMP 36.3; O2SAT 100
--- NOTE | 2023-07-01 12:08 | PM.DS ---
DS: Providers Provider Date of Service: 07/01/23 Date of admission: 06/30/23 03:25 Primary care physician: Unknown Physician Consults: 06/30/23 03:29 Consult to Gastroenterology Routine Consulting Provider: Ronald Milner Reason for consultation: Upper GI bleeding Has provider been notified: No DS: Diagnosis Discharge Diagnosis (1) Acute upper gastrointestinal bleeding: Status: Acute (2) GERD (gastroesophageal reflux disease): Status: Acute DS: Summary Hospital Course Hospital Course: History of presenting illness: Date of Service: 06/30/23 Attending physician on admission: Corrine Mao Chief Complaint: Vomiting Dylon Morley is a 37 years old man with past medical history significant for prior GI bleeding secondary to esophagitis and gastric ulcer; and hx of fundoplication presents to the emergency department complaining multiple events of coffee-ground vomiting with associated upper gastrointestinal discomfort. He denied any cardiopulmonary or genitourinary symptoms. He denied use of NSAIDs or alcohol. He is a former tobacco smoker. In the ED, patient was found to have sinus tachycardia and soft blood pressure (98/67). Blood workup is remarkable for leukocytosis of 12.2. Hemoglobin dropped from 12.1 to 11.1. There is minimal hyperkalemia, 5.2. Bicarb is 18. Magnesium is 2.5. Stool for occult blood is positive. Viral testing is negative for COVID-19 and influenza. CXR is negative. ED tx: Pantoprazole 80 mg IV (loading) then IV infusion, Zofran 4 mg IV, NS 1 L bolus. Hospital course: 37-year-old gentleman admitted to [place] due to acute blood loss anemia due to upper GI bleed, patient was treated with IV fluids, IV Protonix H&H was monitored closely subsequently patient underwent upper endoscopy by Dr. Milner that showed focal esophagitis, with a small 5 mm ulcer at GE junction, a healing Lola-Bee tear a GE junction with a small nonbleeding visible vessel that was cauterized, stomach showed mild gastric erythema biopsies were obtained that was attentive 12 mm benign-appearing antral nodule that was biopsied, patient had no further episodes of coffee-ground emesis in last 24 hours his hematocrit dropped but stable, patient declined repeat labs prior to discharge despite multiple attempts of explaining the reason for following hematocrit, since patient is hemodynamically stable and asymptomatic he is being discharged home on Protonix 40 mg twice daily, he is strongly recommended to avoid all NSAIDs, and to have outpatient follow-up with Gastroenterology. Patient also noted to have acute metabolic acidosis that resolved and also had hyperkalemia that improved with fluids Patient has history of mild intermittent asthma no acute exacerbation was noted recommend to continue home inhalers In regard to hypertension he was noted to have soft blood pressure therefore recommended to discontinue hydrochlorothiazide. Time Attestation Discharge coordination time: Greater than 30 minutes Quality: Safe Use of Opioids Does Pt have an Active Cancer Diagnosis on the Problem List?: No Quality: Stroke Does the patient have a stroke diagnosis?: No Physical Exam Vital Signs: Vital Signs: Last Vital Signs Temp 98.7 F 07/01/23 07:49 Pulse 73 07/01/23 07:49 Resp 20 07/01/23 07:49 BP 105/55 L 07/01/23 07:49 Pulse Ox 98 07/01/23 07:49 O2 Del Method Room Air 07/01/23 07:49 O2 Flow Rate 4 06/30/23 11:24 BMI result Body Mass Index 33.9 Const: Other: General awake alert x3, in no acute distress. Anicteric sclera Neck no JVD. CVS regular rate rhythm, Respiratory lungs clear to auscultation, no respiratory distress, no wheeze, no rhonchi. Gastrointestinal abdomen soft, non tender, bowel sounds audible,no guarding , no rigidity. Extremities no edema. Neuro nonfocal Skin no rash DS: Data Data Completed and Pending Completed studies during hospitalization [Text1]: Procedures Excision of Stomach, Pylorus, Via Natural or Artificial Opening Endoscopic, Diagnostic (06/12/21) Pending studies at discharge: Pending at discharge 06/30/23 10:49 Surgical [PTH] Routine Labs on day of discharge: Laboratory Results - last 24 hr 06/30/23 07/01/23 13:52 08:58 WBC 11.4 H RBC 3.36 L Hgb 10.4 L 9.2 L Hct 32.6 L 29.0 L MCV 86.3 MCH 27.4 MCHC 31.7 RDW 14.4 Plt Count 317 MPV 9.5 Absolute Nucleated RBC 0.000 Nucleated RBC % (auto) 0.0 Sodium 142 Potassium 3.8 Chloride 111 H Carbon Dioxide 25 Anion Gap 10 L BUN 28 H Creatinine 1.27 Estim Creat Clear Calc 101.5 Estimated GFR > 60 Random Glucose 109 Calcium 8.9 Discharge Plan Discharge Anticipated Discharge Date/Time: 07/01/23 11:22 Patient Disposition: Home, Self-Care Discharge Diagnosis: Acute anemia due to upper GI bleed Referrals: Physician,Unknown J [Primary Care Provider] - 1 Week Discharge Medications: Continued multivitamin Tablet 1 tab PO DAILY clotrimazole-betamethasone 1-0.05 % cream 1 appl topical BID albuterol sulfate 90 mcg/actuation HFA aerosol inhaler 2 puff INHALATION Q6H PRN (Reason: wheezing) Breztri Aerosphere 160-9-4.8 mcg/actuation HFA aerosol inhaler 2 inh INHALATION BID Changed pantoprazole [Protonix] 40 mg tablet,delayed release (DR/EC) 40 mg PO BID Qty: 60 0RF Discontinued hydrochlorothiazide 50 mg tablet 50 mg PO DAILY Discharge Orders: Discharge Order (Routine); Ordered 07/01/23 Ordered By: Adilene Rock Diet: Advance to usual diet Activity on Discharge: As tolerated Stand Alone Forms: Patient Portal Discharge page Care Plan Goals: Upper endoscopy showed inflammation of esophagus, Lola-Bee tear, mild gastric erythema. Avoid aspirin, Advil, Motrin or ibuprofen Take Protonix 40 mg 1 tablet twice daily Health Concerns: Noted to have soft blood pressure therefore hydrochlorothiazide discontinued follow BP closely Plan of Treatment: Follow-up with primary care physician and document review attorney Dr. Milner call for appointment to obtain result of biopsy. Assessment: As above
[2023-07-01] MEDS: Albuterol Sulfate (0.083%) 2.5 MG/3 ML VIAL.NEB INHALE (12:20)
[2023-07-01 12:24] VITALS: PULSE 73; RESP 20; O2SAT 98
--- NOTE | 2023-07-01 15:03 | HO.POSTANES ---
Post Anesthesia Evaluation Post Anesthesia Evaluation Date of Service: 07/01/23 Vital Signs: Vital Signs Temp Pulse Resp BP Pulse Ox O2 Del Method 07/01/23 12:24 73 20 07/01/23 12:00 97.4 F 87 20 125/74 100 Room Air 07/01/23 07:49 98.7 F 73 20 105/55 L 98 Room Air 07/01/23 03:42 96.9 F 84 20 124/62 98 Room Air Anesthesia: General Endotracheal-GETA Mental Status: Awake Pain Control: Satisfactory Nausea/Vomiting: None Hydration: Adequate Anesthesia-Related Issues: No Anes. Related Issues
== END 2023-07-01 14:15 | disposition home or self-care (01) | DRG 368 ==
LOC: HO.ED 06-30 01:49 → HO.EDOVER 06-30 03:32 → HO.IMC 06-30 13:00
PROVIDERS: Internal Medicine Gastroenterology; Admitting Provider Internal Medicine; Emergency Provider Internal Medicine; Visit Provider Hospitalist
PROC: 0DJ08ZZ Inspection of Upper Intestinal Tract, Via Natural or Artificial Opening Endoscopic (ICD-10-PCS; CPT 43235; principal; 2023-06-30 09:50)
DX: K21.01 Gastro-esophageal reflux disease with esophagitis, with bleeding (principal); K22.6 Gastro-esophageal laceration-hemorrhage syndrome; K29.51 Unspecified chronic gastritis with bleeding; D62 Acute posthemorrhagic anemia; E87.21 Acute metabolic acidosis; I10 Essential (primary) hypertension; J45.20 Mild intermittent asthma, uncomplicated; E87.5 Hyperkalemia; Z20.822 Contact with and (suspected) exposure to COVID-19; Z87.891 Personal history of nicotine dependence; Z80.0 Family history of malignant neoplasm of digestive organs; Z79.899 Other long term (current) drug therapy
CPT/HCPCS: 36415; 71045; 80048; 80053; 83605; 83735; 85014; 85018; 85025; 85027; 86850; 86900; 86901; 87502; 87635; 88305; 88313; 88342; 93005; 94640; 99285; C9113; J0330; J1100; J2250; J2371; J2405; J2704; J2765; J3010; J7120

== ENCOUNTER → 2023-06-29 | Outpatient (BNV) | payer OTHER, SELFPAY | PROVIDERS: Admitting Provider Internal Medicine; Emergency Provider Internal Medicine; Visit Provider Internal Medicine Cardiovascular Disease | DX: R06.02 Shortness of breath (principal) | CPT/HCPCS: 93010 ==

== ENCOUNTER → 2023-06-30 03:25 | Outpatient (BNV) | payer OTHER, SELFPAY | PROVIDERS: Admitting Provider Internal Medicine; Emergency Provider Internal Medicine; Visit Provider Internal Medicine | DX: K92.2 Gastrointestinal hemorrhage, unspecified (principal); D62 Acute posthemorrhagic anemia | CPT/HCPCS: 99223; 99239; 99499 ==

== ENCOUNTER → 2023-06-30 03:25 | Outpatient (BNV) | payer OTHER, SELFPAY | PROVIDERS: Admitting Provider Internal Medicine; Emergency Provider Internal Medicine; Visit Provider Internal Medicine Gastroenterology | DX: K92.2 Gastrointestinal hemorrhage, unspecified (principal); K21.9 Gastro-esophageal reflux disease without esophagitis | CPT/HCPCS: 43239; 43270; 99223 ==

== ENCOUNTER 2023-07-21 13:28 | Outpatient (REF) | payer OTHER, SELFPAY ==
[2023-07-21 13:58] LABS: Hematocrit 32.2 % (42.0-52.0); Mean Corpuscular HGB Conc 31.1 g/dl (31.0-36.0); Mean Corpuscular Hemoglobin 25.4 pg (27.0-33.0); Mean Corpuscular Volume 81.9 fL (80.0-98.0); Mean Platelet Volume 9.2 fL (9.4-12.4); Platelet Count 484 X10*3/uL (160-400); Red Blood Count 3.93 X10*6/uL (4.60-5.80); Red Cell Distribution Width 14.6 % (11.0-16.0); White Blood Count 7.7 X10*3/uL (4.8-10.8)
[2023-07-21 14:20] LABS: Anion Gap 12 (12-20); Blood Urea Nitrogen 17 mg/dL (9-16); Carbon Dioxide 27 mmol/L (22-29); Chloride 106 mmol/L (96-108); Estimated Glomerular Filt Rate > 60; Glucose Random 89 mg/dL (60-115); Iron 16 mcg/dL (45-160); Percent Iron Saturation 5 % (15-50); Potassium 4.7 mmol/L (3.3-5.1); Sodium 140 mmol/L (135-145); Total Iron Binding Capacity 354 mcg/dL (228-428); Unsaturated Iron Binding 338 ug/dL
[2023-07-21 14:33] LABS: Ferritin 8 ng/mL (20-250)
[2023-07-21 14:48] LABS: Vitamin B12 242 pg/mL (200-900)
[2023-07-22 15:28] LABS: Immunoglobulin A 377 mg/dL (47-310)
[2023-07-22 22:34] LABS: Transglutaminase IgA <1.0 U/mL
== END 2023-07-21 13:29 | disposition home or self-care (01) ==
LOC: HO.LAB 13:28
PROVIDERS: PCP Internal Medicine; Visit Provider Internal Medicine
DX: D62 Acute posthemorrhagic anemia (principal)
CPT/HCPCS: 36415; 80048; 82607; 82728; 82746; 82784; 83540; 85027; 86364

== ENCOUNTER 2023-07-24 20:35 | Emergency (ER) | payer OTHER, SELFPAY ==
--- NOTE | ~2023-07-24 | XR_ITS ---
EXAMINATION: XR LUMBOSACRAL SPINE CLINICAL INFORMATION: Low back pain COMPARISON: None available. TECHNIQUE: Three views of the lumbosacral spine. FINDINGS: Transitional vertebra at the lumbosacral junction with 6 nonrib-bearing type lumbar vertebra likely representing lumbarization of S1. Bones are normal anatomic alignment with no acute fracture or spondylolisthesis. Paravertebral soft tissues unremarkable XR/XR lumbar spine 2-3V IMPRESSION: No acute fracture or spondylolisthesis. Transitional vertebra at the lumbosacral junction.
--- NOTE | 2023-07-24 20:38 | ED_ITS ---
HPI - Back Pain/Injury General Chief Complaint: Back Pain/Injury Stated Complaint: lower back pain Time Seen by Provider: 07/24/23 21:36 Source: patient, RN notes reviewed and old records reviewed Mode of arrival: ambulatory Limitations: no limitations History of Present Illness HPI Narrative: 37-year-old male with past medical history significant for esophagitis and gastric ulcer presents for evaluation of lower back pain Patient reports on and off lower back pain for the last 2 months. The pain is worse over the last 3 days. States that yesterday he needed help getting around the house because of how se halie the pain was The pain shoots down his right leg He endorses some numbness down the right leg Denies any bladder or bowel retention or incontinence Denies any weakness He denies any specific injury. He denies any IV drug abuse He has no other complaints or concerns at this time Related Data Home Medications Medication Instructions Recorded Confirmed albuterol sulfate 90 mcg/actuation 2 puff inhalation Q6H PRN wheezing 06/30/23 06/30/23 aerosol inhaler budesonide 160 mcg-glycopyr 9 2 inh inhalation BID 06/30/23 06/30/23 mcg-formot 4.8 mcg/actuation HFA inhaler (Breztri Aerosphere) clotrimazole-betamethasone 1 1 appl topical BID 06/30/23 06/30/23 %-0.05 % topical cream multivitamin 1 tab PO DAILY 06/30/23 06/30/23 Previous Rx's Medication Instructions Recorded pantoprazole 40 mg tablet,delayed 40 mg PO BID #60 tabs 07/01/23 release (Protonix) ferrous sulfate 325 mg (65 mg 325 mg PO DAILY #90 tabs 07/23/23 iron) tablet cyclobenzaprine 10 mg tablet 10 mg PO TID PRN muscle spasm #15 07/24/23 tabs dexamethasone 4 mg tablet 4 mg PO BID #6 tabs 07/24/23 lidocaine 5 % topical patch 1 patch topical DAILY PRN pain #30 07/24/23 ea tramadol 50 mg tablet 50 mg PO Q6H PRN severe pain 07/24/23 (scale score 7-10) #16 tabs Allergies Allergy/AdvReac Type Severity Reaction Status Date / Time amoxicillin [AMOXICILLIN] Allergy Unknown HIVES Verified 06/29/23 23:33 Amoxicillin Allergy Unknown hives Uncoded 06/11/21 22:59 Review of Systems Constitutional: Constitutional: Denies chills and Denies fever(s) Eyes: Eyes: Denies blurry vision Cardiovascular: Cardiovascular: Denies chest pain and Denies dyspnea Respiratory: Respiratory: Denies cough and Denies dyspnea Gastrointestinal: Gastrointestinal: Denies abdominal pain Musculoskeletal: Musculoskeletal: Reports back pain Integumentary/Breasts: Skin/Breast: Denies rash PMFSH Past Medical History Medical History Asthma UGIB (upper gastrointestinal bleed) Surgical History History of repair of hiatal hernia Social History Social History Household Members: Other Household Members Other:: roommate Housing: Apartment Do you presently have visiting nurse or other home services: No Alcohol intake: former Year quit: 2011 Patient Tobacco Use Status: Former Tobacco user Quit Date: 2013 Smoked in Last 30 Days: No Use of substances other than those prescribed or required for medical reasons: No Advance Directives: No Advance Directives Information Provided: No service: No Physical Exam Vital Signs: Vital Signs: Last Vital Signs Temp 98 F 07/24/23 22:24 Pulse 84 07/24/23 22:24 Resp 19 07/24/23 22:24 BP 144/86 H 07/24/23 22:24 Pulse Ox 98 07/24/23 22:24 O2 Del Method Room Air 07/24/23 22:24 BMI result Body Mass Index 34.6 Const: General: healthy appearing, comfortable, no acute distress, alert and awake Nutritional Appearance: well nourished Orientation/consciousness: patient oriented x3 HEENT: Head: Yes normocephalic and Yes atraumatic Eyes: Eyelids: Yes eyelids normal Conjunctivae: conjunctivae normal Sclerae: sclerae normal Corneas: corneas normal Pupils: Equal, round and reactive pupils present EOM: EOMs intact bilaterally Neck: Neck: Yes full ROM Resp: Effort & Inspection: normal respiratory effort, able to speak in complete sentences and not labored GI: Inspection: No distended Palpation (GI): Soft to palpation, not firm, nontender, no guarding and not rigid Back/Spine/Pelvis: Other: Tenderness across the lumbar paraspinous region on right. No vertebral tenderness, no step-offs or deformities. Straight leg raise positive on right. Skin: General skin exam: elasticity normal Neuro: General: patient oriented x3 Cranial nerves: Yes Equal, round and reactive pupils present and Yes Bilaterally intact EOM present Cognition (Neuro): normal cognition Motor exam (neuro): 5/5 motor strength present throughout Course Course Course Narrative: RME: 37 year-old male w/ PMHx HTN, GERD, anemia, UGIB recently d/c'd from our facility on 07/01/23 presenting to the ED c/o low back pain radiating down RLE x few days. denies known injury/trauma or fall, incontinence/retention. Taking Tylenol w/o relief Ambulating w/antalgic gait, difficulty sitting in triage Patient requesting imaging. Will need pain control, SL Zofran, Flexeril & Lidocaine patch ordered Full HPI, ROS and PE to be performed by primary ED provider. Medications Administered Discontinued Medications Generic Name Dose Route Start Last Admin Trade Name Jakeq PRN Reason Stop Dose Admin Cyclobenzaprine HCl 10 mg 07/24/23 20:42 07/24/23 20:58 Cyclobenzaprine Hcl 10 Mg Tablet PO 07/24/23 20:43 10 mg ONCE ONE Administration Dexamethasone 4 mg 07/24/23 22:17 07/24/23 22:23 Dexamethasone 4 Mg Tablet PO 07/24/23 22:18 4 mg ONCE ONE Administration Lidocaine 1 patch 07/24/23 20:42 07/24/23 20:56 Lidocaine 4 % Patch Adh..Patch TRANSDERMA 07/24/23 20:43 1 patch ONCE ONE Administration Protocol Ondansetron HCl 4 mg 07/24/23 20:42 07/24/23 20:48 Ondansetron Odt 4 Mg Tab.Rapdis TRANSLINGU 07/24/23 20:43 4 mg ONCE ONE Administration Medical Decision Making Medical Decision Making [facility] Narrative: [age] year male presents for evaluation of acute on chronic back pain. Denies any specific trauma or injury. He has no red flags in history or exam for cauda equina syndrome. Plan to treat with dexamethasone and tramadol. Patient was advised to not take Tylenol more than prescribed and did not take any NSAIDs at all due to his recent gastric bleeding Differential Diagnosis Differential Diagnoses: The differential diagnosis associated with the presentation includes Acute on chronic low back pain Disc herniation Radiculopathy Chronic back pain Spinal abscess less likely Cauda equina syndrome unlikely Independent Interpretation I performed an independent interpretation of an: Plain X-Ray (Agree with Radiology interpretation also some degree of constipation) Radiology Impression Discussion of test interpretation with radiology: I have reviewed the radiologist's reading. (Spondylolisthesis) Discharge Plan Discharge Clinical Impression: Acute exacerbation of chronic low back pain Patient Disposition: Home, Self-Care Instructions: Acute Low Back Pain (ED) Additional Instructions: Use cyclobenzaprine as needed for muscle spasms. Use lidocaine patches as directed. I do not recommend that you take more than 650 mg of Tylenol every 4 hours You should not use NSAIDs such as ibuprofen or naproxen at all I recommend tramadol for severe breakthrough pain This may make you sleepy, do not drink alcohol or drive after taking it I recommend that you follow-up your doctor as soon as possible. He would likely benefit from an outpatient MRI You may also benefit from following up with pain management Prescriptions: New cyclobenzaprine 10 mg tablet 10 mg PO TID PRN (Reason: muscle spasm) Qty: 15 0RF lidocaine 5 % adhesive patch,medicated 1 patch topical DAILY PRN (Reason: pain) Qty: 30 0RF Rx Instructions: leave on most painful area for up to 12 hrs dexamethasone 4 mg tablet 4 mg PO BID Qty: 6 0RF tramadol 50 mg tablet 50 mg PO Q6H PRN (Reason: severe pain (scale score 7-10)) Qty: 16 0RF No Action ferrous sulfate 325 mg (65 mg iron) tablet 325 mg PO DAILY Qty: 90 0RF multivitamin Tablet 1 tab PO DAILY clotrimazole-betamethasone 1-0.05 % cream 1 appl topical BID albuterol sulfate 90 mcg/actuation HFA aerosol inhaler 2 puff INHALATION Q6H PRN (Reason: wheezing) Breztri Aerosphere 160-9-4.8 mcg/actuation HFA aerosol inhaler 2 inh INHALATION BID pantoprazole [Protonix] 40 mg tablet,delayed release (DR/EC) 40 mg PO BID Qty: 60 0RF Referrals: [facility] [place] [facility] [Provider Group] Shaheen Figueroa MD [Physician] - Reza Guadalupe MD [Physician] - (Low back pain) Po,Tenaver O, MD [Primary Care Provider] - Interventions: ED Discharge Assessment Last Done: 07/24/23 22:29 Discharge Date/Time: 07/24/23 22:36
[2023-07-24 20:44] VITALS: BP 153/90; PULSE 86; RESP 16; TEMP 36.7; O2SAT 100; BMI 34.6
[2023-07-24] MEDS: Ondansetron ODT 4 MG TAB.RAPDIS TRANSLINGU (20:48)
[2023-07-24] MEDS: Lidocaine 4 % Patch ADH..PATCH 1 PATCH TRANSDERMA (20:56)
[2023-07-24] MEDS: Cyclobenzaprine HCl 10 MG TABLET PO (20:58)
[2023-07-24] MEDS: dexAMETHasone 4 MG TABLET PO (22:23)
[2023-07-24 22:24] VITALS: BP 144/86; PULSE 84; RESP 19; TEMP 36.6; O2SAT 98
== END 2023-07-24 22:36 | disposition home or self-care (01) ==
PROVIDERS: Emergency Provider Student in an Organized Health Care Education/Training Program; PCP Internal Medicine
DX: M54.50 Low back pain, unspecified (principal); G89.29 Other chronic pain; I10 Essential (primary) hypertension; D62 Acute posthemorrhagic anemia; K21.9 Gastro-esophageal reflux disease without esophagitis; Z79.899 Other long term (current) drug therapy
CPT/HCPCS: 72100; 99283; 99284; J8540

== ENCOUNTER 2023-07-29 07:33 | Outpatient (AMB) | payer OTHER, SELFPAY ==
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
[2023-07-29 07:47] VITALS: BP 150/90; BMI 35.1
== END 2023-07-29 08:23 | disposition home or self-care (01) ==
PROVIDERS: PCP Internal Medicine; Visit Provider Internal Medicine
DX: M54.31 Sciatica, right side (principal); K25.9 Gastric ulcer, unspecified as acute or chronic, without hemorrhage or perforation; F32.1 Major depressive disorder, single episode, moderate; Z09 Encounter for follow-up examination after completed treatment for conditions other than malignant neoplasm; D50.8 Other iron deficiency anemias; I10 Essential (primary) hypertension
CPT/HCPCS: 99214

== ENCOUNTER 2023-08-23 11:54 | Outpatient (AMB) | payer OTHER, SELFPAY ==
--- NOTE | 2023-08-23 12:25 | MHC.OFFVIS ---
Intake Vital Signs 08/23/23 12:28 Height 5 ft 11 in Weight 253 lb BMI 35.3 BP 150/88 H Blood Pressure Location Lt brachial Position Sitting Pulse 104 H Intake Visit Reasons: acute blood loss anemia Intake Note: Patient new consult for Acute loss Anemia. Patient cc: acid reflex with burning sensation, tiredness and always sleepy due Anemia. Staff Certified Nurse Midwife Required: No Accompanied by: Self / Same As Patient Allergies amoxicillin [AMOXICILLIN] Allergy (Unknown, Verified 08/23/23 12:24) HIVES Amoxicillin Allergy (Unknown, Uncoded 07/29/23 08:06) hives HPI HPI Comments History of Present Illness Details This is a 38y.o M with PMH of PUD and esophagitis who is following up after hospital admission for UGIB. Shad lee was noted to have gastric ulcer and esophagitis in Jun 2021 and then this year Jun 2023 was in for hematemesis and found to have MWT with visible vessel. Currently reports main sx of fatugue and low energy - but suspects could be due to depression as well. Taking PO iron supplements and PPI BID. Drink etOH rarely, former smoker. NSAID use occasionally. No H pylori on bx. [facility] Medical History Asthma UGIB (upper gastrointestinal bleed) Surgical History History of repair of hiatal hernia Family History Mother Bladder cancer Bone cancer Father Heart disease Stroke Diabetes Brother Substance use disorder Family/Other Mental health disorder Social History Household Members: Other Household Members Other:: roommate Housing: Apartment Do you presently have visiting nurse or other home services: No Alcohol intake: former Year quit: 2011 Patient Tobacco Use Status: Former Tobacco user Quit Date: 2013 e-Cigarette/Vaping Use: Never Used Second Hand Smoke Exposure: No service: No Current occupational status: disabled Cognitive needs: No Hearing needs: No Vision needs: No Review of Systems Const All systems reviewed & are unremarkable except as noted in HPI and below Physical Exam Vital Signs: Last Vital Signs Pulse 104 H 08/23/23 12:28 BP 150/88 H 08/23/23 12:28 BMI result Body Mass Index 35.3 NAD Abd soft, nondistended No overt resp distress A/Ox3, gait normal Assessment & Plan Assessment & Plan (1) Acute blood loss anemia: Code(s): D62 - Acute posthemorrhagic anemia (2) GERD (gastroesophageal reflux disease): Code(s): K21.9 - Gastro-esophageal reflux disease without esophagitis (3) Lola-Bee tear: Code(s): K22.6 - Gastro-esophageal laceration-hemorrhage syndrome Plan Encouraged compliance with PPI. Offered IV iron replacement to help boost iron levels but pt declines. Pt was also advised to have a repeat EGD done in a few months to document healing. While receiving instructions for EGD, pt mentioned that he will not be able to arrange for a ride home as his life is not set up that way . Offered transport through the hospital which the pt also declined. He did not wish into delve into the barriers to scheduling EGD if transport is arranged through our office and left the exam room. Coding Level of Care Code Est Pt Level 4 (72148) Diagnoses Acute blood loss anemia D62 GERD (gastroesophageal reflux disease) K21.9 Lola-Bee tear K22.6
[2023-08-23 12:28] VITALS: BP 150/88; PULSE 104; BMI 35.3
== END 2023-08-23 13:04 | disposition home or self-care (01) ==
PROVIDERS: PCP Internal Medicine; Visit Provider Internal Medicine
DX: D62 Acute posthemorrhagic anemia (principal); K21.9 Gastro-esophageal reflux disease without esophagitis; K22.6 Gastro-esophageal laceration-hemorrhage syndrome
CPT/HCPCS: 99214

== ENCOUNTER → 2023-08-23 11:58 | Outpatient (BNVA) | payer OTHER, SELFPAY | PROVIDERS: PCP Internal Medicine; Visit Provider Internal Medicine | DX: D50.0 Iron deficiency anemia secondary to blood loss (chronic) (principal); K21.9 Gastro-esophageal reflux disease without esophagitis; K22.6 Gastro-esophageal laceration-hemorrhage syndrome | CPT/HCPCS: 99212 ==

== ENCOUNTER 2023-10-14 12:57 | Outpatient (AMB) | payer OTHER, SELFPAY ==
--- NOTE | 2023-10-14 13:06 | A.OFFPC_ITS ---
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 Accompanied by: Self / Same As Patient Allergies amoxicillin [AMOXICILLIN] Allergy (Unknown, Verified 10/14/23 13:12) HIVES Amoxicillin Allergy (Unknown, Uncoded 10/14/23 13:12) hives Medication List - Last Reconciled 10/14/23 by Sondra Lee Po, albuterol sulfate 90 mcg/actuation 2 puffs inhalation Q6H PRN oxjxttubis-nrvbqkrf-kjbdnkyhut 160-9-4.8 mcg/actuation (Breztri Aerosphere) 2 inhalations inhalation BID clotrimazole-betamethasone 1-0.05 % 1 appl topical BID cyclobenzaprine 10 mg PO TID PRN 30 days ferrous sulfate 325 mg PO DAILY lisinopril 20 mg PO DAILY multivitamin 1 tab PO DAILY pantoprazole (Protonix) 40 mg PO BID sucralfate (Carafate) 1 g PO BID tramadol 50 mg PO Q6H PRN 30 days Tobacco use date assessed: 07/29/23 Dental Screening Dental Screen Date: 07/29/23 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 Review of the notes PFT done in April 2016 showing suboptimal combined obstructive/restrictive with significant response to bronchodilator consistent with asthma. Patient was last seen by the senior operations manager in August 2023 diagnosis of blood loss anemia admitted June 2021 gastric ulcer esophagitis then this year for hematemesis Lola-Bee tear patient rarely drinks alcohol, former smoker occasional NSAID using no H pylori advised proton pump inhibitor declined IV replacement of iron advised repeat EGD. Patient also has seen Pulmonary moderate persistent disease states inflammatory type 2 asthma can not tolerate giving injection with Dupixent placed on Breztri DuoNebs declined additional med for now. patient declined PFT testing. PAtient also complains of low back pain. PAtient was asking for something for sleep . states wanting tramadol. Discussed with the patient that there is some interaction between the Flexeril in the tramadol. Reviewed x-rays that was done recently showing Transitional vertebra at the lumbosacral junction with 6 nonrib-bearing type lumbar vertebra likely representing lumbarization of S1. Bones are normal anatomic alignment with no acute fracture or spondylolisthesis. Paravertebral soft tissues unremarkable XR/XR lumbar spine 2-3V IMPRESSION: No acute fracture or spondylolisthesis. Transitional vertebra at the lumbosacral junction. When advised to hold off from the tramadol patient states I am done I am not even going to take the blood pressure medication discussed about emotional problem patient declined to elaborate. Patient states poor in taking medication and discussed about ways to help with medication. As for the lower back advised physical therapy but patient keeps on declining. Wants to have a medication to help him sleep for the MRI. Has been prescribed alprazolam before but states does not make him sleepy as the pharmacy has mentioned to him. Advised patient that I will not give him something to help him sleep for the MRI as he will not be able to go there and get him out of that MRI also. As for anxiety and depression advised to give medication but patient rejected that also. Also told patient about duloxetine or trazodone but patient rejected that also. [facility] Medical History (Updated 10/14/23 @ 13:57 by Sondra Davis MD) Asthma UGIB (upper gastrointestinal bleed) Surgical History History of repair of hiatal hernia Family History Mother Bladder cancer Bone cancer Father Heart disease Stroke Diabetes Brother Substance use disorder Family/Other Mental health disorder Social History Household Members: Other Household Members Other:: roommate Housing: Apartment Do you presently have visiting nurse or other home services: No Alcohol intake: former Year quit: 2011 Patient Tobacco Use Status: Former Tobacco user Quit Date: 2013 e-Cigarette/Vaping Use: Never Used Second Hand Smoke Exposure: No service: No Current occupational status: disabled Cognitive needs: No Hearing needs: No Vision needs: No Questionnaire Thrive Questionnaire Date Thrive assessed: 07/29/23 CYNDIE-7 AMB Questionnaire CYNDIE-7 Date CYNDIE - 7 assessed: 07/29/23 Source: Developed by Drs. Jamar Padilla, Estrellita Phillip, Nickolas Pagan and colleagues, with an educational sebas from [employer]. Physical exam (Primary Care) Vital Signs: Last Vital Signs Pulse 103 H 10/14/23 13:10 BP 164/110 H 10/14/23 13:32 Pulse Ox 98 10/14/23 13:10 Oxygen Delivery Method Room Air 10/14/23 13:10 BMI result Body Mass Index 34.8 Tobacco/Smoking Status: Tobacco use Status Tobacco use date assessed 07/29/23 10/14/23 13:07 Patient Tobacco Use Status Former Tobacco user 10/14/23 13:07 e-Cigarette/Vaping Use Never Used 10/14/23 13:07 Thrive Assessment: Date of Thrive Assessment Date Thrive assessed 07/29/23 10/14/23 13:07 Const General: alert; No acute distress Eyes Conjunctivae: conjunctivae normal Resp Auscultation: clear to auscultation bilaterally Cardio Rate: regular rate Rhythm: regular rhythm GI Inspection: Yes normal to inspection Extrem General: Yes normal to inspection and No edema Assessment and Plan Assessment & Plan (1) Lola-Bee tear: Code(s): K22.6 - Gastro-esophageal laceration-hemorrhage syndrome Plan: Patient has been followed up by Gastroenterology patient is rejected the idea that he had this problem discussed about giving him pantoprazole and Carafate. Patient was advised to follow-up with Gastroenterology (2) HTN (hypertension) with goal to be determined: Code(s): I10 - Essential (primary) hypertension Plan: Decrease salt intake and exercise presently not on any medication. Blood pressure medication prescribed. Discussed that hydrochlorothiazide is a week water pill but becomes stronger with the lisinopril. Patient decided he wants just the lisinopril. (3) Acute blood loss anemia: Code(s): D62 - Acute posthemorrhagic anemia Plan: Iron deficiency but patient has declined iron infusion (4) GERD (gastroesophageal reflux disease): Code(s): K21.9 - Gastro-esophageal reflux disease without esophagitis Plan: Avoid the foods that causes that usually spicy foods, tomato products, juices, coffee, soda and foods that your sensitive to. After eating do not lie down, allow 3-4 hours before in lie down. And keep the head of bed above 30 degrees to avoid the acid from going up. (5) Asthma: Comment: April 2016 PFT Code(s): J45.909 - Unspecified asthma, uncomplicated Plan: Continue with albuterol and Breztri (6) Moderate major depression: Code(s): F32.1 - Major depressive disorder, single episode, moderate Plan: Continue with counseling declined any medication (7) Gastric ulcer: Code(s): K25.9 - Gastric ulcer, unspecified as acute or chronic, without hemorrhage or perforation Plan: Patient is being followed up by Gastroenterology has been placed on pantoprazole 40 mg twice a day and planned risk hoping in a few weeks to check for healing (8) Low back pain: Code(s): M54.50 - Low back pain, unspecified Plan: Muscle relaxants sent in, advised to get physical therapy but declined. Medications: New sucralfate (Carafate) 1 g PO BID 60 tabs 1RF K21.9 - Gastro-esophageal reflux disease without esophagitis lisinopril 20 mg PO DAILY 30 tabs 0RF I10 - Essential (primary) hypertension Refilled pantoprazole (Protonix) 40 mg PO BID 60 tabs 0RF cyclobenzaprine 10 mg PO TID PRN 90 tabs 0RF muscle spasm 30 days I10 - Essential (primary) hypertension Coding Level of Care Code New Pt Level 4 (10943) Diagnoses Lola-Bee tear K22.6 HTN (hypertension) with goal to be determined I10 Acute blood loss anemia D62 GERD (gastroesophageal reflux disease) K21.9 Asthma J45.909 Moderate major depression F32.1 Gastric ulcer K25.9 Low back pain M54.50
[2023-10-14 13:10] VITALS: BP 180/128; PULSE 103; O2SAT 98; BMI 34.8
[2023-10-14 13:32] VITALS: BP 164/110
== END 2023-10-14 14:47 | disposition home or self-care (01) ==
PROVIDERS: PCP Internal Medicine; Visit Provider Internal Medicine
DX: K22.6 Gastro-esophageal laceration-hemorrhage syndrome (principal); F32.1 Major depressive disorder, single episode, moderate; I10 Essential (primary) hypertension; D62 Acute posthemorrhagic anemia; K21.9 Gastro-esophageal reflux disease without esophagitis; J45.909 Unspecified asthma, uncomplicated; K25.9 Gastric ulcer, unspecified as acute or chronic, without hemorrhage or perforation; M54.50 Low back pain, unspecified
CPT/HCPCS: 99214

== ENCOUNTER 2024-01-04 12:57 | Outpatient (REF) | payer OTHER, SELFPAY ==
[2024-01-04 13:07] LABS: MANUAL DIFF FLAG NO
[2024-01-04 13:54] LABS: Basophils Absolute Auto 0.1 X10*3/uL (0.0-0.2); Basophils Percent Auto 0.8 % (0-2); Eosinophils Absolute Auto 0.3 X10*3/uL (0.0-0.4); Eosinophils Percent Auto 5.6 % (0-4); Hematocrit 41.5 % (42.0-52.0); Hemoglobin 13.1 g/dl (14.0-18.0); Imm Gran Abs Auto 0.02 X10*3/uL (0.00-0.03); Imm Gran Pct Auto 0.3 % (0.0-0.4); Lymphocytes Absolute Auto 1.1 X10*3/uL (1.2-4.9); Lymphocytes Percent Auto 17.9 % (20-40); Mean Corpuscular HGB Conc 31.6 g/dl (31.0-36.0); Mean Corpuscular Hemoglobin 25.7 pg (27.0-33.0); Mean Corpuscular Volume 81.4 fL (80.0-98.0); Mean Platelet Volume 9.6 fL (9.4-12.4); Monocytes Absolute Auto 0.6 X10*3/uL (0.1-1.2); Neutrophils Absolute Auto 4.1 x10*3/uL (2.0-8.3); Neutrophils Percent Auto 66.4 % (45-73); Platelet Count 392 X10*3/uL (160-400); Red Cell Distribution Width 15.4 % (11.0-16.0); White Blood Count 6.1 X10*3/uL (4.8-10.8)
[2024-01-04 14:02] LABS: Estimated Average Glucose 105 mg/dL; Hemoglobin A1c % 5.3 % (<6.0)
[2024-01-04 14:34] LABS: Alanine Aminotransferase 17 U/L (0-40); Albumin Level 4.2 g/dL (3.5-5.0); Alkaline Phosphatase 96 U/L (39-117); Anion Gap 11 (12-20); Aspartate Amino Transferase 18 U/L (5-37); Bilirubin Total 0.4 mg/dL (0.0-1.0); Blood Urea Nitrogen 15 mg/dL (9-16); Calcium 9.9 mg/dL (8.4-10.2); Carbon Dioxide 28 mmol/L (22-29); Chloride 106 mmol/L (96-108); Cholesterol 125 mg/dL (<200); Estimated Glomerular Filt Rate > 60; Glucose Random 121 mg/dL (60-115); HDL Cholesterol 34 mg/dL (>40); LDL Cholesterol Calculated 75 mg/dL (<100); Potassium 4.3 mmol/L (3.3-5.1); Sodium 141 mmol/L (135-145); Total Protein 7.3 g/dL (6.5-8.0); Triglycerides 84 mg/dL (<150)
[2024-01-04 14:38] LABS: Thyroid Stimulating Hormone < 0.01 uIU/mL (0.32-4.0)
== END 2024-01-04 12:58 | disposition home or self-care (01) ==
LOC: HO.LAB 12:57
PROVIDERS: Visit Provider Nurse Practitioner Family
DX: F33.1 Major depressive disorder, recurrent, moderate (principal); Z13.1 Encounter for screening for diabetes mellitus
CPT/HCPCS: 36415; 80053; 80061; 83036; 84443; 85025

== ENCOUNTER 2024-02-04 11:25 | Outpatient (REF) | payer OTHER, SELFPAY ==
[2024-02-04 12:50] LABS: Iron 34 mcg/dL (45-160); Percent Iron Saturation 12 % (15-50); Total Iron Binding Capacity 285 mcg/dL (228-428); Unsaturated Iron Binding 251 ug/dL
[2024-02-04 13:35] LABS: Folate 9.2 ng/mL (> or = 4.0); Vitamin B12 297 pg/mL (200-900)
== END 2024-02-04 11:26 | disposition home or self-care (01) ==
LOC: HO.LAB 11:25
PROVIDERS: Visit Provider Nurse Practitioner Family
DX: F33.1 Major depressive disorder, recurrent, moderate (principal)
CPT/HCPCS: 36415; 82607; 82746; 83540

== ENCOUNTER 2024-03-01 09:09 | Outpatient (REF) | payer OTHER, SELFPAY ==
[2024-03-01 10:51] LABS: Syphilis Screen Nonreactive (Nonreactive)
[2024-03-02 16:53] LABS: Lyme Abs Screen <0.90 index
== END 2024-03-01 09:10 | disposition home or self-care (01) ==
LOC: HO.LAB 09:09
PROVIDERS: PCP Internal Medicine; Visit Provider Physician Assistant
DX: L30.9 Dermatitis, unspecified (principal)
CPT/HCPCS: 36415; 86617; 86618; 86780

== ENCOUNTER 2024-03-14 15:25 | Outpatient (REF) | payer OTHER, SELFPAY ==
[2024-03-14 15:54] LABS: MANUAL DIFF FLAG NO
[2024-03-14 17:05] LABS: Basophils Absolute Auto 0.1 X10*3/uL (0.0-0.2); Eosinophils Absolute Auto 0.4 X10*3/uL (0.0-0.4); Eosinophils Percent Auto 4.9 % (0-4); Hematocrit 43.9 % (42.0-52.0); Imm Gran Abs Auto 0.05 X10*3/uL (0.00-0.03); Imm Gran Pct Auto 0.6 % (0.0-0.4); Lymphocytes Absolute Auto 1.2 X10*3/uL (1.2-4.9); Lymphocytes Percent Auto 15.3 % (20-40); Mean Corpuscular HGB Conc 31.9 g/dl (31.0-36.0); Mean Corpuscular Hemoglobin 26.2 pg (27.0-33.0); Mean Corpuscular Volume 82.2 fL (80.0-98.0); Mean Platelet Volume 9.6 fL (9.4-12.4); Monocytes Absolute Auto 0.5 X10*3/uL (0.1-1.2); Monocytes Percent Auto 6.2 % (2-11); Neutrophils Absolute Auto 5.6 x10*3/uL (2.0-8.3); Platelet Count 402 X10*3/uL (160-400); Red Blood Count 5.34 X10*6/uL (4.60-5.80); Red Cell Distribution Width 14.2 % (11.0-16.0); White Blood Count 7.7 X10*3/uL (4.8-10.8)
[2024-03-14 17:31] LABS: Alanine Aminotransferase 21 U/L (0-40); Albumin Level 4.2 g/dL (3.5-5.0); Alkaline Phosphatase 105 U/L (39-117); Anion Gap 11 (12-20); Aspartate Amino Transferase 14 U/L (5-37); Bilirubin Direct 0.1 mg/dL (0.0-0.5); Bilirubin Total 0.4 mg/dL (0.0-1.0); Blood Urea Nitrogen 15 mg/dL (9-16); Carbon Dioxide 27 mmol/L (22-29); Chloride 107 mmol/L (96-108); Cholesterol 161 mg/dL (<200); Estimated Glomerular Filt Rate > 60; Glucose Random 96 mg/dL (60-115); HDL Cholesterol 49 mg/dL (>40); LDL Cholesterol Calculated 98 mg/dL (<100); Potassium 4.2 mmol/L (3.3-5.1); Sodium 141 mmol/L (135-145); Total Protein 7.6 g/dL (6.5-8.0); Triglycerides 73 mg/dL (<150)
[2024-03-15 04:37] LABS: HBS Num1 0.62 mIU/mL (0-7.99); HBc Num1 0.12 S/CO (0.00-0.79); HBsAGNum1 0.32 S/CO (0.00-0.99); Hepatitis B Core Antibody Nonreactive (Nonreactive); Hepatitis B Surface Antigen Negative (Negative); ~Hepatitis B Surface Antibody NONREACTIVE (Nonreactive); ~Hepatitis C Antibody Nonreactive (Nonreactive)
[2024-03-17 12:29] LABS: TS Negative Control Passed; TS Panel A 0; TS Panel B 0; TS Positive Control Passed; TSpotTB Negative (Negative)
== END 2024-03-14 15:26 | disposition home or self-care (01) ==
LOC: HO.LAB 15:25
PROVIDERS: Visit Provider Physician Assistant
DX: L30.9 Dermatitis, unspecified (principal); Z79.899 Other long term (current) drug therapy
CPT/HCPCS: 36415; 80048; 80061; 80076; 85025; 86481; 86704; 86706; 86803; 87340

== ENCOUNTER 2024-05-29 13:45 | Outpatient (AMB) | payer OTHER, SELFPAY ==
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
--- OUTSIDE RECORDS SUMMARY | 2024-05-29 13:47 | XMS_ITS ---
Author Name [facility] Organization Unknown Results Test Name/Text Value Interpretation Date Range Source ICD-10 CODES Normal [facility]CONNP[facility] LAB AP GROSS DESCRIPTION Received in formalin. Dimensions 5 x 4 x 8 mm, bisected, and submitted in 1 cassette. Also received is a vial of tissue transport medium (Fredy's) containing a biopsy specimen measuring 4 x 3 x 6 mm. Tissue was washed in phosphate buffered saline and then embedded in OCT for immunofluorescent studies. Tissue was frozen, cut at 5 microns, and stained with fluorescein-labeled antibody to human IgG, IgM, IgA, C3 and fibrinogen. Normal [facility] LAB AP CLINICAL INFORMATION Well-demarcated purple plaques without significant scale, most prominent on the abdominal pannus and one similar appearing area on the R clavicular area. In the center of the abdominal area he has some scattered pustules within this plaque. He also has ill-defined pink erythema with some crusted erosions and white scale. DDx: dermatitis unsp vs lichen planus vs contact dermatitis vs pustular psoriasis vs connective tissue disease vs very low suspicion CTCL. Normal [facility]
[2024-05-29 13:48] VITALS: BP 166/103; PULSE 104; BMI 35.4
== END 2024-05-29 15:05 | disposition home or self-care (01) ==
PROVIDERS: PCP Internal Medicine; Visit Provider Internal Medicine Gastroenterology
DX: K25.9 Gastric ulcer, unspecified as acute or chronic, without hemorrhage or perforation (principal)
CPT/HCPCS: 99214

== ENCOUNTER → 2024-05-29 13:45 | Outpatient (BNVA) | payer OTHER, SELFPAY | PROVIDERS: PCP Internal Medicine; Visit Provider Internal Medicine Gastroenterology | DX: K25.9 Gastric ulcer, unspecified as acute or chronic, without hemorrhage or perforation (principal) | CPT/HCPCS: 99212 ==

== ENCOUNTER 2024-06-08 13:04 | Outpatient (REF) | payer OTHER, SELFPAY ==
[2024-06-08 13:21] LABS: MANUAL DIFF FLAG NO
[2024-06-08 14:10] LABS: Basophils Absolute Auto 0.1 X10*3/uL (0.0-0.2); Basophils Percent Auto 0.8 % (0-2); Eosinophils Absolute Auto 0.3 X10*3/uL (0.0-0.4); Eosinophils Percent Auto 4.1 % (0-4); Hematocrit 43.4 % (42.0-52.0); Hemoglobin 13.7 g/dl (14.0-18.0); Imm Gran Abs Auto 0.02 X10*3/uL (0.00-0.03); Imm Gran Pct Auto 0.3 % (0.0-0.4); Lymphocytes Absolute Auto 1.2 X10*3/uL (1.2-4.9); Lymphocytes Percent Auto 17.6 % (20-40); Mean Corpuscular HGB Conc 31.6 g/dl (31.0-36.0); Mean Corpuscular Hemoglobin 26.1 pg (27.0-33.0); Mean Corpuscular Volume 82.8 fL (80.0-98.0); Mean Platelet Volume 9.3 fL (9.4-12.4); Monocytes Absolute Auto 0.5 X10*3/uL (0.1-1.2); Monocytes Percent Auto 7.9 % (2-11); Neutrophils Absolute Auto 4.6 x10*3/uL (2.0-8.3); Neutrophils Percent Auto 69.3 % (45-73); Platelet Count 369 X10*3/uL (160-400); Red Blood Count 5.24 X10*6/uL (4.60-5.80); Red Cell Distribution Width 15.1 % (11.0-16.0); White Blood Count 6.6 X10*3/uL (4.8-10.8)
[2024-06-08 14:34] LABS: Alanine Aminotransferase 21 U/L (0-40); Albumin Level 4.3 g/dL (3.5-5.0); Alkaline Phosphatase 87 U/L (39-117); Anion Gap 11 (12-20); Aspartate Amino Transferase 21 U/L (5-37); Bilirubin Total 0.7 mg/dL (0.0-1.0); Blood Urea Nitrogen 14 mg/dL (9-16); Calcium 9.6 mg/dL (8.4-10.2); Carbon Dioxide 25 mmol/L (22-29); Chloride 108 mmol/L (96-108); Cholesterol 158 mg/dL (<200); Estimated Glomerular Filt Rate > 60; Glucose Random 90 mg/dL (60-115); HDL Cholesterol 44 mg/dL (>40); LDL Cholesterol Calculated 99 mg/dL (<100); Potassium 4.4 mmol/L (3.3-5.1); Sodium 140 mmol/L (135-145); Total Protein 7.6 g/dL (6.5-8.0); Triglycerides 77 mg/dL (<150)
[2024-06-08 14:41] LABS: Reflex LDLD? No
[2024-06-13 07:09] LABS: Anti Nuclear Antibody Screen NEGATIVE (NEGATIVE)
== END 2024-06-08 13:05 | disposition home or self-care (01) ==
LOC: HO.LAB 13:04
PROVIDERS: PCP Nurse Practitioner Family; Visit Provider Physician Assistant
DX: L30.9 Dermatitis, unspecified (principal)
CPT/HCPCS: 36415; 80053; 80061; 85025; 86038

== ENCOUNTER 2024-06-22 12:44 | Outpatient (REF) | payer OTHER, SELFPAY ==
[2024-06-22 12:56] LABS: MANUAL DIFF FLAG NO
[2024-06-22 13:18] LABS: Basophils Absolute Auto 0.1 X10*3/uL (0.0-0.2); Basophils Percent Auto 1.3 % (0-2); Eosinophils Absolute Auto 0.2 X10*3/uL (0.0-0.4); Eosinophils Percent Auto 3.6 % (0-4); Hematocrit 46.2 % (42.0-52.0); Hemoglobin 14.7 g/dl (14.0-18.0); Imm Gran Abs Auto 0.04 X10*3/uL (0.00-0.03); Imm Gran Pct Auto 0.6 % (0.0-0.4); Lymphocytes Absolute Auto 1.4 X10*3/uL (1.2-4.9); Lymphocytes Percent Auto 21.3 % (20-40); Mean Corpuscular HGB Conc 31.8 g/dl (31.0-36.0); Mean Corpuscular Hemoglobin 26.2 pg (27.0-33.0); Mean Corpuscular Volume 82.4 fL (80.0-98.0); Mean Platelet Volume 9.1 fL (9.4-12.4); Monocytes Absolute Auto 0.4 X10*3/uL (0.1-1.2); Monocytes Percent Auto 6.4 % (2-11); Neutrophils Absolute Auto 4.3 x10*3/uL (2.0-8.3); Neutrophils Percent Auto 66.8 % (45-73); Platelet Count 377 X10*3/uL (160-400); Red Blood Count 5.61 X10*6/uL (4.60-5.80); White Blood Count 6.4 X10*3/uL (4.8-10.8)
[2024-06-22 13:46] LABS: Alanine Aminotransferase 24 U/L (0-40); Albumin Level 4.4 g/dL (3.5-5.0); Alkaline Phosphatase 108 U/L (39-117); Anion Gap 9 (12-20); Aspartate Amino Transferase 20 U/L (5-37); Bilirubin Total 0.5 mg/dL (0.0-1.0); Blood Urea Nitrogen 13 mg/dL (9-16); Carbon Dioxide 28 mmol/L (22-29); Chloride 108 mmol/L (96-108); Estimated Glomerular Filt Rate > 60; Glucose Random 94 mg/dL (60-115); Potassium 4.7 mmol/L (3.3-5.1); Sodium 140 mmol/L (135-145); Total Protein 8.2 g/dL (6.5-8.0)
== END 2024-06-22 12:45 | disposition home or self-care (01) ==
LOC: HO.LAB 12:44
PROVIDERS: Visit Provider Physician Assistant
DX: L30.9 Dermatitis, unspecified (principal); Z79.899 Other long term (current) drug therapy
CPT/HCPCS: 36415; 80053; 85025